=== PATIENT | male | born 1950 | race Caucasian/White ===

== ENCOUNTER 2017-05-31 18:47 | Inpatient (IN) | payer BC ==
[2017-05-31] MEDS ORDERED: ACETAMINOPHEN TAB 500 MG TAB PO STA (19:44)
[2017-05-31] MEDS ORDERED: SODIUM CHLORIDE 0.9% 1,000 ML IV STA ×2 (19:45)
[2017-05-31 19:49] LABS: Appearance,Urine Clear (Clear); Bilirubin,Urine Negative (Negative); Blood,Urine Negative (Negative); Color,Urine Yellow; Glucose,Urine (UA) Trace (Negative); Ketones,Urine Negative (Negative); Leukocyte Esterase,Urine Negative (Negative); Nitrite,Urine Negative (Negative); PH, Urine 5.5 (5.0-8.0); Protein,Urine Trace (Negative); Specific Gravity,Urine 1.017 (1.001-1.035); Urobilinogen,Urine <2.0 mg/dL (<2.0)
[2017-05-31] MEDS ORDERED: MORPHINE SULFATE 4MG/4ML SYRG IVP STA (20:20)
[2017-05-31] MEDS ORDERED: RX INFO: IV CONTRAST WAS GIVEN 1 EACH MISC MISCELLANE PRN (20:21)
[2017-05-31 20:43] LABS: Basophils % (A) 0 %; Eosinophils # (A) 0.1 k/uL (0-0.7); Eosinophils % (A) 1 %; HCT 36.5 % (39.0-53.0); HGB 12.7 gm/dL (13.0-17.5); Lymphocytes # (A) 1.6 k/uL (1.0-4.8); Lymphocytes % (A) 16 %; MCH 32.2 pg (25.0-35.0); MCHC 34.7 g/dL (31.0-37.0); MCV 92.7 fL (80.0-100.0); Mean Platelet Volume 7.6; Monocytes # (A) 0.9 k/uL (0-1.0); Monocytes % (A) 9 %; Neutrophils # (A) 7.3 k/uL (1.3-7.7); Neutrophils % (A) 73 %; Platelet Count 244 k/uL (150-450); RBC 3.94 m/uL (4.30-5.90); RDW 13.3 % (11.5-15.5)
[2017-05-31 20:48] LABS: ALT 25 U/L (21-72); AST 24 U/L (17-59); Albumin 3.9 g/dL (3.5-5.0); Alkaline Phosphatase 106 U/L (38-126); Amylase 77 U/L (30-110); Anion Gap 14 mmol/L; Blood Urea Nitrogen 15 mg/dL (9-20); Calcium 9.4 mg/dL (8.4-10.2); Carbon Dioxide 24 mmol/L (22-30); Chloride 103 mmol/L (98-107); Glucose 121 mg/dL (74-99); Lipase 149 U/L (23-300); Potassium 4.4 mmol/L (3.5-5.1); Sodium 141 mmol/L (137-145); Total Bilirubin 0.3 mg/dL (0.2-1.3); Total Protein 7.2 g/dL (6.3-8.2)
[2017-05-31 20:59] LABS: C Reactive Protein 176.7 mg/L (<10.0)
[2017-05-31 21:37] LABS: Erythrocyte Sedimentation Rate 67 mm/hr (0-15)
--- NOTE | 2017-05-31 21:48 | CT ---
EXAMINATION TYPE: CT abdomen pelvis w con DATE OF EXAM: 05/31/2017 COMPARISON: NONE HISTORY: left hip, groin pain CT DLP: 1546.50 mGycm, Automated Exposure Control for Dose Reduction was Utilized. CONTRAST: CT scan of the abdomen and pelvis is performed without oral but with with IV Contrast, patient inject ed with 100 mL of Isovue 300. FINDINGS: LUNG BASES: There is left basilar linear scarring and/or atelectasis. LIVER/GB: Cholecystectomy clips are present. PANCREAS: No significant abnormality is seen. SPLEEN: No significant abnormality is seen. ADRENALS: No significant abnormality is seen. KIDNEYS: There is simple appearing 2.5 cm cyst anteriorly upper pole of the right kidney. There is sy mmetric cortical medullary uptake and excretion from both kidneys without evidence of hydronephrosis bilaterally. Bladder is poorly distended and thus suboptimally evaluated. Some ill-defined fat strand ing along superior margin is present. Some eccentric wall thickening inferiorly is seen. Scattered pe lvic phleboliths are noted. In the bilateral adnexa there are low density oval-shaped well-circumscri bed lesions on axial image 78, right lesion measures 5.6 x 3.1 cm with Hounsfield units averaging 16 on axial image 78. Left lesion measures 4.6 x 3.9 cm with Hounsfield units averaging 19. Suspect bila teral lymphoceles. Other etiology is not excluded. Lesions are not thick walled. BOWEL: No significant abnormality is seen. PROSTATE/SEMINAL VESICLES: Prostate gland is not enlarged. 3 bullets are present. LYMPH NODES: No greater than 1cm abdominal or pelvic lymph nodes are appreciated. OSSEOUS STRUCTURES: Posterior interpedicular rods and screws transfix L2-S1 levels bilaterally. There is prominent spurring in the thoracic spine. OTHER: No significant additional abnormality is seen. IMPRESSION: 1. Possible cystitis, correlate clinically. 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 Infected lymphocele is not excluded as there is inflammatory change near this level and bladde r present.
[2017-05-31] MEDS ORDERED: LEVOFLOXACIN 750MG-D5W PMX 750 MG in DEXTROSE/WATER 1 150ML.BAG IVPB STA (22:05)
--- NOTE | 2017-05-31 22:48 | ED ---
Abdominal Pain HPI - General Source: patient, RN notes reviewed, old records reviewed Mode of arrival: ambulatory Limitations: physical limitation <Laurence Naidu - Last Filed: 06/01/17 03:56> <Amish Valero - Last Filed: 06/01/17 20:38> - General Chief Complaint: Abdominal Pain Stated Complaint: Groin/Leg Pain Time Seen by Provider: 05/31/17 19:39 - History of Present Illness Initial Comments: This patient is 58-year-old male presents emergency department today chief complaint of a few days of left groin pain. She was at a prostatectomy in February. He reports that occasionally radiate down to his hip. He reports pain with range of motion of his left hip. He states he also some pain in the left lower quadrant is abdomen. History of prostatectomy. Is ago. He states that he's had chills and fever. No difficulty with urination. No nausea or vomiting. (Laurence Naidu) - Related Data Home Medications Medication Instructions Recorded Confirmed Aspirin EC [Ecotrin Low Dose] 81 mg PO HS 05/31/17 05/31/17 Clopidogrel Bisulfate [Plavix] 75 mg PO HS 05/31/17 05/31/17 DULoxetine HCL [Cymbalta] 60 mg PO HS 05/31/17 05/31/17 Lisinopril [Zestril] 10 mg PO HS 05/31/17 05/31/17 Metoprolol Tartrate [Lopressor] 25 mg PO HS 05/31/17 05/31/17 Niacin [Slo-Niacin] 1,000 mg PO HS 05/31/17 05/31/17 Pregabalin [Lyrica] 150 mg PO HS 05/31/17 05/31/17 Pregabalin [Lyrica] 150 mg PO QAM PRN 05/31/17 05/31/17 Ranitidine HCl [Zantac] 150 mg PO HS 05/31/17 05/31/17 Ranolazine [Ranexa] 1,000 mg PO HS 05/31/17 05/31/17 Sildenafil Citrate [Sildenafil] 20 mg PO HS 05/31/17 05/31/17 Tamsulosin HCl [Flomax] 0.4 mg PO HS 05/31/17 05/31/17 Temazepam [Restoril] 15 mg PO HS 05/31/17 05/31/17 amLODIPine [Norvasc] 5 mg PO HS 05/31/17 05/31/17 lamoTRIgine [LaMICtal] 200 mg PO HS 05/31/17 05/31/17 sitaGLIPtin PHOS/metFORMIN HCL 2 tab PO HS 05/31/17 05/31/17 [Janumet Xr 50-1,000 mg Tablet] traZODone HCL [Desyrel] 200 mg PO HS 05/31/17 05/31/17 valACYclovir [Valtrex] 500 mg PO HS 05/31/17 05/31/17 Allergies Allergy/AdvReac Type Severity Reaction Status Date / Time No Known Allergies Allergy Verified 05/31/17 20:02 Review of Systems ROS Other: All systems not noted in ROS Statement are negative. <Laurence Naidu - Last Filed: 06/01/17 03:56> ROS Other: All systems not noted in ROS Statement are negative. <Amish Valero - Last Filed: 06/01/17 20:38> ROS Statement: Those systems with pertinent positive or pertinent negative responses have been documented in the HPI. Past Medical History Past Medical History: Myocardial Infarction ([place]) Additional Past Medical History / Comment(s): neuropathy, 5 stents in his heart, History of Any Multi-Drug Resistant Organisms: None Reported Past Surgical History: Prostate Surgery Additional Past Surgical History / Comment(s): stents placed, L1-s1 fused, Past Psychological History: No Psychological Hx Reported Smoking Status: Never smoker Past Alcohol Use History: None Reported Past Drug Use History: None Reported <Laurence Naidu - Last Filed: 06/01/17 03:56> General Exam Limitations: physical limitation General appearance: alert, in no apparent distress Head exam: Present: atraumatic, normocephalic, normal inspection Eye exam: Present: normal appearance, PERRL, EOMI. Absent: scleral icterus, conjunctival injection, periorbital swelling ENT exam: Present: normal exam, mucous membranes moist Neck exam: Present: normal inspection. Absent: tenderness, meningismus, lymphadenopathy Respiratory exam: Present: normal lung sounds bilaterally. Absent: respiratory distress, wheezes, rales, rhonchi, stridor Cardiovascular Exam: Present: regular rate, normal rhythm, normal heart sounds. Absent: systolic murmur, diastolic murmur, rubs, gallop, clicks GI/Abdominal exam: Present: soft, tenderness (Suprapubic tenderness.), normal bowel sounds, other (Left groin tenderness.). Absent: distended, guarding, rebound, rigid Extremities exam: Present: normal inspection, full ROM, normal capillary refill. Absent: tenderness, pedal edema, joint swelling, calf tenderness Left Hip exam: Present: normal inspection, full ROM, tenderness (Tenderness to palpation over the left inguinal region. No palpable lymph nodes No erythema.) Upper Leg exam: Present: normal inspection, full ROM Knee exam: Present: normal inspection, full ROM Back exam: Present: normal inspection Neurological exam: Present: alert, oriented X3, CN II-XII intact Psychiatric exam: Present: normal affect, normal mood Skin exam: Present: warm, dry, intact, normal color. Absent: rash <Laurence Naidu - Last Filed: 06/01/17 03:56> <Amish Valero - Last Filed: 06/01/17 20:38> - General Exam Comments Initial Comments: 66-year-old male. Alert and oriented. He is febrile 101.7. (Laurence Naidu) Vital Signs 05/31/17 05/31/17 05/31/17 19:25 22:13 23:10 Temperature 101.7 F H 99.1 F 98.2 F Pulse Rate 101 H 84 81 Respiratory 18 18 16 Rate Blood Pressure 139/79 145/75 147/9 O2 Sat by Pulse 97 96 96 Oximetry Medical Decision Making - Lab Data Result diagrams: 05/31/17 20:25 05/31/17 20:25 - Radiology Data Radiology results: report reviewed <Laurence Naidu - Last Filed: 06/01/17 03:56> - Lab Data Result diagrams: 05/31/17 20:25 05/31/17 20:25 <Amish Valero - Last Filed: 06/01/17 20:38> - Medical Decision Making 58-year-old male presents for his pharmacy chief complaint of left groin and abdominal pain. He arrives with a fever 101.7. Given Tylenol and started on IV fluids. Blood cultures and lactic acid obtained. He does have some pain with range of motion of the left hip. He CRP ordered to rule out initial possibility of septic arthritis. He reported that he was unable to bear weight and ambulate, but patient is able to do so. He was able to go through ROM of hip , without major pain. Patient has a normal white blood cell count. Lactic acid is negative. His CRP is elevated 176. His urinalysis shows no infection. A did do a CT abdomen and pelvis with contrast. The CT abdomen and pelvis shows possible cystitis to correlate clinically. There is bilateral cystic lesions which fever postsurgical lymphoceles. Infected lymphocele does not exclude it is her inflammatory changes near this level in the bladder present. With patient's fever, elevated CRP and ESR, concern for possibility of infection. Although his white blood cell count is normal and he does have a negative lactic acid. I will start the patient on Levaquin. Discussed with Dr. Harkins who discussed this with Dr. Del Angel. We will consult the on-call surgeon Dr. Akhtar. (Laurence Naidu) I saw this patient in conjunction with the physician hearing aid assistant. I performed independent history and physical exam. Agree with case management. (Amish Valero) - Lab Data Lab Results 05/31/17 05/31/17 05/31/17 Range/Units 19:40 20:25 20:25 WBC 10.0 (3.8-10.6) k/uL RBC 3.94 L (4.30-5.90) m/uL Hgb 12.7 L (13.0-17.5) gm/dL Hct 36.5 L (39.0-53.0) % MCV 92.7 (80.0-100.0) fL MCH 32.2 (25.0-35.0) pg MCHC 34.7 (31.0-37.0) g/dL RDW 13.3 (11.5-15.5) % Plt Count 244 (150-450) k/uL Neutrophils % 73 % Lymphocytes % 16 % Monocytes % 9 % Eosinophils % 1 % Basophils % 0 % Neutrophils # 7.3 (1.3-7.7) k/uL Lymphocytes # 1.6 (1.0-4.8) k/uL Monocytes # 0.9 (0-1.0) k/uL Eosinophils # 0.1 (0-0.7) k/uL Basophils # 0.0 (0-0.2) k/uL ESR 67 H (0-15) mm/hr Sodium 141 (137-145) mmol/L Potassium 4.4 (3.5-5.1) mmol/L Chloride 103 (98-107) mmol/L Carbon Dioxide 24 (22-30) mmol/L Anion Gap 14 mmol/L BUN 15 (9-20) mg/dL Creatinine 0.80 (0.66-1.25) mg/dL Est GFR (CKD-EPI)AfAm >90 (>60 ml/min/1.73 sqM) Est GFR (CKD-EPI)NonAf >90 (>60 ml/min/1.73 sqM) Glucose 121 H (74-99) mg/dL Plasma Lactic Acid Sheng (0.7-2.0) mmol/L Calcium 9.4 (8.4-10.2) mg/dL Total Bilirubin 0.3 (0.2-1.3) mg/dL AST 24 (17-59) U/L ALT 25 (21-72) U/L Alkaline Phosphatase 106 (38-126) U/L C-Reactive Protein 176.7 H (<10.0) mg/L Total Protein 7.2 (6.3-8.2) g/dL Albumin 3.9 (3.5-5.0) g/dL Amylase 77 (30-110) U/L Lipase 149 (23-300) U/L Urine Color Yellow Urine Appearance Clear (Clear) Urine pH 5.5 (5.0-8.0) Ur Specific Johnson 1.017 (1.001-1.035) Urine Protein Trace H (Negative) Urine Glucose (UA) Trace H (Negative) Urine Ketones Negative (Negative) Urine Blood Negative (Negative) Urine Nitrite Negative (Negative) Urine Bilirubin Negative (Negative) Urine Urobilinogen <2.0 (<2.0) mg/dL Ur Leukocyte Esterase Negative (Negative) Influenza Type A RNA (Not Detectd) Influenza Type B (PCR) (Not Detectd) 05/31/17 05/31/17 Range/Units 20:25 21:13 WBC (3.8-10.6) k/uL RBC (4.30-5.90) m/uL Hgb (13.0-17.5) gm/dL Hct (39.0-53.0) % MCV (80.0-100.0) fL MCH (25.0-35.0) pg MCHC (31.0-37.0) g/dL RDW (11.5-15.5) % Plt Count (150-450) k/uL Neutrophils % % Lymphocytes % % Monocytes % % Eosinophils % % Basophils % % Neutrophils # (1.3-7.7) k/uL Lymphocytes # (1.0-4.8) k/uL Monocytes # (0-1.0) k/uL Eosinophils # (0-0.7) k/uL Basophils # (0-0.2) k/uL ESR (0-15) mm/hr Sodium (137-145) mmol/L Potassium (3.5-5.1) mmol/L Chloride (98-107) mmol/L Carbon Dioxide (22-30) mmol/L Anion Gap mmol/L BUN (9-20) mg/dL Creatinine (0.66-1.25) mg/dL Est GFR (CKD-EPI)AfAm (>60 ml/min/1.73 sqM) Est GFR (CKD-EPI)NonAf (>60 ml/min/1.73 sqM) Glucose (74-99) mg/dL Plasma Lactic Acid Sheng 0.9 (0.7-2.0) mmol/L Calcium (8.4-10.2) mg/dL Total Bilirubin (0.2-1.3) mg/dL AST (17-59) U/L ALT (21-72) U/L Alkaline Phosphatase (38-126) U/L C-Reactive Protein (<10.0) mg/L Total Protein (6.3-8.2) g/dL Albumin (3.5-5.0) g/dL Amylase (30-110) U/L Lipase (23-300) U/L Urine Color Urine Appearance (Clear) Urine pH (5.0-8.0) Ur Specific Johnson (1.001-1.035) Urine Protein (Negative) Urine Glucose (UA) (Negative) Urine Ketones (Negative) Urine Blood (Negative) Urine Nitrite (Negative) Urine Bilirubin (Negative) Urine Urobilinogen (<2.0) mg/dL Ur Leukocyte Esterase (Negative) Influenza Type A RNA Not Detected (Not Detectd) Influenza Type B (PCR) Not Detected (Not Detectd) - Radiology Data The CT abdomen and pelvis shows possible cystitis to correlate clinically. There is bilateral cystic lesions which fever postsurgical lymphoceles. Infected lymphocele does not exclude it is her inflammatory changes near this level in the bladder present. (Laurence Naidu) Disposition Time of Disposition: 22:48 <Laurence Naidu - Last Filed: 06/01/17 03:56> <Amish Valero - Last Filed: 06/01/17 20:38> Clinical Impression: Lymphocele, Fever, Left groin pain Disposition: ADMITTED IP TO THIS HOSP Condition: Stable
[2017-05-31] MEDS ORDERED: ONDANSETRON 4 MG/2 ML VIAL IVP PRN (23:32)
[2017-05-31] MEDS ORDERED: IBUPROFEN 400 MG TAB PO PRN (23:32)
[2017-05-31] MEDS ORDERED: NALOXONE 0.4 MG/ML 1 ML VIAL IV PRN (23:32)
[2017-06-01] MEDS: SODIUM CHLORIDE 0.9% 1,000 ML IV SCH ×3 (01:19→19:01)
[2017-06-01 01:30] VITALS: BMI 29.2
[2017-06-01] MEDS: MORPHINE ORAL SOLN 10 MG/5 ML CUP PO PRN ×3 (08:39→20:41)
[2017-06-01] MEDS: PANTOPRAZOLE 40 MG/10 ML VIAL IV SCH (08:41)
[2017-06-01] MEDS ORDERED: PREGABALIN 75 MG CAP PO PRN (10:42)
--- NOTE | 2017-06-01 10:42 | P.HPIM ---
History of Present Illness H&P Date: 06/01/17 Chief Complaint: Left groin pain Braydon Bhatia is a 66-year-old male patient of Dr. Kelsey Valente who presented to [facility] emergency room chief complaint of left groin pain that started few days prior to presentation and has been worsening, patient reports radiation of his pain, with having difficulty lifting his left lower extremity up pain is also radiating to the left lower quadrant of the abdomen. Patient states that he was recently diagnosed with prostate cancer and underwent prostatectomy [facility] on 04/04/2017. Patient states that he had some fever and chills his temperature on presentation was 101.7 otherwise he denies any other symptoms, there was no headache no dizziness no chest pain or shortness of breath no cough no nausea or vomiting no diarrhea or constipation, he had some urinary frequency but no burning with urination, and no urgency, he denies any blood in the urine. Patient was evaluated in the emergency room, he underwent computed tomography scan of the abdomen and pelvis with contrast which revealed bilateral cystic lesions in the groin which are suspected to be lymphoceles and possibly infected lymphoceles, he was started on IV Levaquin in the emergency room and was admitted to medical floor. Past Medical History Past Medical History: Myocardial Infarction ([place]) Additional Past Medical History / Comment(s): neuropathy, 5 stents in his heart, Last Myocardial Infarction Date:: 2002 History of Any Multi-Drug Resistant Organisms: None Reported Past Surgical History: Prostate Surgery Additional Past Surgical History / Comment(s): stents placed, L1-s1 fused, Date of Last Stent Placement:: 2002 Past Psychological History: No Psychological Hx Reported Smoking Status: Never smoker Past Alcohol Use History: None Reported Past Drug Use History: None Reported Medications and Allergies Home Medications Medication Instructions Recorded Confirmed Type Aspirin EC [Ecotrin Low Dose] 81 mg PO HS 05/31/17 05/31/17 History Clopidogrel Bisulfate [Plavix] 75 mg PO HS 05/31/17 05/31/17 History DULoxetine HCL [Cymbalta] 60 mg PO HS 05/31/17 05/31/17 History Lisinopril [Zestril] 10 mg PO HS 05/31/17 05/31/17 History Metoprolol Tartrate [Lopressor] 25 mg PO HS 05/31/17 05/31/17 History Niacin [Slo-Niacin] 1,000 mg PO HS 05/31/17 05/31/17 History Pregabalin [Lyrica] 150 mg PO HS 05/31/17 05/31/17 History Pregabalin [Lyrica] 150 mg PO QAM PRN 05/31/17 05/31/17 History Ranitidine HCl [Zantac] 150 mg PO HS 05/31/17 05/31/17 History Ranolazine [Ranexa] 1,000 mg PO HS 05/31/17 05/31/17 History Sildenafil Citrate [Sildenafil] 20 mg PO HS 05/31/17 05/31/17 History Tamsulosin HCl [Flomax] 0.4 mg PO HS 05/31/17 05/31/17 History Temazepam [Restoril] 15 mg PO HS 05/31/17 05/31/17 History amLODIPine [Norvasc] 5 mg PO HS 05/31/17 05/31/17 History lamoTRIgine [LaMICtal] 200 mg PO HS 05/31/17 05/31/17 History sitaGLIPtin PHOS/metFORMIN HCL 2 tab PO HS 05/31/17 05/31/17 History [Janumet Xr 50-1,000 mg Tablet] traZODone HCL [Desyrel] 200 mg PO HS 05/31/17 05/31/17 History valACYclovir [Valtrex] 500 mg PO HS 05/31/17 05/31/17 History Allergies Allergy/AdvReac Type Severity Reaction Status Date / Time No Known Allergies Allergy Verified 05/31/17 20:02 Physical Exam Vitals: Vital Signs Temp Pulse Pulse Resp BP BP Pulse Ox 06/01/17 06:42 97.6 F 78 20 129/73 95 06/01/17 00:40 97.9 F 82 20 147/82 96 05/31/17 23:10 98.2 F 81 16 147/9 96 05/31/17 22:13 99.1 F 84 18 145/75 96 05/31/17 19:25 101.7 F H 101 H 18 139/79 97 Intake and Output 05/31/17 06/01/17 06/01/17 22:59 06:59 14:59 Intake Total 200 Balance 200 Intake: Oral 200 Other: Voiding Method Toilet Urinal # Voids 2 Weight 97.522 kg 97.522 kg In general patient is alert and oriented 3 in no apparent distress HEENT head normocephalic and atraumatic Neck is supple no JVD no goiter no lymphadenopathy Chest exam is clear to auscultation no crackles no wheezing Cardiac exam reveals regular heart sounds S1 and S2 no gallops no murmurs Abdomen is soft nontender no organomegaly with normal bowel sounds there is mild tenderness in the left groin area Extremity exam reveals no edema no cyanosis or clubbing Neurological examination reveals no gross focal deficit Results CBC & Chem 7: 05/31/17 20:25 05/31/17 20:25 Labs: Abnormal Lab Results - Last 24 Hours (Table) 05/31/17 05/31/17 05/31/17 Range/Units 19:40 20:25 20:25 RBC 3.94 L (4.30-5.90) m/uL Hgb 12.7 L (13.0-17.5) gm/dL Hct 36.5 L (39.0-53.0) % ESR 67 H (0-15) mm/hr Glucose 121 H (74-99) mg/dL C-Reactive Protein 176.7 H (<10.0) mg/L Urine Protein Trace H (Negative) Urine Glucose (UA) Trace H (Negative) Thrombosis Risk Factor Assmnt - Choose All That Apply Any of the Below Risk Factors Present?: No Other Risk Factors: Yes Each Risk Factor Represents 2 Points: Age 61-74 years Thrombosis Risk Factor Assessment Total Risk Factor Score: 2 Thrombosis Risk Factor Assessment Level: Low Risk Assessment and Plan Plan: #1 febrile illness with groin pain, and computed tomography scan of the pelvis revealing evidence of suspected bilateral infected lymphoceles, patient was started on IV Levaquin in the emergency room, will continue, will recheck repeat computed tomography scan in the next 1-2 days. Urology consultation discussed was patient however he prefers to see his own urologist at [facility]. This will be arranged as outpatient post discharge however if patient is not showing improvement we may have to transfer him to [facility] for urology evaluation. This was discussed in details with patient and his family. #2 underlying history of hypertension well-controlled on current medications continue #3 underlying history of [id number]-[id number] diabetes mellitus millimeters #4 underlying history of hyperlipidemia #5 previous history of coronary artery disease and myocardial infarction, stable at this time without any cardiac symptoms, home medications reviewed and reordered. Plan to continue with IV Levaquin at this time recheck computed tomography scan of the pelvis in the next 1-2 days, further treatment will depend on clinical course and computed tomography scan report
[2017-06-01] MEDS: ACETAMINOPHEN TAB 325 MG TAB PO PRN ×2 (13:04→20:45)
[2017-06-01] MEDS: PREGABALIN 75 MG CAP PO SCH (20:46)
[2017-06-01] MEDS: valACYclovir 500 MG TAB PO SCH (20:46)
[2017-06-01] MEDS: NIACIN TR 500 MG CAPSULE.ER PO SCH (20:46)
[2017-06-01] MEDS: lamoTRIgine 100 MG TAB PO SCH (20:46)
[2017-06-01] MEDS: RANOLAZINE 500 MG TAB.ER.12H PO SCH (20:47)
[2017-06-01] MEDS: METOPROLOL TARTRATE 25 MG TAB PO SCH (20:47)
[2017-06-01] MEDS: TAMSULOSIN 0.4 MG CAP.ER.24H PO SCH (20:47)
[2017-06-01] MEDS: CLOPIDOGREL 75 MG TAB PO SCH (20:47)
[2017-06-01] MEDS: FAMOTIDINE 20 MG TAB PO SCH (20:47)
[2017-06-01] MEDS: LISINOPRIL 10 MG TAB PO SCH (20:48)
[2017-06-01] MEDS: traZODone HCL 100 MG TAB PO SCH (20:48)
[2017-06-01] MEDS: DULoxetine HCL 60 MG CAPSULE.DR PO SCH (20:48)
[2017-06-01] MEDS: metFORMIN 500 MG TAB PO SCH (20:48)
[2017-06-01] MEDS: amLODIPine 5 MG TAB PO SCH (20:49)
[2017-06-01] MEDS: ASPIRIN 81 MG PO SCH (20:49)
[2017-06-01] MEDS: LINAGLIPTIN 5 MG TABLET PO SCH (20:49)
[2017-06-01] MEDS: LEVOFLOXACIN 500MG-D5W PMX 500 MG in DEXTROSE/WATER 1 100ML.BAG IVPB SCH (20:50)
[2017-06-01] MEDS: TEMAZEPAM 15 MG CAP PO SCH (20:54)
[2017-06-01] MEDS ORDERED: SITAGLIPTIN PHOS PO SCH (21:00)
[2017-06-01] MEDS ORDERED: [UNRECOGNIZED DRUG - OTHER] PO SCH (21:00)
[2017-06-01] MEDS ORDERED: METFORMIN HCL PO SCH (21:00)
[2017-06-02] MEDS: SODIUM CHLORIDE 0.9% 1,000 ML IV SCH ×3 (06:10→18:24)
[2017-06-02] MEDS: metFORMIN 500 MG TAB PO SCH ×2 (07:39→20:09)
[2017-06-02] MEDS: PANTOPRAZOLE 40 MG/10 ML VIAL IV SCH (07:39)
[2017-06-02] MEDS: ENOXAPARIN 40 MG/0.4 ML SYRINGE SQ SCH (07:39)
[2017-06-02 08:46] LABS: HCT 33.4 % (39.0-53.0); HGB 11.4 gm/dL (13.0-17.5); RBC 3.53 m/uL (4.30-5.90); WBC 8.5 k/uL (3.8-10.6)
[2017-06-02 08:47] LABS: Basophils % (A) 0 %; Eosinophils % (A) 1 %; Lymphocytes # (A) 1.6 k/uL (1.0-4.8); Lymphocytes % (A) 19 %; MCH 32.2 pg (25.0-35.0); MCV 94.7 fL (80.0-100.0); Mean Platelet Volume 6.8; Monocytes # (A) 0.7 k/uL (0-1.0); Monocytes % (A) 9 %; Neutrophils # (A) 5.9 k/uL (1.3-7.7); Neutrophils % (A) 69 %; Platelet Count 233 k/uL (150-450); RDW 13.1 % (11.5-15.5)
[2017-06-02 09:10] LABS: ALT 27 U/L (21-72); AST 15 U/L (17-59); Albumin 2.9 g/dL (3.5-5.0); Alkaline Phosphatase 87 U/L (38-126); Anion Gap 13 mmol/L; Blood Urea Nitrogen 16 mg/dL (9-20); Calcium 8.5 mg/dL (8.4-10.2); Carbon Dioxide 24 mmol/L (22-30); Chloride 102 mmol/L (98-107); Glucose 119 mg/dL (74-99); Potassium 4.5 mmol/L (3.5-5.1); Sodium 139 mmol/L (137-145); Total Bilirubin 0.5 mg/dL (0.2-1.3); Total Protein 5.6 g/dL (6.3-8.2)
[2017-06-02] MEDS ORDERED: RX INFO: IV CONTRAST WAS GIVEN 1 EACH MISC MISCELLANE PRN (13:38)
--- NOTE | 2017-06-02 13:43 | P.PN ---
Subjective Progress Note Date: 06/02/17 Braydon Bhatia is a 66-year-old male patient of Dr. Kelsey Valente who presented to [facility] emergency room chief complaint of left groin pain that started few days prior to presentation and has been worsening, patient reports radiation of his pain, with having difficulty lifting his left lower extremity up pain is also radiating to the left lower quadrant of the abdomen. Patient states that he was recently diagnosed with prostate cancer and underwent prostatectomy [facility] on 04/04/2017. Patient states that he had some fever and chills his temperature on presentation was 101.7 otherwise he denies any other symptoms, there was no headache no dizziness no chest pain or shortness of breath no cough no nausea or vomiting no diarrhea or constipation, he had some urinary frequency but no burning with urination, and no urgency, he denies any blood in the urine. Patient was evaluated in the emergency room, he underwent computed tomography scan of the abdomen and pelvis with contrast which revealed bilateral cystic lesions in the groin which are suspected to be lymphoceles and possibly infected lymphoceles, he was started on IV Levaquin in the emergency room and was admitted to medical floor. 06/02/2017 patient is still complaining of left groin pain. He had a temporal 101.3 last night. Blood culture negative so far. Denies any burning with urination. A repeat computed tomography scan the abdomen and pelvis with IV contrast has been ordered. He remains on Levaquin. Infectious disease has been consulted. Objective - Vital Signs Vital signs: Vital Signs Temp 98.8 F 06/02/17 05:52 Pulse 76 06/02/17 05:52 Resp 18 06/02/17 08:30 BP 109/60 06/02/17 05:52 Pulse Ox 95 06/02/17 05:52 Intake & Output 06/01/17 06/02/17 06/02/17 18:59 06:59 18:59 Intake Total 240 Output Total 250 Balance -250 240 Intake: Oral 240 Output: Urine 250 Other: Voiding Method Urinal Urinal Toilet Urinal # Voids 3 1 - Exam Head normocephalic Neck supple Lungs clear to auscultation bilaterally no wheezing or crackles Heart regular rate and rhythm S1-S2, no rub or gallop Abdomen is soft nontender nondistended positive bowel sounds no hepatosplenomegaly Extremities no edema Neuro alert and orientated to 3 : Left groin tender with palpation. No masses palpated. No discoloration - Labs CBC & Chem 7: 06/02/17 07:32 06/02/17 07:32 Labs: Abnormal Lab Results - Last 24 Hours (Table) 06/02/17 06/02/17 Range/Units 07:32 07:32 RBC 3.53 L (4.30-5.90) m/uL Hgb 11.4 L (13.0-17.5) gm/dL Hct 33.4 L (39.0-53.0) % Glucose 119 H (74-99) mg/dL AST 15 L (17-59) U/L Total Protein 5.6 L (6.3-8.2) g/dL Albumin 2.9 L (3.5-5.0) g/dL Microbiology - Last 24 Hours (Table) 05/31/17 20:25 Blood Culture - Preliminary Blood No Growth after 24 hours Assessment and Plan Assessment: #1 febrile illness with groin pain, and computed tomography scan of the pelvis revealing evidence of suspected bilateral infected lymphoceles, patient was started on IV Levaquin in the emergency room. Repeat computed tomography scan of the abdomen and pelvis has been ordered. Consult infectious disease Urology consultation discussed was patient however he prefers to see his own urologist at [facility]. This will be arranged as outpatient post discharge however if patient is not showing improvement we may have to transfer him to [facility] for urology evaluation. This was discussed in details with patient and his family. #2 underlying history of hypertension well-controlled on current medications continue #3 underlying history of rcg-wcmzueb-ismqtwoin diabetes mellitus #4 underlying history of hyperlipidemia #5 previous history of coronary artery disease and myocardial infarction, stable at this time without any cardiac symptoms, home medications reviewed and reordered. DVT prophylaxis Lovenox I performed an examination of the patient and discussed their management with the physician Husbandry Technician. I have reviewed the Physician Husbandry Technician's notes and agree with the documented findings and plan of care
--- NOTE | 2017-06-02 15:54 | CT ---
EXAMINATION TYPE: CT abdomen pelvis w con DATE OF EXAM: 06/02/2017 COMPARISON: Prior CT abdomen pelvis 05/31/2017 HISTORY: Patient complains of LLQ pain. Patient had prostatectomy in February. CT DLP: 1535 mGycm Automated exposure control for dose reduction was used. TECHNIQUE: Helical acquisition of images from the lung bases through the pelvis have been completed. CONTRAST: Performed without Oral Contrast and with IV Contrast, patient injected with 100 mL of Isovue 300. FINDINGS: LUNG BASES: Linear bandlike area of increased attenuation on the left compatible dependent atelectasi s, there may be a small amount of effusion, minimal dependent atelectasis and possible small effusion on the right as well. AORTA: No significant abnormality is appreciated. LIVER/GB: No significant abnormality interval change is appreciated, patient is post cholecystectomy. PANCREAS: No significant abnormality is seen. SPLEEN: No significant abnormality is seen. ADRENALS: No significant abnormality is seen. KIDNEYS: Cortical cyst again noted within the upper pole the right kidney. REPRODUCTIVE ORGANS: Again noted are fluid collections within the pelvis bilaterally. Somewhat thicke r wall is noted on the left, the collection on the left measures approximately 6 cm x 4.1 x 3.7 cm, c ollection on the right measures approximately 6 cm x 3.2 x 4.6 cm. Some local mass effect noted on th e bladder. There is some inflammatory change noted locally greater on the left than on the right, the pelvic sidewall collections are in close proximity to the vasculature, postop changes are noted to t he prostate. BOWEL: No significant abnormality is seen. FREE AIR: No Free Air visible. ASCITES: None visible. PELVIC ADENOPATHY: None visualized. RETROPERITONEAL ADENOPATHY: No Retroperitoneal Adenopathy visible. URINARY BLADDER: Some dependent hyperdensity within the bladder present on delayed imaging compatibl e with contrast material. OSSEOUS STRUCTURES: No postop changes noted to the spine as on prior exam. IMPRESSION: INDETERMINATE PELVIC FLUID COLLECTIONS PRESENT BILATERALLY COULD BE INDICATIVE OF LYMPHOCELES, ABSCES S, SEROMA OR HEMATOMA, CORRELATE. Basilar atelectasis, minimal effusions
[2017-06-02] MEDS: ACETAMINOPHEN TAB 325 MG TAB PO PRN (18:00)
[2017-06-02] MEDS: LEVOFLOXACIN 500MG-D5W PMX 500 MG in DEXTROSE/WATER 1 100ML.BAG IVPB SCH (20:01)
[2017-06-02] MEDS: PREGABALIN 75 MG CAP PO SCH (20:05)
[2017-06-02] MEDS: valACYclovir 500 MG TAB PO SCH (20:06)
[2017-06-02] MEDS: ASPIRIN 81 MG PO SCH (20:06)
[2017-06-02] MEDS: RANOLAZINE 500 MG TAB.ER.12H PO SCH (20:06)
[2017-06-02] MEDS: NIACIN TR 500 MG CAPSULE.ER PO SCH (20:07)
[2017-06-02] MEDS: CLOPIDOGREL 75 MG TAB PO SCH (20:07)
[2017-06-02] MEDS: FAMOTIDINE 20 MG TAB PO SCH (20:07)
[2017-06-02] MEDS: LISINOPRIL 10 MG TAB PO SCH (20:07)
[2017-06-02] MEDS: lamoTRIgine 100 MG TAB PO SCH (20:07)
[2017-06-02] MEDS: LINAGLIPTIN 5 MG TABLET PO SCH (20:08)
[2017-06-02] MEDS: DULoxetine HCL 60 MG CAPSULE.DR PO SCH (20:08)
[2017-06-02] MEDS: METOPROLOL TARTRATE 25 MG TAB PO SCH (20:08)
[2017-06-02] MEDS: TAMSULOSIN 0.4 MG CAP.ER.24H PO SCH (20:08)
[2017-06-02] MEDS: amLODIPine 5 MG TAB PO SCH (20:08)
[2017-06-02] MEDS: traZODone HCL 100 MG TAB PO SCH (20:08)
[2017-06-02] MEDS: TEMAZEPAM 15 MG CAP PO SCH (20:12)
--- NOTE | 2017-06-02 23:48 | P.CONS ---
History of Present Illness - Reason for Consult Consult date: 06/02/17 - Chief Complaint Lower abdominal pain - History of Present Illness 66-year-old male who has a history of prostate carcinoma who underwent a robotic prostatectomy at [facility] in March. The patient relates that he did well with the surgery and was discharged home. He said difficulties of low bladder volume and does have nocturia of 2-4 times per night. He relates to generally doing well after the surgery except recently has developed some new symptoms. Is feeling cool and chill. He has developed increasing amounts of discomfort into his lower pelvis. This was present after surgery but seems to have increased. He has a known history of significant disc disease and had back surgery nearly 3 years ago. He's had some residual discomfort to his left leg since but now has had some increasing amount of discomfort to that area. He's had this significant feeling of fullness discomfort and burning to the lower pelvis and with increasing leg pain sought intervention. The patient has had CAT scan done 2 for the last several days revealed evidence of the lymphocele type collection into the lower pelvis, because of his discomforts the infectious diseases consultation was requested. Of note the patient was initiated to Levaquin therapy but was not on other recent antibiotic therapy that he can recall. He did receive antibiotics after his prostatectomy. he is not having to straight cath at this time. Review of Systems Patient relates that he had a fever and some chills before he came to Hospital that are now improving. HEENT:Denies headache or acute visual change. Denies sinus or mouth discomforts. Denies neck stiffness or pain. Denies significant oral cavity pain. Denies difficulty on swallowing. Lungs: Denies significant shortness of breath, cough, sputum production, or hemoptysis. Cardiovascular: Denies significant shortness of breath, chest pain, chest wall pain, orthopnea, dyspnea on exertion, syncope Gastrointestinal:Denies nausea, vomiting, diarrhea, constipation, hematemesis, melena, hematochezia. No no significant change of bowel habit noticed. Urological patient does have the symptoms as per the HPI of significant low better volume but no hematuria Musculoskeletal: denies significant myalgias or arthralgias. No new joint swelling. Denies new back pain. Skin: Denies new rash or lesions. No new ulcers or wounds are related.. Neuro: Denies headache or visual change. Denies any new onset weakness or difficulty with ambulation. Denies falls or seizures. Psychiatric:Denies anxiety or depression. Endocrine: Denies significant fatigue, denies significant weight loss or weight gain. Past Medical History Past Medical History: Myocardial Infarction (ND) Additional Past Medical History / Comment(s): neuropathy, 5 stents in his heart, Last Myocardial Infarction Date:: 2002 History of Any Multi-Drug Resistant Organisms: None Reported Past Surgical History: Prostate Surgery Additional Past Surgical History / Comment(s): stents placed, L1-s1 fused, Date of Last Stent Placement:: 2002 Past Psychological History: No Psychological Hx Reported Additional Psychological History / Comment(s): . Retired. experience with the [employer]. Was in [place] and has some effects from agent orange that includes his diabetes and his prostate cancer. 3 Dogs and cat in the house. Denies travel history since his days Smoking Status: Never smoker Past Alcohol Use History: None Reported Past Drug Use History: None Reported Medications and Allergies Home Medications and Allergies Comment(s): Laboratory Results WBC 8.5 k/uL (3.8-10.6) 06/02/17 07:32 RBC 3.53 m/uL (4.30-5.90) L 06/02/17 07:32 Hgb 11.4 gm/dL (13.0-17.5) L 06/02/17 07:32 Hct 33.4 % (39.0-53.0) L 06/02/17 07:32 MCV 94.7 fL (80.0-100.0) 06/02/17 07:32 MCH 32.2 pg (25.0-35.0) 06/02/17 07:32 MCHC 34.0 g/dL (31.0-37.0) 06/02/17 07:32 RDW 13.1 % (11.5-15.5) 06/02/17 07:32 Plt Count 233 k/uL (150-450) 06/02/17 07:32 Neutrophils % 69 % 06/02/17 07:32 Lymphocytes % 19 % 06/02/17 07:32 Monocytes % 9 % 06/02/17 07:32 Eosinophils % 1 % 06/02/17 07:32 Basophils % 0 % 06/02/17 07:32 Neutrophils # 5.9 k/uL (1.3-7.7) 06/02/17 07:32 Lymphocytes # 1.6 k/uL (1.0-4.8) 06/02/17 07:32 Monocytes # 0.7 k/uL (0-1.0) 06/02/17 07:32 Eosinophils # 0.0 k/uL (0-0.7) 06/02/17 07:32 Basophils # 0.0 k/uL (0-0.2) 06/02/17 07:32 ESR 67 mm/hr (0-15) H 05/31/17 20:25 Sodium 139 mmol/L (137-145) 06/02/17 07:32 Potassium 4.5 mmol/L (3.5-5.1) 06/02/17 07:32 Chloride 102 mmol/L (98-107) 06/02/17 07:32 Carbon Dioxide 24 mmol/L (22-30) 06/02/17 07:32 Anion Gap 13 mmol/L 06/02/17 07:32 BUN 16 mg/dL (9-20) 06/02/17 07:32 Creatinine 0.89 mg/dL (0.66-1.25) 06/02/17 07:32 Est GFR (CKD-EPI)AfAm >90 (>60 ml/min/1.73 sqM) 06/02/17 07:32 Est GFR (CKD-EPI)NonAf 88 (>60 ml/min/1.73 sqM) 06/02/17 07:32 Glucose 119 mg/dL (74-99) H 06/02/17 07:32 Plasma Lactic Acid Sheng 0.9 mmol/L (0.7-2.0) 05/31/17 20:25 Calcium 8.5 mg/dL (8.4-10.2) 06/02/17 07:32 Total Bilirubin 0.5 mg/dL (0.2-1.3) 06/02/17 07:32 AST 15 U/L (17-59) L 06/02/17 07:32 ALT 27 U/L (21-72) 06/02/17 07:32 Alkaline Phosphatase 87 U/L (38-126) 06/02/17 07:32 C-Reactive Protein 176.7 mg/L (<10.0) H 05/31/17 20:25 Total Protein 5.6 g/dL (6.3-8.2) L 06/02/17 07:32 Albumin 2.9 g/dL (3.5-5.0) L 06/02/17 07:32 Amylase 77 U/L (30-110) 05/31/17 20:25 Lipase 149 U/L (23-300) 05/31/17 20:25 Urine Color Yellow 05/31/17 19:40 Urine Appearance Clear (Clear) 05/31/17 19:40 Urine pH 5.5 (5.0-8.0) 05/31/17 19:40 Ur Specific Thomas 1.017 (1.001-1.035) 05/31/17 19:40 Urine Protein Trace (Negative) H 05/31/17 19:40 Urine Glucose (UA) Trace (Negative) H 05/31/17 19:40 Urine Ketones Negative (Negative) 05/31/17 19:40 Urine Blood Negative (Negative) 05/31/17 19:40 Urine Nitrite Negative (Negative) 05/31/17 19:40 Urine Bilirubin Negative (Negative) 05/31/17 19:40 Urine Urobilinogen <2.0 mg/dL (<2.0) 05/31/17 19:40 Ur Leukocyte Esterase Negative (Negative) 05/31/17 19:40 Influenza Type A RNA Not Detected (Not Detectd) 05/31/17 21:13 Influenza Type B (PCR) Not Detected (Not Detectd) 05/31/17 21:13 Home Medications Medication Instructions Recorded Confirmed Type Aspirin EC [Ecotrin Low Dose] 81 mg PO HS 05/31/17 05/31/17 History Clopidogrel Bisulfate [Plavix] 75 mg PO HS 05/31/17 05/31/17 History DULoxetine HCL [Cymbalta] 60 mg PO HS 05/31/17 05/31/17 History Lisinopril [Zestril] 10 mg PO HS 05/31/17 05/31/17 History Metoprolol Tartrate [Lopressor] 25 mg PO HS 05/31/17 05/31/17 History Niacin [Slo-Niacin] 1,000 mg PO HS 05/31/17 05/31/17 History Pregabalin [Lyrica] 150 mg PO HS 05/31/17 05/31/17 History Pregabalin [Lyrica] 150 mg PO QAM PRN 05/31/17 05/31/17 History Ranitidine HCl [Zantac] 150 mg PO HS 05/31/17 05/31/17 History Ranolazine [Ranexa] 1,000 mg PO HS 05/31/17 05/31/17 History Sildenafil Citrate [Sildenafil] 20 mg PO HS 05/31/17 05/31/17 History Tamsulosin HCl [Flomax] 0.4 mg PO HS 05/31/17 05/31/17 History Temazepam [Restoril] 15 mg PO HS 05/31/17 05/31/17 History amLODIPine [Norvasc] 5 mg PO HS 05/31/17 05/31/17 History lamoTRIgine [LaMICtal] 200 mg PO HS 05/31/17 05/31/17 History sitaGLIPtin PHOS/metFORMIN HCL 2 tab PO HS 05/31/17 05/31/17 History [Janumet Xr 50-1,000 mg Tablet] traZODone HCL [Desyrel] 200 mg PO HS 05/31/17 05/31/17 History valACYclovir [Valtrex] 500 mg PO HS 05/31/17 05/31/17 History Allergies Allergy/AdvReac Type Severity Reaction Status Date / Time No Known Allergies Allergy Verified 05/31/17 20:02 Physical Exam Vitals: Vital Signs Temp Pulse Resp BP Pulse Ox 06/02/17 13:50 98.8 F 81 18 133/63 94 L 06/02/17 08:30 18 06/02/17 05:52 98.8 F 76 18 109/60 95 Intake and Output 06/02/17 06/02/17 06/03/17 14:59 22:59 06:59 Intake Total 240 Output Total 975 725 Balance -735 -725 Intake: Oral 240 Output: Urine 975 725 Other: Voiding Method Toilet Urinal Urinal # Voids 4 2 Pleasant 66-year-old male who is tall and his build but not obese HEENT: Anicteric conjunctiva are pink and moist nasal mucosa grossly intact without significant lesions, there is no thrush. Neck: The neck is supple without significant lymphadenopathy or thyromegaly. Lungs: Good bilateral air entry without significant crackles or wheezing. There is no significant bronchial sounds. There is no egophony or dullness. Heart: Regular rate and rhythm with an audible S1-S2, no S3 no S4. There is no significant murmur click or rub, PMI was nondisplaced. Abdomen: Positive bowel sounds soft and nontender without palpable masses or organomegaly. There was no guarding or rebound. Extremities: The upper extremities have excellent pulses they are symmetric, no significant petechiae or telangiectasia. No splinter hemorrhages were noted. The lower extremities have minimal edema. The left hip has difficulties with some tenderness to range of motion to both inversion and eversion, the limb also is weaker than the right in that went straight leg raise is done is able to maintain the right leg and air but the left false the bed immediately. He relates this is not very new since his back surgery but seems to be worse since he has become ill after his prostate surgery. Neuro: Awake alert oriented to person place and time. He has noted has the left leg weakness Genital exam reveals him to have no significant scrotal swelling, has evidence of testicular atrophy, there is no palpable mass into the groin area or suprapubic area. Results CBC & Chem 7: 06/02/17 07:32 06/02/17 07:32 Labs: Abnormal Lab Results - Last 24 Hours (Table) 06/02/17 06/02/17 Range/Units 07:32 07:32 RBC 3.53 L (4.30-5.90) m/uL Hgb 11.4 L (13.0-17.5) gm/dL Hct 33.4 L (39.0-53.0) % Glucose 119 H (74-99) mg/dL AST 15 L (17-59) U/L Total Protein 5.6 L (6.3-8.2) g/dL Albumin 2.9 L (3.5-5.0) g/dL Microbiology - Last 24 Hours (Table) 05/31/17 20:25 Blood Culture - Preliminary Blood No Growth after 48 hours Laboratory Results WBC 8.5 k/uL (3.8-10.6) 06/02/17 07:32 RBC 3.53 m/uL (4.30-5.90) L 06/02/17 07:32 Hgb 11.4 gm/dL (13.0-17.5) L 06/02/17 07:32 Hct 33.4 % (39.0-53.0) L 06/02/17 07:32 MCV 94.7 fL (80.0-100.0) 06/02/17 07:32 MCH 32.2 pg (25.0-35.0) 06/02/17 07:32 MCHC 34.0 g/dL (31.0-37.0) 06/02/17 07:32 RDW 13.1 % (11.5-15.5) 06/02/17 07:32 Plt Count 233 k/uL (150-450) 06/02/17 07:32 Neutrophils % 69 % 06/02/17 07:32 Lymphocytes % 19 % 06/02/17 07:32 Monocytes % 9 % 06/02/17 07:32 Eosinophils % 1 % 06/02/17 07:32 Basophils % 0 % 06/02/17 07:32 Neutrophils # 5.9 k/uL (1.3-7.7) 06/02/17 07:32 Lymphocytes # 1.6 k/uL (1.0-4.8) 06/02/17 07:32 Monocytes # 0.7 k/uL (0-1.0) 06/02/17 07:32 Eosinophils # 0.0 k/uL (0-0.7) 06/02/17 07:32 Basophils # 0.0 k/uL (0-0.2) 06/02/17 07:32 ESR 67 mm/hr (0-15) H 05/31/17 20:25 Sodium 139 mmol/L (137-145) 06/02/17 07:32 Potassium 4.5 mmol/L (3.5-5.1) 06/02/17 07:32 Chloride 102 mmol/L (98-107) 06/02/17 07:32 Carbon Dioxide 24 mmol/L (22-30) 06/02/17 07:32 Anion Gap 13 mmol/L 06/02/17 07:32 BUN 16 mg/dL (9-20) 06/02/17 07:32 Creatinine 0.89 mg/dL (0.66-1.25) 06/02/17 07:32 Est GFR (CKD-EPI)AfAm >90 (>60 ml/min/1.73 sqM) 06/02/17 07:32 Est GFR (CKD-EPI)NonAf 88 (>60 ml/min/1.73 sqM) 06/02/17 07:32 Glucose 119 mg/dL (74-99) H 06/02/17 07:32 Plasma Lactic Acid Sheng 0.9 mmol/L (0.7-2.0) 05/31/17 20:25 Calcium 8.5 mg/dL (8.4-10.2) 06/02/17 07:32 Total Bilirubin 0.5 mg/dL (0.2-1.3) 06/02/17 07:32 AST 15 U/L (17-59) L 06/02/17 07:32 ALT 27 U/L (21-72) 06/02/17 07:32 Alkaline Phosphatase 87 U/L (38-126) 06/02/17 07:32 C-Reactive Protein 176.7 mg/L (<10.0) H 05/31/17 20:25 Total Protein 5.6 g/dL (6.3-8.2) L 06/02/17 07:32 Albumin 2.9 g/dL (3.5-5.0) L 06/02/17 07:32 Amylase 77 U/L (30-110) 05/31/17 20:25 Lipase 149 U/L (23-300) 05/31/17 20:25 Urine Color Yellow 05/31/17 19:40 Urine Appearance Clear (Clear) 05/31/17 19:40 Urine pH 5.5 (5.0-8.0) 05/31/17 19:40 Ur Specific Thomas 1.017 (1.001-1.035) 05/31/17 19:40 Urine Protein Trace (Negative) H 05/31/17 19:40 Urine Glucose (UA) Trace (Negative) H 05/31/17 19:40 Urine Ketones Negative (Negative) 05/31/17 19:40 Urine Blood Negative (Negative) 05/31/17 19:40 Urine Nitrite Negative (Negative) 05/31/17 19:40 Urine Bilirubin Negative (Negative) 05/31/17 19:40 Urine Urobilinogen <2.0 mg/dL (<2.0) 05/31/17 19:40 Ur Leukocyte Esterase Negative (Negative) 04/07/18 19:40 Influenza Type A RNA Not Detected (Not Detectd) 05/31/17 21:13 Influenza Type B (PCR) Not Detected (Not Detectd) 05/31/17 21:13 Microbiology 05/31/17 20:25 Blood Blood Culture - Preliminary No Growth after 48 hours Assessment and Plan (1) Lymphocele Narrative/Plan: 66 year old male presents to Hospital with fever and chill and increasing discomfort to his lower pelvis. As noted the patient has a history of the prostatectomy that was robotic than [facility]. He is now feeling somewhat better. The fever has resolved and patient feels better, but is still having some lower pelvic pain any ongoing symptoms to the left hip and leg. The patient is able to ambulate with only some discomfort. He is having no difficulties with urinary obstruction or incontinence, is also having no difficulties with fecal incontinence or constipation. Evidence of a positive cultures at this point in time, but no urine cultures available. The patient has had 2 CT scans show evidence of fluid collection in the pelvis likely directly related to his prostatectomy with lymphocele. Infection cannot be completely ruled out. At this time without evidence of bacteremia in improvement of his fever with current antibiotic therapy of Levaquin, we plan to complete a course of Levaquin and then have him follow-up with his urologist at [facility] in the next short period of time. It is likely the fluid collections or a consequence of his surgery, however the pain to the left hip area is slightly worrisome. He does have a history of prior back surgery with chronic difficulties of the left hip area but seems to be having some worsening problems since the prostatectomy. The patient has no leukocytosis and his CRP is markedly elevated, but unknown what his baseline is recently given his surgical intervention. Current Visit: Yes Status: Acute Code(s): I89.8 - OTH NONINFECTIVE DISORDERS OF LYMPHATIC VESSELS AND NODES SNOMED Code(s): 253677904 (2) Left groin pain Current Visit: Yes Status: Acute Code(s): R10.32 - LEFT LOWER QUADRANT PAIN SNOMED Code(s): 084925458 (3) Prostate cancer Current Visit: Yes Status: Acute Code(s): C61 - MALIGNANT NEOPLASM OF PROSTATE SNOMED Code(s): 467932127
[2017-06-03] MEDS: ACETAMINOPHEN TAB 325 MG TAB PO PRN ×2 (00:09→09:32)
[2017-06-03] MEDS: SODIUM CHLORIDE 0.9% 1,000 ML IV SCH ×2 (06:11→10:41)
[2017-06-03 07:22] VITALS: BP 111/61; PULSE 82; RESP 16; TEMP 100.4
[2017-06-03] MEDS: PANTOPRAZOLE 40 MG/10 ML VIAL IV SCH (07:57)
[2017-06-03] MEDS: ENOXAPARIN 40 MG/0.4 ML SYRINGE SQ SCH (07:57)
[2017-06-03] MEDS: metFORMIN 500 MG TAB PO SCH (07:57)
[2017-06-03 09:47] LABS: Basophils % (A) 0 %; Eosinophils % (A) 0 %; HCT 31.6 % (39.0-53.0); HGB 10.8 gm/dL (13.0-17.5); Lymphocytes # (A) 1.2 k/uL (1.0-4.8); Lymphocytes % (A) 12 %; MCH 31.9 pg (25.0-35.0); MCHC 34.1 g/dL (31.0-37.0); MCV 93.4 fL (80.0-100.0); Mean Platelet Volume 6.9; Monocytes # (A) 0.6 k/uL (0-1.0); Monocytes % (A) 6 %; Neutrophils % (A) 80 %; Platelet Count 244 k/uL (150-450); RBC 3.38 m/uL (4.30-5.90); RDW 13.1 % (11.5-15.5)
[2017-06-03 10:03] LABS: ALT 16 U/L (21-72); AST 15 U/L (17-59); Albumin 2.8 g/dL (3.5-5.0); Alkaline Phosphatase 93 U/L (38-126); Anion Gap 15 mmol/L; Blood Urea Nitrogen 15 mg/dL (9-20); Calcium 8.6 mg/dL (8.4-10.2); Carbon Dioxide 19 mmol/L (22-30); Chloride 105 mmol/L (98-107); Glucose 131 mg/dL (74-99); Potassium 4.1 mmol/L (3.5-5.1); Sodium 139 mmol/L (137-145); Total Bilirubin 0.5 mg/dL (0.2-1.3); Total Protein 5.6 g/dL (6.3-8.2)
--- NOTE | 2017-06-03 13:24 | P.DS ---
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 Repeat computed tomography scan showing indeterminate pelvic fluid collections present bilaterally could be indicative of lymphoceles, abscess, seroma or hematoma. Patient seen by infectious disease. In which they felt that the fluid collection was likely related to patient's recent prostate surgery. Patient's white count has remained normal. Patient still having some low-grade fevers but improved since admission. Infectious disease is recommending to continue the Levaquin. Blood cultures remain negative. Patient is medically stable to follow-up with his urologist at [facility] as outpatient as soon as possible. Patient will be given CD of his abdominal CAT scan film. #2 underlying history of hypertension well-controlled on current medications continue #3 underlying history of [id number] diabetes mellitus, type 2 #4 underlying history of hyperlipidemia #5 previous history of coronary artery disease and myocardial infarction, stable at this time without any cardiac symptoms, home medications reviewed and reordered. Hospital course Braydon Bhatia is a 66-year-old male patient of Dr. Kelsey Valente who presented to [facility] emergency room chief complaint of left groin pain that started few days prior to presentation and has been worsening, patient reports radiation of his pain, with having difficulty lifting his left lower extremity up pain is also radiating to the left lower quadrant of the abdomen. Patient states that he was recently diagnosed with prostate cancer and underwent prostatectomy [facility] on 04/04/2017. Patient states that he had some fever and chills his temperature on presentation was 101.7 otherwise he denies any other symptoms, there was no headache no dizziness no chest pain or shortness of breath no cough no nausea or vomiting no diarrhea or constipation, he had some urinary frequency but no burning with urination, and no urgency, he denies any blood in the urine. Patient was evaluated in the emergency room, he underwent computed tomography scan of the abdomen and pelvis with contrast which revealed bilateral cystic lesions in the groin which are suspected to be lymphoceles and possibly infected lymphoceles, he was started on IV Levaquin in the emergency room and was admitted to medical floor. Patient has been on IV Levaquin. Seen by infectious disease. As stated above they felt the fluid collection was related to his recent prostate surgery. However patient has had some improvement in his fevers with the Levaquin. Blood cultures remain negative. The recommending continuing the Levaquin at time of discharge. We'll continue patient on Levaquin 500 milligrams daily for 7 more days. Patient reports that his pain in the left groin and hip are improving. He has been up and ambulating without difficulty. We'll have patient follow-up with his PCP and Khris Townsend urologist as soon as possible. Patient is agreeable to this plan. Patient is medically stable for discharge. Recommend checking CBC in 1 week Patient Condition at Discharge: Stable Plan - Discharge Summary Discharge Rx Participant: No New Discharge Prescriptions: New Levofloxacin [Levaquin] 500 mg PO DAILY #7 tab Continue Ranolazine [Ranexa] 1,000 mg PO HS traZODone HCL [Desyrel] 200 mg PO HS DULoxetine HCL [Cymbalta] 60 mg PO HS Aspirin EC [Ecotrin Low Dose] 81 mg PO HS Temazepam [Restoril] 15 mg PO HS Ranitidine HCl [Zantac] 150 mg PO HS Niacin [Slo-Niacin] 1,000 mg PO HS Metoprolol Tartrate [Lopressor] 25 mg PO HS Lisinopril [Zestril] 10 mg PO HS lamoTRIgine [LaMICtal] 200 mg PO HS amLODIPine [Norvasc] 5 mg PO HS valACYclovir [Valtrex] 500 mg PO HS Tamsulosin HCl [Flomax] 0.4 mg PO HS Sildenafil Citrate [Sildenafil] 20 mg PO HS sitaGLIPtin PHOS/metFORMIN HCL [Janumet Xr 50-1,000 mg Tablet] 2 tab PO HS Clopidogrel Bisulfate [Plavix] 75 mg PO HS Pregabalin [Lyrica] 150 mg PO QAM PRN PRN Reason: Pain Pregabalin [Lyrica] 150 mg PO HS Discharge Medication List Aspirin EC [Ecotrin Low Dose] 81 mg PO HS 05/31/17 [History] Clopidogrel Bisulfate [Plavix] 75 mg PO HS 05/31/17 [History] DULoxetine HCL [Cymbalta] 60 mg PO HS 05/31/17 [History] Lisinopril [Zestril] 10 mg PO HS 05/31/17 [History] Metoprolol Tartrate [Lopressor] 25 mg PO HS 05/31/17 [History] Niacin [Slo-Niacin] 1,000 mg PO HS 05/31/17 [History] Pregabalin [Lyrica] 150 mg PO HS 05/31/17 [History] Pregabalin [Lyrica] 150 mg PO QAM PRN 05/31/17 [History] Ranitidine HCl [Zantac] 150 mg PO HS 05/31/17 [History] Ranolazine [Ranexa] 1,000 mg PO HS 05/31/17 [History] Sildenafil Citrate [Sildenafil] 20 mg PO HS 05/31/17 [History] Tamsulosin HCl [Flomax] 0.4 mg PO HS 05/31/17 [History] Temazepam [Restoril] 15 mg PO HS 05/31/17 [History] amLODIPine [Norvasc] 5 mg PO HS 05/31/17 [History] lamoTRIgine [LaMICtal] 200 mg PO HS 05/31/17 [History] sitaGLIPtin PHOS/metFORMIN HCL [Janumet Xr 50-1,000 mg Tablet] 2 tab PO HS 05/31 [History] traZODone HCL [Desyrel] 200 mg PO HS 05/31/17 [History] valACYclovir [Valtrex] 500 mg PO HS 05/31/17 [History] Levofloxacin [Levaquin] 500 mg PO DAILY #7 tab 06/03/17 [Rx] Follow up Appointment(s)/Referral(s): Kelsey Valente DO [Primary Care Provider] - 3 Days Abiodun Alberto MD [STAFF PHYSICIAN] - 1 Week Ambulatory/Diagnostic Orders: Complete Blood Count w/diff [LAB.AMB] Time Frame: 1 Week, Location: Determined By Patient Activity/Diet/Wound Care/Special Instructions: Diet: diabetic, cardiac Activity: as tolerated Patient is to follow up with his urologist out of [facility] as soon as possible Discharge Disposition: HOME SELF-CARE
== END 2017-06-03 14:21 | disposition home or self-care (01) | DRG 863 ==
LOC: EC 18:47 → 4MS4W 23:19
PROVIDERS: ADMIT Internal Medicine; ATTEND Internal Medicine
DX: T81.4XXA Infection following a procedure, initial encounter (principal); E11.40 Type 2 diabetes mellitus with diabetic neuropathy, unspecified; I89.8 Other specified noninfective disorders of lymphatic vessels and lymph nodes; I10 Essential (primary) hypertension; E78.5 Hyperlipidemia, unspecified; I25.10 Atherosclerotic heart disease of native coronary artery without angina pectoris; R35.1 Nocturia; R35.0 Frequency of micturition; I25.2 Old myocardial infarction; Z79.84 Long term (current) use of oral hypoglycemic drugs; Z79.02 Long term (current) use of antithrombotics/antiplatelets; Z79.82 Long term (current) use of aspirin; Z79.899 Other long term (current) drug therapy; Z90.79 Acquired absence of other genital organ(s); Z85.46 Personal history of malignant neoplasm of prostate; Z98.1 Arthrodesis status; Z77.098 Contact with and (suspected) exposure to other hazardous, chiefly nonmedicinal, chemicals; Z95.5 Presence of coronary angioplasty implant and graft; Y83.6 Removal of other organ (partial) (total) as the cause of abnormal reaction of the patient, or of later complication, without mention of misadventure at the time of the procedure
CPT/HCPCS: 36415; 74177; 80053; 81003; 82150; 83605; 83690; 85025; 85652; 86140; 87040; 87502; 96361; 96365; 96375; 99285

== ENCOUNTER → 2017-07-10 | Outpatient (CLI) | payer BC ==
[2017-07-10 08:36] LABS: Blood Urea Nitrogen 19 mg/dL (9-20)
--- NOTE | 2017-07-10 09:14 | CT ---
EXAMINATION TYPE: CT angio chest DATE OF EXAM: 07/10/2017 COMPARISON: NONE HISTORY: Elevated d dimer, hemoptysis CT DLP: 376.8 mGycm. Automated Exposure Control for Dose Reduction was Utilized. CONTRAST: CTA scan of the thorax is performed with IV Contrast, patient injected with 100 mL of Isovue 300, pul monary embolism protocol. MIP Images are created on CT scanner and reviewed. FINDINGS: LUNGS: Is multifocal bilateral pleural-parenchymal scarring and subsegmental atelectasis. The lungs a re grossly clear, there is no concerning parenchymal mass identified. There is no pleural effusion or pneumothorax seen. The tracheobronchial tree is patent. MEDIASTINUM: There are small nonocclusive segmental and subsegmental filling defects isolated to the left lower lobe. Right ventricular to left ventricular ratio is less than 1 and within normal limits. Main pulmonary artery is nonenlarged measuring 2.6 cm. No evidence of right heart strain. Extensive three-vessel coronary calcifications are noted. No reflux of contrast into the inferior vena cava or hepatic veins. There is satisfactory enhancement of the pulmonary artery and its branches, there is n o CT evidence for pulmonary embolism. There are no greater than 1 cm hilar or mediastinal lymph node s. No cardiomegaly or pericardial effusion is seen. OTHER: Gallbladder is surgically absent. Partial visualization of a probable right renal cyst measuri ng at least 2.2 cm. Prior fracture deformity of the sternoclavicular joint on the left and moderate m ultilevel degenerative changes of the thoracic spine. Multilevel bridging of the anterior thoracic ve rtebral bodies suggests diffuse idiopathic skeletal hyperostosis. IMPRESSION: 1. Small nonocclusive acute appearing pulmonary emboli isolated to the segmental and subsegmental pul monary arteries of the left lower lobe. No evidence of right heart strain. Findings were discussed wi Dr. Cintron ordering physician by Dr. Avila at 0910 on 07/10/2018 with instructions for the patient to go to either her office or the ER for treatment. 2. Extensive coronary artery calcifications.
== END | disposition home or self-care (01) ==
LOC: RADCTMAIN 07:57
PROVIDERS: ATTEND Family Medicine
DX: I26.09 Other pulmonary embolism with acute cor pulmonale (principal); I25.10 Atherosclerotic heart disease of native coronary artery without angina pectoris
CPT/HCPCS: 82565; 84520; 71275; 36415; Q9967

== ENCOUNTER 2019-04-13 21:19 | Observation (INO) | payer BC ==
[2019-04-14] MEDS ORDERED: METOPROLOL TARTRATE 50 MG TAB PO STA (00:05)
[2019-04-14 00:48] LABS: Glucose,Whole Blood 210 mg/dL (75-99)
[2019-04-14 01:01] LABS: HCT 32.5 % (39.0-53.0); HGB 11.5 gm/dL (13.0-17.5); MCH 32.8 pg (25.0-35.0); MCHC 35.4 g/dL (31.0-37.0); MCV 92.7 fL (80.0-100.0); Mean Platelet Volume 7.4; Platelet Count 196 k/uL (150-450); RBC 3.51 m/uL (4.30-5.90); RDW 12.4 % (11.5-15.5); WBC 3.6 k/uL (3.8-10.6)
[2019-04-14] MEDS: SODIUM CHLORIDE 0.9% 1,000 ML IV SCH ×3 (01:10→17:41)
[2019-04-14] MEDS: RANOLAZINE 500 MG TAB.ER.12H PO SCH ×3 (01:10→21:05)
[2019-04-14 01:19] LABS: Albumin 3.4 g/dL (3.5-5.0); Potassium 3.6 mmol/L (3.5-5.1); Total Bilirubin 0.4 mg/dL (0.2-1.3); Total Protein 6.1 g/dL (6.3-8.2)
[2019-04-14 01:40] LABS: Eosinophils # (M) 0.04 k/uL (0-0.7); Lymphocytes # (M) 0.76 k/uL (1.0-4.8); Monocytes # (M) 0.36 k/uL (0-1.0); Neutrophils # (M) 2.45 k/uL (1.3-7.7); Neutrophils % (M) 68 %; Nucleated Red Blood Cells 0 /100 WBC (0-0); Poikilocytosis (M) Present; Total Cells Counted 100
[2019-04-14] MEDS ORDERED: RX INFO: IV CONTRAST WAS GIVEN 1 EACH MISC MISCELLANE PRN (01:46)
--- NOTE | 2019-04-14 02:58 | CT ---
EXAMINATION TYPE: CT chest angio for PE DATE OF EXAM: 04/14/2019 COMPARISON: None HISTORY: Patient presents with elevated d-dimer. Prior on pacs. CT DLP: 418.7 mGycm Automated exposure control for dose reduction was used. CONTRAST: Performed with IV Contrast, patient injected with 60mL mL of Isovue 370. Multiple axial sections were obtained from the thoracic inlet to the diaphragm with intravenous contr ast. There are 3-D post processed images. There is some mild linear reticular linear infiltrate posterior right upper lobe. There is similar ch britt at the left posterior lung base. There is no pleural effusion. There is no pericardial effusion. There is no mediastinal adenopathy. There are no hilar masses. Ascending aorta measures 3.8 cm. Ther e is no sign of dissection. There is normal contrast opacification of the pulmonary arteries. I see no filling defect. There is s ome spurring in the thoracic spine. There is no compression fracture. Bony thorax is intact. Upper ab dominal soft tissues are intact. IMPRESSION: No evidence of pulmonary embolism. Mild linear densities in both lungs consistent with scarring and s ubsegmental atelectasis..
[2019-04-14 07:02] LABS: Glucose,Whole Blood 234 mg/dL (75-99)
[2019-04-14] MEDS: INSULIN ASPART (NovoLOG) 100 UNIT/ML VIAL SQ SCH ×4 (07:36→21:03)
[2019-04-14] MEDS: MORPHINE SULFATE 4 MG/ML SYRINGE IVP PRN ×2 (07:37→19:16)
[2019-04-14] MEDS ORDERED: METOPROLOL TARTRATE 50 MG TAB PO SCH (09:00)
[2019-04-14] MEDS ORDERED: PREGABALIN 75 MG CAP PO SCH (09:00)
--- NOTE | 2019-04-14 09:09 | P.HPIM ---
History of Present Illness H&P Date: 04/14/19 Chief Complaint: chest pain, shortness of breath Braydon Bhatia is a 68-year-old male with past medical history of coronary artery disease follows with [facility] out of [place] and history of 8 stents previously, type 2 diabetes, prostate cancer status post prostatectomy, agent orange exposure. He initially presented to [facility] emergency department last night complaining of chest pain and shortness of breath over the past few weeks. He states this has been chronic for him but recently worsening. He saw his PCP for the same last week and noted that he had not been taking his metoprolol or Ranexa for at least 6 months. He had previously been on Imdur but has not been taking this over the same period of time as well. Patient states he does not manage his own medicines and had been filling this. He states he has still not had a chance to fill these medicines. 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 In [facility] emergency department his vitals were stable, troponin negative 1, D dimer elevated, creatinine at 1.6 from baseline 1.1. Chest x-ray was performed and negative. EKG showed first-degree AV block, no acute infarct. Patient was transferred to [facility] and underwent CTA chest which was negative. Currently he continues to complain of shortness of breath, weakness, and chest heaviness. Review of Systems All systems: negative Constitutional: Reports as per HPI, Reports weakness, Denies chills, Denies fever Eyes: denies blurred vision, denies pain Ears, nose, mouth and throat: Denies headache, Denies sore throat Cardiovascular: Reports chest pain, Reports dyspnea on exertion, Reports shortness of breath Respiratory: Denies cough Gastrointestinal: Denies abdominal pain, Denies diarrhea, Denies nausea, Denies vomiting Musculoskeletal: Denies myalgias Integumentary: Denies pruritus, Denies rash Neurological: Denies numbness, Denies weakness Psychiatric: Denies anxiety, Denies depression Endocrine: Denies fatigue, Denies weight change Past Medical History Past Medical History: Cancer, Diabetes Mellitus, Myocardial Infarction ([place]), Prostate Disorder Additional Past Medical History / Comment(s): neuropathy, 8 stents in his heart, prostate CA-last radiation in 2018. PTSD, DVT, PE Last Myocardial Infarction Date:: 2002 History of Any Multi-Drug Resistant Organisms: None Reported Past Surgical History: Prostate Surgery Additional Past Surgical History / Comment(s): stents placed, L1-s1 fused, right 3rd finger sugery. Past Anesthesia/Blood Transfusion Reactions: No Reported Reaction Date of Last Stent Placement:: 2002 Past Psychological History: No Psychological Hx Reported Additional Psychological History / Comment(s): . Retired. experience with the [employer]. Was in [place] and has some effects from agent orange that includes his diabetes and his prostate cancer. 3 Dogs and cat in the house. Denies travel history since his days Smoking Status: Former smoker Past Alcohol Use History: None Reported Past Drug Use History: None Reported - Past Family History Father Family Medical History: Myocardial Infarction ([place]) Medications and Allergies Home Medications Medication Instructions Recorded Confirmed Type Aspirin EC [Ecotrin Low Dose] 81 mg PO HS 05/31/17 04/14/19 History Clopidogrel Bisulfate [Plavix] 75 mg PO HS 05/31/17 04/14/19 History DULoxetine HCL [Cymbalta] 60 mg PO HS 05/31/17 04/14/19 History Lisinopril [Zestril] 10 mg PO HS 05/31/17 04/14/19 History Metoprolol Tartrate [Lopressor] 25 mg PO HS 05/31/17 04/14/19 History Niacin [Slo-Niacin] 1,000 mg PO HS 05/31/17 04/14/19 History Pregabalin [Lyrica] 150 mg PO HS 05/31/17 04/14/19 History Pregabalin [Lyrica] 150 mg PO QAM PRN 05/31/17 04/14/19 History Ranitidine HCl [Zantac] 150 mg PO HS 05/31/17 04/14/19 History Ranolazine [Ranexa] 1,000 mg PO HS 05/31/17 04/14/19 History Sildenafil Citrate 20 mg PO HS 05/31/17 04/14/19 History Tamsulosin HCl [Flomax] 0.4 mg PO HS 05/31/17 04/14/19 History Temazepam [Restoril] 15 mg PO HS 05/31/17 04/14/19 History amLODIPine [Norvasc] 5 mg PO HS 05/31/17 04/14/19 History lamoTRIgine [LaMICtal] 200 mg PO HS 05/31/17 04/14/19 History sitaGLIPtin PHOS/metFORMIN HCL 2 tab PO HS 05/31/17 04/14/19 History [Janumet Xr 50-1,000 mg Tablet] traZODone HCL [Desyrel] 200 mg PO HS 05/31/17 04/14/19 History valACYclovir [Valtrex] 500 mg PO HS 05/31/17 04/14/19 History Levofloxacin [Levaquin] 500 mg PO DAILY #7 tab 06/03/17 04/14/19 Rx Allergies Allergy/AdvReac Type Severity Reaction Status Date / Time No Known Allergies Allergy Verified 04/14/19 09:06 Physical Exam Vitals: Vital Signs Temp Pulse Pulse Resp BP Pulse Ox 04/14/19 05:27 97.5 F L 55 L 18 92/55 96 04/14/19 01:12 97.7 F 69 16 135/69 97 Intake and Output 04/13/19 04/14/19 04/14/19 22:59 06:59 14:59 Intake Total 750 Balance 750 Intake: Intake, IV Titration 750 Amount Sodium Chloride 0.9% 1, 750 000 ml @ 125 mls/hr IV . Q8H [facility] Rx#:[id number] Other: Voiding Method Toilet Urinal Weight 95.254 kg Gen.: Well-developed, well-nourished white male in no acute distress HEENT: Normocephalic, atraumatic, mucous membranes moist Neck: Supple, no JVD, no thyromegaly Lymph: No cervical or axillary lymphadenopathy CV: Heart sounds diminished, no murmur. Pulses 2+ Lungs: Normal effort, clear throughout Abdomen: Soft, nontender, no organomegaly Neuro: Alert and oriented 3, no focal deficits Skin: Warm and dry Results CBC & Chem 7: 04/14/19 00:41 04/14/19 00:41 Labs: Abnormal Lab Results - Last 24 Hours (Table) 04/14/19 04/14/19 04/14/19 Range/Units 00:41 00:41 00:41 WBC 3.6 L (3.8-10.6) k/uL RBC 3.51 L (4.30-5.90) m/uL Hgb 11.5 L (13.0-17.5) gm/dL Hct 32.5 L (39.0-53.0) % Lymphocytes # (Manual) 0.76 L (1.0-4.8) k/uL D-Dimer 3.77 H (<0.60) mg/L FEU Sodium 131 L (137-145) mmol/L BUN 30 H (9-20) mg/dL Glucose 187 H (74-99) mg/dL POC Glucose (mg/dL) (75-99) mg/dL Total Protein 6.1 L (6.3-8.2) g/dL Albumin 3.4 L (3.5-5.0) g/dL 04/14/19 04/14/19 Range/Units 00:48 07:01 WBC (3.8-10.6) k/uL RBC (4.30-5.90) m/uL Hgb (13.0-17.5) gm/dL Hct (39.0-53.0) % Lymphocytes # (Manual) (1.0-4.8) k/uL D-Dimer (<0.60) mg/L FEU Sodium (137-145) mmol/L BUN (9-20) mg/dL Glucose (74-99) mg/dL POC Glucose (mg/dL) 210 H 234 H (75-99) mg/dL Total Protein (6.3-8.2) g/dL Albumin (3.5-5.0) g/dL Thrombosis Risk Factor Assmnt - Choose All That Apply Each Factor Represents 1 point: Obesity (BMI >25) Other Risk Factors: Yes Each Risk Factor Represents 2 Points: Age 61-74 years, Malignancy Each Risk Factor Represents 3 Points: History of DVT/PE Other congenital or acquired thrombophilia - If yes, enter type in comment: No Thrombosis Risk Factor Assessment Total Risk Factor Score: 8 Thrombosis Risk Factor Assessment Level: High Risk Assessment and Plan (1) Chest pain Current Visit: Yes Status: Acute Code(s): R07.9 - CHEST PAIN, UNSPECIFIED SNOMED Code(s): 14296920 (2) Coronary artery disease involving [place] heart Current Visit: Yes Status: Acute Code(s): I25.10 - ATHSCL HEART DISEASE OF [place] CORONARY ARTERY W/O ANG PCTRS SNOMED Code(s): 00616553 (3) Unstable angina Current Visit: Yes Status: Acute Code(s): I20.0 - UNSTABLE ANGINA SNOMED Code(s): 4060588 (4) Type 2 diabetes, controlled, with neuropathy Current Visit: Yes Status: Acute Code(s): E11.40 - TYPE 2 DIABETES MELLITUS WITH DIABETIC NEUROPATHY, UNSP SNOMED Code(s): 31220034 (5) Acute kidney injury Current Visit: Yes Status: Acute Code(s): N17.9 - ACUTE KIDNEY FAILURE, UNSPECIFIED SNOMED Code(s): 01712732 (6) Prostate cancer Current Visit: No Status: Acute Code(s): C61 - MALIGNANT NEOPLASM OF PROSTATE SNOMED Code(s): 309643925 Plan: 1. Unstable angina. Coronary artery disease. We will check troponin again. Suspect some degree of his angina is due to being off of his medications. Restart metoprolol and Ranexa. Continue Plavix and aspirin. Cardiology consult for further evaluation 2. Acute kidney injury. Improved with IV fluids 3. Elevated d-dimer. CTA negative for PE. 4. Type 2 diabetes. Accu-Cheks, sliding scale. Lyrica 5. Insomnia. Continue trazodone and Restoril DVT prophylaxis Lovenox
[2019-04-14] MEDS ORDERED: RANOLAZINE 1000 MG PO SCH (11:00)
[2019-04-14 11:12] LABS: Glucose,Whole Blood 297 mg/dL (75-99)
[2019-04-14] MEDS: PANTOPRAZOLE 40 MG/10 ML VIAL IVP SCH ×2 (12:14→21:04)
--- NOTE | 2019-04-14 12:17 | P.CRDCN ---
History of Present Illness History of present illness: HISTORY OF PRESENTING ILLNESS This is a pleasant 68-year-old male past medical history significant for artery artery disease status post multiple stent placements, hypertension, dyslipidemia, diabetes mellitus and former nicotine dependence. He follows in the office with a corporate safety coordinator out of [place], Dr. Rodriguez. We have been asked to see in consultation for chest pain. He initially presented to [facility] with symptoms of chest pain intermittently for the last few weeks. No radiation to the arm, back, neck or jaw. No associated symptoms. No specific aggravating or alleviating factors. Apparently he had not been taking his ranexa and imdur. He is seen and examined sitting up in the bed in no acute distress. He is currently chest pain free. His work-up at [place] included an elevated D-dimer of 3.8, troponin negative x1, creatinine 1.5. He underwent a CTA upon arrival here that was negative for PE. EKG at [place] was sinus mechanism with first degree AVB and non-specific changes inferiorly. No acute ST or T-wave changes. No EKG obtained here. Chest xray negative for an acute cardiopulmonary process. Current cardiac medications include aspirin 81 mg daily, Plavix 75 mg daily, Toprol 25 mg daily, rosuvastatin 10 mg at bedtime, amlodipine/benazepril 2.5/10 mg daily and lisinopril 10 mg daily. He also was supposed to be on Imdur 60 mg daily and Ranexa 1000 mg twice a day. Repeat laboratory data obtained here reveals WBC 3.6, hemoglobin 11.5, platelets 196, d-dimer 3.77, sodium 131, potassium 3.6, creatinine 1.01 and cardiac enzymes negative 1. REVIEW OF SYSTEMS At the time of my exam: CONSTITUTIONAL: Denies fever or chills. CARDIOVASCULAR: Denies chest pain, shortness of breath, orthopnea, PND or palpitations. RESPIRATORY: Denies cough. GASTROINTESTINAL: Denies abdominal pain, diarrhea, constipation, nausea or vomiting. MUSCULOSKELETAL: Denies myalgias. NEUROLOGIC: Denies numbness, tingling or weakness. ENDOCRINE: Denies fatigue, weight change, polydipsia or polyurina. GENITOURINARY: Denies burning, hematuria or urgency with micturation. HEMATOLOGIC: Denies history of anemia or bleeding. PHYSICAL EXAMINATION Blood pressure 116/72 heart rate 55 afebrile and maintaining oxygen saturation on room air. CONSTITUTIONAL: No apparent distress. HEENT: Head is normocephalic. Pupils are equal, round. Sclerae anicteric. Mucous membranes of the mouth are moist. No JVD. No carotid bruit. CHEST EXAMINATION: Lungs are clear to auscultation. No chest wall tenderness is noted on palpation or with deep breathing. HEART EXAMINATION: Regular rate and rhythm. S1, S2 heard. No murmurs, gallops or rub. ABDOMEN: Soft, nontender. Positive bowel sounds. EXTREMITIES: 2+ peripheral pulses, no lower extremity edema and no calf tende rness. NEUROLOGIC EXAMINATION: Patient is awake, alert and oriented x3. ASSESSMENT Chest pain, an acute event has been ruled out. History of coronary artery disease status post multiple PCI's exact details unavailable. Hypertension Dyslipidemia Diabetes mellitus PLAN Repeat EKG. Obtain 2-D echocardiogram and Doppler study to assess cardiac structure and function. Obtain reports from his primary corporate safety coordinator for review. Resume aspirin, Plavix, Toprol and rosuvastatin as previously ordered. He should not be on benazapril and lisinorpil together. Hold both at this time and watch his blood pressure. If required resume only lisinopril. Increase activity and ambulation in the halls. Assess for ongoing exertional chest pain. Recommend maximizing his medical therapy with medications and follow up with his primary corporate safety coordinator upon discharge. Thank you kindly for this consultation. Nurse Practitioner note has been reviewed, I agree with a documented findings and plan of care. Patient was seen and examined. Past Medical History Past Medical History: Cancer, Diabetes Mellitus, Myocardial Infarction ([place]), Prostate Disorder Additional Past Medical History / Comment(s): neuropathy, 8 stents in his heart, prostate CA-last radiation in 2018. PTSD, DVT, PE Last Myocardial Infarction Date:: 2002 History of Any Multi-Drug Resistant Organisms: None Reported Past Surgical History: Prostate Surgery Additional Past Surgical History / Comment(s): stents placed, L1-s1 fused, right 3rd finger sugery. Past Anesthesia/Blood Transfusion Reactions: No Reported Reaction Date of Last Stent Placement:: 2002 Past Psychological History: No Psychological Hx Reported Additional Psychological History / Comment(s): . Retired. experience with the [employer]. Was in [place] and has some effects from agent ora nge that includes his diabetes and his prostate cancer. 3 Dogs and cat in the house. Denies travel history since his days Smoking Status: Former smoker Past Alcohol Use History: None Reported Past Drug Use History: None Reported - Past Family History Father Family Medical History: Myocardial Infarction ([place]) Medications and Allergies Home Medications Medication Instructions Recorded Confirmed Type Aspirin EC [Ecotrin Low Dose] 81 mg PO HS 05/31/17 04/14/19 History Clopidogrel Bisulfate [Plavix] 75 mg PO HS 05/31/17 04/14/19 History DULoxetine HCL [Cymbalta] 60 mg PO HS 05/31/17 04/14/19 History Lisinopril [Zestril] 10 mg PO DIRECTED 05/31/17 04/14/19 History Temazepam [Restoril] 15 mg PO HS 05/31/17 04/14/19 History lamoTRIgine [LaMICtal] 200 mg PO BID 05/31/17 04/14/19 History traZODone HCL [Desyrel] 200 mg PO HS 05/31/17 04/14/19 History valACYclovir [Valtrex] 500 mg PO HS 05/31/17 04/14/19 History Bisacodyl [Dulcolax] 5 mg PO DAILY 04/14/19 04/14/19 History Isosorbide Mononitrate ER [Imdur] 60 mg PO DAILY 04/14/19 04/14/19 History Metoprolol Succinate [Toprol XL] 25 mg PO HS 04/14/19 04/14/19 History Mirabegron [Myrbetriq] 25 mg PO HS 04/14/19 04/14/19 History Nitroglycerin Oint [Nitro-Bid Oint] 0.5 inch TRANSDERM DAILY PRN 04/14/19 04/14/19 History Pregabalin [Lyrica] 75 mg PO BID 04/14/19 04/14/19 History Ranolazine [Ranexa] 1,000 mg PO BID 04/14/19 04/14/19 History Rosuvastatin [Crestor] 10 mg PO HS 04/14/19 04/14/19 History Semaglutide [Ozempic] 0.25 mg SQ ORTIZ 04/14/19 04/14/19 History Sildenafil Citrate 50 mg PO DIRECTED PRN 04/14/19 04/14/19 History amLODIPine BESYLATE/BENAZEPRIL 1 cap PO DAILY 04/14/19 04/14/19 History [Lotrel 2.5-10 MG] Allergies Allergy/AdvReac Type Severity Reaction Status Date / Time No Known Allergies Allergy Verified 04/14/19 09:06 Physical Exam Vitals: Vital Signs Temp Pulse Pulse Resp BP Pulse Ox 04/14/19 11:35 97.4 F L 62 20 116/72 96 04/14/19 08:00 55 L 69 18 04/14/19 05:27 97.5 F L 55 L 18 92/55 96 04/14/19 01:12 97.7 F 69 16 135/69 97 Intake and Output 04/13/19 04/14/19 04/14/19 22:59 06:59 14:59 Intake Total 750 Balance 750 Intake: Intake, IV Titration 750 Amount Sodium Chloride 0.9% 1, 750 000 ml @ 125 mls/hr IV . Q8H [facility] Rx#:[id number] Other: Voiding Method Toilet Toilet Urinal Urinal Weight 95.254 kg Results 04/14/19 00:41 04/14/19 00:41 Cardiac Enzymes 04/14/19 04/14/19 Range/Units 00:41 09:14 AST 31 (17-59) U/L Troponin I <0.012 (0.000-0.034) ng/mL CBC 04/14/19 Range/Units 00:41 WBC 3.6 L (3.8-10.6) k/uL RBC 3.51 L (4.30-5.90) m/uL Hgb 11.5 L (13.0-17.5) gm/dL Hct 32.5 L (39.0-53.0) % Plt Count 196 (150-450) k/uL Comprehensive Metabolic Panel 04/14/19 Range/Units 00:41 Sodium 131 L (137-145) mmol/L Potassium 3.6 (3.5-5.1) mmol/L Chloride 99 (98-107) mmol/L Carbon Dioxide 25 (22-30) mmol/L BUN 30 H (9-20) mg/dL Creatinine 1.01 (0.66-1.25) mg/dL Glucose 187 H (74-99) mg/dL Calcium 9.0 (8.4-10.2) mg/dL AST 31 (17-59) U/L ALT 26 (4-49) U/L Alkaline Phosphatase 124 (38-126) U/L Total Protein 6.1 L (6.3-8.2) g/dL Albumin 3.4 L (3.5-5.0) g/dL Current Medications Generic Name Dose Route Start Last Admin Trade Name Freq PRN Reason Stop Dose Admin Aspirin 81 mg 04/14/19 21:00 Aspirin PO HS [facility] Atorvastatin Calcium 20 mg 04/14/19 21:00 Lipitor PO HS [facility] Bisacodyl 5 mg 04/15/19 09:00 Dulcolax PO DAILY [facility] Clopidogrel Bisulfate 75 mg 04/14/19 21:00 Plavix PO HS [facility] Duloxetine HCl 60 mg 04/14/19 21:00 Cymbalta PO HS [facility] Enoxaparin Sodium 40 mg 04/14/19 09:15 Lovenox SQ DAILY [facility] Sodium Chloride 1,000 mls @ 100 mls/hr 04/14/19 00:15 04/14/19 01:10 Saline 0.9% IV 125 mls/hr .Q10H [facility] Administration Insulin Aspart 0 unit 04/14/19 07:30 04/14/19 07:36 Novolog SQ 3 unit ACHS [facility] Administration Protocol Lamotrigine 200 mg 04/14/19 11:00 Lamictal PO BID [facility] Metoprolol Succinate 25 mg 04/14/19 21:00 Toprol Xl PO HS [facility] Miscellaneous Information 1 each 04/14/19 01:46 Rx Info: Iv Contrast Was Given MISCELLANE 04/16/19 01:48 DAILY PRN Per Protocol Morphine Sulfate 4 mg 04/14/19 00:07 04/14/19 07:37 Morphine Sulfate (Inj) IVP 4 mg Q6HR PRN Administration Pain Patient's Own Med ( 25 mg 04/14/19 21:00 Mirabegron [ PO Myrbetriq] 25 Mg) HS [facility] Pantoprazole Sodium 40 mg 04/14/19 09:00 Protonix IVP BID [facility] Pregabalin 75 mg 04/14/19 11:00 Lyrica PO BID [facility] Ranolazine 1,000 mg 04/14/19 00:15 04/14/19 07:45 Ranexa PO 1,000 mg Q12HR [facility] Administration Tamsulosin HCl 0.4 mg 04/14/19 21:00 Flomax PO HS [facility] Temazepam 15 mg 04/14/19 21:00 Restoril PO HS [facility] Trazodone HCl 200 mg 04/14/19 21:00 Desyrel PO HS [facility] Valacyclovir HCl 500 mg 04/14/19 21:00 Valtrex PO HS [facility] Intake and Output 04/13/19 04/14/19 04/14/19 22:59 06:59 14:59 Intake Total 750 Balance 750 Intake: Intake, IV Titration 750 Amount Sodium Chloride 0.9% 1, 750 000 ml @ 125 mls/hr IV . Q8H [facility] Rx#:[id number] Other: Voiding Method Toilet Toilet Urinal Urinal Weight 95.254 kg 04/14/19 00:41 04/14/19 00:41
[2019-04-14] MEDS: PREGABALIN 75 MG CAP PO SCH ×2 (12:21→21:04)
[2019-04-14] MEDS: lamoTRIgine 100 MG TAB PO SCH ×2 (12:22→21:04)
[2019-04-14] MEDS: ENOXAPARIN 40 MG/0.4 ML SYRINGE SQ SCH (12:22)
[2019-04-14 17:44] LABS: Glucose,Whole Blood 232 mg/dL (75-99)
[2019-04-14 20:07] LABS: Glucose,Whole Blood 232 mg/dL (75-99)
[2019-04-14] MEDS ORDERED: LISINOPRIL 5 MG TAB PO SCH (21:00)
[2019-04-14] MEDS ORDERED: ATORVASTATIN 20 MG TAB PO SCH (21:00)
[2019-04-14] MEDS ORDERED: LISINOPRIL 10 MG TAB PO SCH (21:00)
[2019-04-14] MEDS ORDERED: lamoTRIgine 100 MG TAB PO SCH (21:00)
[2019-04-14] MEDS: CLOPIDOGREL 75 MG TAB PO SCH (21:03)
[2019-04-14] MEDS: DULoxetine HCL 60 MG CAPSULE.DR PO SCH (21:03)
[2019-04-14] MEDS: ASPIRIN 81 MG PO SCH (21:03)
[2019-04-14] MEDS: METOPROLOL SUCCINATE (ER) 25 MG TAB.ER.24H PO SCH (21:04)
[2019-04-14] MEDS: TAMSULOSIN 0.4 MG CAP.ER.24H PO SCH (21:05)
[2019-04-14] MEDS: traZODone HCL 100 MG TAB PO SCH (21:05)
[2019-04-14] MEDS: TEMAZEPAM 15 MG CAP PO SCH (21:05)
[2019-04-14] MEDS: PATIENT'S OWN MED (Mirabegron [Myrbetriq] 25 MG) PO SCH (21:14)
[2019-04-14] MEDS: valACYclovir 500 MG TAB PO SCH (21:21)
[2019-04-15] MEDS: SODIUM CHLORIDE 0.9% 1,000 ML IV SCH ×2 (05:42→16:43)
[2019-04-15 07:08] LABS: Glucose,Whole Blood 354 mg/dL (75-99)
[2019-04-15] MEDS: ENOXAPARIN 40 MG/0.4 ML SYRINGE SQ SCH (08:11)
[2019-04-15] MEDS: lamoTRIgine 100 MG TAB PO SCH ×2 (08:12→20:12)
[2019-04-15] MEDS: ISOSORBIDE MONONITRATE ER 60 MG TAB.ER.24H PO SCH (08:12)
[2019-04-15] MEDS: BISACODYL 5 MG TABLET.DR PO SCH (08:12)
[2019-04-15] MEDS: RANOLAZINE 500 MG TAB.ER.12H PO SCH ×2 (08:12→20:11)
[2019-04-15] MEDS: PREGABALIN 75 MG CAP PO SCH ×2 (08:12→20:12)
[2019-04-15] MEDS: PANTOPRAZOLE 40 MG/10 ML VIAL IVP SCH (08:13)
[2019-04-15] MEDS: INSULIN ASPART (NovoLOG) 100 UNIT/ML VIAL SQ SCH ×4 (08:13→20:27)
[2019-04-15 09:48] LABS: Basophils % (A) 0 %; Eosinophils # (A) 0.1 k/uL (0-0.7); Eosinophils % (A) 1 %; HCT 33.7 % (39.0-53.0); HGB 11.7 gm/dL (13.0-17.5); Lymphocytes # (A) 0.6 k/uL (1.0-4.8); Lymphocytes % (A) 9 %; MCH 33.2 pg (25.0-35.0); MCHC 34.6 g/dL (31.0-37.0); MCV 95.8 fL (80.0-100.0); Mean Platelet Volume 7.4; Monocytes # (A) 0.3 k/uL (0-1.0); Monocytes % (A) 5 %; Neutrophils # (A) 5.2 k/uL (1.3-7.7); Neutrophils % (A) 83 %; Platelet Count 172 k/uL (150-450); RBC 3.51 m/uL (4.30-5.90); RDW 12.4 % (11.5-15.5); WBC 6.3 k/uL (3.8-10.6)
[2019-04-15 10:09] LABS: Potassium 4.6 mmol/L (3.5-5.1)
[2019-04-15] MEDS: MORPHINE SULFATE 4 MG/ML SYRINGE IVP PRN ×2 (10:26→16:41)
[2019-04-15] MEDS: LISINOPRIL 5 MG TAB PO SCH (10:26)
--- NOTE | 2019-04-15 10:45 | ECHOF ---
Referral Reason:cp MEASUREMENTS -------- HEIGHT: 182.9 cm WEIGHT: 95.3 kg BP: 136/73 IVSd: 1.1 cm (0.6 - 1.1) LVIDd: 4.6 cm (3.9 - 5.3) LVPWd: 1.3 cm (0.6 - 1.1) IVSs: 1.6 cm LVIDs: 2.8 cm LVPWs: 1.8 cm LA Diam: 3.7 cm (2.7 - 3.8) RVIDd: 3.4 cm (< 3.3) LAESV Index (A-L): 27.14 ml/m Ao Diam: 3.5 cm (2.0 - 3.7) AV Cusp: 2.2 cm (1.5 - 2.6) EPSS: 0.4 cm MV E Panchito: 1.14 m/s MV DecT: 341 ms MV A Panchito: 1.36 m/s MV E/A Ratio: 0.84 RAP: 5.00 mmHg RVSP: 37.34 mmHg MV EF SLOPE: 42.99 mm/s (70 - 150) MV EXCURSION: 18.74 mm (> 18.000) FINDINGS -------- Sinus rhythm. This was a technically adequate study. The left ventricular size is normal. There is mild concentric left ventricular hypertrophy. Overa ll left ventricular systolic function is normal with, an EF between 60 - 65 %. The right ventricle is mildly enlarged. Normal LA size by volume 22+/-6 ml/m2. The right atrium is normal in size. Interatrial and interventricular septum intact. The aortic valve is trileaflet and appears structurally normal. Mild mitral regurgitation is present. Mild tricuspid regurgitation present. There is mild pulmonary hypertension. The right ventricular systolic pressure, as measured by Doppler, is 37.34mmHg. Trace/mild (physiologic) pulmonic regurgitation. The aortic root size is normal. Normal inferior vena cava with normal inspiratory collapse consistent with estimated right atrial pre ssure of 5 mmHg. There is no pericardial effusion. CONCLUSIONS -------- 1. Sinus rhythm. 2. This was a technically adequate study. 3. The left ventricular size is normal. 4. There is mild concentric left ventricular hypertrophy. 5. Overall left ventricular systolic function is normal with, an EF between 60 - 65 %. 6. The right ventricle is mildly enlarged. 7. Normal LA size by volume 22+/-6 ml/m2. 8. The right atrium is normal in size. 9. Interatrial and interventricular septum intact. 10. The aortic valve is trileaflet and appears structurally normal. 11. Mild mitral regurgitation is present. 12. Mild tricuspid regurgitation present. 13. There is mild pulmonary hypertension. 14. The right ventricular systolic pressure, as measured by Doppler, is 37.34mmHg. 15. Trace/mild (physiologic) pulmonic regurgitation. 16. The aortic root size is normal. 17. Normal inferior vena cava with normal inspiratory collapse consistent with estimated right atrial pressure of 5 mmHg. 18. There is no pericardial effusion. PROFILING MACHINE SETUP OPERATOR: Jade Bearden RDCS
[2019-04-15 11:26] LABS: Glucose,Whole Blood 271 mg/dL (75-99)
[2019-04-15] MEDS ORDERED: HYDROmorphone 0.5 MG/0.5 ML SYRINGE IVP STA (11:40)
[2019-04-15] MEDS: ACETAMINOPHEN TAB 500 MG TAB PO SCH ×2 (12:06→20:12)
--- NOTE | 2019-04-15 14:23 | P.PN ---
Subjective HISTORY OF PRESENTING ILLNESS This is a pleasant 68-year-old male past medical history significant for artery artery disease status post multiple stent placements, hypertension, dyslipidemia, diabetes mellitus and former nicotine dependence. He follows in the office with a holiday detector operator out of [place], Dr. Rodriguez. He is seen and examined laying flat in bed in no acute distress. He states he is still having ongoing chest discomfort described as an ache. He denies shortness of breath, dizziness or palpitations. Blood pressure 110/62 heart rate 62 afebrile and maintaining oxygen saturation on room air. Laboratory data reviewed, WBC 6.3, hgb 11.7, plt 172, sodium 134, potassium 4.6, creatinine 1.13. Currently maintained on aspirin 81 mg daily, atorvastatin 20 mg daily, plavix 75 mg daily, imdur 60 mg daily, lisinopril 5 mg daily, toprol 25 mg daily and ranexa 1,000 mg BID. Echocardiogram obtained reveals preserved LV systolic function with ejection fraction 60-65%, mild MR, mild TR and mild pulmonary hypertension with RVSP of 37 mmHg. PHYSICAL EXAMINATION CONSTITUTIONAL: No apparent distress. HEENT: Head is normocephalic. Pupils are equal, round. Sclerae anicteric. Mucous membranes of the mouth are moist. No JVD. No carotid bruit. CHEST EXAMINATION: Lungs are clear to auscultation. No chest wall tenderness is noted on palpation or with deep breathing. HEART EXAMINATION: Regular rate and rhythm. S1, S2 heard. No murmurs, gallops or rub. EXTREMITIES: 2+ peripheral pulses, no lower extremity edema and no calf te nderness. ASSESSMENT Chest pain, an acute event has been ruled out. History of coronary artery disease status post multiple PCI's exact details unavailable. Hypertension Dyslipidemia Diabetes mellitus PLAN Increase atorvastatin to 40 mg daily. Discussed in detail with Dr. Varma who knows the patient well and we are in agreement to pursue maximum medical therapy. If he continues to have chest pain we will increase the imdur to BID. Pain is atypical for unstable angina. Nurse Practitioner note has been reviewed, I agree with a documented findings and plan of care. Patient was seen and examined. Objective - Vital Signs Vital signs: Vital Signs Temp 97.9 F 04/15/19 12:08 Pulse 74 04/15/19 12:08 Resp 20 04/15/19 12:08 BP 110/62 04/15/19 12:08 Pulse Ox 93 L 04/15/19 12:08 Intake & Output 04/14/19 04/15/19 04/15/19 18:59 06:59 18:59 Intake Total 600 1790 Output Total 1550 Balance 600 240 Intake: Intake, IV Titration 600 1200 Amount Sodium Chloride 0.9% 1, 600 1200 000 ml @ 100 mls/hr IV . Q10H [facility] Rx#:[id number] Oral 590 Output: Urine 1550 Other: Voiding Method Toilet Toilet Toilet Urinal Urinal Urinal - Labs CBC & Chem 7: 04/15/19 08:39 04/15/19 08:39 Labs: Abnormal Lab Results - Last 24 Hours (Table) 04/14/19 04/14/19 04/15/19 Range/Units 17:32 19:58 07:06 RBC (4.30-5.90) m/uL Hgb (13.0-17.5) gm/dL Hct (39.0-53.0) % Lymphocytes # (1.0-4.8) k/uL Sodium (137-145) mmol/L BUN (9-20) mg/dL Glucose (74-99) mg/dL POC Glucose (mg/dL) 232 H 232 H 354 H (75-99) mg/dL 04/15/19 04/15/19 04/15/19 Range/Units 08:39 08:39 11:25 RBC 3.51 L (4.30-5.90) m/uL Hgb 11.7 L (13.0-17.5) gm/dL Hct 33.7 L (39.0-53.0) % Lymphocytes # 0.6 L (1.0-4.8) k/uL Sodium 134 L (137-145) mmol/L BUN 22 H (9-20) mg/dL Glucose 332 H (74-99) mg/dL POC Glucose (mg/dL) 271 H (75-99) mg/dL
--- NOTE | 2019-04-15 16:18 | P.PN ---
Subjective Progress Note Date: 04/15/19 Braydon Bhatia is a 68-year-old male with past medical history of coronary artery disease follows with [facility] out of [place] and history of 8 stents previously, type 2 diabetes, prostate cancer status post prostatectomy, agent orange exposure. He initially presented to [place] emergency dep artment last night complaining of chest pain and shortness of breath over the past few weeks. He states this has been chronic for him but recently worsening. He saw his PCP for the same last week and noted that he had not been taking his metoprolol or Ranexa for at least 6 months. He had previously been on Imdur but has not been taking this over the same period of time as well. Patient states he does not manage his own medicines and had been filling this. He states he has still not had a chance to fill these medicines. He last saw his collection technician about a year ago. In [place] emergency department his vitals were stable, troponin negative 1, D dimer elevated, creatinine at 1.6 from baseline 1.1. Chest x-ray was performed and negative. EKG showed first-degree AV block, no acute infarct. Patient was transferred to [facility] and underwent CTA chest which was negative. Currently he continues to complain of shortness of breath, weakness, and chest heaviness. 04/15/2019 Slept well. Ambulating in hallway, reports exertion led to chest pain .Complains of midsternal chest pain radiating to left chest, currently reproducible, unrelieved by morphine. Evaluated by cardiology, recommending maximizing medical therapy, increasing statin. Echo reported preserved function, EF 60-65%, mild pulmonary hypertension. Renal function mildly worsened, creatinine 1.13. Blood sugars uncontrolled, ranging in the 230s to 350s. Objective - Vital Signs Vital signs: Vital Signs Temp 97.9 F 04/15/19 12:08 Pulse 74 04/15/19 12:08 Resp 20 04/15/19 12:08 BP 110/62 04/15/19 12:08 Pulse Ox 93 L 04/15/19 12:08 Intake & Output 04/14/19 04/15/19 04/15/19 18:59 06:59 18:59 Intake Total 600 1790 Output Total 1550 Balance 600 240 Intake: Intake, IV Titration 600 1200 Amount Sodium Chloride 0.9% 1, 600 1200 000 ml @ 100 mls/hr IV . Q10H [facility] Rx#:[id number] Oral 590 Output: Urine 1550 Other: Voiding Method Toilet Toilet Toilet Urinal Urinal Urinal - Exam Gen.: Pleasant white male in no acute distress HEENT: Normocephalic, atraumatic, mucous membranes moist Neck: Supple, no JVD, no thyromegaly Lymph: No cervical or axillary lymphadenopathy CV: Heart sounds diminished, no murmur. Pulses 2+ Lungs: Normal effort, clear throughout Abdomen: Soft, nontender, no organomegaly,+BS Neuro: Alert and oriented 3, no focal deficits Skin: Warm and dry - Labs CBC & Chem 7: 04/15/19 08:39 04/15/19 08:39 Labs: Abnormal Lab Results - Last 24 Hours (Table) 04/14/19 04/14/19 04/15/19 Range/Units 17:32 19:58 07:06 RBC (4.30-5.90) m/uL Hgb (13.0-17.5) gm/dL Hct (39.0-53.0) % Lymphocytes # (1.0-4.8) k/uL Sodium (137-145) mmol/L BUN (9-20) mg/dL Glucose (74-99) mg/dL POC Glucose (mg/dL) 232 H 232 H 354 H (75-99) mg/dL 04/15/19 04/15/19 04/15/19 Range/Units 08:39 08:39 11:25 RBC 3.51 L (4.30-5.90) m/uL Hgb 11.7 L (13.0-17.5) gm/dL Hct 33.7 L (39.0-53.0) % Lymphocytes # 0.6 L (1.0-4.8) k/uL Sodium 134 L (137-145) mmol/L BUN 22 H (9-20) mg/dL Glucose 332 H (74-99) mg/dL POC Glucose (mg/dL) 271 H (75-99) mg/dL Assessment and Plan Assessment: (1) Chest pain, acute coronary syndrome ruled out Current Visit: Yes Status: Acute Code(s): R07.9 - CHEST PAIN, UNSPECIFIED SNOMED Code(s): 08520262 (2) Coronary artery disease involving [place] heart Current Visit: Yes Status: Acute Code(s): I25.10 - ATHSCL HEART DISEASE OF [place] CORONARY ARTERY W/O ANG PCTRS SNOMED Code(s): 11469987 (3) Unstable angina Current Visit: Yes Status: Acute Code(s): I20.0 - UNSTABLE ANGINA SNOMED Code(s): 0305826 (4) Type 2 diabetes, controlled, with neuropathy Current Visit: Yes Status: Acute Code(s): E11.40 - TYPE 2 DIABETES MELLITUS WITH DIABETIC NEUROPATHY, UNSP SNOMED Code(s): 62256453 (5) Acute kidney injury Current Visit: Yes Status: Acute Code(s): N17.9 - ACUTE KIDNEY FAILURE, UNSPECIFIED SNOMED Code(s): 76218118 (6) Prostate cancer Current Visit: No Status: Acute Code(s): C61 - MALIGNANT NEOPLASM OF PROSTATE SNOMED Code(s): 202995326 (7) hypertension Plan: Continue current medication regime ,monitoring and symptomatic treatment. Evaluated by cardiology with recommendations noted and appreciated. Potential Stress test being discussed. Scheduled Tylenol added to med regimen. Lantus added to med regime, close monitoring of Accu-Cheks. Hemoglobin A1c ordered. Close monitoring of renal function, electrolyte with repeat labs ordered for a.m. The impression and plan of care has been dictated as directed. : I performed a history and examination of this patient, discussed the same with the dictator. I agree with the dictator's note ,documented as a scribe. Any additional findings or plans will be noted.
[2019-04-15] MEDS: PANTOPRAZOLE 40 MG TABLET PO SCH (16:39)
[2019-04-15 16:50] LABS: Glucose,Whole Blood 270 mg/dL (75-99)
[2019-04-15] MEDS: HYDROmorphone 0.5 MG/0.5 ML SYRINGE IVP PRN (20:11)
[2019-04-15] MEDS: ATORVASTATIN 40 MG TAB PO SCH (20:12)
[2019-04-15] MEDS: traZODone HCL 100 MG TAB PO SCH (20:12)
[2019-04-15] MEDS: DULoxetine HCL 60 MG CAPSULE.DR PO SCH (20:12)
[2019-04-15] MEDS: ASPIRIN 81 MG PO SCH (20:12)
[2019-04-15] MEDS: METOPROLOL SUCCINATE (ER) 25 MG TAB.ER.24H PO SCH (20:12)
[2019-04-15] MEDS: TAMSULOSIN 0.4 MG CAP.ER.24H PO SCH (20:12)
[2019-04-15] MEDS: valACYclovir 500 MG TAB PO SCH (20:12)
[2019-04-15 20:13] LABS: Glucose,Whole Blood 229 mg/dL (75-99)
[2019-04-15] MEDS: CLOPIDOGREL 75 MG TAB PO SCH (20:13)
[2019-04-15] MEDS: TEMAZEPAM 15 MG CAP PO SCH (20:13)
[2019-04-15] MEDS: PATIENT'S OWN MED (Mirabegron [Myrbetriq] 25 MG) PO SCH (20:26)
[2019-04-15] MEDS: INSULIN DETEMIR (LEVEMIR) 100 UNIT/ML SYR SQ SCH (20:27)
[2019-04-16 01:08] LABS: Hemoglobin A1C 12.4 % (4.0-6.0)
[2019-04-16] MEDS: SODIUM CHLORIDE 0.9% 1,000 ML IV SCH ×3 (02:13→12:14)
[2019-04-16] MEDS: ACETAMINOPHEN TAB 500 MG TAB PO SCH ×3 (04:30→22:03)
[2019-04-16 07:11] LABS: Glucose,Whole Blood 304 mg/dL (75-99)
[2019-04-16] MEDS: PANTOPRAZOLE 40 MG TABLET PO SCH ×2 (07:18→17:01)
[2019-04-16] MEDS: INSULIN ASPART (NovoLOG) 100 UNIT/ML VIAL SQ SCH ×4 (07:18→22:06)
[2019-04-16 08:55] LABS: Calcium 8.3 mg/dL (8.4-10.2); Potassium 3.7 mmol/L (3.5-5.1)
[2019-04-16 09:01] LABS: Basophils % (A) 1 %; Eosinophils % (A) 1 %; Lymphocytes # (A) 0.5 k/uL (1.0-4.8); Lymphocytes % (A) 23 %; MCH 33.4 pg (25.0-35.0); MCV 95.2 fL (80.0-100.0); Mean Platelet Volume 7.5; Monocytes # (A) 0.2 k/uL (0-1.0); Monocytes % (A) 9 %; Neutrophils # (A) 1.5 k/uL (1.3-7.7); Neutrophils % (A) 64 %; Platelet Count 154 k/uL (150-450); RBC 2.94 m/uL (4.30-5.90); RDW 12.5 % (11.5-15.5); WBC 2.3 k/uL (3.8-10.6)
[2019-04-16 09:02] LABS: HGB 9.8 gm/dL (13.0-17.5)
[2019-04-16] MEDS: HYDROmorphone 0.5 MG/0.5 ML SYRINGE IVP PRN ×2 (09:47→20:49)
[2019-04-16] MEDS: ENOXAPARIN 40 MG/0.4 ML SYRINGE SQ SCH (09:48)
[2019-04-16] MEDS: LISINOPRIL 5 MG TAB PO SCH (09:48)
[2019-04-16] MEDS: ISOSORBIDE MONONITRATE ER 60 MG TAB.ER.24H PO SCH (09:48)
[2019-04-16] MEDS: lamoTRIgine 100 MG TAB PO SCH ×2 (09:48→22:10)
[2019-04-16] MEDS: BISACODYL 5 MG TABLET.DR PO SCH (09:48)
[2019-04-16] MEDS: PREGABALIN 75 MG CAP PO SCH ×2 (09:48→22:11)
[2019-04-16] MEDS: RANOLAZINE 500 MG TAB.ER.12H PO SCH ×2 (09:50→22:11)
--- NOTE | 2019-04-16 09:53 | P.DS ---
Providers Date of admission: 04/13/19 23:45 Expected date of discharge: 04/16/19 Attending physician: José Luis Valente MD Consults: 04/14/19 00:03 Consult Physician Routine Consulting Provider: Kenrick Sanabria Consult Reason/Comments: chest pain Do you want consulting provider notified?: Yes, Notify in am Placement Type Exists?: Yes Primary care physician: Cheikh Enriquez DO Hospital Course: FInal Diagnoses: (1) Chest pain Current Visit: Yes Status: Acute Code(s): R07.9 - CHEST PAIN, UNSPECIFIED SNOMED Code(s): 16800420 (2) Coronary artery disease involving [place] heart Current Visit: Yes Status: Acute Code(s): I25.10 - ATHSCL HEART DISEASE OF [place] CORONARY ARTERY W/O ANG PCTRS SNOMED Code(s): 21233308 (3) Unstable angina Current Visit: Yes Status: Acute Code(s): I20.0 - UNSTABLE ANGINA SNOMED Code(s): 3800658 (4) Type 2 diabetes, uncontrolled, with neuropathy Current Visit: Yes Status: Acute Code(s): E11.40 - TYPE 2 DIABETES MELLITUS WITH DIABETIC NEUROPATHY, UNSP SNOMED Code(s): 11112462 (5) Acute kidney injury Current Visit: Yes Status: Acute Code(s): N17.9 - ACUTE KIDNEY FAILURE, UNSPECIFIED SNOMED Code(s): 19391651 (6) Prostate cancer Current Visit: No Status: Acute Code(s): C61 - MALIGNANT NEOPLASM OF PROSTATE SNOMED Code(s): 266154798 Hospital course:Braydon Bhatia is a 68-year-old male with past medical history of coronary artery disease follows with [facility] [place] and history of 8 stents previously, type 2 diabetes, prostate cancer status post prostatectomy, agent orange exposure. He initially presented to [place] emergency department last night complaining of chest pain and shortness of breath over the past few weeks. He states this has been chronic for him but recently worsening. He saw his PCP for the same last week and noted that he had not been taking his metoprolol or Ranexa for at least 6 months. He had previously been on Imdur but has not been taking this over the same period of time as well. Patient states he does not manage his own medicines and had been filling this. He states he has still not had a chance to fill these medicines. He last saw his lumber piler operator about a year ago. In [place] emergency department his vitals were stable, troponin negative 1, D dimer elevated, creatinine at 1.6 from baseline 1.1. Chest x-ray was performed and negative. EKG showed first-degree AV block, no acute infarct. Patient was transferred to [facility] and underwent CTA chest which was negative. Currently he continues to complain of shortness of breath, weakness, and chest heaviness. Echo reported preserved function, EF 60-65%, mild pulmonary hypertension. Renal function mildly worsened, creatinine 1.13. Blood sugars uncontrolled, Lantus insulin added to med regime. Renal function worsening, creatinine currently 1.25. Hyponatremic, sodium slowly improving.Evaluated by cardiology, maximizing medical therapy recommended. Despite Imdur, patient continues to have left-sided chest pressure. Patient is a very complex, high risk case, with history of prostatectomy, recent chemo and radiation, history of DVT, PE, multiple stents. Patient requires transfer to [facility] to be further evaluated by his primary lumber piler operator Dr. Abreu, [facility]. Plan of care discussed with patient who has consented with transfer. Patient will be transferred in a stable condition with guarded prognosis pending accepting physician. - Exam Gen.: Alert and oriented 3, no acute distress HEENT: Normocephalic, atraumatic, mucous membranes moist Neck: Supple, no JVD, no thyromegaly Lymph: No cervical or axillary lymphadenopathy CV: Heart sounds diminished, no murmur. Pulses 2+ Lungs: Normal effort, clear throughout Abdomen: Soft, nontender, no organomegaly,+BS Neuro: Alert and oriented 3, no focal deficits Skin: Warm and dry The impression and plan of care has been dictated as directed. DrSurinder: I performed a history and examination of this patient, discussed the same with the dictator. I agree with the dictator's note ,documented as a scribe. Any additional findings or plans will be noted. Patient Condition at Discharge: Stable Plan - Discharge Summary Discharge Rx Participant: No New Discharge Prescriptions: No Action traZODone HCL [Desyrel] 200 mg PO HS DULoxetine HCL [Cymbalta] 60 mg PO HS Aspirin EC [Ecotrin Low Dose] 81 mg PO HS Temazepam [Restoril] 15 mg PO HS Lisinopril [Zestril] 10 mg PO DIRECTED lamoTRIgine [LaMICtal] 200 mg PO BID valACYclovir [Valtrex] 500 mg PO HS Clopidogrel Bisulfate [Plavix] 75 mg PO HS amLODIPine BESYLATE/BENAZEPRIL [Lotrel 2.5-10 MG] 1 cap PO DAILY Metoprolol Succinate [Toprol XL] 25 mg PO HS Mirabegron [Myrbetriq] 25 mg PO HS Pregabalin [Lyrica] 75 mg PO BID Semaglutide [Ozempic] 0.25 mg SQ ORTIZ Sildenafil Citrate 50 mg PO DIRECTED PRN PRN Reason: ED Bisacodyl [Dulcolax] 5 mg PO DAILY Rosuvastatin [Crestor] 10 mg PO HS Nitroglycerin Oint [Nitro-Bid Oint] 0.5 inch TRANSDERM DAILY PRN PRN Reason: Chest Pain Ranolazine [Ranexa] 1,000 mg PO BID Isosorbide Mononitrate ER [Imdur] 60 mg PO DAILY Discharge Medication List Aspirin EC [Ecotrin Low Dose] 81 mg PO HS 05/31/17 [History] Clopidogrel Bisulfate [Plavix] 75 mg PO HS 05/31/17 [History] DULoxetine HCL [Cymbalta] 60 mg PO HS 05/31/17 [History] Lisinopril [Zestril] 10 mg PO DIRECTED 05/31/17 [History] Temazepam [Restoril] 15 mg PO HS 05/31/17 [History] lamoTRIgine [LaMICtal] 200 mg PO BID 05/31/17 [History] traZODone HCL [Desyrel] 200 mg PO HS 05/31/17 [History] valACYclovir [Valtrex] 500 mg PO HS 05/31/17 [History] Bisacodyl [Dulcolax] 5 mg PO DAILY 04/14/19 [History] Isosorbide Mononitrate ER [Imdur] 60 mg PO DAILY 04/14/19 [History] Metoprolol Succinate [Toprol XL] 25 mg PO HS 04/14/19 [History] Mirabegron [Myrbetriq] 25 mg PO HS 04/14/19 [History] Nitroglycerin Oint [Nitro-Bid Oint] 0.5 inch TRANSDERM DAILY PRN 04/14/19 [History] Pregabalin [Lyrica] 75 mg PO BID 04/14/19 [History] Ranolazine [Ranexa] 1,000 mg PO BID 04/14/19 [History] Rosuvastatin [Crestor] 10 mg PO HS 04/14/19 [History] Semaglutide [Ozempic] 0.25 mg SQ ORTIZ 04/14/19 [History] Sildenafil Citrate 50 mg PO DIRECTED PRN 04/14/19 [History] amLODIPine BESYLATE/BENAZEPRIL [Lotrel 2.5-10 MG] 1 cap PO DAILY 04/14/19 [History]
[2019-04-16 10:27] VITALS: BMI 28.5
[2019-04-16 11:12] LABS: Glucose,Whole Blood 199 mg/dL (75-99)
[2019-04-16 17:15] LABS: Glucose,Whole Blood 128 mg/dL (75-99)
[2019-04-16 20:20] LABS: Glucose,Whole Blood 142 mg/dL (75-99)
[2019-04-16] MEDS: ASPIRIN 81 MG PO SCH (22:04)
[2019-04-16] MEDS: ATORVASTATIN 40 MG TAB PO SCH (22:04)
[2019-04-16] MEDS: CLOPIDOGREL 75 MG TAB PO SCH (22:05)
[2019-04-16] MEDS: DULoxetine HCL 60 MG CAPSULE.DR PO SCH (22:06)
[2019-04-16] MEDS: METOPROLOL SUCCINATE (ER) 25 MG TAB.ER.24H PO SCH (22:10)
[2019-04-16] MEDS: INSULIN DETEMIR (LEVEMIR) 100 UNIT/ML SYR SQ SCH (22:10)
[2019-04-16] MEDS: TEMAZEPAM 15 MG CAP PO SCH (22:11)
[2019-04-16] MEDS: traZODone HCL 100 MG TAB PO SCH (22:11)
[2019-04-16] MEDS: TAMSULOSIN 0.4 MG CAP.ER.24H PO SCH (22:11)
[2019-04-16] MEDS: valACYclovir 500 MG TAB PO SCH (22:11)
[2019-04-16] MEDS: PATIENT'S OWN MED (Mirabegron [Myrbetriq] 25 MG) PO SCH (22:56)
[2019-04-17] MEDS: ACETAMINOPHEN TAB 500 MG TAB PO SCH ×2 (03:45→12:45)
[2019-04-17] MEDS: HYDROmorphone 0.5 MG/0.5 ML SYRINGE IVP PRN ×2 (05:26→08:51)
[2019-04-17 07:11] LABS: Glucose,Whole Blood 148 mg/dL (75-99)
[2019-04-17 07:46] LABS: Basophils % (A) 0 %; Eosinophils # (A) 0.1 k/uL (0-0.7); Eosinophils % (A) 3 %; HCT 30.6 % (39.0-53.0); HGB 10.4 gm/dL (13.0-17.5); Lymphocytes # (A) 0.6 k/uL (1.0-4.8); Lymphocytes % (A) 25 %; MCH 32.4 pg (25.0-35.0); MCV 95.4 fL (80.0-100.0); Mean Platelet Volume 7.3; Monocytes # (A) 0.2 k/uL (0-1.0); Monocytes % (A) 8 %; Neutrophils # (A) 1.4 k/uL (1.3-7.7); Neutrophils % (A) 59 %; Platelet Count 164 k/uL (150-450); RBC 3.21 m/uL (4.30-5.90); RDW 12.5 % (11.5-15.5); WBC 2.4 k/uL (3.8-10.6)
[2019-04-17 07:56] LABS: Calcium 8.7 mg/dL (8.4-10.2); Potassium 4.1 mmol/L (3.5-5.1)
[2019-04-17] MEDS: ISOSORBIDE MONONITRATE ER 60 MG TAB.ER.24H PO SCH (08:48)
[2019-04-17] MEDS: PANTOPRAZOLE 40 MG TABLET PO SCH (08:49)
[2019-04-17] MEDS: lamoTRIgine 100 MG TAB PO SCH (08:50)
[2019-04-17] MEDS: BISACODYL 5 MG TABLET.DR PO SCH (08:51)
[2019-04-17] MEDS: ENOXAPARIN 40 MG/0.4 ML SYRINGE SQ SCH (08:51)
[2019-04-17] MEDS: PREGABALIN 75 MG CAP PO SCH (08:51)
[2019-04-17] MEDS: RANOLAZINE 500 MG TAB.ER.12H PO SCH (08:53)
[2019-04-17] MEDS: INSULIN ASPART (NovoLOG) 100 UNIT/ML VIAL SQ SCH ×2 (08:53→12:46)
[2019-04-17 11:19] LABS: Glucose,Whole Blood 164 mg/dL (75-99)
[2019-04-17 12:45] VITALS: BP 138/72; PULSE 78; RESP 18; TEMP 97.8
[2019-04-17] MEDS: SODIUM CHLORIDE 0.9% 1,000 ML IV SCH (12:48)
== END 2019-04-17 16:00 | disposition short-term general hospital (02) ==
LOC: INTOOBSV 23:45 → 5NMEDONC 23:45 → UNDODISIN 04-17 16:00
PROVIDERS: ADMIT Family Medicine; ATTEND Family Medicine
DX: I25.110 Atherosclerotic heart disease of native coronary artery with unstable angina pectoris (principal); I10 Essential (primary) hypertension; E78.5 Hyperlipidemia, unspecified; E11.40 Type 2 diabetes mellitus with diabetic neuropathy, unspecified; N17.9 Acute kidney failure, unspecified; C61 Malignant neoplasm of prostate; G47.00 Insomnia, unspecified; E11.65 Type 2 diabetes mellitus with hyperglycemia; I08.1 Rheumatic disorders of both mitral and tricuspid valves; I25.2 Old myocardial infarction; I44.0 Atrioventricular block, first degree; Z79.891 Long term (current) use of opiate analgesic; R78.9 Finding of unspecified substance, not normally found in blood; F43.10 Post-traumatic stress disorder, unspecified; Z86.711 Personal history of pulmonary embolism; Z98.1 Arthrodesis status; Z87.891 Personal history of nicotine dependence; I27.20 Pulmonary hypertension, unspecified; Z95.5 Presence of coronary angioplasty implant and graft; Z82.49 Family history of ischemic heart disease and other diseases of the circulatory system; Z79.82 Long term (current) use of aspirin; Z79.899 Other long term (current) drug therapy; Z79.02 Long term (current) use of antithrombotics/antiplatelets; Z79.4 Long term (current) use of insulin
CPT/HCPCS: 96376 ×4; 96361 ×3; 96372 ×4; 96374; 96375 ×2; 93306; 93005; 97161; 85379; 80053; 80048 ×3; 83735; 84484; 85025 ×4; 83036; 71275; G0378 ×4; G0379; J2270 ×2; J1650 ×4; C9113 ×2; J1170 ×3; Q9967

== ENCOUNTER 2020-05-09 19:30 | Inpatient (IN) | payer BC ==
[2020-05-09] MEDS ORDERED: ACETAMINOPHEN TAB 500 MG TAB PO STA (19:38)
[2020-05-09] MEDS ORDERED: IBUPROFEN 600 MG TAB PO STA ×2 (19:38→19:39)
--- NOTE | 2020-05-09 19:41 | ED ---
General Adult HPI - General Chief complaint: Shortness of Breath Stated complaint: SOB, fever Time Seen by Provider: 05/09/20 19:30 Source: patient, EMS, RN notes reviewed, old records reviewed Mode of arrival: EMS Limitations: no limitations - History of Present Illness Initial comments: This is a 69-year-old male who presents emergency Department complaining of 4 day history of not feeling well short of breath and febrile. Patient states she's got a lot of coughing but no sputum production. Patient states he's had both of his vaccination shots for COVID he states the last one was 3 weeks ago. Patient denies any diarrhea nausea vomiting. Patient denies any abdominal pain. Patient states that he has lost his taste and smell. Patient denies any lightheadedness or dizziness. Patient denies any near syncopal episode. Patient denies headache patient denies numbness weakness. Patient states he also has the chills. - Related Data Home Medications Medication Instructions Recorded Confirmed Aspirin EC [Ecotrin Low Dose] 81 mg PO HS 05/31/17 04/14/19 Clopidogrel Bisulfate [Plavix] 75 mg PO HS 05/31/17 04/14/19 DULoxetine HCL [Cymbalta] 60 mg PO HS 05/31/17 04/14/19 Temazepam [Restoril] 15 mg PO HS 05/31/17 04/14/19 lamoTRIgine [LaMICtal] 200 mg PO BID 05/31/17 04/14/19 traZODone HCL [Desyrel] 200 mg PO HS 05/31/17 04/14/19 valACYclovir [Valtrex] 500 mg PO HS 05/31/17 04/14/19 Isosorbide Mononitrate ER [Imdur] 60 mg PO DAILY 04/14/19 04/14/19 Metoprolol Succinate [Toprol XL] 25 mg PO HS 04/14/19 04/14/19 Mirabegron [Myrbetriq] 25 mg PO HS 04/14/19 04/14/19 Pregabalin [Lyrica] 75 mg PO BID 04/14/19 04/14/19 Ranolazine [Ranexa] 1,000 mg PO BID 04/14/19 04/14/19 bisacodyL [Dulcolax] 5 mg PO DAILY 04/14/19 04/14/19 Previous Rx's Medication Instructions Recorded Acetaminophen Tab [Tylenol] 500 mg PO Q8H tab 04/16/19 Atorvastatin [Lipitor] 40 mg PO HS tab 04/16/19 Insulin Detemir (Levemir) [Levemir] 25 unit SQ HS syr 04/16/19 Pantoprazole [Protonix] 40 mg PO AC-BID tablet. 04/16/19 Tamsulosin [Flomax] 0.4 mg PO HS cap.er.24h 04/16/19 lisinopriL [Zestril] 5 mg PO DAILY tab 04/16/19 Allergies Allergy/AdvReac Type Severity Reaction Status Date / Time No Known Allergies Allergy Verified 05/09/20 20:59 Review of Systems ROS Statement: Those systems with pertinent positive or pertinent negative responses have been documented in the HPI. ROS Other: All systems not noted in ROS Statement are negative. Past Medical History Past Medical History: Cancer, Diabetes Mellitus, Myocardial Infarction ([place]), Prostate Disorder Additional Past Medical History / Comment(s): neuropathy, 8 stents in his heart, prostate CA-last radiation in 2018. PTSD, DVT, PE Last Myocardial Infarction Date:: 2002 History of Any Multi-Drug Resistant Organisms: None Reported Past Surgical History: Prostate Surgery Additional Past Surgical History / Comment(s): stents placed, L1-s1 fused, right 3rd finger sugery. Past Anesthesia/Blood Transfusion Reactions: No Reported Reaction Date of Last Stent Placement:: 2002 Past Psychological History: No Psychological Hx Reported Smoking Status: Unknown if ever smoked Past Alcohol Use History: None Reported Past Drug Use History: None Reported - Past Family History Father Family Medical History: Myocardial Infarction ([place]) General Exam - General Exam Comments Initial Comments: GENERAL: Patient is well-developed and well-nourished. Patient is nontoxic and well- hydrated and is in mild distress. ENT: Neck is soft and supple. No significant lymphadenopathy is noted. Oropharynx is clear. Moist mucous membranes. Neck has full range of motion without eliciting any pain. EYES: The sclera were anicteric and conjunctiva were pink and moist. Extraocular movements were intact and pupils were equal round and reactive to light. E yelids were unremarkable. PULMONARY: Unlabored respirations. Good breath sounds bilaterally. Patient has some crackles in the bases CARDIOVASCULAR: There is a regular rate and rhythm without any murmurs gallops or rubs. ABDOMEN: Soft and nontender with normal bowel sounds. SKIN: Skin is clear with no lesions or rashes and otherwise unremarkable. NEUROLOGIC: Patient is alert and oriented x3. Cranial nerves II through XII are grossly intact. Motor and sensory are also intact. Normal speech, volume and content. Symmetrical smile. MUSCULOSKELETAL: Normal extremities with adequate strength and full range of motion. No lower extremity swelling or edema. No calf tenderness. LYMPHATICS: No significant lymphadenopathy is noted PSYCHIATRIC: Normal psychiatric evaluation. Limitations: no limitations Course Vital Signs 05/09/20 05/09/20 05/09/20 19:32 20:37 20:49 Temperature 103.1 F H Pulse Rate 91 91 Respiratory 18 18 18 Rate Blood Pressure 171/86 152/75 O2 Sat by Pulse 94 L 95 Oximetry 05/09/20 21:00 Temperature 99.5 F Pulse Rate 73 Respiratory 18 Rate Blood Pressure O2 Sat by Pulse 95 Oximetry Medical Decision Making - Medical Decision Making EKG shows sinus rhythm at 85 bpm HI interval is 212 QRS is 84 QT interval 354 QTC is 421. Patient's EKG shows no ST segment elevation or depression. Chest x-ray shows early interstitial infiltrates. I spoke with the patient and he did not feel comfortable going home even though he was 95% on room air. I spoke with Dr. Mccoy he agreed to admit the patient admitted the patient wrote admitting orders I consult the real estate investment analyst. I did give him 1 dose of Decadron by I held other doses awaiting pulmonary input - Lab Data Result diagrams: 05/09/20 19:55 05/09/20 19:55 Lab Results 05/09/20 05/09/20 05/09/20 Range/Units 19:55 19:55 19:55 WBC 5.9 (3.8-10.6) k/uL RBC 3.66 L (4.30-5.90) m/uL Hgb 12.1 L (13.0-17.5) gm/dL Hct 34.7 L (39.0-53.0) % MCV 94.7 (80.0-100.0) fL MCH 33.2 (25.0-35.0) pg MCHC 35.0 (31.0-37.0) g/dL RDW 13.5 (11.5-15.5) % Plt Count 254 (150-450) k/uL MPV 7.0 Neutrophils % 81 % Lymphocytes % 12 % Monocytes % 5 % Eosinophils % 1 % Basophils % 0 % Neutrophils # 4.8 (1.3-7.7) k/uL Lymphocytes # 0.7 L (1.0-4.8) k/uL Monocytes # 0.3 (0-1.0) k/uL Eosinophils # 0.0 (0-0.7) k/uL Basophils # 0.0 (0-0.2) k/uL PT 9.9 (9.0-12.0) sec INR 0.9 (<1.2) APTT 25.5 (22.0-30.0) sec Sodium (137-145) mmol/L Potassium (3.5-5.1) mmol/L Chloride (98-107) mmol/L Carbon Dioxide (22-30) mmol/L Anion Gap mmol/L BUN (9-20) mg/dL Creatinine (0.66-1.25) mg/dL Est GFR (CKD-EPI)AfAm (>60 ml/min/1.73 sqM) Est GFR (CKD-EPI)NonAf (>60 ml/min/1.73 sqM) Glucose (74-99) mg/dL Plasma Lactic Acid Sheng (0.7-2.0) mmol/L Calcium (8.4-10.2) mg/dL Total Bilirubin (0.2-1.3) mg/dL AST (17-59) U/L ALT (4-49) U/L Alkaline Phosphatase (38-126) U/L Troponin I (0.000-0.034) ng/mL Total Protein (6.3-8.2) g/dL Albumin (3.5-5.0) g/dL Urine Color Yellow Urine Appearance Clear (Clear) Urine pH 7.0 (5.0-8.0) Ur Specific [place] 1.017 (1.001-1.035) Urine Protein 1+ H (Negative) Urine Glucose (UA) 3+ H (Negative) Urine Ketones Negative (Negative) Urine Blood Negative (Negative) Urine Nitrite Negative (Negative) Urine Bilirubin Negative (Negative) Urine Urobilinogen 3.0 (<2.0) mg/dL Ur Leukocyte Esterase Negative (Negative) Urine RBC <1 (0-5) /hpf Urine WBC <1 (0-5) /hpf Urine Mucus Rare H (None) /hpf Coronavirus (PCR) (Not Detectd) 05/09/20 05/09/20 05/09/20 Range/Units 19:55 19:55 19:55 WBC (3.8-10.6) k/uL RBC (4.30-5.90) m/uL Hgb (13.0-17.5) gm/dL Hct (39.0-53.0) % MCV (80.0-100.0) fL MCH (25.0-35.0) pg MCHC (31.0-37.0) g/dL RDW (11.5-15.5) % Plt Count (150-450) k/uL MPV Neutrophils % % Lymphocytes % % Monocytes % % Eosinophils % % Basophils % % Neutrophils # (1.3-7.7) k/uL Lymphocytes # (1.0-4.8) k/uL Monocytes # (0-1.0) k/uL Eosinophils # (0-0.7) k/uL Basophils # (0-0.2) k/uL PT (9.0-12.0) sec INR (<1.2) APTT (22.0-30.0) sec Sodium 133 L (137-145) mmol/L Potassium 4.3 (3.5-5.1) mmol/L Chloride 100 (98-107) mmol/L Carbon Dioxide 26 (22-30) mmol/L Anion Gap 7 mmol/L BUN 25 H (9-20) mg/dL Creatinine 1.13 (0.66-1.25) mg/dL Est GFR (CKD-EPI)AfAm 76 (>60 ml/min/1.73 sqM) Est GFR (CKD-EPI)NonAf 65 (>60 ml/min/1.73 sqM) Glucose 158 H (74-99) mg/dL Plasma Lactic Acid Sheng 1.2 (0.7-2.0) mmol/L Calcium 8.4 (8.4-10.2) mg/dL Total Bilirubin 0.3 (0.2-1.3) mg/dL AST 31 (17-59) U/L ALT 18 (4-49) U/L Alkaline Phosphatase 89 (38-126) U/L Troponin I <0.012 (0.000-0.034) ng/mL Total Protein 6.3 (6.3-8.2) g/dL Albumin 3.5 (3.5-5.0) g/dL Urine Color Urine Appearance (Clear) Urine pH (5.0-8.0) Ur Specific [place] (1.001-1.035) Urine Protein (Negative) Urine Glucose (UA) (Negative) Urine Ketones (Negative) Urine Blood (Negative) Urine Nitrite (Negative) Urine Bilirubin (Negative) Urine Urobilinogen (<2.0) mg/dL Ur Leukocyte Esterase (Negative) Urine RBC (0-5) /hpf Urine WBC (0-5) /hpf Urine Mucus (None) /hpf Coronavirus (PCR) (Not Detectd) 05/09/20 Range/Units 19:55 WBC (3.8-10.6) k/uL RBC (4.30-5.90) m/uL Hgb (13.0-17.5) gm/dL Hct (39.0-53.0) % MCV (80.0-100.0) fL MCH (25.0-35.0) pg MCHC (31.0-37.0) g/dL RDW (11.5-15.5) % Plt Count (150-450) k/uL MPV Neutrophils % % Lymphocytes % % Monocytes % % Eosinophils % % Basophils % % Neutrophils # (1.3-7.7) k/uL Lymphocytes # (1.0-4.8) k/uL Monocytes # (0-1.0) k/uL Eosinophils # (0-0.7) k/uL Basophils # (0-0.2) k/uL PT (9.0-12.0) sec INR (<1.2) APTT (22.0-30.0) sec Sodium (137-145) mmol/L Potassium (3.5-5.1) mmol/L Chloride (98-107) mmol/L Carbon Dioxide (22-30) mmol/L Anion Gap mmol/L BUN (9-20) mg/dL Creatinine (0.66-1.25) mg/dL Est GFR (CKD-EPI)AfAm (>60 ml/min/1.73 sqM) Est GFR (CKD-EPI)NonAf (>60 ml/min/1.73 sqM) Glucose (74-99) mg/dL Plasma Lactic Acid Sheng (0.7-2.0) mmol/L Calcium (8.4-10.2) mg/dL Total Bilirubin (0.2-1.3) mg/dL AST (17-59) U/L ALT (4-49) U/L Alkaline Phosphatase (38-126) U/L Troponin I (0.000-0.034) ng/mL Total Protein (6.3-8.2) g/dL Albumin (3.5-5.0) g/dL Urine Color Urine Appearance (Clear) Urine pH (5.0-8.0) Ur Specific [place] (1.001-1.035) Urine Protein (Negative) Urine Glucose (UA) (Negative) Urine Ketones (Negative) Urine Blood (Negative) Urine Nitrite (Negative) Urine Bilirubin (Negative) Urine Urobilinogen (<2.0) mg/dL Ur Leukocyte Esterase (Negative) Urine RBC (0-5) /hpf Urine WBC (0-5) /hpf Urine Mucus (None) /hpf Coronavirus (PCR) Detected A (Not Detectd) Disposition Clinical Impression: Pneumonia due to COVID-19 virus Disposition: ADMITTED IP TO THIS HOSP Referrals: José Luis Valente MD [Primary Care Provider] - 1-2 days Time of Disposition: 21:32
[2020-05-09] MEDS: SODIUM CHLORIDE 0.9% 500 ML 500 ML IV SCH ×3 (20:08→20:55)
[2020-05-09 20:18] LABS: Basophils % (A) 0 %; Eosinophils % (A) 1 %; HCT 34.7 % (39.0-53.0); HGB 12.1 gm/dL (13.0-17.5); Lymphocytes # (A) 0.7 k/uL (1.0-4.8); Lymphocytes % (A) 12 %; MCH 33.2 pg (25.0-35.0); MCV 94.7 fL (80.0-100.0); Monocytes # (A) 0.3 k/uL (0-1.0); Monocytes % (A) 5 %; Neutrophils # (A) 4.8 k/uL (1.3-7.7); Neutrophils % (A) 81 %; Platelet Count 254 k/uL (150-450); RBC 3.66 m/uL (4.30-5.90); RDW 13.5 % (11.5-15.5); WBC 5.9 k/uL (3.8-10.6)
[2020-05-09 20:19] LABS: Appearance,Urine Clear (Clear); Bilirubin,Urine Negative (Negative); Blood,Urine Negative (Negative); Color,Urine Yellow; Glucose,Urine (UA) 3+ (Negative); Ketones,Urine Negative (Negative); Leukocyte Esterase,Urine Negative (Negative); Mucus,Urine Rare /hpf; Nitrite,Urine Negative (Negative); Protein,Urine 1+ (Negative); Specific Gravity,Urine 1.017 (1.001-1.035)
[2020-05-09 20:25] LABS: Albumin 3.5 g/dL (3.5-5.0); Calcium 8.4 mg/dL (8.4-10.2); Potassium 4.3 mmol/L (3.5-5.1); Total Bilirubin 0.3 mg/dL (0.2-1.3); Total Protein 6.3 g/dL (6.3-8.2)
[2020-05-09 20:27] LABS: INR 0.9 (<1.2); Partial Thromboplastin Time 25.5 sec (22.0-30.0); Prothrombin Time 9.9 sec (9.0-12.0)
[2020-05-09 20:39] LABS: RBC,Urine <1 /hpf (0-5); WBC,Urine <1 /hpf (0-5)
[2020-05-09] MEDS ORDERED: dexAMETHasone 2 MG TAB PO STA (21:23)
[2020-05-09] MEDS ORDERED: SODIUM CHLORIDE 0.9% 1,000 ML IV ONE (21:32)
--- NOTE | 2020-05-09 21:46 | XR ---
EXAMINATION TYPE: XR chest 1V portable DATE OF EXAM: 05/09/2020 COMPARISON: NONE HISTORY: Short of breath. Fever. TECHNIQUE: Single view FINDINGS: There is no heart failure. There is slight coarsening of interstitial markings. Heart size is fairly normal. There is no pleural effusion. There are no hilar masses. There are chest leads. Bon y thorax appears intact. IMPRESSION: Interstitial infiltrates at the lung bases. No pulmonary consolidation or heart failure.
[2020-05-09] MEDS ORDERED: bisacodyL 5 MG TABLET.DR PO PRN (22:33)
[2020-05-09] MEDS: ACETAMINOPHEN TAB 500 MG TAB PO SCH (23:03)
[2020-05-09] MEDS: ZINC SULFATE 220 MG CAP PO SCH (23:09)
[2020-05-09] MEDS: ASCORBIC ACID 500 MG TAB PO SCH (23:10)
[2020-05-09] MEDS: traZODone HCL 50 MG TAB PO SCH (23:10)
[2020-05-09] MEDS: ENOXAPARIN 40 MG/0.4 ML SYRINGE SQ SCH (23:11)
[2020-05-10] MEDS: ACETAMINOPHEN TAB 500 MG TAB PO SCH ×2 (06:45→17:56)
[2020-05-10] MEDS ORDERED: DOCUSATE 100 MG CAP PO PRN (09:00)
[2020-05-10] MEDS ORDERED: REMDESIVIR 200 MG in SODIUM CHLORIDE 0.9% 250 ML IVPB ONE (09:00)
[2020-05-10] MEDS: RANOLAZINE 500 MG TAB.ER.12H PO SCH ×2 (09:32→20:17)
[2020-05-10] MEDS: DEXAMETHASONE SOD PHOSPHATE 10 MG/ML 1 ML VIAL IV SCH (09:32)
[2020-05-10] MEDS: PREGABALIN 50 MG CAP PO SCH ×2 (09:33→20:17)
[2020-05-10] MEDS: ASPIRIN 81 MG PO SCH (09:33)
[2020-05-10] MEDS: CLOPIDOGREL 75 MG TAB PO SCH (09:33)
[2020-05-10] MEDS: ISOSORBIDE MONONITRATE ER 60 MG TAB.ER.24H PO SCH (09:33)
[2020-05-10] MEDS: ASCORBIC ACID 500 MG TAB PO SCH ×2 (09:33→20:18)
[2020-05-10] MEDS: FAMOTIDINE 20 MG TAB PO SCH (09:33)
[2020-05-10] MEDS: CHOLECALCIFEROL 25 MCG (1000 IU) TABLET PO SCH (09:33)
[2020-05-10] MEDS: ZINC SULFATE 220 MG CAP PO SCH (09:33)
[2020-05-10] MEDS: ENOXAPARIN 40 MG/0.4 ML SYRINGE SQ SCH (09:47)
--- NOTE | 2020-05-10 10:14 | P.CNPUL ---
History of Present Illness Consult date: 05/10/20 Requesting physician: José Luis Valente Reason for consult: dyspnea Chief complaint: Generalized weakness, fatigue, shortness of breath History of present illness: This is a pleasant 69-year-old gentleman with a significant medical history of coronary artery disease with previous multiple stent placements recent transfer from here to [facility] in [place] where his primary elastic attacher overlock is due to o ngoing chest discomfort, prostate cancer with chemoradiation, hyperlipidemia, PE/DVT, ABGs mellitus with neuropathy, kidney disease. He presented to the emergency room yesterday with a 4 day history of generalized weakness, fatigue, shortness of breath, dry nonproductive cough. He had received both of his CoVID 19 vaccinations, second one being approximately 3 weeks ago. He does test positive for CoVID 19 by PCR. White count 5.9. Hemoglobin 12.1. Lymphocytes 0.7. D-dimer 0.53. Sodium 133. Potassium 4.3. Creatinine 1.13. LDH 5:15. C-reactive protein 171. Chest x-ray reveals interstitial infiltrates of the lung bases. T-max of 103.1. Currently afebrile. He is maintaining O2 sat urations in the mid 90s on room air. He is seen today in consultation in the emergency room. He is currently resting on the stretcher. Awake and alert. Still quite fatigued, weak, dyspneic on exertion. Review of Systems REVIEW OF SYSTEMS: CONSTITUTIONAL: Positive for generalized weakness, fatigue. Denies any recent significant weight loss or weight gain. EYES: Denies change in vision. EARS, NOSE, MOUTH, THROAT: Denies headaches, denies sore throat. CARDIOVASCULAR: Denies chest pain, palpitations or syncopal episodes. RESPIRATORY: As a 4 shortness of breath, cough, congestion no hemoptysis. GASTROINTESTINAL: Denies change in appetite, denies abdominal pain GENITOURINARY: Denies hematuria, denies infections. MUSKULOSKELETAL: Positive for muscle aches, weakness. INTEGUMENTARY: Denies rash, denies eczema. NEUROLOGICAL: Denies recent memory loss, no recent seizure activity. PSYCHIATRIC: Denies anxiety, denies depression. HEMATOLOGIC/LYMPHATIC: Denies anemia, denies enlarged lymph nodes. Past Medical History Past Medical History: Cancer, Diabetes Mellitus, Myocardial Infarction ([place]), Prostate Disorder Additional Past Medical History / Comment(s): neuropathy, 8 stents in his heart, prostate CA-last radiation in deceber 2018. PTSD, DVT, PE Last Myocardial Infarction Date:: 2002 History of Any Multi-Drug Resistant Organisms: None Reported Past Surgical History: Prostate Surgery Additional Past Surgical History / Comment(s): stents placed, L1-s1 fused, right 3rd finger sugery. Past Anesthesia/Blood Transfusion Reactions: No Reported Reaction Date of Last Stent Placement:: 2002 Past Psychological History: No Psychological Hx Reported Smoking Status: Unknown if ever smoked Past Alcohol Use History: None Reported Past Drug Use History: None Reported - Past Family History Father Family Medical History: Myocardial Infarction ([place]) Medications and Allergies Home Medications Medication Instructions Recorded Confirmed Type Aspirin EC [Ecotrin Low Dose] 81 mg PO DAILY 05/31/17 05/09/20 History Clopidogrel Bisulfate [Plavix] 75 mg PO DAILY 05/31/17 05/09/20 History DULoxetine HCL [Cymbalta] 60 mg PO HS 05/31/17 05/09/20 History valACYclovir [Valtrex] 500 mg PO HS 05/31/17 05/09/20 History Isosorbide Mononitrate ER [Imdur] 60 mg PO DAILY 04/14/19 05/09/20 History Ranolazine [Ranexa] 1,000 mg PO BID 04/14/19 05/09/20 History bisacodyL [Dulcolax] 5 mg PO DAILY PRN 04/14/19 05/09/20 History Acetaminophen Tab [Tylenol] 500 mg PO Q8H tab 04/16/19 05/09/20 Rx Calcium Polycarbophil [Fiber-Lax] 625 mg PO DAILY 05/09/20 05/09/20 History Docusate [Colace] 100 mg PO BID PRN 05/09/20 05/09/20 History Famotidine 40 mg PO DAILY 05/09/20 05/09/20 History Glimepiride [Amaryl] 2 mg PO DAILY 05/09/20 05/09/20 History Insulin Glargine,Hum.rec.anlog 50 units SQ DAILY 05/09/20 05/10/20 History [Lantus Solostar] Pregabalin [Lyrica] 150 mg PO BID 05/09/20 05/09/20 History Rosuvastatin Calcium 10 mg PO DAILY 05/09/20 05/09/20 History Sennosides/Docusate Sodium [Senna 1 tab PO BID PRN 05/09/20 05/09/20 History Plus 8.6-50 mg Softgel] metFORMIN HCL 1,000 mg PO BID 05/09/20 05/09/20 History lamoTRIgine [LaMICtal] 200 mg PO BID 05/10/20 05/10/20 History traZODone HCL [Desyrel] 200 mg PO HS PRN 05/10/20 05/10/20 History Allergies Allergy/AdvReac Type Severity Reaction Status Date / Time No Known Allergies Allergy Verified 05/09/20 20:59 Physical Exam Vitals: Vital Signs Temp Pulse Resp BP Pulse Ox 05/10/20 06:38 97.5 F L 71 18 165/91 96 05/10/20 06:00 56 L 18 05/10/20 05:00 54 L 18 05/10/20 01:44 97.5 F L 64 18 166/91 95 05/09/20 22:00 66 18 95 05/09/20 21:00 99.5 F 73 18 95 05/09/20 20:49 18 05/09/20 20:37 91 18 152/75 95 05/09/20 19:32 103.1 F H 91 18 171/86 94 L Intake and Output 05/09/20 05/10/20 05/10/20 22:59 06:59 14:59 Other: Weight 90.718 kg GENERAL EXAM: Alert, pleasant 69-year-old gentleman, on room air, fairly comfortable in no apparent distress. HEAD: Normocephalic. EYES: Normal reaction of pupils, equal size. NOSE: Clear with pink turbinates. THROAT: No erythema or exudates. NECK: No masses, no JVD. CHEST: No chest wall deformity. LUNGS: Equal air entry with bilateral scattered rhonchi. CVS: S1 and S2 normal with no audible murmur, regular rhythm. ABDOMEN: No hepatosplenomegaly, normal bowel sounds, no guarding or rigidity. SPINE: No scoliosis or deformity SKIN: No rashes CENTRAL NERVOUS SYSTEM: No focal deficits, tone is normal in all 4 extremities. EXTREMITIES: There is no peripheral edema. No clubbing, no cyanosis. Peripheral pulses are intact. Results - Laboratory Findings CBC and BMP: 05/09/20 19:55 05/09/20 19:55 PT/INR, D-dimer PT 9.9 sec (9.0-12.0) 05/09/20 19:55 INR 0.9 (<1.2) 05/09/20 19:55 D-Dimer 0.53 mg/L FEU (<0.60) 05/10/20 08:15 Abnormal lab findings: Abnormal Labs 05/09/20 05/09/20 05/09/20 19:55 19:55 19:55 RBC 3.66 L Hgb 12.1 L Hct 34.7 L Lymphocytes # 0.7 L Sodium 133 L BUN 25 H Glucose 158 H C-Reactive Protein Urine Protein 1+ H Urine Glucose (UA) 3+ H Urine Mucus Rare H Coronavirus (PCR) 05/09/20 05/10/20 19:55 08:15 RBC Hgb Hct Lymphocytes # Sodium BUN Glucose C-Reactive Protein 171.0 H Urine Protein Urine Glucose (UA) Urine Mucus Coronavirus (PCR) Detected A - Diagnostic Findings Chest x-ray: image reviewed Assessment and Plan Assessment: 1 Acute CoVID 19 infection 2 Dyspnea secondary to above, currently on room air 3 Febrile illness secondary to above, currently afebrile 4 Elevated inflammatory markers secondary to above 5 History of significant coronary artery disease with previous multiple stent placements 6 Prostate cancer, status post prostatectomy 7 Diabetes mellitus 8 History of DVT/PE 9 History of PTSD 10 History of Agent Bledsoe exposure Plan: The patient was seen and evaluated by Dr. Lemus Chest x-ray and labs reviewed Initiate Remdesivir, Decadron, Lovenox, vitamin supplements Check a pro-calcitonin Monitor oxygen requirements closely Repeat labs in a.m. We will continue to follow and make further recommendations based on his clinical status I, the cosigning physician, performed a history & physical examination of the patient. Lungs sounds with bilateral scattered rhonchi. Maintaining good O2 saturations in the 90s on room air. I discussed the assessment and plan of care with my nurse practitioner, Bernadine Ley. I attest to the above consultation as dictated by her. Time with Patient: Greater than 30
[2020-05-10] MEDS: guaiFENesin-Coden 100-10MG/5ML 10 ML CUP PO SCH ×2 (17:56→20:17)
--- NOTE | 2020-05-10 20:16 | P.HPIM ---
History of Present Illness H&P Date: 05/10/20 Chief Complaint: shortness of breath Braydon Bhatia is a 69 yo M with PMH of metastatic prostate cancer, CAD, T2DM who presented to the ED via EMS with fever and shortness of breath. He states that over the past few days he has become increasingly malaised and is now experiencing fever, chills, cough and chest tightness. He notes a fever to 103 at home. Denies chest pain, palpitations, vertigo. He did receive both doses of COVID19 vaccine with the second being approx 3 weeks ago. On presentation he was hypertensive, febrile and tachypneic, SpO2 945 on RA. WBC 5.9, lymphopenia, trop negative. COVID PCR positive. CXR with interstitial infiltrate. Review of Systems All systems: negative Constitutional: Reports malaise, Reports sweats, Reports weakness, Denies chills, Denies fever Eyes: denies blurred vision, denies pain Ears, nose, mouth and throat: Denies headache, Denies sore throat Cardiovascular: Reports dyspnea on exertion, Reports shortness of breath, Denies chest pain Respiratory: Reports cough, Reports cough with sputum, Reports dyspnea Gastrointestinal: Denies abdominal pain, Denies diarrhea, Denies nausea, Denies vomiting Musculoskeletal: Denies myalgias Integumentary: Denies pruritus, Denies rash Neurological: Denies numbness, Denies weakness Psychiatric: Denies anxiety, Denies depression Endocrine: Denies fatigue, Denies weight change Past Medical History Past Medical History: Coronary Artery Disease (CAD), Cancer, Diabetes Mellitus, Deep Vein Thrombosis (DVT), Fibromyalgia, Myocardial Infarction (PR), Prostate Disorder, Pulmonary Embolus (PE) Additional Past Medical History / Comment(s): Pt tested + covid on 05/09/20 [facility]. Other hx: IDDM type II, neuropathy bilateral hands/legs and feet, prostate cancer with metastasis x3-lymph nodes then sternum and bones-pt states he is currently on radiation tx and hormone therapy and in the past tx with radi ation as well, R leg DVT post surgery and R lung PE, agent orange exsposure, chronic pain, vertigo if stands too quickly Last Myocardial Infarction Date:: 2002 History of Any Multi-Drug Resistant Organisms: None Reported Past Surgical History: Heart Catheterization With Stent, Orthopedic Surgery, Prostate Surgery Additional Past Surgical History / Comment(s): PCI/stents, L1-s1 fused, right ring finger sugery, colonoscopy. Past Anesthesia/Blood Transfusion Reactions: No Reported Reaction Date of Last Stent Placement:: 2002 Smoking Status: Former smoker - Past Family History Father Family Medical History: Myocardial Infarction (PR) Additional Family Medical History / Comment(s): Father of a PR at the age of 43 yrs. Mother Additional Family Medical History / Comment(s): Mother in a MVA at the age of 50 yrs Medications and Allergies Home Medications Medication Instructions Recorded Confirmed Type Aspirin EC [Ecotrin Low Dose] 81 mg PO DAILY 05/31/17 05/09/20 History Clopidogrel Bisulfate [Plavix] 75 mg PO DAILY 05/31/17 05/09/20 History DULoxetine HCL [Cymbalta] 60 mg PO HS 05/31/17 05/09/20 History valACYclovir [Valtrex] 500 mg PO HS 05/31/17 05/09/20 History Isosorbide Mononitrate ER [Imdur] 60 mg PO DAILY 04/14/19 05/09/20 History Ranolazine [Ranexa] 1,000 mg PO BID 04/14/19 05/09/20 History bisacodyL [Dulcolax] 5 mg PO DAILY PRN 04/14/19 05/09/20 History Acetaminophen Tab [Tylenol] 500 mg PO Q8H tab 04/16/19 05/09/20 Rx Calcium Polycarbophil [Fiber-Lax] 625 mg PO DAILY 05/09/20 05/09/20 History Docusate [Colace] 100 mg PO BID PRN 05/09/20 05/09/20 History Famotidine 40 mg PO DAILY 05/09/20 05/09/20 History Glimepiride [Amaryl] 2 mg PO DAILY 05/09/20 05/09/20 History Insulin Glargine,Hum.rec.anlog 50 units SQ DAILY 05/09/20 05/10/20 History [Lantus Solostar] Pregabalin [Lyrica] 150 mg PO BID 05/09/20 05/09/20 History Rosuvastatin Calcium 10 mg PO DAILY 05/09/20 05/09/20 History Sennosides/Docusate Sodium [Senna 1 tab PO BID PRN 05/09/20 05/09/20 History Plus 8.6-50 mg Softgel] metFORMIN HCL 1,000 mg PO BID 05/09/20 05/09/20 History lamoTRIgine [LaMICtal] 200 mg PO BID 05/10/20 05/10/20 History traZODone HCL [Desyrel] 200 mg PO HS PRN 05/10/20 05/10/20 History Allergies Allergy/AdvReac Type Severity Reaction Status Date / Time No Known Allergies Allergy Verified 05/09/20 20:59 Physical Exam Vitals: Vital Signs Temp Pulse Pulse Resp BP BP Pulse Ox 05/10/20 18:25 97.6 F 83 18 174/88 96 05/10/20 17:00 97.6 F 83 16 174/88 96 05/10/20 16:30 97.6 F 77 20 155/92 95 05/10/20 16:20 97.7 F 77 16 169/87 96 05/10/20 14:29 80 18 150/78 98 05/10/20 14:00 97.9 F 85 16 160/93 94 L 05/10/20 06:38 97.5 F L 71 18 165/91 96 05/10/20 06:00 56 L 18 05/10/20 05:00 54 L 18 05/10/20 01:44 97.5 F L 64 18 166/91 95 05/09/20 22:00 66 18 95 05/09/20 21:00 99.5 F 73 18 95 05/09/20 20:49 18 05/09/20 20:37 91 18 152/75 95 Intake and Output 05/10/20 05/10/20 05/10/20 06:59 14:59 22:59 Intake Total 177 Balance 177 Intake: Blood Product 177 Ffp Pher Conval Covid19 177 Acda 3 Unit [id number] Other: Weight 90.718 kg General: well nourished, diaphoretic, in mild distress. Vitals reviewed Eyes: PERRL, EOMI, conjunctiva normal HENT: normocephalic, mucus membranes moist Neck: supple, no JVD Lungs: increased respiratory effort, no rales or wheezes CV: Regular rate and rhythm, no murmur. Peripheral pulses 2+ Abdomen: soft, nondistended, no organomegaly Lymph: no cervical or axillary LAD Skin: warm and dry. Neuro: A&Ox3, normal mood and affect Results CBC & Chem 7: 05/09/20 19:55 05/09/20 19:55 Labs: Abnormal Lab Results - Last 24 Hours (Table) 05/09/20 05/09/20 05/09/20 Range/Units 19:55 19:55 19:55 RBC 3.66 L (4.30-5.90) m/uL Hgb 12.1 L (13.0-17.5) gm/dL Hct 34.7 L (39.0-53.0) % Lymphocytes # 0.7 L (1.0-4.8) k/uL Sodium 133 L (137-145) mmol/L BUN 25 H (9-20) mg/dL Glucose 158 H (74-99) mg/dL C-Reactive Protein (<10.0) mg/L Urine Protein 1+ H (Negative) Urine Glucose (UA) 3+ H (Negative) Urine Mucus Rare H (None) /hpf Coronavirus (PCR) (Not Detectd) 05/09/20 05/10/20 Range/Units 19:55 08:15 RBC (4.30-5.90) m/uL Hgb (13.0-17.5) gm/dL Hct (39.0-53.0) % Lymphocytes # (1.0-4.8) k/uL Sodium (137-145) mmol/L BUN (9-20) mg/dL Glucose (74-99) mg/dL C-Reactive Protein 171.0 H (<10.0) mg/L Urine Protein (Negative) Urine Glucose (UA) (Negative) Urine Mucus (None) /hpf Coronavirus (PCR) Detected A (Not Detectd) Thrombosis Risk Factor Assmnt - Choose All That Apply Any of the Below Risk Factors Present?: Yes Each Factor Represents 1 point: Serious lung disease incl. pneumonia (< 1month) Other Risk Factors: Yes Each Risk Factor Represents 2 Points: Age 61-74 years, Malignancy Other congenital or acquired thrombophilia - If yes, enter type in comment: No Thrombosis Risk Factor Assessment Total Risk Factor Score: 5 Thrombosis Risk Factor Assessment Level: High Risk Assessment and Plan (1) Sepsis due to COVID-19 Current Visit: Yes Status: Acute Code(s): U07.1 - COVID-19; A41.89 - OTHER SPECIFIED SEPSIS SNOMED Code(s): 826800709 (2) Prostate cancer Current Visit: Yes Status: Acute Code(s): C61 - MALIGNANT NEOPLASM OF PROSTATE SNOMED Code(s): 315258425 (3) Type 2 diabetes, uncontrolled, with neuropathy Current Visit: Yes Status: Acute Code(s): E11.40 - TYPE 2 DIABETES MELLITUS WITH DIABETIC NEUROPATHY, UNSP; E11.65 - TYPE 2 DIABETES MELLITUS WITH HYPERGLYCEMIA SNOMED Code(s): 96980793 (4) Pneumonia due to COVID-19 virus Current Visit: Yes Status: Acute Code(s): U07.1 - COVID-19; J12.82 - Pneumo [place] due to coronavirus disease 2018 SNOMED Code(s): 194507944906608569 (5) Coronary artery disease involving [place] heart Current Visit: No Status: Acute Code(s): I25.10 - ATHSCL HEART DISEASE OF [place] CORONARY ARTERY W/O ANG PCTRS SNOMED Code(s): 48764181 Plan: 1. Sepsis due to COVID 19. In a patient who did receive both COVID vaccinations. Admit and start decadron, vit C, vit D, zinc. Pulmonary consult and remdesivir per pulmonary. Closely follow inflammatory markers and blood cultures 2. T2DM with diabetic neuropathy. Hold metformin. Accucheck and sliding scale insulin. Lyrica 3. Insomina. continue trazodone DVT prophylaxis lovenox
[2020-05-10] MEDS: valACYclovir 500 MG TAB PO SCH (20:17)
[2020-05-10] MEDS: traZODone HCL 50 MG TAB PO SCH (20:17)
[2020-05-10] MEDS: DULoxetine HCL 60 MG CAPSULE.DR PO SCH (20:17)
[2020-05-10 20:29] LABS: Glucose,Whole Blood 241 mg/dL (75-99)
[2020-05-10] MEDS: INSULIN ASPART (NovoLOG) 100 UNIT/ML VIAL SQ SCH (20:39)
[2020-05-11] MEDS: ACETAMINOPHEN TAB 500 MG TAB PO SCH ×4 (02:49→22:45)
[2020-05-11] MEDS: guaiFENesin-Coden 100-10MG/5ML 10 ML CUP PO SCH ×4 (05:35→22:45)
[2020-05-11 07:47] LABS: Glucose,Whole Blood 248 mg/dL (75-99)
[2020-05-11] MEDS: DEXAMETHASONE SOD PHOSPHATE 10 MG/ML 1 ML VIAL IV SCH (07:56)
[2020-05-11] MEDS: ENOXAPARIN 40 MG/0.4 ML SYRINGE SQ SCH (07:56)
[2020-05-11] MEDS: REMDESIVIR 100 MG in SODIUM CHLORIDE 0.9% 250 ML IVPB SCH (07:56)
[2020-05-11] MEDS: CHOLECALCIFEROL 25 MCG (1000 IU) TABLET PO SCH (07:57)
[2020-05-11] MEDS: INSULIN ASPART (NovoLOG) 100 UNIT/ML VIAL SQ SCH ×3 (07:57→17:42)
[2020-05-11] MEDS: ASPIRIN 81 MG PO SCH (07:58)
[2020-05-11] MEDS: ASCORBIC ACID 500 MG TAB PO SCH ×2 (07:58→22:45)
[2020-05-11] MEDS: FAMOTIDINE 20 MG TAB PO SCH (07:58)
[2020-05-11] MEDS: PREGABALIN 50 MG CAP PO SCH ×2 (07:58→22:45)
[2020-05-11] MEDS: CLOPIDOGREL 75 MG TAB PO SCH (07:58)
[2020-05-11] MEDS: ISOSORBIDE MONONITRATE ER 60 MG TAB.ER.24H PO SCH (07:58)
[2020-05-11] MEDS: RANOLAZINE 500 MG TAB.ER.12H PO SCH ×2 (07:58→22:50)
[2020-05-11] MEDS: ZINC SULFATE 220 MG CAP PO SCH (07:58)
[2020-05-11 11:42] VITALS: BMI 27.1
[2020-05-11 12:11] LABS: Glucose,Whole Blood 211 mg/dL (75-99)
[2020-05-11 12:31] LABS: C Reactive Protein 8.3 mg/dL (0.0-0.8)
--- NOTE | 2020-05-11 15:05 | P.PN ---
Subjective Progress Note Date: 05/11/20 Braydon Bhatia is a 69 yo M with PMH of metastatic prostate cancer, CAD, T2DM who presented to the ED via EMS with fever and shortness of breath. He states that over the past few days he has become increasingly malaised and is now experiencing fever, chills, cough and chest tightness. He notes a fever to 103 at home. Denies chest pain, palpitations, vertigo. He did receive both doses of COVID19 vaccine with the second being approx 3 weeks ago. On presentation he was hypertensive, febrile and tachypneic, SpO2 945 on RA. WBC 5.9, lymphopenia, trop negative. COVID PCR positive. CXR with interstitial infiltrate. 05/11/2020 maintained on Covid cocktail including Remdesevir., Maintaining O2 sats in the 90s on room air. Reports no cough. He complains of insomnia. Afebrile, CRP down to 8.3. Pro-calcitonin 0.14. Denies chest pain, palpitations. Objective - Vital Signs Vital signs: Vital Signs Temp 97.8 F 05/11/20 06:05 Pulse 65 05/11/20 06:05 Resp 16 05/11/20 06:05 BP 142/71 05/11/20 06:05 Pulse Ox 95 05/11/20 06:05 Intake & Output 05/10/20 05/11/20 05/11/20 18:59 06:59 18:59 Intake Total 177 Output Total 750 Balance 177 -750 Weight 90.718 kg Intake: Blood Product 177 Ffp Pher Conval Covid19 177 Acda 3 Unit [id number] Output: Urine 750 Other: # Voids 1 - Exam General: Sitting up in bed,NAD Eyes: PERRL, EOMI, conjunctiva normal HENT: normocephalic, mucus membranes moist Neck: supple, no JVD Lungs: increased respiratory effort, essentially clear to auscultation. CV: Regular rate and rhythm, no murmur. Peripheral pulses 2+ Abdomen: soft, nondistended, no organomegaly, positive bowel sounds Skin: warm and dry. Neuro: A&Ox3, normal mood and affect. No focal deficits. - Labs CBC & Chem 7: 05/09/20 19:55 05/09/20 19:55 Labs: Abnormal Lab Results - Last 24 Hours (Table) 05/10/20 05/10/20 05/10/20 Range/Units 08:15 08:15 20:28 POC Glucose (mg/dL) 241 H (75-99) mg/dL C-Reactive Protein 171.0 H (<10.0) mg/L Procalcitonin 0.14 H (0.02-0.09) ng/mL 05/11/20 Range/Units 07:45 POC Glucose (mg/dL) 248 H (75-99) mg/dL C-Reactive Protein (<10.0) mg/L Procalcitonin (0.02-0.09) ng/mL Microbiology - Last 24 Hours (Table) 05/09/20 19:55 Blood Culture - Preliminary Blood No Growth after 24 hours 05/09/20 19:55 Blood Culture - Preliminary Blood No Growth after 24 hours Assessment and Plan Assessment: (1) Sepsis due to COVID-19, in a patient who did receive both Covid vaccinations. Current Visit: Yes Status: Acute Code(s): U07.1 - COVID-19; A41.89 - OTHER SPECIFIED SEPSIS SNOMED Code(s): 609093814 (2)Pneumonia due to COVID-19 virus Current Visit: Yes Status: Acute Code(s): U07.1 - COVID-19; J12.82 - Pneumonia due to coronavirus disease 2019 SNOMED Code(s): 886077025428029356 (3) Type 2 diabetes, uncontrolled, with neuropathy Current Visit: Yes Status: Acute Code(s): E11.40 - TYPE 2 DIABETES MELLITUS WITH DIABETIC NEUROPATHY, UNSP; E11.65 - TYPE 2 DIABETES MELLITUS WITH HYPERGLYCEMIA SNOMED Code(s): 41987356 (4) Prostate cancer Current Visit: Yes Status: Acute Code(s): C61 - MALIGNANT NEOPLASM OF PROSTATE SNOMED Code(s): 603118038 (5) Coronary artery disease involving [place] heart Current Visit: No Status: Acute Code(s): I25.10 - ATHSCL HEART DISEASE OF [place] CORONARY ARTERY W/O ANG PCTRS SNOMED Code(s): 22204676 (6) insomnia Plan: Continue on current medication regime ,monitoring and symptomatic treatment. Maintain on Covid cocktail including Remdesevir. Trazodone 100 mg daily in addition to prn Restoril ordered. Low-dose Levemir added to med regimen, hyperglycemia suspect steroid-induced. Close monitoring of Accu-Cheks. Follow closely with pulmonary. The impression and plan of care has been dictated as directed. : I performed a history and examination of this patient, discussed the same with the dictator. I agree with the dictator's note ,documented as a scribe. Any additional findings or plans will be noted.
[2020-05-11] MEDS: INSULIN DETEMIR (LEVEMIR) 100 UNIT/ML SYR SQ SCH (15:21)
--- NOTE | 2020-05-11 15:56 | P.PN ---
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 He presented to the emergency room yesterday with a 4 day history of generalized weakness, fatigue, shortness of breath, dry nonproductive cough. He had received both of his CoVID 19 vaccinations, second one being approximately 3 weeks ago. He does test positive for CoVID 19 by PCR. White count 5.9. Hemoglobin 12.1. Lymphocytes 0.7. D-dimer 0.53. Sodium 133. Potassium 4.3. Creatinine 1.13. LDH 5:15. C-reactive protein 171. Chest x-ray reveals interstitial infiltrates of the lung bases. T-max of 103.1. Currently afebrile. He is maintaining O2 saturations in the mid 90s on room air. He is seen today in consultation in the emergency room. He is currently resting on the stretcher. Awake and alert. Still quite fatigued, weak, dyspneic on exertion. On 05/11/2020 patient seen in follow-up on medical floor today, patient is doing good, he remains on room air, his been afebrile, looks very comfortable, she is breathing comfortably, is progesterone level was negative, d-dimer was low, she remains on prophylactic doses of Lovenox, he is on Remdesivir day 2 of treatment, he is on vitamins, daily dose of Decadron 6 mg IV. This has no acute events overnight, no worsening dyspnea or hypoxia Objective - Vital Signs Vital signs: Vital Signs Temp 97.7 F 05/11/20 14:00 Pulse 78 05/11/20 14:00 Resp 16 05/11/20 14:00 BP 167/84 05/11/20 14:00 Pulse Ox 94 L 05/11/20 14:00 Intake & Output 05/10/20 05/11/20 05/11/20 18:59 06:59 18:59 Intake Total 177 Output Total 750 Balance 177 -750 Weight 90.718 kg 90.718 kg Intake: Blood Product 177 Ffp Pher Conval Covid19 177 Acda 3 Unit [id number] Output: Urine 750 Other: # Voids 1 - Exam GENERAL EXAM: Alert, very pleasant, 69-year-old white male, with a pulse ox of 94% comfortable in no apparent distress. HEAD: Normocephalic/atraumatic. EYES: Normal reaction of pupils, equal size. Conjunctiva pink, sclera white. NOSE: Clear with pink turbinates. THROAT: No erythema or exudates. NECK: No masses, no JVD, no thyroid enlargement, no adenopathy. CHEST: No chest wall deformity. Symmetrical expansion. LUNGS: Equal air entry with no crackles, wheeze, rhonchi or dullness. CVS: Regular rate and rhythm, normal S1 and S2, no gallops, no murmurs, no rubs ABDOMEN: Soft, nontender. No hepatosplenomegaly, normal bowel sounds, no guarding or rigidity. EXTREMITIES: No clubbing, no edema, no cyanosis, 2+ pulses and upper and lower extremities. MUSCULOSKELETAL: Muscle strength and tone normal. SPINE: No scoliosis or deformity SKIN: No rashes CENTRAL NERVOUS SYSTEM: Alert and oriented -3. No focal deficits, tone is normal in all 4 extremities. PSYCHIATRIC: Alert and oriented -3. Appropriate affect. Intact judgment and insight. - Labs CBC & Chem 7: 05/09/20 19:55 05/09/20 19:55 Labs: Abnormal Lab Results - Last 24 Hours (Table) 05/10/20 05/10/20 05/11/20 Range/Units 08:15 20:28 06:48 POC Glucose (mg/dL) 241 H (75-99) mg/dL C-Reactive Protein 8.3 H (0.0-0.8) mg/dL Procalcitonin 0.14 H (0.02-0.09) ng/mL 05/11/20 05/11/20 Range/Units 07:45 12:09 POC Glucose (mg/dL) 248 H 211 H (75-99) mg/dL C-Reactive Protein (0.0-0.8) mg/dL Procalcitonin (0.02-0.09) ng/mL Microbiology - Last 24 Hours (Table) 05/09/20 19:55 Blood Culture - Preliminary Blood No Growth after 24 hours 05/09/20 19:55 Blood Culture - Preliminary Blood No Growth after 24 hours Assessment and Plan Plan: Assessment: #1. Acute bilateral pneumonia related to COVID 19, patient has been started on Remdesivir on 05/10/2020 #2. Febrile illness, dyspnea, and elevated inflammatory markers related to the above #3. 3 of significant coronary artery disease with history of multiple stenting #4. History of prostate cancer, status post prostatectomy #5. Diabetes type 2 #6. History of DVT/PE #7. History of PTSD #8. History of agent orange exposure Plan: Continue Remdesivir, today is day 2 of treatment, continue with IV Decadron, prophylactic Lovenox, progesterone level is negative, no need for antibiotics, if he remains stable, and demonstrates no worsening dyspnea or hypoxemia in the next 24 hours, we'll cut his treatment of Remdesivir short and consider discharge home tomorrow I performed a history & physical examination of the patient and discussed their management with my nurse practitioner, Fanny Sommers. I reviewed the nurse practitioner's note and agree with the documented findings and plan of care. Lung sounds are positive for diminished breath sounds. The findings and the impression was discussed with the patient. I attest to the documentation by the nurse practitioner. Time with Patient: Less than 30
[2020-05-11 17:21] LABS: Glucose,Whole Blood 286 mg/dL (75-99)
[2020-05-11 21:09] LABS: Glucose,Whole Blood 233 mg/dL (75-99)
[2020-05-11] MEDS: TEMAZEPAM 7.5 MG CAP PO PRN (22:45)
[2020-05-11] MEDS: DULoxetine HCL 60 MG CAPSULE.DR PO SCH (22:45)
[2020-05-11] MEDS: traZODone HCL 100 MG TAB PO SCH (22:45)
[2020-05-11] MEDS: valACYclovir 500 MG TAB PO SCH (22:50)
[2020-05-12] MEDS: INSULIN ASPART (NovoLOG) 100 UNIT/ML VIAL SQ SCH ×5 (00:07→23:40)
[2020-05-12] MEDS: guaiFENesin-Coden 100-10MG/5ML 10 ML CUP PO SCH ×4 (03:12→23:40)
[2020-05-12] MEDS: ACETAMINOPHEN TAB 500 MG TAB PO SCH ×3 (05:24→23:40)
[2020-05-12 06:54] LABS: Basophils % (A) 0 %; Eosinophils % (A) 0 %; HCT 34.2 % (39.0-53.0); HGB 11.5 gm/dL (13.0-17.5); Lymphocytes # (A) 0.7 k/uL (1.0-4.8); Lymphocytes % (A) 18 %; MCH 31.8 pg (25.0-35.0); MCHC 33.5 g/dL (31.0-37.0); MCV 94.9 fL (80.0-100.0); Mean Platelet Volume 7.1; Monocytes # (A) 0.3 k/uL (0-1.0); Monocytes % (A) 8 %; Neutrophils # (A) 2.7 k/uL (1.3-7.7); Neutrophils % (A) 70 %; Platelet Count 292 k/uL (150-450); RDW 14.2 % (11.5-15.5); WBC 3.9 k/uL (3.8-10.6)
[2020-05-12 06:57] LABS: Glucose,Whole Blood 236 mg/dL (75-99)
[2020-05-12 06:58] LABS: African American GFR (CKD) 84 (>60 ml/min/1.73 sqM); Anion Gap 5 mmol/L; Blood Urea Nitrogen 28 mg/dL (9-20); Calcium 8.7 mg/dL (8.4-10.2); Carbon Dioxide 28 mmol/L (22-30); Chloride 102 mmol/L (98-107); Glucose 242 mg/dL (74-99); LDH 418 U/L (313-618); Non-African American GFR(CKD) 72 (>60 ml/min/1.73 sqM); Potassium 4.1 mmol/L (3.5-5.1); Sodium 135 mmol/L (137-145)
[2020-05-12 07:42] LABS: C Reactive Protein 53.5 mg/L (<10.0)
[2020-05-12] MEDS: REMDESIVIR 100 MG in SODIUM CHLORIDE 0.9% 250 ML IVPB SCH (08:10)
[2020-05-12] MEDS: DEXAMETHASONE SOD PHOSPHATE 10 MG/ML 1 ML VIAL IV SCH (08:10)
[2020-05-12] MEDS: ZINC SULFATE 220 MG CAP PO SCH (08:11)
[2020-05-12] MEDS: ISOSORBIDE MONONITRATE ER 60 MG TAB.ER.24H PO SCH (08:11)
[2020-05-12] MEDS: PREGABALIN 50 MG CAP PO SCH ×2 (08:11→23:40)
[2020-05-12] MEDS: ASPIRIN 81 MG PO SCH (08:11)
[2020-05-12] MEDS: CLOPIDOGREL 75 MG TAB PO SCH (08:11)
[2020-05-12] MEDS: ASCORBIC ACID 500 MG TAB PO SCH ×2 (08:11→23:40)
[2020-05-12] MEDS: ENOXAPARIN 40 MG/0.4 ML SYRINGE SQ SCH (08:11)
[2020-05-12] MEDS: CHOLECALCIFEROL 25 MCG (1000 IU) TABLET PO SCH (08:11)
[2020-05-12] MEDS: FAMOTIDINE 20 MG TAB PO SCH (08:12)
[2020-05-12] MEDS: INSULIN DETEMIR (LEVEMIR) 100 UNIT/ML SYR SQ SCH (08:15)
[2020-05-12] MEDS: RANOLAZINE 500 MG TAB.ER.12H PO SCH ×2 (08:16→23:41)
[2020-05-12 11:51] LABS: Glucose,Whole Blood 243 mg/dL (75-99)
--- NOTE | 2020-05-12 13:23 | XR ---
EXAMINATION TYPE: XR chest 1V portable DATE OF EXAM: 05/12/2020 CLINICAL HISTORY: Difficulty breathing progress study. TECHNIQUE: Single AP portable upright view of the chest is obtained. COMPARISON: Chest x-ray from 3 days earlier. CTA chest April 14 2019 FINDINGS: Chronic parenchymal change with tiny left pleural effusion. Patchy left basilar opacity. R ight lung remains clear. Cardiac size stable and within normal limits. Osseous structures intact. IMPRESSION: New tiny left pleural effusion and left basilar acute atelectasis and/or infiltrate.
[2020-05-12] MEDS ORDERED: INSULIN DETEMIR (LEVEMIR) 100 UNIT/ML SYR SQ ONE (16:21)
--- NOTE | 2020-05-12 16:22 | P.PN ---
Subjective Progress Note Date: 05/12/20 Braydon Bhatia is a 69 yo M with PMH of metastatic prostate cancer, CAD, T2DM who presented to the ED via EMS with fever and shortness of breath. He states that over the past few days he has become increasingly malaised and is now experiencing fever, chills, cough and chest tightness. He notes a fever to 103 at home. Denies chest pain, palpitations, vertigo. He did receive both doses of COVID19 vaccine with the second being approx 3 weeks ago. On presentation he was hypertensive, febrile and tachypneic, SpO2 945 on RA. WBC 5.9, lymphopenia, trop negative. COVID PCR positive. CXR with interstitial infiltrate. 05/11/2020 maintained on Covid cocktail including Remdesevir., Maintaining O2 sats in the 90s on room air. Reports no cough. He complains of insomnia. Afebrile, CRP down to 8.3. Pro-calcitonin 0.14. Denies chest pain, palpitations. 05/12/2020 complaints of chest tightness from coughing,weakness. Exertional shortness of breath with sponge bath. Continues on Remdesevir/Covid cocktail. Hyperglycemic on Decadron. Afebrile, normal WBC. Maintaining O2 sats in the 90s on room air. Repeat chest x-ray reporting new tiny left pleural effusion and left basilar acute atelectasis and/or infiltrate. Objective - Vital Signs Vital signs: Vital Signs Temp 98.3 F 05/12/20 05:46 Pulse 71 05/11/20 22:00 Resp 17 05/12/20 05:46 BP 137/72 05/12/20 05:46 Pulse Ox 96 05/12/20 05:46 Intake & Output 05/11/20 05/12/20 05/12/20 18:59 06:59 18:59 Intake Total 250 Output Total 425 350 Balance 250 -425 -350 Weight 90.718 kg Intake: Intake, IV Titration 250 Amount Remdesivir 100 mg In 250 Sodium Chloride 0.9% 250 ml @ 250 mls/hr IVPB DAILY [facility] Rx#:[id number] Output: Urine 425 350 Other: Voiding Method Toilet Urinal - Labs CBC & Chem 7: 05/12/20 05:54 05/12/20 05:54 Labs: Abnormal Lab Results - Last 24 Hours (Table) 05/11/20 05/11/20 05/11/20 Range/Units 06:48 06:48 12:09 RBC (4.30-5.90) m/uL Hgb (13.0-17.5) gm/dL Hct (39.0-53.0) % Lymphocytes # (1.0-4.8) k/uL D-Dimer (<0.60) mg/L FEU Sodium (137-145) mmol/L BUN (9-20) mg/dL Glucose (74-99) mg/dL POC Glucose (mg/dL) 211 H (75-99) mg/dL Hemoglobin A1c 9.0 H (4.0-6.0) % C-Reactive Protein 8.3 H (0.0-0.8) mg/dL 05/11/20 05/11/20 05/12/20 Range/Units 17:20 20:58 05:54 RBC (4.30-5.90) m/uL Hgb (13.0-17.5) gm/dL Hct (39.0-53.0) % Lymphocytes # (1.0-4.8) k/uL D-Dimer 0.63 H (<0.60) mg/L FEU Sodium (137-145) mmol/L BUN (9-20) mg/dL Glucose (74-99) mg/dL POC Glucose (mg/dL) 286 H 233 H (75-99) mg/dL Hemoglobin A1c (4.0-6.0) % C-Reactive Protein (0.0-0.8) mg/dL 05/12/20 05/12/20 05/12/20 Range/Units 05:54 05:54 06:55 RBC 3.60 L (4.30-5.90) m/uL Hgb 11.5 L (13.0-17.5) gm/dL Hct 34.2 L (39.0-53.0) % Lymphocytes # 0.7 L (1.0-4.8) k/uL D-Dimer (<0.60) mg/L FEU Sodium 135 L (137-145) mmol/L BUN 28 H (9-20) mg/dL Glucose 242 H (74-99) mg/dL POC Glucose (mg/dL) 236 H (75-99) mg/dL Hemoglobin A1c (4.0-6.0) % C-Reactive Protein 53.5 H (0.0-0.8) mg/dL Microbiology - Last 24 Hours (Table) 05/09/20 19:55 Blood Culture - Preliminary Blood No Growth after 48 hours 05/09/20 19:55 Blood Culture - Preliminary Blood No Growth after 48 hours Assessment and Plan Assessment: (1) Sepsis due to COVID-19, in a patient who did receive both Covid vaccinations. Current Visit: Yes Status: Acute Code(s): U07.1 - COVID-19; A41.89 - OTHER SPECIFIED SEPSIS SNOMED Code(s): 337456718 (2)Pneumonia due to COVID-19 virus Current Visit: Yes Status: Acute Code(s): U07.1 - COVID-19; J12.82 - Pneumonia due to coronavirus disease 2018 SNOMED Code(s): 505149579073630768 (3) Type 2 diabetes, uncontrolled, with neuropathy, A1c 9 Current Visit: Yes Status: Acute Code(s): E11.40 - TYPE 2 DIABETES MELLITUS WITH DIABETIC NEUROPATHY, UNSP; E11.65 - TYPE 2 DIABETES MELLITUS WITH HYPERGLYCEMIA SNOMED Code(s): 25025910 (4) Prostate cancer Current Visit: Yes Status: Acute Code(s): C61 - MALIGNANT NEOPLASM OF PROSTATE SNOMED Code(s): 847854439 (5) Coronary artery disease involving [place] heart Current Visit: No Status: Acute Code(s): I25.10 - ATHSCL HEART DISEASE OF [place] CORONARY ARTERY W/O ANG PCTRS SNOMED Code(s): 88803429 (6) insomnia Plan: Continue on current medication regime ,monitoring and symptomatic treatment. Lantus dose increased, close monitoring of Accu-Cheks. Maintain Covid cocktail including Remdesevir. At discharge recommending Decadron taper,Lovenox 40 mg subcu daily 14 days, secondary to vascular disease, cardiovascular disease, diabetes mellitus. The impression and plan of care has been dictated as directed. : I performed a history and examination of this patient, discussed the same with the dictator. I agree with the dictator's note ,documented as a scribe. Any additional findings or plans will be noted.
[2020-05-12 16:48] LABS: Glucose,Whole Blood 271 mg/dL (75-99)
--- NOTE | 2020-05-12 17:29 | P.PN ---
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 He presented to the emergency room yesterday with a 4 day history of generalized weakness, fatigue, shortness of breath, dry nonproductive cough. He had received both of his CoVID 19 vaccinations, second one being approximately 3 weeks ago. He does test positive for CoVID 19 by PCR. White count 5.9. Hemoglobin 12.1. Lymphocytes 0.7. D-dimer 0.53. Sodium 133. Potassium 4.3. Creatinine 1.13. LDH 5:15. C-reactive protein 171. Chest x-ray reveals interstitial infiltrates of the lung bases. T-max of 103.1. Currently afebrile. He is maintaining O2 saturations in the mid 90s on room air. He is seen today in consultation in the emergency room. He is currently resting on the stretcher. Awake and alert. Still quite fatigued, weak, dyspneic on exertion. On 05/11/2020 patient seen in follow-up on medical floor today, patient is doing good, he remains on room air, his been afebrile, looks very comfortable, she is breathing comfortably, is progesterone level was negative, d-dimer was low, she remains on prophylactic doses of Lovenox, he is on Remdesivir day 2 of treatment, he is on vitamins, daily dose of Decadron 6 mg IV. This has no acute events overnight, no worsening dyspnea or hypoxia On 05/13/2019 patient seen in follow-up on a general medical floor, today is day 3 of Remdesivir treatment, he remains on room air, however he is complaining of some chest discomfort, and he is coughing, and does look short of breath despite having O2 saturation above 94%. He's been afebrile, vitals have been stable, to day's chest x-ray shows a new tiny left pleural effusion and left basilar atelectasis. In addition to multivitamins patient remains on IV Decadron 6 mg daily, prophylactic Lovenox, he is on cough syrup as well. Objective - Vital Signs Vital signs: Vital Signs Temp 97.8 F 05/12/20 14:00 Pulse 73 05/12/20 14:00 Resp 18 05/12/20 14:00 BP 149/80 05/12/20 14:00 Pulse Ox 97 05/12/20 14:00 Intake & Output 05/11/20 05/12/20 05/12/20 18:59 06:59 18:59 Intake Total 250 Output Total 425 350 Balance 250 -425 -350 Weight 90.718 kg Intake: Intake, IV Titration 250 Amount Remdesivir 100 mg In 250 Sodium Chloride 0.9% 250 ml @ 250 mls/hr IVPB DAILY [facility] Rx#:[id number] Output: Urine 425 350 Other: Voiding Method Toilet Toilet Urinal Urinal - Exam GENERAL EXAM: Alert, very pleasant, 69-year-old white male, on 2 L of oxygen with a pulse ox of 97% comfortable in no apparent distress. HEAD: Normocephalic/atraumatic. EYES: Normal reaction of pupils, equal size. Conjunctiva pink, sclera white. NOSE: Clear with pink turbinates. THROAT: No erythema or exudates. NECK: No masses, no JVD, no thyroid enlargement, no adenopathy. CHEST: No chest wall deformity. Symmetrical expansion. LUNGS: Equal air entry with no crackles, wheeze, rhonchi or dullness. CVS: Regular rate and rhythm, normal S1 and S2, no gallops, no murmurs, no rubs ABDOMEN: Soft, nontender. No hepatosplenomegaly, normal bowel sounds, no guarding or rigidity. EXTREMITIES: No clubbing, no edema, no cyanosis, 2+ pulses and upper and lower extremities. MUSCULOSKELETAL: Muscle strength and tone normal. SPINE: No scoliosis or deformity SKIN: No rashes CENTRAL NERVOUS SYSTEM: Alert and oriented -3. No focal deficits, tone is normal in all 4 extremities. PSYCHIATRIC: Alert and oriented -3. Appropriate affect. Intact judgment and insight. - Labs CBC & Chem 7: 05/12/20 05:54 05/12/20 05:54 Labs: Abnormal Lab Results - Last 24 Hours (Table) 05/11/20 05/11/20 05/12/20 Range/Units 06:48 20:58 05:54 RBC (4.30-5.90) m/uL Hgb (13.0-17.5) gm/dL Hct (39.0-53.0) % Lymphocytes # (1.0-4.8) k/uL D-Dimer 0.63 H (<0.60) mg/L FEU Sodium (137-145) mmol/L BUN (9-20) mg/dL Glucose (74-99) mg/dL POC Glucose (mg/dL) 233 H (75-99) mg/dL Hemoglobin A1c 9.0 H (4.0-6.0) % C-Reactive Protein (<10.0) mg/L 05/12/20 05/12/20 05/12/20 Range/Units 05:54 05:54 06:55 RBC 3.60 L (4.30-5.90) m/uL Hgb 11.5 L (13.0-17.5) gm/dL Hct 34.2 L (39.0-53.0) % Lymphocytes # 0.7 L (1.0-4.8) k/uL D-Dimer (<0.60) mg/L FEU Sodium 135 L (137-145) mmol/L BUN 28 H (9-20) mg/dL Glucose 242 H (74-99) mg/dL POC Glucose (mg/dL) 236 H (75-99) mg/dL Hemoglobin A1c (4.0-6.0) % C-Reactive Protein 53.5 H (<10.0) mg/L 05/12/20 05/12/20 Range/Units 11:45 16:46 RBC (4.30-5.90) m/uL Hgb (13.0-17.5) gm/dL Hct (39.0-53.0) % Lymphocytes # (1.0-4.8) k/uL D-Dimer (<0.60) mg/L FEU Sodium (137-145) mmol/L BUN (9-20) mg/dL Glucose (74-99) mg/dL POC Glucose (mg/dL) 243 H 271 H (75-99) mg/dL Hemoglobin A1c (4.0-6.0) % C-Reactive Protein (<10.0) mg/L Microbiology - Last 24 Hours (Table) 05/09/20 19:55 Blood Culture - Preliminary Blood No Growth after 48 hours 05/09/20 19:55 Blood Culture - Preliminary Blood No Growth after 48 hours Assessment and Plan Plan: Assessment: #1. Acute bilateral pneumonia related to COVID 19, patient has been started on Remdesivir on 05/10/2020 #2. Febrile illness, dyspnea, and elevated inflammatory markers related to the above #3. 3 of significant coronary artery disease with history of multiple stenting #4. History of prostate cancer, status post prostatectomy #5. Diabetes type 2 #6. History of DVT/PE #7. History of PTSD #8. History of agent [place] exposure Plan: Today's chest x-ray has been reviewed, we will continue with the current treatment, overall his inflammatory markers are improving, he sounds slightly more short of breath today, we'll place the patient on a couple liters of supplemental oxygen, will continue Remdesivir, prophylactic Lovenox, multivitamins, continue to monitor the patient for worsening dyspnea or hypoxia, we'll follow I performed a history & physical examination of the patient and discussed their management with my nurse practitioner, Fanny Sommers. I reviewed the nurse practitioner's note and agree with the documented findings and plan of care. Lung sounds are positive for diminished breath sounds. The findings and the impression was discussed with the patient. I attest to the documentation by the nurse practitioner. Time with Patient: Less than 30
[2020-05-12 20:05] LABS: Glucose,Whole Blood 286 mg/dL (75-99)
[2020-05-12] MEDS: TEMAZEPAM 7.5 MG CAP PO PRN (23:40)
[2020-05-12] MEDS: DULoxetine HCL 60 MG CAPSULE.DR PO SCH (23:40)
[2020-05-12] MEDS: traZODone HCL 100 MG TAB PO SCH (23:40)
[2020-05-12] MEDS: valACYclovir 500 MG TAB PO SCH (23:41)
[2020-05-13] MEDS: guaiFENesin-Coden 100-10MG/5ML 10 ML CUP PO SCH ×5 (03:31→23:30)
[2020-05-13] MEDS: ACETAMINOPHEN TAB 500 MG TAB PO SCH ×3 (05:39→23:17)
[2020-05-13 06:58] LABS: Glucose,Whole Blood 242 mg/dL (75-99)
[2020-05-13] MEDS ORDERED: INSULIN DETEMIR (LEVEMIR) 100 UNIT/ML SYR SQ SCH (07:00)
[2020-05-13] MEDS: INSULIN ASPART (NovoLOG) 100 UNIT/ML VIAL SQ SCH ×4 (08:34→21:10)
[2020-05-13] MEDS: ENOXAPARIN 40 MG/0.4 ML SYRINGE SQ SCH (08:35)
[2020-05-13] MEDS: DEXAMETHASONE SOD PHOSPHATE 10 MG/ML 1 ML VIAL IV SCH (08:35)
[2020-05-13] MEDS: FAMOTIDINE 20 MG TAB PO SCH (08:39)
[2020-05-13] MEDS: PREGABALIN 50 MG CAP PO SCH ×2 (08:39→23:18)
[2020-05-13] MEDS: ASPIRIN 81 MG PO SCH (08:39)
[2020-05-13] MEDS: CLOPIDOGREL 75 MG TAB PO SCH (08:40)
[2020-05-13] MEDS: ISOSORBIDE MONONITRATE ER 60 MG TAB.ER.24H PO SCH (08:40)
[2020-05-13] MEDS: ASCORBIC ACID 500 MG TAB PO SCH ×2 (08:40→23:17)
[2020-05-13] MEDS: ZINC SULFATE 220 MG CAP PO SCH (08:40)
[2020-05-13] MEDS: CHOLECALCIFEROL 25 MCG (1000 IU) TABLET PO SCH (08:40)
[2020-05-13] MEDS: RANOLAZINE 500 MG TAB.ER.12H PO SCH ×2 (08:40→23:17)
[2020-05-13] MEDS: REMDESIVIR 100 MG in SODIUM CHLORIDE 0.9% 250 ML IVPB SCH (09:29)
[2020-05-13 11:36] LABS: Glucose,Whole Blood 249 mg/dL (75-99)
[2020-05-13 11:43] LABS: C Reactive Protein 3.1 mg/dL (0.0-0.8)
--- NOTE | 2020-05-13 15:48 | P.PN ---
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 He presented to the emergency room yesterday with a 4 day history of generalized weakness, fatigue, shortness of breath, dry nonproductive cough. He had received both of his CoVID 19 vaccinations, second one being approximately 3 weeks ago. He does test positive for CoVID 19 by PCR. White count 5.9. Hemoglobin 12.1. Lymphocytes 0.7. D-dimer 0.53. Sodium 133. Potassium 4.3. Creatinine 1.13. LDH 5:15. C-reactive protein 171. Chest x-ray reveals interstitial infiltrates of the lung bases. T-max of 103.1. Currently afebrile. He is maintaining O2 saturat ions in the mid 90s on room air. He is seen today in consultation in the emergency room. He is currently resting on the stretcher. Awake and alert. Still quite fatigued, weak, dyspneic on exertion. On 05/11/2020 patient seen in follow-up on medical floor today, patient is doing good, he remains on room air, his been afebrile, looks very comfortable, she is breathing comfortably, is progesterone level was negative, d-dimer was low, she remains on prophylactic doses of Lovenox, he is on Remdesivir day 2 of treatment, he is on vitamins, daily dose of Decadron 6 mg IV. This has no acute events overnight, no worsening dyspnea or hypoxia On 05/13/2019 patient seen in follow-up on a general medical floor, today is day 3 of Remdesivir treatment, he remains on room air, however he is complaining of some chest discomfort, and he is coughing, and does look short of breath despite having O2 saturation above 94%. He's been afebrile, vitals have been stable, today's chest x-ray shows a new tiny left pleural effusion and left basilar atelectasis. In addition to multivitamins patient remains on IV Decadron 6 mg daily, prophylactic Lovenox, he is on cough syrup as well. The patient is seen today 05/13/2020 in follow-up on the regular medical floor. This is day #4 of Remdesivir. He is currently resting comfortably in bed. Awake and alert in no acute distress. Maintaining O2 saturations in the 90s on 2 L/m per nasal cannula. D-dimer 0.76. LDH 198. C-reactive protein 3.1. He remains on vitamin supplements, Decadron, Lovenox. Objective - Vital Signs Vital signs: Vital Signs Temp 97.7 F 05/13/20 10:04 Pulse 64 05/13/20 10:04 Resp 17 05/13/20 10:04 BP 163/83 05/13/20 10:04 Pulse Ox 95 05/13/20 11:42 Intake & Output 05/12/20 05/13/20 05/13/20 18:59 06:59 18:59 Intake Total 300 Output Total 350 900 Balance -50 -900 Intake: Intake, IV Titration 300 Amount Remdesivir 100 mg In 250 Sodium Chloride 0.9% 250 ml @ 250 mls/hr IVPB DAILY [facility] Rx#:[id number] cefTRIAXone 1 gm In 50 Sodium Chloride 0.9% 50 ml @ 100 mls/hr IVPB Q24HR [facility] Rx#:[id number] Output: Urine 350 900 Other: Voiding Method Toilet Toilet Toilet Urinal Urinal Urinal - Exam GENERAL EXAM: Alert, very pleasant, 69-year-old male patient, on 2 L of oxygen with a pulse ox of 98% comfortable in no apparent distress. HEAD: Normocephalic/atraumatic. EYES: Normal reaction of pupils, equal size. Conjunctiva pink, sclera white. NOSE: Clear with pink turbinates. THROAT: No erythema or exudates. NECK: No masses, no JVD, no thyroid enlargement, no adenopathy. CHEST: No chest wall deformity. Symmetrical expansion. LUNGS: Equal air entry with crackles in the posterior bases. CVS: Regular rate and rhythm, normal S1 and S2, no gallops, no murmurs, no rubs ABDOMEN: Soft, nontender. No hepatosplenomegaly, normal bowel sounds, no guarding or rigidity. EXTREMITIES: No clubbing, no edema, no cyanosis, 2+ pulses and upper and lower extremities. MUSCULOSKELETAL: Muscle strength and tone normal. SPINE: No scoliosis or deformity SKIN: No rashes CENTRAL NERVOUS SYSTEM: Alert and oriented -3. No focal deficits, tone is normal in all 4 extremities. PSYCHIATRIC: Alert and oriented -3. Appropriate affect. Intact judgment and insight. - Labs CBC & Chem 7: 05/12/20 05:54 05/12/20 05:54 Labs: Abnormal Lab Results - Last 24 Hours (Table) 05/12/20 05/12/20 05/13/20 Range/Units 16:46 20:03 06:56 D-Dimer (<0.60) mg/L FEU POC Glucose (mg/dL) 271 H 286 H 242 H (75-99) mg/dL C-Reactive Protein (0.0-0.8) mg/dL 05/13/20 05/13/20 05/13/20 Range/Units 07:28 07:28 11:33 D-Dimer 0.76 H (<0.60) mg/L FEU POC Glucose (mg/dL) 249 H (75-99) mg/dL C-Reactive Protein 3.1 H (0.0-0.8) mg/dL Microbiology - Last 24 Hours (Table) 05/09/20 19:55 Blood Culture - Preliminary Blood No Growth after 72 hours 05/09/20 19:55 Blood Culture - Preliminary Blood No Growth after 72 hours Assessment and Plan Assessment: 1 Acute CoVID 19 infection. Receiving Remdesivir. 2 Dyspnea secondary to above, currently on room air 3 Febrile illness secondary to above, currently afebrile 4 Elevated inflammatory markers secondary to above 5 History of significant coronary artery disease with previous multiple stent placements 6 Prostate cancer, status post prostatectomy 7 Diabetes mellitus 8 History of DVT/PE 9 History of PTSD 10 History of Agent [place] exposure Plan: The patient was seen and evaluated by Dr. Lemus Currently stable from the pulmonary standpoint Continue with the current treatment plan Day #4 of Remdesivir Probable discharge in a.m. We will continue to follow I, the cosigning physician, performed a history & physical examination of the patient. Lungs sounds with bilateral is alert crackles. Maintaining good O2 saturations in the 90s on 2 L/m per nasal cannula. I discussed the assessment and plan of care with my nurse practitioner, Bernadine Ley. I attest to the above note as dictated by her.
--- NOTE | 2020-05-13 16:49 | P.PN ---
Subjective 69-year-old female was admitted for covid pneumonia. Patient is presently on 2 L of oxygen. Chest x-ray showing some atelectasis no sick no other significant infiltrate. is on day #4 of Remdesivir. He is currently resting comfortably in bed. Awake and alert in no acute distress. Maintaining O2 saturations in the 90s on 2 L/m per nasal cannula. D-dimer 0.76. LDH 198. C- reactive protein 3.1. He remains on vitamin supplements, Decadron, Lovenox. Constitutional: Denied any fatigue denied any fever. Cardio vascular: denied any chest pain, palpitations Gastrointestinal denied any nausea vomiting Pulmonary: Denied any shortness of breath cough Neurologic denied any new focal deficits All inpatient medications were reviewed and appropriate changes in these medications as dictated in the interval history and assessment and plan. Objective - Vital Signs Vital signs: Vital Signs Temp 97.7 F 05/13/20 10:04 Pulse 64 05/13/20 10:04 Resp 17 05/13/20 10:04 BP 163/83 05/13/20 10:04 Pulse Ox 95 05/13/20 11:42 Intake & Output 05/12/20 05/13/20 05/13/20 18:59 06:59 18:59 Intake Total 300 Output Total 350 900 Balance -50 -900 Intake: Intake, IV Titration 300 Amount Remdesivir 100 mg In 250 Sodium Chloride 0.9% 250 ml @ 250 mls/hr IVPB DAILY [facility] Rx#:[id number] cefTRIAXone 1 gm In 50 Sodium Chloride 0.9% 50 ml @ 100 mls/hr IVPB Q24HR [facility] Rx#:[id number] Output: Urine 350 900 Other: Voiding Method Toilet Toilet Toilet Urinal Urinal Urinal - Exam PHYSICAL EXAMINATION: GENERAL: The patient is alert and oriented x3, not in any acute distress. Well developed, well nourished. HEENT: Pupils are round and equally reacting to light. EOMI. No scleral icterus. No conjunctival pallor. Normocephalic, atraumatic. No pharyngeal erythema. No thyromegaly. CARDIOVASCULAR: S1 and S2 present. No murmurs, rubs, or gallops. PULMONARY: Chest is clear to auscultation, no wheezing or crackles. ABDOMEN: Soft, nontender, nondistended, normoactive bowel sounds. No palpable organomegaly. MUSCULOSKELETAL: No joint swelling or deformity. EXTREMITIES: No cyanosis, clubbing, or pedal edema. NEUROLOGICAL: Gross neurological examination did not reveal any focal deficits. SKIN: No rashes. - Labs CBC & Chem 7: 05/12/20 05:54 05/12/20 05:54 Labs: Abnormal Lab Results - Last 24 Hours (Table) 05/12/20 05/12/20 05/13/20 Range/Units 16:46 20:03 06:56 D-Dimer (<0.60) mg/L FEU POC Glucose (mg/dL) 271 H 286 H 242 H (75-99) mg/dL C-Reactive Protein (0.0-0.8) mg/dL 05/13/20 05/13/20 05/13/20 Range/Units 07:28 07:28 11:33 D-Dimer 0.76 H (<0.60) mg/L FEU POC Glucose (mg/dL) 249 H (75-99) mg/dL C-Reactive Protein 3.1 H (0.0-0.8) mg/dL Microbiology - Last 24 Hours (Table) 05/09/20 19:55 Blood Culture - Preliminary Blood No Growth after 72 hours 05/09/20 19:55 Blood Culture - Preliminary Blood No Growth after 72 hours Assessment and Plan Plan: -Covid anti-pneumonia: Patient is on Remdesivir, Decadron multivitamins. Underinflated markers -Type 2 diabetes mellitus: Uncontrolled elevated blood sugars secondary to systemic steroids will increase rest long-acting insulin to 24 units -Coronary artery disease -History of prostate cancer status post prostatectomy -History of DVT and PE patient is on DVT prophylaxis at this time. -
[2020-05-13 16:53] LABS: Glucose,Whole Blood 371 mg/dL (75-99)
[2020-05-13 21:06] LABS: Glucose,Whole Blood 251 mg/dL (75-99)
[2020-05-13] MEDS: valACYclovir 500 MG TAB PO SCH (23:17)
[2020-05-13] MEDS: DULoxetine HCL 60 MG CAPSULE.DR PO SCH (23:17)
[2020-05-13] MEDS: TEMAZEPAM 7.5 MG CAP PO PRN (23:17)
[2020-05-13] MEDS: traZODone HCL 100 MG TAB PO SCH (23:17)
[2020-05-14] MEDS: ACETAMINOPHEN TAB 500 MG TAB PO SCH ×3 (05:27→22:26)
[2020-05-14] MEDS ORDERED: INSULIN DETEMIR (LEVEMIR) 100 UNIT/ML SYR SQ SCH (07:00)
[2020-05-14 07:06] LABS: Glucose,Whole Blood 222 mg/dL (75-99)
[2020-05-14] MEDS: ENOXAPARIN 40 MG/0.4 ML SYRINGE SQ SCH (07:56)
[2020-05-14] MEDS: INSULIN ASPART (NovoLOG) 100 UNIT/ML VIAL SQ SCH ×4 (07:56→21:05)
[2020-05-14] MEDS: ISOSORBIDE MONONITRATE ER 60 MG TAB.ER.24H PO SCH (07:57)
[2020-05-14] MEDS: ZINC SULFATE 220 MG CAP PO SCH (07:57)
[2020-05-14] MEDS: guaiFENesin-Coden 100-10MG/5ML 10 ML CUP PO SCH ×4 (07:57→23:03)
[2020-05-14] MEDS: FAMOTIDINE 20 MG TAB PO SCH (07:57)
[2020-05-14] MEDS: RANOLAZINE 500 MG TAB.ER.12H PO SCH ×2 (07:57→22:25)
[2020-05-14] MEDS: PREGABALIN 50 MG CAP PO SCH ×2 (07:58→22:25)
[2020-05-14] MEDS: DEXAMETHASONE SOD PHOSPHATE 10 MG/ML 1 ML VIAL IV SCH (07:58)
[2020-05-14] MEDS: ASCORBIC ACID 500 MG TAB PO SCH ×2 (07:58→22:25)
[2020-05-14] MEDS: CLOPIDOGREL 75 MG TAB PO SCH (07:58)
[2020-05-14] MEDS: CHOLECALCIFEROL 25 MCG (1000 IU) TABLET PO SCH (07:58)
[2020-05-14] MEDS: ASPIRIN 81 MG PO SCH (07:58)
[2020-05-14] MEDS: REMDESIVIR 100 MG in SODIUM CHLORIDE 0.9% 250 ML IVPB SCH (08:58)
--- NOTE | 2020-05-14 11:08 | P.PN ---
Subjective 69-year-old female was admitted for covid pneumonia. Patient is presently on 2 L of oxygen. Chest x-ray showing some atelectasis no sick no other significant infiltrate. is on day #4 of Remdesivir. He is currently resting comfortably in bed. Awake and alert in no acute distress. Maintaining O2 saturations in the 90s on 2 L/m per nasal cannula. D-dimer 0.76. LDH 198. C- reactive protein 3.1. He remains on vitamin supplements, Decadron, Lovenox. 05/14/2020 Patient completed Remdesivir, patient is clinically doing well if we can wean him off oxygen patient will be discharged prescription for taper for Decadron was provided to the patient. Patient blood sugars are very high patient usually uses 50 units of long-acting insulin at home which was cut down to 30 units here patient will be switched to 40 units upon discharge he may need to cut it back to 30 units once he completes Decadron. Patient is being reinitiated back on oral hypoglycemic agents Constitutional: Denied any fatigue denied any fever. Cardio vascular: denied any chest pain, palpitations Gastrointestinal denied any nausea vomiting Pulmonary: Denied any shortness of breath cough Neurologic denied any new focal deficits All inpatient medications were reviewed and appropriate changes in these medications as dictated in the interval history and assessment and plan. Objective - Vital Signs Vital signs: Vital Signs Temp 97.5 F L 05/14/20 09:08 Pulse 71 05/14/20 09:08 Resp 18 05/14/20 09:08 BP 149/87 05/14/20 09:08 Pulse Ox 93 L 05/14/20 09:08 Intake & Output 05/13/20 05/14/20 05/14/20 18:59 06:59 18:59 Intake Total 1920 Output Total 1625 600 Balance 295 -600 Intake: Intake, IV Titration 300 Amount Remdesivir 100 mg In 250 Sodium Chloride 0.9% 250 ml @ 250 mls/hr IVPB DAILY [facility] Rx#:[id number] cefTRIAXone 1 gm In 50 Sodium Chloride 0.9% 50 ml @ 100 mls/hr IVPB Q24HR [facility] Rx#:[id number] Oral 1620 Output: Urine 1625 600 Other: Voiding Method Toilet Toilet Toilet Urinal Urinal Urinal # Bowel Movements 0 - Exam PHYSICAL EXAMINATION: GENERAL: The patient is alert and oriented x3, not in any acute distress. Well developed, well nourished. HEENT: Pupils are round and equally reacting to light. EOMI. No scleral icterus. No conjunctival pallor. Normocephalic, atraumatic. No pharyngeal erythema. No thyromegaly. CARDIOVASCULAR: S1 and S2 present. No murmurs, rubs, or gallops. PULMONARY: Chest is clear to auscultation, no wheezing or crackles. ABDOMEN: Soft, nontender, nondistended, normoactive bowel sounds. No palpable organomegaly. MUSCULOSKELETAL: No joint swelling or deformity. EXTREMITIES: No cyanosis, clubbing, or pedal edema. NEUROLOGICAL: Gross neurological examination did not reveal any focal deficits. SKIN: No rashes. - Labs CBC & Chem 7: 05/12/20 05:54 05/12/20 05:54 Labs: Abnormal Lab Results - Last 24 Hours (Table) 05/13/20 05/13/20 05/13/20 Range/Units 07:28 11:33 16:49 POC Glucose (mg/dL) 249 H 371 H (75-99) mg/dL C-Reactive Protein 3.1 H (0.0-0.8) mg/dL 05/13/20 05/14/20 Range/Units 21:05 07:04 POC Glucose (mg/dL) 251 H 222 H (75-99) mg/dL C-Reactive Protein (0.0-0.8) mg/dL Microbiology - Last 24 Hours (Table) 05/09/20 19:55 Blood Culture - Preliminary Blood No Growth after 96 hours 05/09/20 19:55 Blood Culture - Preliminary Blood No Growth after 96 hours Assessment and Plan Plan: -Covid anti-pneumonia: Completed Remdesivir, Decadron multivitamins. Elevated inflammatory markers -Type 2 diabetes mellitus: Uncontrolled elevated blood sugars secondary to systemic steroids will increase rest long-acting insulin to 40 units -Coronary artery disease -History of prostate cancer status post prostatectomy -History of DVT and PE patient is on DVT prophylaxis at this time. -
--- NOTE | 2020-05-14 11:10 | P.DS ---
Providers Date of admission: 05/09/20 21:32 Attending physician: José Luis Valente MD Consults: 05/09/20 21:32 Consult Physician Urgent Consulting Provider: Braydon Lemus Consult Reason/Comments: COVID pneumonia Do you want consulting provider notified?: Yes Primary care physician: José Luis Valente MD Hospital Course: 69-year-old female was admitted for covid pneumonia. Patient is presently on 2 L of oxygen. Chest x-ray showing some atelectasis no sick no other significant infiltrate. is on day #4 of Remdesivir. He is currently resting comfortably in bed. Awake and alert in no acute distress. Maintaining O2 saturations in the 90s on 2 L/m per nasal cannula. D-dimer 0.76. LDH 198. C- reactive protein 3.1. He remains on vitamin supplements, Decadron, Lovenox. 05/14/2020 Patient completed Remdesivir, patient is clinically doing well if we can wean him off oxygen patient will be discharged prescription for taper for Decadron was provided to the patient. Patient blood sugars are very high patient usually uses 50 units of long-acting insulin at home which was cut down to 30 units here patient will be switched to 35 units upon discharge he may need to cut it back to 25 units once he completes Decadron. Patient is being reinitiated back on oral hypoglycemic agents. PHYSICAL EXAMINATION: GENERAL: The patient is alert and oriented x3, not in any acute distress. Well developed, well nourished. HEENT: Pupils are round and equally reacting to light. EOMI. No scleral icterus. No conjunctival pallor. Normocephalic, atraumatic. No pharyngeal erythema. No thyromegaly. CARDIOVASCULAR: S1 and S2 present. No murmurs, rubs, or gallops. PULMONARY: Chest is clear to auscultation, no wheezing or crackles. ABDOMEN: Soft, nontender, nondistended, normoactive bowel sounds. No palpable organomegaly. MUSCULOSKELETAL: No joint swelling or deformity. EXTREMITIES: No cyanosis, clubbing, or pedal edema. NEUROLOGICAL: Gross neurological examination did not reveal any focal deficits. SKIN: No rashes. Assessment and Plan Plan: -Covid 19pneumonia: Completed Remdesivir, Decadron multivitamins. Elevated inflammatory markers -Type 2 diabetes mellitus: Uncontrolled elevated blood sugars secondary to systemic steroids will increase rest long-acting insulin to 35 units -Coronary artery disease -History of prostate cancer status post prostatectomy -History of DVT and PE patient is on DVT prophylaxis at this time. - Plan - Discharge Summary Discharge Rx Participant: No New Discharge Prescriptions: New dexAMETHasone [Hexadrol] See Taper PO DAILY #18 tablet Zinc Sulfate [Orazinc] 220 mg PO DAILY #20 cap guaiFENesin-Coden 100-10MG/5ML [Robitussin AC] 10 ml PO Q6H #250 ml Ascorbic Acid [Vitamin C] 500 mg PO BID #30 tab Cholecalciferol [Vitamin D3 (25 Mcg = 1000 Iu)] 50 mcg PO DAILY #20 tablet Continue DULoxetine HCL [Cymbalta] 60 mg PO HS Aspirin EC [Ecotrin Low Dose] 81 mg PO DAILY valACYclovir [Valtrex] 500 mg PO HS Clopidogrel Bisulfate [Plavix] 75 mg PO DAILY bisacodyL [Dulcolax] 5 mg PO DAILY PRN PRN Reason: Constipation Ranolazine [Ranexa] 1,000 mg PO BID Isosorbide Mononitrate ER [Imdur] 60 mg PO DAILY Acetaminophen Tab [Tylenol] 500 mg PO Q8H tab Famotidine 40 mg PO DAILY Glimepiride [Amaryl] 2 mg PO DAILY metFORMIN HCL 1,000 mg PO BID Pregabalin [Lyrica] 150 mg PO BID Sennosides/Docusate Sodium [Senna Plus 8.6-50 mg Softgel] 1 tab PO BID PRN PRN Reason: Constipation Docusate [Colace] 100 mg PO BID PRN PRN Reason: Constipation Rosuvastatin Calcium 10 mg PO DAILY Calcium Polycarbophil [Fiber-Lax] 625 mg PO DAILY lamoTRIgine [LaMICtal] 200 mg PO BID traZODone HCL [Desyrel] 200 mg PO HS PRN PRN Reason: Insomnia Changed Insulin Glargine,Hum.rec.anlog [Lantus Solostar] 35 units SQ DAILY #0 Discharge Medication List Aspirin EC [Ecotrin Low Dose] 81 mg PO DAILY 05/31/17 [History] Clopidogrel Bisulfate [Plavix] 75 mg PO DAILY 05/31/17 [History] DULoxetine HCL [Cymbalta] 60 mg PO HS 04/07/18 [History] valACYclovir [Valtrex] 500 mg PO HS 05/31/17 [History] Isosorbide Mononitrate ER [Imdur] 60 mg PO DAILY 04/14/19 [History] Ranolazine [Ranexa] 1,000 mg PO BID 04/14/19 [History] bisacodyL [Dulcolax] 5 mg PO DAILY PRN 04/14/19 [History] Acetaminophen Tab [Tylenol] 500 mg PO Q8H tab 04/16/19 [Rx] Calcium Polycarbophil [Fiber-Lax] 625 mg PO DAILY 05/09/20 [History] Docusate [Colace] 100 mg PO BID PRN 05/09/20 [History] Famotidine 40 mg PO DAILY 05/09/20 [History] Glimepiride [Amaryl] 2 mg PO DAILY 05/09/20 [History] Pregabalin [Lyrica] 150 mg PO BID 05/09/20 [History] Rosuvastatin Calcium 10 mg PO DAILY 05/09/20 [History] Sennosides/Docusate Sodium [Senna Plus 8.6-50 mg Softgel] 1 tab PO BID PRN 05/09/20 [History] metFORMIN HCL 1,000 mg PO BID 05/09/20 [History] lamoTRIgine [LaMICtal] 200 mg PO BID 05/10/20 [History] traZODone HCL [Desyrel] 200 mg PO HS PRN 05/10/20 [History] dexAMETHasone [Hexadrol] See Taper PO DAILY #18 tablet 05/12/20 [Rx] Ascorbic Acid [Vitamin C] 500 mg PO BID #30 tab 05/14/20 [Rx] Cholecalciferol [Vitamin D3 (25 Mcg = 1000 Iu)] 50 mcg PO DAILY #20 tablet 05/14/20 [Rx] Insulin Glargine,Hum.rec.anlog [Lantus Solostar] 35 units SQ DAILY #0 05/14/20 [Rx] Zinc Sulfate [Orazinc] 220 mg PO DAILY #20 cap 05/14/20 [Rx] guaiFENesin-Coden 100-10MG/5ML [Robitussin AC] 10 ml PO Q6H #250 ml 05/14/20 [Rx] Follow up Appointment(s)/Referral(s): José Luis Valente MD [Primary Care Provider] - 3 Days Discharge Disposition: HOME SELF-CARE
[2020-05-14 12:01] LABS: Glucose,Whole Blood 339 mg/dL (75-99)
--- NOTE | 2020-05-14 15:54 | P.PN ---
Subjective Progress Note Date: 05/14/20 Principal diagnosis: Shortness of breath, cough. On 05/11/2020 patient seen in follow-up on medical floor today, patient is doing good, he remains on room air, his been afebrile, looks very comfortable, she is breathing comfortably, is progesterone level was negative, d-dimer was low, she remains on prophylactic doses of Lovenox, he is on Remdesivir day 2 of treatment, he is on vitamins, daily dose of Decadron 6 mg IV. This has no acute events overnight, no worsening dyspnea or hypoxia On 05/13/2019 patient seen in follow-up on a general medical floor, today is day 3 of Remdesivir treatment, he remains on room air, however he is complaining of some chest discomfort, and he is coughing, and does look short of breath despite having O2 saturation above 94%. He's been afebrile, vitals have been stable, today's chest x-ray shows a new tiny left pleural effusion and left basilar atelectasis. In addition to multivitamins patient remains on IV Decadron 6 mg daily, prophylactic Lovenox, he is on cough syrup as well. The patient is seen today 05/13/2020 in follow-up on the regular medical floor. This is day #4 of Remdesivir. He is currently resting comfortably in bed. Awake and alert in no acute distress. Maintaining O2 saturations in the 90s on 2 L/m per nasal cannula. D-dimer 0.76. LDH 198. C-reactive protein 3.1. He remains on vitamin supplements, Decadron, Lovenox. Progress note dated 05/14/2020. 69-year-old male, who is completing his last dose of REM today. The patient may need to be discharged home when discharged, on oxygen therapy. He states he is feeling better. The patient denies any chest pain, chest discomfort, or shortness of breath when he is sitting still. He appears to have some shortness of breath when he is up exerting himself. The patient did not have any additional or new labs today. His last chest x-ray was on May 12, and was reviewed. The patient remains on vitamin supplements including vitamin C, vitamin D3, and zinc, as well as Decadron and Lovenox. Objective - Vital Signs Vital signs: Vital Signs Temp 97.6 F 05/14/20 13:48 Pulse 78 05/14/20 13:48 Resp 18 05/14/20 13:48 BP 131/79 05/14/20 13:48 Pulse Ox 96 05/14/20 13:48 Intake & Output 05/13/20 05/14/20 05/14/20 18:59 06:59 18:59 Intake Total 1920 Output Total 1625 600 Balance 295 -600 Intake: Intake, IV Titration 300 Amount Remdesivir 100 mg In 250 Sodium Chloride 0.9% 250 ml @ 250 mls/hr IVPB DAILY DANIEL Rx#:[id number] cefTRIAXone 1 gm In 50 Sodium Chloride 0.9% 50 ml @ 100 mls/hr IVPB Q24HR DANIEL Rx#:[id number] Oral 1620 Output: Urine 1625 600 Other: Voiding Method Toilet Toilet Toilet Urinal Urinal Urinal # Bowel Movements 0 - Exam No acute distress, oriented 3. Currently, on 2 L nasal cannula with a saturation of 93%. HEENT examination is grossly unremarkable. Mucous membranes are moist. No oral lesions. Neck supple. Full range of motion. No adenopathy thyromegaly or neck vein distention. Cardiovascular examination reveals regular rhythm rate. S1-S2 normal. No S3 or S4. No discernible murmur noted. Heart rate of 78 bpm. Lungs reveal mostly clear breath sounds. A few scattered rhonchi are noted. No wheezes or crackles. Her sounds are equal bilaterally. Abdomen soft bowel sounds are heard. No masses or tenderness. Extremities are intact. No cyanosis clubbing or edema. Skin is without rash or lesion. Neurologic examination is brief but nonfocal. - Labs CBC & Chem 7: 05/12/20 05:54 05/12/20 05:54 Labs: Abnormal Lab Results - Last 24 Hours (Table) 05/13/20 05/13/20 05/14/20 Range/Units 16:49 21:05 07:04 POC Glucose (mg/dL) 371 H 251 H 222 H (75-99) mg/dL 05/14/20 Range/Units 11:51 POC Glucose (mg/dL) 339 H (75-99) mg/dL Microbiology - Last 24 Hours (Table) 05/09/20 19:55 Blood Culture - Preliminary Blood No Growth after 96 hours 05/09/20 19:55 Blood Culture - Preliminary Blood No Growth after 96 hours Assessment and Plan Assessment: Acute COVID 19 pneumonia, status post 5 days of REM. Shortness of breath, and fever, secondary to COVID 19. History of significant coronary artery disease with previous multiple stent placements. Status post prostatectomy for prostate cancer. History of diabetes mellitus. History of DVT/PE. History of PTSD. History of agent orange exposure. Plan: Plan dated 05/17/2020. The patient did complete his 5 days of REM. The patient is doing much better. The patient will be evaluated for home O2, with exertion. The patient will follow up in the office, and a couple weeks. No additional recommendations are made. The patient is being considered for discharge by the primary hospitalist service. We will continue to follow patient, should the patient not be discharged. Prognosis is thought to be generally good. Time with Patient: Less than 30
[2020-05-14 16:55] LABS: Glucose,Whole Blood 338 mg/dL (75-99)
[2020-05-14 21:03] LABS: Glucose,Whole Blood 381 mg/dL (75-99)
[2020-05-14] MEDS: DULoxetine HCL 60 MG CAPSULE.DR PO SCH (22:25)
[2020-05-14] MEDS: traZODone HCL 100 MG TAB PO SCH (22:25)
[2020-05-14] MEDS: valACYclovir 500 MG TAB PO SCH (22:25)
[2020-05-14] MEDS: TEMAZEPAM 7.5 MG CAP PO PRN (22:26)
[2020-05-15] MEDS: ACETAMINOPHEN TAB 500 MG TAB PO SCH ×3 (05:16→22:37)
[2020-05-15] MEDS ORDERED: INSULIN DETEMIR (LEVEMIR) 100 UNIT/ML SYR SQ SCH (07:00)
[2020-05-15 07:09] LABS: Glucose,Whole Blood 256 mg/dL (75-99)
[2020-05-15] MEDS: guaiFENesin-Coden 100-10MG/5ML 10 ML CUP PO SCH ×3 (07:51→22:41)
[2020-05-15] MEDS: ENOXAPARIN 40 MG/0.4 ML SYRINGE SQ SCH (07:51)
[2020-05-15] MEDS: DEXAMETHASONE SOD PHOSPHATE 10 MG/ML 1 ML VIAL IV SCH (07:51)
[2020-05-15] MEDS: INSULIN ASPART (NovoLOG) 100 UNIT/ML VIAL SQ SCH ×4 (07:52→20:25)
[2020-05-15] MEDS: FAMOTIDINE 20 MG TAB PO SCH (07:53)
[2020-05-15] MEDS: CHOLECALCIFEROL 25 MCG (1000 IU) TABLET PO SCH (07:53)
[2020-05-15] MEDS: ASCORBIC ACID 500 MG TAB PO SCH ×2 (07:53→22:37)
[2020-05-15] MEDS: ASPIRIN 81 MG PO SCH (07:53)
[2020-05-15] MEDS: CLOPIDOGREL 75 MG TAB PO SCH (07:54)
[2020-05-15] MEDS: ISOSORBIDE MONONITRATE ER 60 MG TAB.ER.24H PO SCH (07:54)
[2020-05-15] MEDS: PREGABALIN 50 MG CAP PO SCH ×2 (07:54→22:37)
[2020-05-15] MEDS: ZINC SULFATE 220 MG CAP PO SCH (07:54)
[2020-05-15] MEDS: RANOLAZINE 500 MG TAB.ER.12H PO SCH ×2 (07:54→22:36)
[2020-05-15 09:26] LABS: Basophils # (A) 0.03 X 10*3/uL (0.00-0.10); Basophils % (A) 0.6 %; Eosinophils # (A) 0.05 X 10*3/uL (0.04-0.35); HCT 35.6 % (39.6-50.0); HGB 12.7 g/dL (13.0-17.0); Lymphocytes # (A) 0.98 X 10*3/uL (0.90-5.00); Lymphocytes % (A) 19.8 %; MCH 32.2 pg (27.0-32.0); MCHC 35.7 g/dL (32.0-37.0); MCV 90.4 fL (80.0-97.0); Mean Platelet Volume 9.9 fL (9.5-12.2); Monocytes # (A) 0.61 X 10*3/uL (0.20-1.00); Monocytes % (A) 12.3 %; Neutrophils # (A) 3.06 X 10*3/uL (1.80-7.70); Platelet Count 350 X 10*3/uL (140-440); RBC 3.94 X 10*6/uL (4.40-5.60); RDW 13.2 % (11.5-14.5); WBC 4.94 X 10*3/uL (4.50-10.00)
[2020-05-15] MEDS ORDERED: LEUPROLIDE ACETATE 30 MG IM ONE ×2 (09:55→17:48)
[2020-05-15 11:56] LABS: Glucose,Whole Blood 317 mg/dL (75-99)
--- NOTE | 2020-05-15 13:13 | P.PN ---
Subjective Progress Note Date: 05/15/20 On 05/11/2020 patient seen in follow-up on medical floor today, patient is doing good, he remains on room air, his been afebrile, looks very comfortable, she is breathing comfortably, is progesterone level was negative, d-dimer was low, she remains on prophylactic doses of Lovenox, he is on Remdesivir day 2 of treatment, he is on vitamins, daily dose of Decadron 6 mg IV. This has no acute events overnight, no worsening dyspnea or hypoxia On 05/13/2019 patient seen in follow-up on a general medical floor, today is day 3 of Remdesivir treatment, he remains on room air, however he is complaining of some chest discomfort, and he is coughing, and does look short of breath despite having O2 saturation above 94%. He's been afebrile, vitals have been stable, today's chest x-ray shows a new tiny left pleural effusion and left basilar atelectasis. In addition to multivitamins patient remains on IV Decadron 6 mg daily, prophylactic Lovenox, he is on cough syrup as well. The patient is seen today 05/13/2020 in follow-up on the regular medical floor. This is day #4 of Remdesivir. He is currently resting comfortably in bed. Awake and alert in no acute distress. Maintaining O2 saturations in the 90s on 2 L/m per nasal cannula. D-dimer 0.76. LDH 198. C-reactive protein 3.1. He remains on vitamin supplements, Decadron, Lovenox. Progress note dated 05/14/2020. 69-year-old male, who is completing his last dose of REM today. The patient may need to be discharged home when discharged, on oxygen therapy. He states he is feeling better. The patient denies any chest pain, chest discomfort, or shortness of breath when he is sitting still. He appears to have some shortness of breath when he is up exerting himself. The patient did not have any additional or new labs today. His last chest x-ray was on May 12, and was reviewed. The patient remains on vitamin supplements including vitamin C, vitamin D3, and zinc, as well as Decadron and Lovenox. 05/15/2020 on seeing the patient for a follow-up. The patient is a case of an acute hypoxic respiratory failure secondary to colon cancer related pneumonia and the patient is currently on 2 L of oxygen by nasal cannula. The patient remains on Decadron 6 mg by mouth daily and the patient completed Remdesivir and the patient remains on Lovenox 40 mg subcu for DVT prophylaxis. The patient has no complaints. Blood sugars are elevated and the patient is currently on Levemir insulin 30 units daily at bedtime in addition to NovoLog sliding scale coverage. The inflammatory markers showed an LDH level dropped down to 198 with a CRP level down to 3.1 from yesterday. Objective - Vital Signs Vital signs: Vital Signs Temp 97.7 F 05/15/20 10:09 Pulse 75 05/15/20 10:09 Resp 18 05/15/20 10:09 BP 122/72 05/15/20 10:09 Pulse Ox 95 05/15/20 10:09 Intake & Output 05/14/20 05/15/20 05/15/20 18:59 06:59 18:59 Other: Voiding Method Toilet Toilet Toilet Urinal Urinal Urinal # Voids 4 1 - Exam No acute distress, oriented 3. Currently, on 2 L nasal cannula with a saturation of 93%. HEENT examination is grossly unremarkable. Mucous membranes are moist. No oral lesions. Neck supple. Full range of motion. No adenopathy thyromegaly or neck vein distention. Cardiovascular examination reveals regular rhythm rate. S1-S2 normal. No S3 or S4. No discernible murmur noted. Lungs reveal mostly clear breath sounds. A few scattered rhonchi are noted. No wheezes or crackles. Her sounds are equal bilaterally. Abdomen soft bowel sounds are heard. No masses or tenderness. Extremities are intact. No cyanosis clubbing or edema. Skin is without rash or lesion. Neurologic examination is brief but nonfocal. - Labs CBC & Chem 7: 05/15/20 05:40 05/12/20 05:54 Labs: Abnormal Lab Results - Last 24 Hours (Table) 05/14/20 05/14/20 05/15/20 Range/Units 16:49 21:01 05:40 RBC 3.94 L (4.40-5.60) X 10*6/uL Hgb 12.7 L (13.0-17.0) g/dL Hct 35.6 L (39.6-50.0) % MCH 32.2 H (27.0-32.0) pg Immature Gran # 0.21 H (0.00-0.04) X 10*3/uL POC Glucose (mg/dL) 338 H 381 H (75-99) mg/dL 05/15/20 05/15/20 Range/Units 07:06 11:52 RBC (4.40-5.60) X 10*6/uL Hgb (13.0-17.0) g/dL Hct (39.6-50.0) % MCH (27.0-32.0) pg Immature Gran # (0.00-0.04) X 10*3/uL POC Glucose (mg/dL) 256 H 317 H (75-99) mg/dL Microbiology - Last 24 Hours (Table) 05/09/20 19:55 Blood Culture - Preliminary Blood No Growth after 120 hours 05/09/20 19:55 Blood Culture - Preliminary Blood No Growth after 120 hours Assessment and Plan Plan: 1 Acute COVID 19 pneumonia, status post 5 days of Remdesivir and the patient currently on Decadron. Currently on 2 L of oxygen by nasal cannula 2 Shortness of breath, and fever, secondary to COVID 19. 3 History of significant coronary artery disease with previous multiple stent placements. 4 Status post prostatectomy for prostate cancer. 5 History of diabetes mellitus. 6 History of DVT/PE. 7 History of PTSD. 8 History of agent orange exposure. Plan Continue Decadron a total of 10 day course, no active pulmonary issues, the patient is weak and the patient would benefit from rehabilitation. Pulmonary can critical services we'll sign off. Is very much likely the patient can be also weaned off the oxygen. Monitor oxygenation Maintain saturation above 90% Discharge planning is in progress
[2020-05-15 13:16] LABS: African American GFR (CKD) 70.1 (60.0-200.0); Albumin 3.8 g/dL (3.80-4.90); Albumin/Globulin Ratio 1.73 (1.60-3.17); Anion Gap 8.9 mmol/L (4.00-12.00); BUN/Creat Ratio 33.33 Ratio (12.00-20.00); C Reactive Protein 1.2 mg/dL (0.0-0.8); Calcium 9.6 mg/dL (8.7-10.3); Carbon Dioxide 25.1 mmol/L (21.6-31.8); Globulin 2.2 g/dL (1.6-3.3); Non-African American GFR(CKD) 60.5 (60.0-200.0); Potassium 4.2 mmol/L (3.5-5.5); Total Bilirubin 0.3 mg/dL (0.2-1.2)
--- NOTE | 2020-05-15 14:27 | P.PN ---
Subjective Progress Note Date: 05/15/20 Braydon Bhatia is a 69 yo M with PMH of metastatic prostate cancer, CAD, T2DM who presented to the ED via EMS with fever and shortness of breath. He states that over the past few days he has become increasingly malaised and is now experiencing fever, chills, cough and chest tightness. He notes a fever to 103 at home. Denies chest pain, palpitations, vertigo. He did receive both doses of COVID19 vaccine with the second being approx 3 weeks ago. On presentation he was hypertensive, febrile and tachypneic, SpO2 945 on RA. WBC 5.9, lymphopenia, trop negative. COVID PCR positive. CXR with interstitial infiltrate. 05/11/2020 maintained on Covid cocktail including Remdesevir., Maintaining O2 sats in the 90s on room air. Reports no cough. He complains of insomnia. Afebrile, CRP down to 8.3. Pro-calcitonin 0.14. Denies chest pain, palpitations. 05/12/2020 complaints of chest tightness from coughing,weakness. Exertional shortness of breath with sponge bath. Continues on Remdesevir/Covid cocktail. Hyperglycemic on Decadron. Afebrile, normal WBC. Maintaining O2 sats in the 90s on room air. Repeat chest x-ray reporting new tiny left pleural effusion and left basilar acute atelectasis and/or infiltrate. 05/15/2020 Completed Remdesevir treatment, and was ready for discharge yesterday, but displayed significant weakness with ambulation and PT OT placed. Discharge planning in progress, pending PT evaluation. Social work consult in place. Hyperglycemic, on Decadron. Objective - Vital Signs Vital signs: Vital Signs Temp 97.7 F 05/15/20 10:09 Pulse 75 05/15/20 10:09 Resp 18 05/15/20 10:09 BP 122/72 05/15/20 10:09 Pulse Ox 95 05/15/20 10:09 Intake & Output 05/14/20 05/15/20 05/15/20 18:59 06:59 18:59 Other: Voiding Method Toilet Toilet Toilet Urinal Urinal Urinal # Voids 4 1 - Exam General: Sitting up in bed,NAD Eyes: PERRL, EOMI, conjunctiva normal HENT: normocephalic, mucus membranes moist Neck: supple, no JVD Lungs: Essentially clear with occasional scattered rhonchi CV: Regular rate and rhythm, no murmur. Peripheral pulses 2+ Abdomen: soft, nondistended, no organomegaly, positive bowel sounds Skin: warm and dry. Neuro: A&Ox3, normal mood and affect. No focal deficits. - Labs CBC & Chem 7: 05/15/20 05:40 05/15/20 05:40 Labs: Abnormal Lab Results - Last 24 Hours (Table) 05/14/20 05/14/20 05/15/20 Range/Units 16:49 21:01 05:40 RBC 3.94 L (4.40-5.60) X 10*6/uL Hgb 12.7 L (13.0-17.0) g/dL Hct 35.6 L (39.6-50.0) % MCH 32.2 H (27.0-32.0) pg Immature Gran # 0.21 H (0.00-0.04) X 10*3/uL BUN (9.0-27.0) mg/dL BUN/Creatinine Ratio (12.00-20.00) Ratio Glucose (70-110) mg/dL POC Glucose (mg/dL) 338 H 381 H (75-99) mg/dL C-Reactive Protein (0.0-0.8) mg/dL Total Protein (6.2-8.2) g/dL 05/15/20 05/15/20 05/15/20 Range/Units 05:40 07:06 11:52 RBC (4.40-5.60) X 10*6/uL Hgb (13.0-17.0) g/dL Hct (39.6-50.0) % MCH (27.0-32.0) pg Immature Gran # (0.00-0.04) X 10*3/uL BUN 40.0 H (9.0-27.0) mg/dL BUN/Creatinine Ratio 33.33 H (12.00-20.00) Ratio Glucose 274 H (70-110) mg/dL POC Glucose (mg/dL) 256 H 317 H (75-99) mg/dL C-Reactive Protein 1.2 H (0.0-0.8) mg/dL Total Protein 6.0 L (6.2-8.2) g/dL Microbiology - Last 24 Hours (Table) 05/09/20 19:55 Blood Culture - Preliminary Blood No Growth after 120 hours 05/09/20 19:55 Blood Culture - Preliminary Blood No Growth after 120 hours Assessment and Plan Assessment: (1) Sepsis due to COVID-19, in a patient who did receive both Covid vaccinations. 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 Current Visit: Yes Status: Acute Code(s): E11.40 - TYPE 2 DIABETES MELLITUS WITH DIABETIC NEUROPATHY, UNSP; E11.65 - TYPE 2 DIABETES MELLITUS WITH HYPERGLYCEMIA SNOMED Code(s): 41257010 (4) Prostate cancer Current Visit: Yes Status: Acute Code(s): C61 - MALIGNANT NEOPLASM OF PROSTATE SNOMED Code(s): 037251540 (5) Coronary artery disease involving [place] heart Current Visit: No Status: Acute Code(s): I25.10 - ATHSCL HEART DISEASE OF [place] CORONARY ARTERY W/O ANG PCTRS SNOMED Code(s): 41135547 (6) insomnia Plan: Continue on current medication regime ,monitoring and symptomatic treatment. Lantus dose increased, close monitoring of Accu-Cheks. At discharge recommending Decadron taper,Lovenox 40 mg subcu daily 14 days, secondary to vascular disease, cardiovascular disease, diabetes mellitus. Discharge planning in progress potentially to subacute rehab pending PT/OT's recommendations. The impression and plan of care has been dictated as directed. : I performed a history and examination of this patient, discussed the same with the dictator. I agree with the dictator's note ,documented as a scribe. Any additional findings or plans will be noted.
[2020-05-15] MEDS ORDERED: INSULIN DETEMIR (LEVEMIR) 100 UNIT/ML SYR SQ ONE (15:00)
[2020-05-15 16:59] LABS: Glucose,Whole Blood 321 mg/dL (75-99)
[2020-05-15 20:07] LABS: Glucose,Whole Blood 369 mg/dL (75-99)
[2020-05-15] MEDS: valACYclovir 500 MG TAB PO SCH (22:37)
[2020-05-15] MEDS: traZODone HCL 100 MG TAB PO SCH (22:37)
[2020-05-15] MEDS: DULoxetine HCL 60 MG CAPSULE.DR PO SCH (22:37)
[2020-05-16] MEDS: guaiFENesin-Coden 100-10MG/5ML 10 ML CUP PO SCH ×4 (02:38→22:46)
[2020-05-16] MEDS: ACETAMINOPHEN TAB 500 MG TAB PO SCH ×3 (05:34→22:45)
[2020-05-16 06:58] LABS: Glucose,Whole Blood 226 mg/dL (75-99)
[2020-05-16] MEDS: INSULIN ASPART (NovoLOG) 100 UNIT/ML VIAL SQ SCH ×4 (08:11→20:16)
[2020-05-16] MEDS: INSULIN DETEMIR (LEVEMIR) 100 UNIT/ML SYR SQ SCH (08:11)
[2020-05-16] MEDS: DEXAMETHASONE SOD PHOSPHATE 10 MG/ML 1 ML VIAL IV SCH (08:11)
[2020-05-16] MEDS: ASCORBIC ACID 500 MG TAB PO SCH ×2 (08:12→22:45)
[2020-05-16] MEDS: RANOLAZINE 500 MG TAB.ER.12H PO SCH ×2 (08:12→22:45)
[2020-05-16] MEDS: ZINC SULFATE 220 MG CAP PO SCH (08:12)
[2020-05-16] MEDS: PREGABALIN 50 MG CAP PO SCH ×2 (08:12→22:46)
[2020-05-16] MEDS: CHOLECALCIFEROL 25 MCG (1000 IU) TABLET PO SCH (08:12)
[2020-05-16] MEDS: CLOPIDOGREL 75 MG TAB PO SCH (08:12)
[2020-05-16] MEDS: ISOSORBIDE MONONITRATE ER 60 MG TAB.ER.24H PO SCH (08:12)
[2020-05-16] MEDS: FAMOTIDINE 20 MG TAB PO SCH (08:12)
[2020-05-16] MEDS: valACYclovir 500 MG TAB PO SCH (08:12)
[2020-05-16] MEDS: ASPIRIN 81 MG PO SCH (08:13)
[2020-05-16] MEDS: ENOXAPARIN 40 MG/0.4 ML SYRINGE SQ SCH (08:13)
[2020-05-16 11:13] LABS: Glucose,Whole Blood 283 mg/dL (75-99)
--- NOTE | 2020-05-16 14:55 | P.PN ---
Subjective Progress Note Date: 05/16/20 Braydon Bhatia is a 69 yo M with PMH of metastatic prostate cancer, CAD, T2DM who presented to the ED via EMS with fever and shortness of breath. He states that over the past few days he has become increasingly malaised and is now experiencing fever, chills, cough and chest tightness. He notes a fever to 103 at home. Denies chest pain, palpitations, vertigo. He did receive both doses of COVID19 vaccine with the second being approx 3 weeks ago. On presentation he was hypertensive, febrile and tachypneic, SpO2 945 on RA. WBC 5.9, lymphopenia, trop negative. COVID PCR positive. CXR with interstitial infiltrate. 05/11/2020 maintained on Covid cocktail including Remdesevir., Maintaining O2 sats in the 90s on room air. Reports no cough. He complains of insomnia. Afebrile, CRP down to 8.3. Pro-calcitonin 0.14. Denies chest pain, palpitations. 05/12/2020 complaints of chest tightness from coughing,weakness. Exertional shortness of breath with sponge bath. Continues on Remdesevir/Covid cocktail. Hyperglycemic on Decadron. Afebrile, normal WBC. Maintaining O2 sats in the 90s on room air. Repeat chest x-ray reporting new tiny left pleural effusion and left basilar acute atelectasis and/or infiltrate. 05/15/2020 Completed Remdesevir treatment, and was ready for discharge yesterday, but displayed significant weakness with ambulation and PT OT placed. Discharge planning in progress, pending PT evaluation. Social work consult in place. Hyperglycemic, on Decadron. 05/16/2020 evaluated by PT/OT with recommendations for subacute rehab. Patient declining subacute rehab. Afebrile, normal WBCs. Hyperglycemic. Denies chest pain, palpitations or increased shortness of breath, maintaining O2 sats in the mid to low 90s on room air. Objective - Vital Signs Vital signs: Vital Signs Temp 98.2 F 05/16/20 14:17 Pulse 80 05/16/20 14:17 Resp 18 05/16/20 14:17 BP 126/73 05/16/20 14:17 Pulse Ox 93 L 05/16/20 14:17 Intake & Output 05/15/20 05/16/20 05/16/20 18:59 06:59 18:59 Intake Total 50 540 Output Total 200 Balance 50 340 Intake: Intake, IV Titration 50 Amount cefTRIAXone 1 gm In 50 Sodium Chloride 0.9% 50 ml @ 100 mls/hr IVPB Q24HR [facility] Rx#:[id number] Oral 540 Output: Urine 200 Other: Voiding Method Toilet Urinal Urinal # Voids 3 - Exam General: Sitting up in bed,NAD HENT: PEARRL,normocephalic, mucus membranes moist Lungs: Essentially clear with occasional scattered rhonchi CV: Regular rate and rhythm, no murmur. Peripheral pulses 2+ Abdomen: soft, nondistended, no organomegaly, positive bowel sounds Skin: warm and dry. Neuro: A&Ox3, normal mood and affect. No focal deficits. Generalized weakness. - Labs CBC & Chem 7: 05/15/20 05:40 05/15/20 05:40 Labs: Abnormal Lab Results - Last 24 Hours (Table) 05/15/20 05/15/20 05/16/20 Range/Units 16:56 20:04 06:58 POC Glucose (mg/dL) 321 H 369 H 226 H (75-99) mg/dL 05/16/20 Range/Units 11:11 POC Glucose (mg/dL) 283 H (75-99) mg/dL Microbiology - Last 24 Hours (Table) 05/09/20 19:55 Blood Culture - Final Blood No Growth after 144 hours 05/09/20 19:55 Blood Culture - Final Blood No Growth after 144 hours Assessment and Plan Assessment: (1) Sepsis due to COVID-19, in a patient who did receive both Covid vaccinations. Current Visit: Yes Status: Acute Code(s): U07.1 - COVID-19; A41.89 - OTHER SPECIFIED SEPSIS SNOMED Code(s): 135151250 (2)Pneumonia due to COVID-19 virus Current Visit: Yes Status: Acute Code(s): U07.1 - COVID-19; J12.82 - Pneumonia due to coronavirus disease 2019 SNOMED Code(s): 776615698165371184 (3) Type 2 diabetes, uncontrolled, with neuropathy, A1c 9 Current Visit: Yes Status: Acute Code(s): E11.40 - TYPE 2 DIABETES MELLITUS WITH DIABETIC NEUROPATHY, UNSP; E11.65 - TYPE 2 DIABETES MELLITUS WITH HYPERGLYCEMIA SNOMED Code(s): 71169511 (4) Prostate cancer Current Visit: Yes Status: Acute Code(s): C61 - MALIGNANT NEOPLASM OF [place] SNOMED Code(s): 390768792 (5) Coronary artery disease involving [place] heart Current Visit: No Status: Acute Code(s): I25.10 - ATHSCL HEART DISEASE OF [place] CORONARY ARTERY W/O ANG PCTRS SNOMED Code(s): 34060146 (6) insomnia Plan: Continue on current medication regime ,monitoring and symptomatic treatment. Maintain Close monitoring of Accu-Cheks. At discharge recommending Decadron taper,Lovenox 40 mg subcu daily 14 days, secondary to vascular disease, cardiovascular disease, diabetes mellitus. Discharge planning in progress for tomorrow. Patient currently declining subacute rehab, home care, assisted devices such as bedside commode or shower chair at this time. Maintain supportive care. The impression and plan of care has been dictated as directed. : I performed a history and examination of this patient, discussed the same with the dictator. I agree with the dictator's note ,documented as a scribe. Any additional findings or plans will be noted.
[2020-05-16 16:25] LABS: Glucose,Whole Blood 489 mg/dL (75-99)
[2020-05-16 16:25] LABS: Glucose,Whole Blood 530 mg/dL (75-99)
[2020-05-16] MEDS ORDERED: INSULIN DETEMIR (LEVEMIR) 100 UNIT/ML SYR SQ STA (16:39)
[2020-05-16] MEDS ORDERED: INSULIN ASPART (NovoLOG) 100 UNIT/ML VIAL SQ STA (16:41)
[2020-05-16 20:14] LABS: Glucose,Whole Blood 401 mg/dL (75-99)
[2020-05-16] MEDS: DULoxetine HCL 60 MG CAPSULE.DR PO SCH (22:45)
[2020-05-16] MEDS: traZODone HCL 100 MG TAB PO SCH (22:46)
[2020-05-17] MEDS: guaiFENesin-Coden 100-10MG/5ML 10 ML CUP PO SCH ×3 (00:53→08:24)
[2020-05-17] MEDS: ACETAMINOPHEN TAB 500 MG TAB PO SCH (05:23)
[2020-05-17 07:17] LABS: Glucose,Whole Blood 259 mg/dL (75-99)
[2020-05-17] MEDS: ISOSORBIDE MONONITRATE ER 60 MG TAB.ER.24H PO SCH (08:18)
[2020-05-17] MEDS: ZINC SULFATE 220 MG CAP PO SCH (08:18)
[2020-05-17] MEDS: ASPIRIN 81 MG PO SCH (08:18)
[2020-05-17] MEDS: ASCORBIC ACID 500 MG TAB PO SCH (08:19)
[2020-05-17] MEDS: PREGABALIN 50 MG CAP PO SCH (08:19)
[2020-05-17] MEDS: CLOPIDOGREL 75 MG TAB PO SCH (08:19)
[2020-05-17] MEDS: ENOXAPARIN 40 MG/0.4 ML SYRINGE SQ SCH (08:19)
[2020-05-17] MEDS: FAMOTIDINE 20 MG TAB PO SCH (08:19)
[2020-05-17] MEDS: RANOLAZINE 500 MG TAB.ER.12H PO SCH (08:20)
[2020-05-17] MEDS: INSULIN DETEMIR (LEVEMIR) 100 UNIT/ML SYR SQ SCH (08:21)
[2020-05-17] MEDS: INSULIN ASPART (NovoLOG) 100 UNIT/ML VIAL SQ SCH (08:21)
[2020-05-17] MEDS: CHOLECALCIFEROL 25 MCG (1000 IU) TABLET PO SCH (08:22)
[2020-05-17] MEDS: DEXAMETHASONE SOD PHOSPHATE 10 MG/ML 1 ML VIAL IV SCH (08:22)
[2020-05-17 10:29] VITALS: BP 123/70; PULSE 90; RESP 20; TEMP 98.3
--- NOTE | 2020-05-17 14:09 | P.DS ---
Providers Date of admission: 05/09/20 21:32 Expected date of discharge: 05/17/20 Attending physician: José Luis Valente MD Consults: 05/09/20 21:32 Consult Physician Urgent Consulting Provider: Braydon Lemus Consult Reason/Comments: COVID pneumonia Do you want consulting provider notified?: Yes Primary care physician: José Luis Valente MD Hospital Course: Final Diagnoses: (1) Sepsis due to COVID-19, in a patient who did receive both Covid vaccinations. Current Visit: Yes Status: Acute Code(s): U07.1 - COVID-19; A41.89 - OTHER SPECIFIED SEPSIS SNOMED Code(s): 366467174 (2)Pneumonia due to COVID-19 virus Current Visit: Yes Status: Acute Code(s): U07.1 - COVID-19; J12.82 - Pneumonia due to coronavirus disease 2019 SNOMED Code(s): 965497445614361201 (3) Type 2 diabetes, uncontrolled, with neuropathy, A1c 9 Current Visit: Yes Status: Acute Code(s): E11.40 - TYPE 2 DIABETES MELLITUS WITH DIABETIC NEUROPATHY, UNSP; E11.65 - TYPE 2 DIABETES MELLITUS WITH HYPERGLYCEMIA SNOMED Code(s): 77895031 (4) Prostate cancer, status post prostatectomy Current Visit: Yes Status: Acute Code(s): C61 - MALIGNANT NEOPLASM OF [place] SNOMED Code(s): 645220618 (5) Coronary artery disease involving [place] heart Current Visit: No Status: Acute Code(s): I25.10 - ATHSCL HEART DISEASE OF [place] CORONARY ARTERY W/O ANG PCTRS SNOMED Code(s): 11417583 (6) insomnia (7) history of DVT and PE Hospital course:Braydon Bhatia is a 69 yo M with PMH of metastatic prostate cancer, CAD, T2DM who presented to the ED via EMS with fever and shortness of breath. He states that over the past few days he has become increasingly malaised and is now experiencing fever, chills, cough and chest tightness. He notes a fever to 103 at home. Denies chest pain, palpitations, vertigo. He did receive both doses of COVID19 vaccine with the second being approx 3 weeks ago. On presentation he was hypertensive, febrile and tachypneic, SpO2 945 on RA. WBC 5.9, lymphopenia, trop negative. COVID PCR positive. CXR with interstitial infiltrate. 05/11/2020 maintained on Covid cocktail including Remdesevir., Maintaining O2 sats in the 90s on room air. Reports no cough. He complains of insomnia. Afebrile, CRP down to 8.3. Pro-calcitonin 0.14. Denies chest pain, palpitations. 05/12/2020 complaints of chest tightness from coughing,weakness. Exertional shortness of breath with sponge bath. Continues on Remdesevir/Covid cocktail. Hyperglycemic on Decadron. Afebrile, normal WBC. Maintaining O2 sats in the 90s on room air. Repeat chest x-ray reporting new tiny left pleural effusion and left basilar acute atelectasis and/or infiltrate. 05/15/2020 Completed Remdesevir treatment, and was ready for discharge yesterday, but displayed significant weakness with ambulation and PT OT placed. Discharge planning in progress, pending PT evaluation. Social work consult in place. Hyperglycemic, on Decadron. 05/16/2020 evaluated by PT/OT with recommendations for subacute rehab. Patient declining subacute rehab. Afebrile, normal WBCs. Hyperglycemic. Denies chest pain, palpitations or increased shortness of breath, maintaining O2 sats in the mid to low 90s on room air. Declining subacute rehab, home care ,all DME at this time. Patient's daughter, Sadie will picker and sorter load and unload and transport patient at discharge today. Significant clinical improvement. Cleared by pulmonary for discharge. Patient will be discharged home today in a stable condition with guarded prognosis. The impression and plan of care has been dictated as directed. : I performed a history and examination of this patient, discussed the same with the dictator. I agree with the dictator's note ,documented as a scribe. Any additional findings or plans will be noted. Patient Condition at Discharge: Stable Plan - Discharge Summary Discharge Rx Participant: No New Discharge Prescriptions: New dexAMETHasone [Hexadrol] See Taper PO DAILY #18 tablet Zinc Sulfate [Orazinc] 220 mg PO DAILY #20 cap guaiFENesin-Coden 100-10MG/5ML [Robitussin AC] 10 ml PO Q6H #250 ml Ascorbic Acid [Vitamin C] 500 mg PO BID #30 tab Cholecalciferol [Vitamin D3 (25 Mcg = 1000 Iu)] 50 mcg PO DAILY #20 tablet Enoxaparin [Lovenox] 40 mg SQ DAILY #14 syringe Continue DULoxetine HCL [Cymbalta] 60 mg PO HS Aspirin EC [Ecotrin Low Dose] 81 mg PO DAILY valACYclovir [Valtrex] 500 mg PO HS Clopidogrel Bisulfate [Plavix] 75 mg PO DAILY bisacodyL [Dulcolax] 5 mg PO DAILY PRN PRN Reason: Constipation Ranolazine [Ranexa] 1,000 mg PO BID Isosorbide Mononitrate ER [Imdur] 60 mg PO DAILY Acetaminophen Tab [Tylenol] 500 mg PO Q8H tab Famotidine 40 mg PO DAILY Glimepiride [Amaryl] 2 mg PO DAILY metFORMIN HCL 1,000 mg PO BID Pregabalin [Lyrica] 150 mg PO BID Sennosides/Docusate Sodium [Senna Plus 8.6-50 mg Softgel] 1 tab PO BID PRN PRN Reason: Constipation Docusate [Colace] 100 mg PO BID PRN PRN Reason: Constipation Rosuvastatin Calcium 10 mg PO DAILY Calcium Polycarbophil [Fiber-Lax] 625 mg PO DAILY lamoTRIgine [LaMICtal] 200 mg PO BID traZODone HCL [Desyrel] 200 mg PO HS PRN PRN Reason: Insomnia Changed Insulin Glargine,Hum.rec.anlog [Lantus Solostar] 35 units SQ DAILY #0 Discharge Medication List Aspirin EC [Ecotrin Low Dose] 81 mg PO DAILY 05/31/17 [History] Clopidogrel Bisulfate [Plavix] 75 mg PO DAILY 05/31/17 [History] DULoxetine HCL [Cymbalta] 60 mg PO HS 05/31/17 [History] valACYclovir [Valtrex] 500 mg PO HS 05/31/17 [History] Isosorbide Mononitrate ER [Imdur] 60 mg PO DAILY 04/14/19 [History] Ranolazine [Ranexa] 1,000 mg PO BID 04/14/19 [History] bisacodyL [Dulcolax] 5 mg PO DAILY PRN 04/14/19 [History] Acetaminophen Tab [Tylenol] 500 mg PO Q8H tab 04/16/19 [Rx] Calcium Polycarbophil [Fiber-Lax] 625 mg PO DAILY 05/09/20 [History] Docusate [Colace] 100 mg PO BID PRN 05/09/20 [History] Famotidine 40 mg PO DAILY 05/09/20 [History] Glimepiride [Amaryl] 2 mg PO DAILY 05/09/20 [History] Pregabalin [Lyrica] 150 mg PO BID 05/09/20 [History] Rosuvastatin Calcium 10 mg PO DAILY 05/09/20 [History] Sennosides/Docusate Sodium [Senna Plus 8.6-50 mg Softgel] 1 tab PO BID PRN 05/09/20 [History] metFORMIN HCL 1,000 mg PO BID 05/09/20 [History] lamoTRIgine [LaMICtal] 200 mg PO BID 05/10/20 [History] traZODone HCL [Desyrel] 200 mg PO HS PRN 05/10/20 [History] dexAMETHasone [Hexadrol] See Taper PO DAILY #18 tablet 05/12/20 [Rx] Ascorbic Acid [Vitamin C] 500 mg PO BID #30 tab 05/14/20 [Rx] Cholecalciferol [Vitamin D3 (25 Mcg = 1000 Iu)] 50 mcg PO DAILY #20 tablet 05/14/20 [Rx] Insulin Glargine,Hum.rec.anlog [Lantus Solostar] 35 units SQ DAILY #0 05/14/20 [Rx] Zinc Sulfate [Orazinc] 220 mg PO DAILY #20 cap 05/14/20 [Rx] guaiFENesin-Coden 100-10MG/5ML [Robitussin AC] 10 ml PO Q6H #250 ml 05/14/20 [Rx] Enoxaparin [Lovenox] 40 mg SQ DAILY #14 syringe 05/17/20 [Rx] Follow up Appointment(s)/Referral(s): Jos éLuis Valente MD [Primary Care Provider] - 3 Days Ainbal Momin MD [STAFF PHYSICIAN] - 2 Weeks Patient Instructions/Handouts: Coronavirus Disease 2019 (COVID-19) Activity/Diet/Wound Care/Special Instructions: Patient will require transportation assistance home. Rolling walker. Discharge Disposition: HOME SELF-CARE
== END 2020-05-17 12:08 | disposition home or self-care (01) | DRG 871 ==
LOC: EC 19:30 → 4SSUR 21:32
PROVIDERS: ADMIT Family Medicine; ATTEND Family Medicine
PROC: XW13325 Transfusion of Convalescent Plasma (Nonautologous) into Peripheral Vein, Percutaneous Approach, New Technology Group 5 (ICD-10-PCS; principal; 2020-05-10)
PROC: XW033E5 Introduction of Remdesivir Anti-infective into Peripheral Vein, Percutaneous Approach, New Technology Group 5 (ICD-10-PCS; 2020-05-10)
DX: A41.89 Other specified sepsis (principal); U07.1 COVID-19; J12.82 Pneumonia due to coronavirus disease 2019; J96.01 Acute respiratory failure with hypoxia; C77.1 Secondary and unspecified malignant neoplasm of intrathoracic lymph nodes; C79.51 Secondary malignant neoplasm of bone; J98.11 Atelectasis; E11.42 Type 2 diabetes mellitus with diabetic polyneuropathy; C61 Malignant neoplasm of prostate; E11.65 Type 2 diabetes mellitus with hyperglycemia; Z77.29 Contact with and (suspected) exposure to other hazardous substances; Z79.4 Long term (current) use of insulin; F43.10 Post-traumatic stress disorder, unspecified; E78.5 Hyperlipidemia, unspecified; I25.10 Atherosclerotic heart disease of native coronary artery without angina pectoris; M79.7 Fibromyalgia; G89.29 Other chronic pain; G47.00 Insomnia, unspecified; T38.0X5A Adverse effect of glucocorticoids and synthetic analogues, initial encounter; I25.2 Old myocardial infarction; Z79.02 Long term (current) use of antithrombotics/antiplatelets; Z79.82 Long term (current) use of aspirin; Z79.899 Other long term (current) drug therapy; Z95.5 Presence of coronary angioplasty implant and graft; Z85.46 Personal history of malignant neoplasm of prostate; Z86.718 Personal history of other venous thrombosis and embolism; Z87.891 Personal history of nicotine dependence; Z90.79 Acquired absence of other genital organ(s); Z86.711 Personal history of pulmonary embolism; Z82.49 Family history of ischemic heart disease and other diseases of the circulatory system
CPT/HCPCS: 36415; 71045; 80048; 80053; 81001; 83036; 83605; 83615; 84145; 84484; 85025; 85379; 85610; 85730; 86140; 86850; 86900; 86901; 87040; 87635; 93005; 94760; 96361; 96365; 96366; 96368; 96372; 99285

== ENCOUNTER → 2020-06-08 | Outpatient (CLI) | payer BC ==
[~2020-06-08] MED LIST: LEUPROLIDE ACETATE 22.5 MG SYRG KIT IM NR
[2020-06-08 14:04] VITALS: BP 170/88; PULSE 95; RESP 16; TEMP 98
== END ==
LOC: PROCWHC3 13:37
PROVIDERS: ATTEND Family Medicine
DX: C61 Malignant neoplasm of prostate (principal); C79.51 Secondary malignant neoplasm of bone; E11.40 Type 2 diabetes mellitus with diabetic neuropathy, unspecified; I25.10 Atherosclerotic heart disease of native coronary artery without angina pectoris; Z79.82 Long term (current) use of aspirin; Z79.4 Long term (current) use of insulin; Z87.891 Personal history of nicotine dependence
CPT/HCPCS: 96402; J9217

== ENCOUNTER → 2020-07-13 | Outpatient (CLI) | payer BC ==
[2020-07-13 18:59] LABS: Prostate Specific Antigen 2.3 ng/mL (0.0-6.5)
== END | disposition home or self-care (01) ==
LOC: LABWHC1 13:26
PROVIDERS: ATTEND Family Medicine
DX: C61 Malignant neoplasm of prostate (principal)
CPT/HCPCS: 36415; 84153; 84403

== ENCOUNTER → 2021-02-07 | Outpatient (CLI) | payer BC ==
[~2021-02-07] MED LIST changes: -LEUPROLIDE ACETATE 22.5 MG SYRG KIT IM NR; +REGADENOSON 0.4 MG/5 ML SYRINGE IV PRN
--- NOTE | 2021-02-07 11:39 | NM ---
EXAMINATION TYPE: NM stress lexiscan cardiolite DATE OF EXAM: 02/07/2021 COMPARISON: NONE HISTORY: TECHNIQUE: After the intravenous administration of 10 mCi Tc 99m Sestamibi - Cardiolite resting SPEC T images acquired 50 minutes post injection. The patient received 0.4mg Lexiscan, 25.3 mCi Tc 99m Sestamibi - Stress images obtained [address] injection FINDINGS: Review of stress and rest SPECT images demonstrates fixed defect involving the apex of the myocardium which could be artifactual.. Gated analysis shows normal wall motion with an estimated left ventric ular ejection fraction of 56 %. IMPRESSION: 1. Fixed defect involving the apex of the myocardium likely artifactual. Correlate clinically. 2. Normal ejection fraction of 56%.
--- NOTE | 2021-02-07 13:50 | EST ---
EXERCISE STRESS AGE: 70 SEX: M HT: 6' WT: 192 lbs. PROTOCOL: Lexiscan STAGE: NA DURATION OF EXERCISE: 5 minutes HEART RATE REST: 71 BLOOD PRESSURE REST: 138/98 MAXIMUM HEART RATE ACHIEVED: 78 MAXIMUM BLOOD PRESSURE: 138/98 85% MPHR: 126 100% MPHR: 148 METS: NA INDICATIONS: Chest pain. CLINICAL INFORMATION: Baseline EKG shows sinus rhythm, normal axis, normal intervals. Patient was given intravenous Lexiscan as per protocol, did not have chest pain or diagnostic ST-segment depression. CONCLUSIONS: 1. Negative stress test by EKG criteria. 2. Cardiolite portion of the stress test will be reported separately. MMODL / IJN: [id number] /
== END | disposition home or self-care (01) ==
LOC: RADNMMAIN 08:33
PROVIDERS: ATTEND Family Medicine
DX: I51.0 Cardiac septal defect, acquired (principal)
CPT/HCPCS: 93017; 78452; A9500; J2785

== ENCOUNTER 2021-08-09 22:08 | Emergency (ER) | payer BC ==
[2021-08-09 22:22] VITALS: BP 155/83; PULSE 66; RESP 22; TEMP 98.6
[2021-08-10] MEDS ORDERED: SODIUM CHLORIDE 0.9% 1,000 ML IV ONE (00:48)
[2021-08-10] MEDS ORDERED: DEXAMETHASONE SOD PHOSPHATE 10 MG/ML 1 ML VIAL IVP STA (00:49)
[2021-08-10] MEDS ORDERED: BEBTELOVIMAB (EUA) 175 MG/2 ML VIAL IV ONE (01:15)
--- NOTE | 2021-08-10 01:17 | ED ---
General Adult HPI - General Chief complaint: Shortness of Breath Stated complaint: ADELA,Body Aches,PCP sent pt in Time Seen by Provider: 08/10/21 00:39 Source: patient, family, RN notes reviewed Mode of arrival: wheelchair Limitations: no limitations - History of Present Illness Initial comments: This is a pleasant 71-year-old male with a history of multiple medical issues as listed in the history as well as epistatic prostate cancer. Patient started having fever, body aches, generalized fatigue, loss of appetite, general weakness with a cough and some shortness of breath 2 or 3 days ago. Patient tested positive for COVID-19 here in triage. Patient was sent from his primary care physician after having some heaviness on his chest. Patient's main complaint is actually fatigue, lack of appetite, and some abdominal cramping. Patient also has a dry cough. Patient has nausea but denies any vomiting. He states he did vomit once 2 weeks ago but this may be unrelated to current illness. Patient is on a chemotherapeutic agent for metastatic prostate cancer. - Related Data Home Medications Medication Instructions Recorded Confirmed Aspirin EC [Ecotrin Low Dose] 81 mg PO DAILY 05/31/17 06/08/20 Clopidogrel Bisulfate [Plavix] 75 mg PO DAILY 05/31/17 06/08/20 DULoxetine HCL [Cymbalta] 60 mg PO HS 05/31/17 06/08/20 valACYclovir HCL [Valtrex] 500 mg PO HS 05/31/17 06/08/20 Isosorbide Mononitrate ER [Imdur] 60 mg PO DAILY 04/14/19 06/08/20 Ranolazine [Ranexa] 1,000 mg PO BID 04/14/19 06/08/20 bisacodyL [Dulcolax] 5 mg PO DAILY PRN 04/14/19 06/08/20 Docusate [Colace] 100 mg PO BID PRN 05/09/20 06/08/20 Famotidine 40 mg PO DAILY 05/09/20 06/08/20 Glimepiride [Amaryl] 2 mg PO DAILY 05/09/20 06/08/20 Pregabalin [Lyrica] 150 mg PO BID 05/09/20 06/08/20 Rosuvastatin Calcium 10 mg PO DAILY 05/09/20 06/08/20 Sennosides/Docusate Sodium [Senna 1 tab PO BID PRN 05/09/20 06/08/20 Plus 8.6-50 mg Softgel] calcium polycarbophiL [Fiber-Lax] 625 mg PO DAILY 05/09/20 06/08/20 metFORMIN HCL [Glucophage] 1,000 mg PO BID 05/09/20 06/08/20 lamoTRIgine [LaMICtal] 200 mg PO BID 05/10/20 06/08/20 traZODone HCL [Desyrel] 200 mg PO HS PRN 05/10/20 06/08/20 Previous Rx's Medication Instructions Recorded Acetaminophen Tab [Tylenol] 500 mg PO Q8H tab 04/16/19 dexAMETHasone ORAL [Hexadrol] See Taper PO DAILY #18 tablet 05/12/20 Ascorbic Acid [Vitamin C] 500 mg PO BID #30 tab 05/14/20 Cholecalciferol [Vitamin D3 (25 50 mcg PO DAILY #20 tablet 05/14/20 Mcg = 1000 Iu)] Insulin Glargine,Hum.rec.anlog 35 units SQ DAILY #0 05/14/20 [Lantus Solostar Pen] Zinc Sulfate [Orazinc] 220 mg PO DAILY #20 cap 05/14/20 guaiFENesin-Coden 100-10MG/5ML 10 ml PO Q6H #250 ml 05/14/20 [Robitussin AC] Enoxaparin [Lovenox] 40 mg SQ DAILY #14 syringe 05/17/20 Allergies Allergy/AdvReac Type Severity Reaction Status Date / Time No Known Allergies Allergy Verified 08/09/21 22:22 Review of Systems ROS Statement: Those systems with pertinent positive or pertinent negative responses have been documented in the HPI. ROS Other: All systems not noted in ROS Statement are negative. Past Medical History Past Medical History: Coronary Artery Disease (CAD), Cancer, Diabetes Mellitus, Deep Vein Thrombosis (DVT), Fibromyalgia, Myocardial Infarction ([place]), Prostate Disorder, Pulmonary Embolus (PE) Additional Past Medical History / Comment(s): Pt tested + covid on 05/09/20 [facility] ER. Other hx: IDDM type II, neuropathy bilateral hands/legs and feet, prostate cancer with metastasis x3-lymph nodes then sternum and bones-pt states he is currently on radiation tx and hormone therapy and in the past tx with radiation as well, R leg DVT post surgery and R lung PE, agent orange exsposure, chronic pain, vertigo if stands too quickly Last Myocardial Infarction Date:: 2002 History of Any Multi-Drug Resistant Organisms: None Reported Past Surgical History: Heart Catheterization With Stent, Orthopedic Surgery, Prostate Surgery Additional Past Surgical History / Comment(s): PCI/stents, L1-s1 fused, right ring finger sugery, colonoscopy. Past Anesthesia/Blood Transfusion Reactions: No Reported Reaction Date of Last Stent Placement:: 2002 Past Psychological History: No Psychological Hx Reported Smoking Status: Former smoker - Past Family History Father Family Medical History: Myocardial Infarction ([place]) Additional Family Medical History / Comment(s): Father of a [place] at the age of 43 yrs. Mother Additional Family Medical History / Comment(s): Mother in a MVA at the age of 50 yrs General Exam Limitations: no limitations General appearance: alert, in no apparent distress Head exam: Present: atraumatic, normocephalic, normal inspection Eye exam: Present: normal appearance, PERRL, EOMI. Absent: scleral icterus, conjunctival injection, periorbital swelling ENT exam: Present: normal exam, mucous membranes moist Neck exam: Present: normal inspection. Absent: tenderness, meningismus, lymphadenopathy Respiratory exam: Present: normal lung sounds bilaterally. Absent: respiratory distress, wheezes, rales, rhonchi, stridor Cardiovascular Exam: Present: regular rate, normal rhythm, normal heart sounds. Absent: systolic murmur, diastolic murmur, rubs, gallop, clicks GI/Abdominal exam: Present: soft, normal bowel sounds. Absent: distended, tenderness, guarding, rebound, rigid Extremities exam: Present: normal inspection, full ROM, normal capillary refill. Absent: tenderness, pedal edema, joint swelling, calf tenderness Back exam: Present: normal inspection Neurological exam: Present: alert, oriented X3, CN II-XII intact Psychiatric exam: Present: normal affect, normal mood Skin exam: Present: warm, dry, intact, normal color. Absent: rash Course Vital Signs 08/09/21 22:18 Temperature 98.6 F Pulse Rate 66 Respiratory 22 Rate Blood Pressure 155/83 O2 Sat by Pulse 98 Oximetry - Reevaluation(s) Reevaluation #1: 08/10/21 03:15 Medical record is reviewed Symptoms are improved here in the emergency department Patient is informed of results and questions answered Patient in no distress EKG Findings - EKG Comments: EKG Findings:: EKG done at 2254 shows sinus rhythm with a first-degree AV block. OR interval is 240 ms. Other intervals are normal. Normal axis. No acute ST or T-wave changes. Low voltage in precordial leads. Medical Decision Making - Medical Decision Making Discussed treatment plan. Discussed quarantine measures. Discussed follow-up. Patient was told to call his regular physician in the morning without fail. All questions answered. Patient and spouse concur with the treatment plan. Asa arnold received a monoclonal antibody here. Patient in no respiratory distress with an SpO2 of 98% on room air. Patient already on Paxlovid by his regular physician. Patient was told to return to the ER for any signs or symptoms worsen. Told to return immediately if any other problems arise. All questions answered. Treatment plan discussed. Patient in agreement Every effort has been made to ensure accuracy of this dictation. However, due to the limitations of electronic medical records and dictation devices, errors in charting still occur. The case was discussed in detail with ED attending physician. Presentation, findings, treatment plan discussed in detail. Lamination Operator Dr. Valero - Lab Data Result diagrams: 08/10/21 01:10 08/10/21 01:10 Lab Results 08/09/21 08/10/21 08/10/21 Range/Units 22:23 01:10 01:10 WBC 5.8 (3.8-10.6) k/uL RBC 3.60 L (4.30-5.90) m/uL Hgb 12.0 L (13.0-17.5) gm/dL Hct 37.1 L (39.0-53.0) % MCV 103.3 H (80.0-100.0) fL MCH 33.4 (25.0-35.0) pg MCHC 32.3 (31.0-37.0) g/dL RDW 13.7 (11.5-15.5) % Plt Count 259 (150-450) k/uL MPV 7.6 Neutrophils % 66 % Lymphocytes % 18 % Monocytes % 9 % Eosinophils % 1 % Basophils % 1 % Neutrophils # 3.9 (1.3-7.7) k/uL Lymphocytes # 1.1 (1.0-4.8) k/uL Monocytes # 0.5 (0-1.0) k/uL Eosinophils # 0.1 (0-0.7) k/uL Basophils # 0.1 (0-0.2) k/uL Macrocytosis Slight PT 9.6 (9.0-12.0) sec INR 0.9 (<1.2) APTT 23.6 (22.0-30.0) sec D-Dimer 0.33 (<0.60) mg/L FEU Sodium (137-145) mmol/L Potassium (3.5-5.1) mmol/L Chloride (98-107) mmol/L Carbon Dioxide (22-30) mmol/L Anion Gap mmol/L BUN (9-20) mg/dL Creatinine (0.66-1.25) mg/dL Est GFR (CKD-EPI)AfAm (>60 ml/min/1.73 sqM) Est GFR (CKD-EPI)NonAf (>60 ml/min/1.73 sqM) Glucose (74-99) mg/dL Plasma Lactic Acid Sheng (0.7-2.0) mmol/L Calcium (8.4-10.2) mg/dL Magnesium (1.6-2.3) mg/dL Total Bilirubin (0.2-1.3) mg/dL AST (17-59) U/L ALT (4-49) U/L Alkaline Phosphatase (38-126) U/L Troponin I (0.000-0.034) ng/mL NT-Pro-B Natriuret Pep pg/mL Total Protein (6.3-8.2) g/dL Albumin (3.5-5.0) g/dL Coronavirus (PCR) Detected A (Not Detectd) Influenza Type A RNA (Not Detectd) Influenza Type B (PCR) (Not Detectd) 08/10/21 08/10/21 08/10/21 Range/Units 01:10 01:10 01:10 WBC (3.8-10.6) k/uL RBC (4.30-5.90) m/uL Hgb (13.0-17.5) gm/dL Hct (39.0-53.0) % MCV (80.0-100.0) fL MCH (25.0-35.0) pg MCHC (31.0-37.0) g/dL RDW (11.5-15.5) % Plt Count (150-450) k/uL MPV Neutrophils % % Lymphocytes % % Monocytes % % Eosinophils % % Basophils % % Neutrophils # (1.3-7.7) k/uL Lymphocytes # (1.0-4.8) k/uL Monocytes # (0-1.0) k/uL Eosinophils # (0-0.7) k/uL Basophils # (0-0.2) k/uL Macrocytosis PT (9.0-12.0) sec INR (<1.2) APTT (22.0-30.0) sec D-Dimer (<0.60) mg/L FEU Sodium 135 L (137-145) mmol/L Potassium 4.0 (3.5-5.1) mmol/L Chloride 104 (98-107) mmol/L Carbon Dioxide 24 (22-30) mmol/L Anion Gap 7 mmol/L BUN 26 H (9-20) mg/dL Creatinine 1.26 H (0.66-1.25) mg/dL Est GFR (CKD-EPI)AfAm 65 (>60 ml/min/1.73 sqM) Est GFR (CKD-EPI)NonAf 56 (>60 ml/min/1.73 sqM) Glucose 138 H (74-99) mg/dL Plasma Lactic Acid Sheng 1.2 (0.7-2.0) mmol/L Calcium 8.6 (8.4-10.2) mg/dL Magnesium 2.1 (1.6-2.3) mg/dL Total Bilirubin 0.3 (0.2-1.3) mg/dL AST 25 (17-59) U/L ALT 11 (4-49) U/L Alkaline Phosphatase 77 (38-126) U/L Troponin I <0.012 (0.000-0.034) ng/mL NT-Pro-B Natriuret Pep pg/mL Total Protein 6.5 (6.3-8.2) g/dL Albumin 3.8 (3.5-5.0) g/dL Coronavirus (PCR) (Not Detectd) Influenza Type A RNA (Not Detectd) Influenza Type B (PCR) (Not Detectd) 08/10/21 08/10/21 Range/Units 01:10 01:10 WBC (3.8-10.6) k/uL RBC (4.30-5.90) m/uL Hgb (13.0-17.5) gm/dL Hct (39.0-53.0) % MCV (80.0-100.0) fL MCH (25.0-35.0) pg MCHC (31.0-37.0) g/dL RDW (11.5-15.5) % Plt Count (150-450) k/uL MPV Neutrophils % % Lymphocytes % % Monocytes % % Eosinophils % % Basophils % % Neutrophils # (1.3-7.7) k/uL Lymphocytes # (1.0-4.8) k/uL Monocytes # (0-1.0) k/uL Eosinophils # (0-0.7) k/uL Basophils # (0-0.2) k/uL Macrocytosis PT (9.0-12.0) sec INR (<1.2) APTT (22.0-30.0) sec D-Dimer (<0.60) mg/L FEU Sodium (137-145) mmol/L Potassium (3.5-5.1) mmol/L Chloride (98-107) mmol/L Carbon Dioxide (22-30) mmol/L Anion Gap mmol/L BUN (9-20) mg/dL Creatinine (0.66-1.25) mg/dL Est GFR (CKD-EPI)AfAm (>60 ml/min/1.73 sqM) Est GFR (CKD-EPI)NonAf (>60 ml/min/1.73 sqM) Glucose (74-99) mg/dL Plasma Lactic Acid Sheng (0.7-2.0) mmol/L Calcium (8.4-10.2) mg/dL Magnesium (1.6-2.3) mg/dL Total Bilirubin (0.2-1.3) mg/dL AST (17-59) U/L ALT (4-49) U/L Alkaline Phosphatase (38-126) U/L Troponin I (0.000-0.034) ng/mL NT-Pro-B Natriuret Pep 81 pg/mL Total Protein (6.3-8.2) g/dL Albumin (3.5-5.0) g/dL Coronavirus (PCR) (Not Detectd) Influenza Type A RNA Not Detected (Not Detectd) Influenza Type B (PCR) Not Detected (Not Detectd) - Radiology Data Radiology results: image reviewed (No evidence of lobar consolidation. Awaiting radiology interpretation.) Disposition Clinical Impression: COVID-19, Acute viral syndrome Disposition: HOME SELF-CARE Condition: Good Instructions (If sedation given, give patient instructions): Viral Syndrome (ED), COVID-19 (Coronavirus Disease 2019) (ED) Additional Instructions: SELF QUARANTINE DISCHARGE: As you are at risk for symptoms due to coronavirus, please stay home and stay away from others as much as possible. Please maintain social distance of 6 feet if possible. You should not return to work until at least 3 days (72 hours) have passed since recovery of symptoms. This defined as resolution of fever without the use of fever reducing medicines and improvement in respiratory symptoms (e.g,, cough, shortness of breath) Isolation can end at least 5 days after symptom onset and after fever ends for 24 hours (without the use of fever-reducing medication) and symptoms are improving, if these people can continue to properly wear a well-fitted mask around others for 5 more days after the 5-day isolation period. If you're still having symptoms at the end of 5 day period, isolate for an additional 5 days. More information about what to do if you are sick can be found on the CDC website at https://www.cdc.gov/coronavirus/2019-ncov/vd-toj-uif-sick/seeao-zckx-xxyp.html Expect the symptoms to last for 7-14 days from onset. Use acetaminophen (Tylenol) as needed for discomfort. You can take a maximum of 1 gram every 6 hours for discomfort, with your total dose in 24 hours not exceeding 4 grams. Be sure to maintain hydration. Drink continuous water and/or items high in vitamin C, such as orange juice and/or lemonade. For a cough you may take Mucinex or Robitussin. Also consider the use of Vicks Vapor Rub or your chest when you sleep. Use a humidifier that is cleaned frequently, in the bedroom at night. For Nausea /Vomiting/Diarrhea associated with your Illness: o Small frequent sips of room temperature liquids. o Diet: [place] [employer] - If you are still experiencing discomfort and/or nausea please slowly advancing your diet using the BRAT Diet = bananas, rice, apples/apple sauce, toast. o With diarrhea avoid any dairy for 48 hours after symptoms resolved. o Continue with activity as tolerated. If your symptoms do get worse and you believe that the upper respiratory infection has developed into something else, such as pneumonia or severe dehydration, please return to the emergency department or follow-up with your [facility] care. But expect to be symptomatic for the days as indicated above Call your regular physician in the morning to touch base by phone. Is patient prescribed a controlled substance at d/c from ED?: No Referrals: José Luis Valente MD [Primary Care Provider] - 1-2 days Time of Disposition: 03:11
[2021-08-10] MEDS ORDERED: ACETAMINOPHEN TAB 500 MG TAB PO STA (01:28)
[2021-08-10 01:54] LABS: INR 0.9 (<1.2); Partial Thromboplastin Time 23.6 sec (22.0-30.0); Prothrombin Time 9.6 sec (9.0-12.0)
[2021-08-10 01:55] LABS: Basophils # (A) 0.1 k/uL (0-0.2); Basophils % (A) 1 %; Eosinophils # (A) 0.1 k/uL (0-0.7); Eosinophils % (A) 1 %; HCT 37.1 % (39.0-53.0); Lymphocytes # (A) 1.1 k/uL (1.0-4.8); Lymphocytes % (A) 18 %; MCH 33.4 pg (25.0-35.0); MCHC 32.3 g/dL (31.0-37.0); MCV 103.3 fL (80.0-100.0); Macrocytosis Slight; Mean Platelet Volume 7.6; Monocytes # (A) 0.5 k/uL (0-1.0); Monocytes % (A) 9 %; Neutrophils # (A) 3.9 k/uL (1.3-7.7); Neutrophils % (A) 66 %; Platelet Count 259 k/uL (150-450); RDW 13.7 % (11.5-15.5); WBC 5.8 k/uL (3.8-10.6)
[2021-08-10 02:03] LABS: Albumin 3.8 g/dL (3.5-5.0); Calcium 8.6 mg/dL (8.4-10.2); Magnesium 2.1 mg/dL (1.6-2.3); Total Bilirubin 0.3 mg/dL (0.2-1.3); Total Protein 6.5 g/dL (6.3-8.2)
--- NOTE | 2021-08-10 03:57 | XR ---
EXAM: XR Chest, 2 Views CLINICAL HISTORY: ITS.REASON XR Reason: difficulty breathing TECHNIQUE: Frontal and lateral views of the chest. COMPARISON: May 12, 2020. FINDINGS: Lungs: Unremarkable. No consolidation. Pleural space: Unremarkable. No pneumothorax. Heart: The heart is large in size. Mediastinum: Unremarkable. Bones/joints: Unremarkable. IMPRESSION: No acute findings in the chest.
== END 2021-08-10 03:35 | disposition home or self-care (01) ==
LOC: EC 22:08
DX: U07.1 COVID-19 (principal); E11.9 Type 2 diabetes mellitus without complications; I25.10 Atherosclerotic heart disease of native coronary artery without angina pectoris; I25.2 Old myocardial infarction; M79.7 Fibromyalgia; Z87.891 Personal history of nicotine dependence; Z79.84 Long term (current) use of oral hypoglycemic drugs; Z79.899 Other long term (current) drug therapy; Z79.82 Long term (current) use of aspirin
CPT/HCPCS: 36415; 93005; 85379; 83880; 80053; 83605; 83735; 84484; 85025; 85610; 85730; 87502; 87635; 71046; 99285; 96374; 96361; J1100; Q0222

== ENCOUNTER 2021-08-14 13:38 | Inpatient (IN) | payer BC ==
[2021-08-14] MEDS ORDERED: SODIUM CHLORIDE 0.9% 1,000 ML IV STA (13:50)
--- NOTE | 2021-08-14 14:50 | ED ---
General Adult HPI - General Source: patient, family, EMS, RN notes reviewed Mode of arrival: EMS Limitations: no limitations <Jamarcus Carbone - Last Filed: 08/14/21 14:36> <Braydon Vivas - Last Filed: 08/14/21 16:18> - General Chief complaint: Fall Stated complaint: Fall Time Seen by Provider: 08/14/21 13:43 - History of Present Illness Initial comments: This a 71-year-old male presents emergency from via EMS chief complaint of dizziness, multiple falls, weakness. Patient seen here a few days ago was diagnosed with COVID-19. Patient states that he's been having receiving dizzy spells which she fell did strike his head complains of headache, increased dizziness since the fall. Patient asked went of right hip pain. Patient states he has not been eating and drinking well he states she's been too weak. Patient does take Plavix at home. Patient denies any chest pain, shortness breath, abdominal pain. (Jamarcus Carbone) this 71-year-old male presents with weakness. He states that he has fallen 6 times in the last 24 hours. He was recently diagnosed with cold lid. He is not having any difficulty in breathing or coughing. He has had decreased intake. He states that he fell yesterday and lost consciousness for almost 7 hours. He did hit his head onto of his falls. He is complaining of left hip pain as well. He is on Plavix but no other blood thinners. No other complaints or modifying factors. 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 He has some pain in his right ribs as well. (Braydon Vivas) - Related Data Home Medications Medication Instructions Recorded Confirmed Aspirin EC [Ecotrin Low Dose] 81 mg PO DAILY 05/31/17 06/08/20 Clopidogrel Bisulfate [Plavix] 75 mg PO DAILY 05/31/17 06/08/20 DULoxetine HCL [Cymbalta] 60 mg PO HS 05/31/17 06/08/20 valACYclovir HCL [Valtrex] 500 mg PO HS 05/31/17 06/08/20 Isosorbide Mononitrate ER [Imdur] 60 mg PO DAILY 04/14/19 06/08/20 Ranolazine [Ranexa] 1,000 mg PO BID 04/14/19 06/08/20 bisacodyL [Dulcolax] 5 mg PO DAILY PRN 04/14/19 06/08/20 Docusate [Colace] 100 mg PO BID PRN 05/09/20 06/08/20 Famotidine 40 mg PO DAILY 05/09/20 06/08/20 Glimepiride [Amaryl] 2 mg PO DAILY 05/09/20 06/08/20 Pregabalin [Lyrica] 150 mg PO BID 05/09/20 06/08/20 Rosuvastatin Calcium 10 mg PO DAILY 05/09/20 06/08/20 Sennosides/Docusate Sodium [Senna 1 tab PO BID PRN 05/09/20 06/08/20 Plus 8.6-50 mg Softgel] calcium polycarbophiL [Fiber-Lax] 625 mg PO DAILY 05/09/20 06/08/20 metFORMIN HCL [Glucophage] 1,000 mg PO BID 05/09/20 06/08/20 lamoTRIgine [LaMICtal] 200 mg PO BID 05/10/20 06/08/20 traZODone HCL [Desyrel] 200 mg PO HS PRN 05/10/20 06/08/20 Previous Rx's Medication Instructions Recorded Acetaminophen Tab [Tylenol] 500 mg PO Q8H tab 04/16/19 dexAMETHasone ORAL [Hexadrol] See Taper PO DAILY #18 tablet 05/12/20 Ascorbic Acid [Vitamin C] 500 mg PO BID #30 tab 05/14/20 Cholecalciferol [Vitamin D3 (25 50 mcg PO DAILY #20 tablet 05/14/20 Mcg = 1000 Iu)] Insulin Glargine,Hum.rec.anlog 35 units SQ DAILY #0 05/14/20 [Lantus Solostar Pen] Zinc Sulfate [Orazinc] 220 mg PO DAILY #20 cap 05/14/20 guaiFENesin-Coden 100-10MG/5ML 10 ml PO Q6H #250 ml 05/14/20 [Robitussin AC] Enoxaparin [Lovenox] 40 mg SQ DAILY #14 syringe 05/17/20 Allergies Allergy/AdvReac Type Severity Reaction Status Date / Time No Known Allergies Allergy Verified 08/14/21 14:08 Review of Systems ROS Other: All systems not noted in ROS Statement are negative. <Jamarcus Carbone - Last Filed: 08/14/21 14:36> ROS Other: All systems not noted in ROS Statement are negative. <Braydon Vivas - Last Filed: 08/14/21 16:18> ROS Statement: Those systems with pertinent positive or pertinent negative responses have been documented in the HPI. Past Medical History Past Medical History: Coronary Artery Disease (CAD), Cancer, Diabetes Mellitus, Deep Vein Thrombosis (DVT), Fibromyalgia, Myocardial Infarction (ME), Prostate Disorder, Pulmonary Embolus (PE) Additional Past Medical History / Comment(s): Pt tested + covid on 05/09/20 [facility] ER. Other hx: IDDM type II, neuropathy bilateral hands/legs and feet, prostate cancer with metastasis x3-lymph nodes then sternum and bones-pt states he is currently on radiation tx and hormone therapy and in the past tx with radiation as well, R leg DVT post surgery and R lung PE, agent orange exsposure, chronic pain, vertigo if stands too quickly Last Myocardial Infarction Date:: 2002 History of Any Multi-Drug Resistant Organisms: None Reported Past Surgical History: Heart Catheterization With Stent, Orthopedic Surgery, Prostate Surgery Additional Past Surgical History / Comment(s): PCI/stents, L1-s1 fused, right ring finger sugery, colonoscopy. Past Anesthesia/Blood Transfusion Reactions: No Reported Reaction Date of Last Stent Placement:: 2002 Past Psychological History: No Psychological Hx Reported Smoking Status: Former smoker Past Alcohol Use History: None Reported Past Drug Use History: None Reported - Past Family History Father Family Medical History: Myocardial Infarction (ME) Additional Family Medical History / Comment(s): Father of a ME at the age of 43 yrs. Mother Additional Family Medical History / Comment(s): Mother in a MVA at the age of 50 yrs <Jamarcus Carbone - Last Filed: 08/14/21 14:36> General Exam Limitations: no limitations General appearance: alert, in no apparent distress Head exam: Present: atraumatic, normocephalic, normal inspection Eye exam: Present: normal appearance, PERRL, EOMI. Absent: scleral icterus, conjunctival injection, periorbital swelling ENT exam: Present: normal exam, normal oropharynx, mucous membranes moist Neck exam: Present: normal inspection, full ROM. Absent: tenderness, meningismus, lymphadenopathy Respiratory exam: Present: normal lung sounds bilaterally. Absent: respiratory distress, wheezes, rales, rhonchi, stridor Cardiovascular Exam: Present: regular rate, normal rhythm, normal heart sounds. Absent: systolic murmur, diastolic murmur, rubs, gallop, clicks GI/Abdominal exam: Present: soft, normal bowel sounds. Absent: distended, ten derness, guarding, rebound, rigid Extremities exam: Present: other (There is no shortening or rotation of the lower extremities, neurovascular intact there is tenderness the right hip/pelvis, posterior aspect) Neurological exam: Present: alert, oriented X3, CN II-XII intact, reflexes normal. Absent: motor sensory deficit Skin exam: Present: warm, dry, intact, normal color. Absent: rash <Jamarcus Carbone - Last Filed: 08/14/21 14:36> Course Vital Signs 08/14/21 13:43 Temperature 98 F Pulse Rate 73 Respiratory 18 Rate Blood Pressure 137/88 O2 Sat by Pulse 97 Oximetry Medical Decision Making - Lab Data Result diagrams: 08/14/21 14:12 08/14/21 14:12 <Braydon Vivas - Last Filed: 08/14/21 16:18> - Medical Decision Making The patient was seen and examined. All diagnostics were reviewed. Old records are reviewed this patient was just in the ER 4 days ago. Covid test was positive at that time. EKG is done and shows a normal sinus rhythm with first- degree AV block. There is nonspecific ST-T wave changes noted. The HI interval as 244, QRS duration is 91, and the QTc interval is 333. Laboratory does show a slight elevation of the lactic acid. Remainder labs are all essentially within normal limits. The patient also had an x-ray of his pelvis and left hip. No fracture is identified. There may be some impingement of the joint. Please see report for details. Computed tomography scan of the brain and cervical spine does not show any acute process. Patient is hydrated. He received 10 mg of morphine by EMS prior to arrival and his pain is significantly improved. Chest x-ray is also done and this does not show any acute process. He states that he lives at home by himself and does not have any help. It is felt as though he is at extreme risk of additional falls and that he would benefit from admission to the hospital. His weakness is likely sequelae of Covid as well as a degree of dehydration and deconditioning. He does have a history of prostate cancer with metastases as well. He is agreeable to admission. Case will be discussed with medicine in the near future. (Braydon Vivas) - Lab Data Lab Results 08/14/21 08/14/21 08/14/21 Range/Units 14:12 14:12 14:12 WBC 4.8 (3.8-10.6) k/uL RBC 3.58 L (4.30-5.90) m/uL Hgb 12.4 L (13.0-17.5) gm/dL Hct 37.1 L (39.0-53.0) % MCV 103.7 H (80.0-100.0) fL MCH 34.6 (25.0-35.0) pg MCHC 33.4 (31.0-37.0) g/dL RDW 14.0 (11.5-15.5) % Plt Count 286 (150-450) k/uL MPV 7.2 Neutrophils % 62 % Lymphocytes % 27 % Monocytes % 6 % Eosinophils % 2 % Basophils % 1 % Neutrophils # 3.0 (1.3-7.7) k/uL Lymphocytes # 1.3 (1.0-4.8) k/uL Monocytes # 0.3 (0-1.0) k/uL Eosinophils # 0.1 (0-0.7) k/uL Basophils # 0.1 (0-0.2) k/uL Macrocytosis Slight PT 9.4 (9.0-12.0) sec INR 0.8 (<1.2) APTT 21.3 L (22.0-30.0) sec Sodium 135 L (137-145) mmol/L Potassium 4.2 (3.5-5.1) mmol/L Chloride 101 (98-107) mmol/L Carbon Dioxide 25 (22-30) mmol/L Anion Gap 9 mmol/L BUN 25 H (9-20) mg/dL Creatinine 1.33 H (0.66-1.25) mg/dL Est GFR (CKD-EPI)AfAm 61 (>60 ml/min/1.73 sqM) Est GFR (CKD-EPI)NonAf 53 (>60 ml/min/1.73 sqM) Glucose 126 H (74-99) mg/dL Plasma Lactic Acid Sheng (0.7-2.0) mmol/L Calcium 9.2 (8.4-10.2) mg/dL Magnesium 2.1 (1.6-2.3) mg/dL Total Bilirubin 0.4 (0.2-1.3) mg/dL AST 35 (17-59) U/L ALT 18 (4-49) U/L Alkaline Phosphatase 67 (38-126) U/L Creatine Kinase 136 (55-170) U/L Troponin I (0.000-0.034) ng/mL Total Protein 6.8 (6.3-8.2) g/dL Albumin 4.0 (3.5-5.0) g/dL Urine Color Urine Appearance (Clear) Urine pH (5.0-8.0) Ur Specific [place] (1.001-1.035) Urine Protein (Negative) Urine Glucose (UA) (Negative) Urine Ketones (Negative) Urine Blood (Negative) Urine Nitrite (Negative) Urine Bilirubin (Negative) Urine Urobilinogen (<2.0) mg/dL Ur Leukocyte Esterase (Negative) Urine RBC (0-5) /hpf Urine WBC (0-5) /hpf Urine Bacteria (None) /hpf Urine Mucus (None) /hpf 08/14/21 08/14/21 08/14/21 Range/Units 14:12 14:12 15:30 WBC (3.8-10.6) k/uL RBC (4.30-5.90) m/uL Hgb (13.0-17.5) gm/dL Hct (39.0-53.0) % MCV (80.0-100.0) fL MCH (25.0-35.0) pg MCHC (31.0-37.0) g/dL RDW (11.5-15.5) % Plt Count (150-450) k/uL MPV Neutrophils % % Lymphocytes % % Monocytes % % Eosinophils % % Basophils % % Neutrophils # (1.3-7.7) k/uL Lymphocytes # (1.0-4.8) k/uL Monocytes # (0-1.0) k/uL Eosinophils # (0-0.7) k/uL Basophils # (0-0.2) k/uL Macrocytosis PT (9.0-12.0) sec INR (<1.2) APTT (22.0-30.0) sec Sodium (137-145) mmol/L Potassium (3.5-5.1) mmol/L Chloride (98-107) mmol/L Carbon Dioxide (22-30) mmol/L Anion Gap mmol/L BUN (9-20) mg/dL Creatinine (0.66-1.25) mg/dL Est GFR (CKD-EPI)AfAm (>60 ml/min/1.73 sqM) Est GFR (CKD-EPI)NonAf (>60 ml/min/1.73 sqM) Glucose (74-99) mg/dL Plasma Lactic Acid Sheng 2.2 H* (0.7-2.0) mmol/L Calcium (8.4-10.2) mg/dL Magnesium (1.6-2.3) mg/dL Total Bilirubin (0.2-1.3) mg/dL AST (17-59) U/L ALT (4-49) U/L Alkaline Phosphatase (38-126) U/L Creatine Kinase (55-170) U/L Troponin I <0.012 (0.000-0.034) ng/mL Total Protein (6.3-8.2) g/dL Albumin (3.5-5.0) g/dL Urine Color Yellow Urine Appearance Clear (Clear) Urine pH 5.5 (5.0-8.0) Ur Specific [place] 1.015 (1.001-1.035) Urine Protein 1+ H (Negative) Urine Glucose (UA) Trace H (Negative) Urine Ketones Negative (Negative) Urine Blood Negative (Negative) Urine Nitrite Negative (Negative) Urine Bilirubin Negative (Negative) Urine Urobilinogen <2.0 (<2.0) mg/dL Ur Leukocyte Esterase Negative (Negative) Urine RBC <1 (0-5) /hpf Urine WBC 2 (0-5) /hpf Urine Bacteria Rare H (None) /hpf Urine Mucus Rare H (None) /hpf Disposition <Jamarcus Carbone - Last Filed: 08/14/21 14:36> Is patient prescribed a controlled substance at d/c from ED?: No Time of Disposition: 16:15 Decision Date: 08/14/21 Decision Time: 16:15 <Braydon Vivas - Last Filed: 08/14/21 16:18> Clinical Impression: Syncope, Fall, Weakness, COVID-19, Head injury, Contusion, hip, Prostate cancer metastatic to bone Disposition: ADMITTED IP TO THIS [facility] Condition: Fair Referrals: José Luis Valente MD [Primary Care Provider] - 1-2 days
[2021-08-14 14:55] LABS: Calcium 9.2 mg/dL (8.4-10.2); Magnesium 2.1 mg/dL (1.6-2.3); Potassium 4.2 mmol/L (3.5-5.1); Total Bilirubin 0.4 mg/dL (0.2-1.3); Total Protein 6.8 g/dL (6.3-8.2)
[2021-08-14 14:57] LABS: Basophils # (A) 0.1 k/uL (0-0.2); Basophils % (A) 1 %; Eosinophils # (A) 0.1 k/uL (0-0.7); Eosinophils % (A) 2 %; HCT 37.1 % (39.0-53.0); HGB 12.4 gm/dL (13.0-17.5); Lymphocytes # (A) 1.3 k/uL (1.0-4.8); Lymphocytes % (A) 27 %; MCH 34.6 pg (25.0-35.0); MCHC 33.4 g/dL (31.0-37.0); MCV 103.7 fL (80.0-100.0); Macrocytosis Slight; Mean Platelet Volume 7.2; Monocytes # (A) 0.3 k/uL (0-1.0); Monocytes % (A) 6 %; Neutrophils % (A) 62 %; Platelet Count 286 k/uL (150-450); RBC 3.58 m/uL (4.30-5.90); WBC 4.8 k/uL (3.8-10.6)
[2021-08-14 15:10] LABS: INR 0.8 (<1.2); Prothrombin Time 9.4 sec (9.0-12.0)
[2021-08-14 15:13] LABS: Partial Thromboplastin Time 21.3 sec (22.0-30.0)
--- NOTE | 2021-08-14 15:24 | XR ---
EXAMINATION TYPE: XR chest 2V DATE OF EXAM: 08/14/2021 COMPARISON: 08/10/2021 TECHNIQUE: PA and lateral views submitted. HISTORY: Difficulty breathing FINDINGS: The lungs are clear and there is no pneumothorax, pleural effusion, or focal pneumonia. Hyperinflat ion suggests COPD. Hypertrophic and degenerative changes of the spine. No overt failure. IMPRESSION: 1. No acute process.
--- NOTE | 2021-08-14 15:28 | XR ---
EXAMINATION TYPE: XR Hip RT and AP Pelvis DATE OF EXAM: 08/14/2021 COMPARISON: NONE HISTORY: Pain TECHNIQUE: A single AP view of the pelvis is obtained. Two views of the right hip are obtained. FINDINGS: There is no acute fracture/dislocation evident in the pelvis. The hip and sacroiliac join ts appear symmetric and unremarkable. The overlying soft tissue appears unremarkable. Concentric narrowing of the hip joints bilaterally. Hypertrophic changes of the acetabulum to be asso ciated with femoral acetabular impingement. There are calcifications in pelvis likely vascular. Posts urgical change involving the lower lumbar spine.. IMPRESSION: 1. Moderate arthropathy bilateral hips correlate for femoral acetabular impingement. No acute fractur e.
--- NOTE | 2021-08-14 15:39 | CT ---
EXAMINATION TYPE: CT brain nicole herrmann con DATE OF EXAM: 08/14/2021 COMPARISON: Available HISTORY: Fall, pain CT DLP: 1580.7 mGycm Automated exposure control for dose reduction was used. TECHNIQUE: CT scan of the head and cervical spine are performed without contrast. FINDINGS: There is no acute intracranial hemorrhage, mass effect, or midline shift identified. The ventricles and sulci are within normal limits in size. The globes are intact. Mucosal thickening of the maxillary sinuses and ethmoid air cells. Cervical spine is visualized in its entirety from C1 through upper thoracic levels and demonstrates s atisfactory alignment without evidence of acute fracture or dislocation. Prevertebral soft tissue ap pears within normal limits. The C1-C2 articulation is unremarkable. Multilevel facet joints arthropathy is noted. Left C3-4 and right C4-5 neural foraminal stenosis. No significant bony central spinal canal stenosis. Scattered arterial atherosclerotic calcifications. Ri ght apical pulmonary fibrotic changes. IMPRESSION: 1. There is no acute fracture or dislocation evident in the cervical spine. 2. No acute intracranial hemorrhage, mass effect, or midline shift is seen. 3. Incidental findings as described above.
[2021-08-14 16:10] LABS: Appearance,Urine Clear (Clear); Bacteria,Urine Rare /hpf; Bilirubin,Urine Negative (Negative); Blood,Urine Negative (Negative); Color,Urine Yellow; Glucose,Urine (UA) Trace (Negative); Ketones,Urine Negative (Negative); Leukocyte Esterase,Urine Negative (Negative); Mucus,Urine Rare /hpf; Nitrite,Urine Negative (Negative); PH, Urine 5.5 (5.0-8.0); Protein,Urine 1+ (Negative); RBC,Urine <1 /hpf (0-5); Specific Gravity,Urine 1.015 (1.001-1.035); Urobilinogen,Urine <2.0 mg/dL (<2.0); WBC,Urine 2 /hpf (0-5)
[2021-08-14] MEDS ORDERED: ONDANSETRON 4 MG/2 ML VIAL IVP PRN (16:23)
[2021-08-14] MEDS ORDERED: NALOXONE 0.4 MG/ML 1 ML VIAL IV PRN (16:23)
[2021-08-14] MEDS ORDERED: MORPHINE SULFATE 4 MG/ML SYRINGE IV PRN (16:23)
[2021-08-14] MEDS: SODIUM CHLORIDE 0.9% 1,000 ML IV SCH (17:07)
[2021-08-14 17:30] LABS: Glucose,Whole Blood 86 mg/dL (70-110)
[2021-08-14] MEDS ORDERED: ONDANSETRON 4 MG TAB PO PRN (17:42)
[2021-08-14] MEDS ORDERED: METOCLOPRAMIDE 5 MG TAB PO PRN (17:42)
[2021-08-14] MEDS ORDERED: oxyCODONE-APAP 10-325MG 1 EACH TAB PO PRN (17:42)
[2021-08-14] MEDS ORDERED: RITONAVIR PO PRN (17:42)
[2021-08-14] MEDS ORDERED: NIRMATRELVIR PO PRN (17:42)
[2021-08-14] MEDS ORDERED: traZODone HCL 100 MG TAB PO PRN (17:42)
[2021-08-14] MEDS ORDERED: MORPHINE SULFATE ER 15 MG TABLET PO PRN (17:42)
[2021-08-14] MEDS ORDERED: valACYclovir HCL 500 MG TAB PO PRN (17:42)
[2021-08-14] MEDS ORDERED: TEMAZEPAM 15 MG CAP PO PRN (17:42)
[2021-08-14] MEDS ORDERED: [UNRECOGNIZED DRUG - OTHER] PO PRN (17:42)
[2021-08-14] MEDS ORDERED: ATORVASTATIN 20 MG TAB PO SCH (21:00)
[2021-08-14] MEDS ORDERED: PREGABALIN 50 MG CAP PO SCH (21:00)
[2021-08-14] MEDS: metFORMIN 500 MG TAB PO SCH (22:52)
[2021-08-14] MEDS: RANOLAZINE 500 MG TAB.ER.12H PO SCH ×2 (22:54→22:55)
[2021-08-14] MEDS: DULoxetine HCL 60 MG CAPSULE.DR PO SCH ×2 (22:54→22:55)
[2021-08-15] MEDS: SODIUM CHLORIDE 0.9% 1,000 ML IV SCH ×4 (05:27→17:19)
[2021-08-15 07:15] LABS: Glucose,Whole Blood 173 mg/dL (70-110)
[2021-08-15] MEDS ORDERED: METOCLOPRAMIDE 5 MG/ML 2 ML VIAL IVP STA (08:46)
[2021-08-15] MEDS ORDERED: FAMOTIDINE 20 MG TAB PO SCH (09:00)
[2021-08-15] MEDS ORDERED: CLOPIDOGREL 75 MG TAB PO SCH (09:00)
[2021-08-15] MEDS ORDERED: INSULIN DETEMIR (LEVEMIR) 100 UNIT/ML SYR SQ SCH (09:00)
[2021-08-15] MEDS ORDERED: GLIMEPIRIDE 2 MG TAB PO SCH (09:00)
[2021-08-15] MEDS ORDERED: ESCITALOPRAM 10 MG TAB PO SCH (09:00)
[2021-08-15] MEDS ORDERED: MAGNESIUM OXIDE 400 MG TAB PO SCH (09:00)
[2021-08-15] MEDS ORDERED: ISOSORBIDE MONONITRATE ER 60 MG TAB.ER.24H PO SCH (09:00)
[2021-08-15] MEDS ORDERED: METOPROLOL SUCCINATE (ER) 25 MG TAB.ER.24H PO SCH (09:00)
[2021-08-15] MEDS ORDERED: METOCLOPRAMIDE 5 MG/ML 2 ML VIAL IVP PRN (09:12)
[2021-08-15] MEDS ORDERED: ONDANSETRON 4 MG/2 ML VIAL IVP PRN (09:12)
[2021-08-15] MEDS: ENOXAPARIN 40 MG/0.4 ML SYRINGE SQ SCH (09:24)
[2021-08-15] MEDS: metFORMIN 500 MG TAB PO SCH (09:28)
--- NOTE | 2021-08-15 11:03 | CT ---
EXAMINATION TYPE: CT abdomen pelvis wo con DATE OF EXAM: 08/15/2021 COMPARISON: CT dated 06/02/2017 HISTORY: epigastric pain, vomiting CT DLP: 887.6 mGycm Automated exposure control for dose reduction was used. TECHNIQUE: Helical acquisition of images was performed from the lung bases through the pelvis. FINDINGS: LUNG BASES: Thick posterior basal pulmonary atelectasis. Associated infection or aspiration is less l ikely yet cannot be totally excluded. Coronary arterial calcification. Dilated right pulmonary artery measuring 3.5 cm suggestive of pulmonary hypertension. LIVER/GB: Extensive left hepatic portal venous gas, concerning for acute GI ischemia. No definite foc al lesion seen in the liver by this nonenhanced CT scan. Previous cholecystectomy. PANCREAS: Atrophic. SPLEEN: No significant abnormality is seen. ADRENALS: No significant abnormality is seen. KIDNEYS: No significant abnormality is seen. FREE AIR: No free air is visualized RETROPERITONEAL ADENOPATHY: None visualized REPRODUCTIVE ORGANS: Nonvisualized prostate. URINARY BLADDER: No significant abnormality is seen. PELVIC ADENOPATHY: No pathologically enlarged pelvic lymph nodes. OSSEOUS STRUCTURES: Previous lumbosacral fixation. No gross aggressive bone lesion. BOWEL: Markedly distended fluid-filled stomach with suspected pneumatosis mainly of the gastric fund us, with suspected subtle gas seen in the perigastric vessels (images #47 and 48, series 201). Gastri c ischemia cannot be excluded. Grossly unremarkable duodenum and small bowel with no evidence of rodger l obstruction. Severe fecal loading of the rectum and colon suggestive of severe constipation. Nonspe cific mild wall thickening of the colon. No evidence of chronic pneumatosis. Normal appendix. OTHER: Arterial atherosclerotic calcifications. No sizable ascites. IMPRESSION: Markedly distended fluid-filled stomach with suspected pneumatosis, perigastric vascular gas and sign ificant intrahepatic portal venous gas, concerning for acute gastric ischemia/necrosis. Recommend cli nical correlation, urgent surgical consultation and further workup. Other findings as detailed above.
[2021-08-15 11:31] LABS: Glucose,Whole Blood 252 mg/dL (70-110)
[2021-08-15] MEDS: INSULIN ASPART (NovoLOG) 100 UNIT/ML VIAL SQ SCH ×3 (11:50→22:18)
--- NOTE | 2021-08-15 11:53 | XR ---
EXAMINATION TYPE: XR chest 1V confirm line [facility] DATE OF EXAM: 08/15/2021 COMPARISON: 08/15/1999 HISTORY: NG tube placement TECHNIQUE: Single frontal view of the chest is obtained. FINDINGS: NG tube is seen extending to the level of the region of the gastric fundus. Recommended to be advanced 2 to 3 cm. Limited inspiration with elevated hemidiaphragms and bibasilar subsegmental c onsolidation. Heart size normal for failure or surgical clips in the right upper quadrant. Hypertroph ic degenerative changes. IMPRESSION: Bibasilar atelectasis favored over infiltrate. NG tube is seen overlying the region of t he gastric fundus recommend advancement 2 to 3 cm.
--- NOTE | 2021-08-15 13:18 | P.GSCN ---
History of Present Illness Consult date: 08/15/21 History of present illness: CHIEF COMPLAINT: Fall Reason for consult: gastric necrosis HISTORY OF PRESENT ILLNESS: This is a 71-year-old male who presented to the hospital with dizziness, multiple falls and weakness. He was diagnosed with Covid a few days ago. Patient is currently on a regular medical floor. He is obtunded. He opens his eyes to sternal rub. No improvement in mentation with Narcan. Most of history was obtained from nurse and ER record. Apparently patient had fallen and hit his head and had been complaining mostly of right hip pain. He did receive morphine and Percocet for his hip pain. He started having vomiting and therefore a computed tomography scan of the abdomen and pelvis was ordered which demonstrated markedly distended fluid-filled stomach with suspected pneumatosis, perigastric vascular gas and significant intrahepatic portal venous gas concerning for acute gastric ischemia/necrosis. No fevers noted. Blood pressure is on the lower side. He had NG tube placed with brownish output noted. No abdominal pain reported. Surgical consult placed for gastric necrosis. Patient is on Plavix. PAST MEDICAL HISTORY: Coronary Artery Disease (CAD), Cancer, Diabetes Mellitus, Deep Vein Thrombosis (DVT), Fibromyalgia, Myocardial Infarction ([place]), Prostate Disorder, Pulmonary Embolus (PE), history of prostate cancer with metastasis x3-lymph nodes then sternum and bones-pt states he is currently on radiation tx and hormone therapy and in the past tx with radiation as well, R leg DVT post surgery and R lung PE, agent orange exsposure, chronic pain, vertigo PAST SURGICAL HISTORY: Heart catheterization with stent last stent placed in 2002 MEDICATIONS: See list. ALLERGIES: See list. SOCIAL HISTORY: No illicit drug use. REVIEW OF SYSTEMS: CONSTITUTIONAL: Denies fever or chills. HEENT: Denies blurred vision, vision changes, or eye pain. Denies hemoptysis CARDIOVASCULAR: Denies chest pain or pressure. RESPIRATORY: No shortness of breath. GASTROINTESTINAL: See HPI for pertinent findings HEMATOLOGIC: Denies bleeding disorders. GENITOURINARY: Denies any blood in urine or increased urinary frequency. SKIN: Denies pruitis. Denies rash. PHYSICAL EXAM: VITAL SIGNS: Reviewed GENERAL: Obtunded HEENT: No sclera icterus. Extraocular movements grossly intact. Moist buccal mucosa. Head is atraumatic, normocephalic. No nasal drainage. ABDOMEN: Soft. Mildly distended. Nontender. NG tube in place with brownish output in the NG tube line NEUROLOGIC: Obtunded. Opens eyes to sternal rub LABORATORY DATA: WBC is 4.8 Hgb 12.4 platelets 286 Sodium 135 potassium 4.2 creatinine 1.33 Glucose 252 Lactic acid 2.2 down to 1.3 IMAGING: Computed tomography scan as stated above Chest x-ray bibasilar atelectasis. NG tube overlying the region of the gastric fundus recommend advancement of 2-3 cm. Nursing staff did advance NGT 3 cm. Hip x-ray moderate arthropathic bilateral hips correlate for femoral acetabular impingement. No acute fracture Computed tomography scan of brain and cervical spine no acute fracture dislocation of the cervical spine. No acute intracranial hemorrhage mass effect or midline shift. ASSESSMENT: 1. Markedly distended fluid-filled stomach with suspected pneumatosis, pe rigasrtic vascular gas and significant intrahepatic portal venous gas. Concerns for acute gastric ischemia/necrosis. 2. Vomiting 3. Altered mental status 4. Multiple falls PLAN: -Further recommendations forthcoming per surgeon -Continue NG tube for decompression -Keep patient nothing by mouth -Consult infectious disease for antibiotic recommendations -Place Plavix on hold in case surgical intervention required -Recommend transfer to the ICU -Continue supportive care -Continue IV fluids Thank you for this consultation Physician Mailing Machine Operator note has been reviewed by physician. Signing provider agrees with the documented findings, assessment, and plan of care. I have personally seen and examined the patient, reviewed the ALINING INSPECTOR /PAs history, exam and MDM and agree with the assessment and plan as written. Based on total visit time, I have performed more than 50% of the visit. As above: Patient with admission for dehydration, mental status changes, and weakness. Apparently had some hip pain. Started having nausea and vomiting today which led to CAT scan abdomen and pelvis. CAT scan shows a large volume of portal venous gas and evidence of air in the perigastric vasculature. Patient has been somnolent today. Nasogastric tube was placed with a few 100 mL of output. It was sense repositioned. On examination patient does have mild left upper quadrant and left lower quadrant tenderness. Discussed complexity of the case with the patient's son-in-law and also his daughter who is a store keeper. At this time recommend upper endoscopy to evaluate the degree of suspected gastric ischemia. This is typically a clinical scenario that is treated nonoperatively with resuscitation, broad-spectrum antibiotic coverage, and gastric decompression. Based on the endoscopic findings further recommendations may be considered. The patient's daughter is agreeable to EGD at this time. We'll schedule for this evening. Past Medical History Past Medical History: Coronary Artery Disease (CAD), Cancer, Diabetes Mellitus, Deep Vein Thrombosis (DVT), Fibromyalgia, Myocardial Infarction ([place]), Prostate Disorder, Pulmonary Embolus (PE) Additional Past Medical History / Comment(s): Pt tested + covid on 05/09/20 [facility] ER. Other hx: IDDM type II, neuropathy bilateral hands/legs and feet, prostate cancer with metastasis x3-lymph nodes then sternum and bones-pt states he is currently on radiation tx and hormone therapy and in the past tx with radiation as well, R leg DVT post surgery and R lung PE, agent orange exsposure, chronic pain, vertigo if stands too quickly Last Myocardial Infarction Date:: 2002 History of Any Multi-Drug Resistant Organisms: None Reported Past Surgical History: Heart Catheterization With Stent, Orthopedic Surgery, Prostate Surgery Additional Past Surgical History / Comment(s): PCI/stents, L1-s1 fused, right ring finger sugery, colonoscopy. Past Anesthesia/Blood Transfusion Reactions: No Reported Reaction Date of Last Stent Placement:: 2002 Past Psychological History: No Psychological Hx Reported Additional Psychological History / Comment(s): Pt resides alone. 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 He is independent. Smoking Status: Former smoker Past Alcohol Use History: None Reported Additional Past Alcohol Use History / Comment(s): Pt started smoking in 1959 and quit in 1969 Past Drug Use History: None Reported - Past Family History Father Family Medical History: Myocardial Infarction ([place]) Additional Family Medical History / Comment(s): Father of a [place] at the age of 43 yrs. Mother Additional Family Medical History / Comment(s): Mother in a MVA at the age of 50 yrs Medications and Allergies Home Medications Medication Instructions Recorded Confirmed Type Clopidogrel Bisulfate [Plavix] 75 mg PO DAILY 05/31/17 08/14/21 History DULoxetine HCL [Cymbalta] 60 mg PO HS 05/31/17 08/14/21 History valACYclovir HCL [Valtrex] 500 mg PO DAILY PRN 05/31/17 08/14/21 History Isosorbide Mononitrate ER [Imdur] 60 mg PO DAILY 04/14/19 08/14/21 History Ranolazine [Ranexa] 1,000 mg PO BID 04/14/19 08/14/21 History Famotidine 40 mg PO DAILY 05/09/20 08/14/21 History Glimepiride [Amaryl] 2 mg PO DAILY 05/09/20 08/14/21 History Pregabalin [Lyrica] 150 mg PO HS 05/09/20 08/14/21 History Rosuvastatin Calcium 10 mg PO HS 05/09/20 08/14/21 History metFORMIN HCL [Glucophage] 1,000 mg PO BID 05/09/20 08/14/21 History traZODone HCL [Desyrel] 200 mg PO HS PRN 05/10/20 08/14/21 History Enzalutamide [Xtandi] 160 mg PO HS 08/14/21 08/14/21 History Escitalopram [Lexapro] 10 mg PO DAILY 08/14/21 08/14/21 History Insulin Glargine,Hum.rec.anlog 30 units SQ DAILY 08/14/21 08/14/21 History [Lantus Solostar Pen] Magnesium Oxide [Magox 400] 400 mg PO DAILY 08/14/21 08/14/21 History Metoclopramide [Reglan] 5 mg PO TID PRN 08/14/21 08/14/21 History Metoprolol Succinate (ER) [Toprol 25 mg PO DAILY 08/14/21 08/15/21 History Xl] Morphine Sulfate ER [Ms Contin] 15 mg PO TID PRN 08/14/21 08/14/21 History Nirmatrelvir/Ritonavir [Paxlovid 3 cap PO DAILY PRN 08/14/21 08/14/21 History 2X150 mg-100 mg (Eua)] Ondansetron [Zofran] 4 mg PO BID PRN 08/14/21 08/14/21 History Semaglutide [Ozempic] 0.5 mg SQ ORTIZ 08/14/21 08/14/21 History Temazepam [Restoril] 15 mg PO HS PRN 08/14/21 08/15/21 History Vitamin D3 94755 Unit Caps 50,000 unit PO Q7D 08/14/21 08/14/21 History oxyCODONE-APAP 10-325MG [Percocet 1 tab PO TID PRN 08/14/21 08/14/21 History 10-325 mg] Allergies Allergy/AdvReac Type Severity Reaction Status Date / Time No Known Allergies Allergy Verified 08/14/21 16:57 Surgical - Exam Vital Signs Temp Pulse Resp BP Pulse Ox 98 F 73 18 137/88 97 08/14/21 13:43 08/14/21 13:43 08/14/21 13:43 08/14/21 13:43 08/14/21 13:43 Results - Labs 08/14/21 14:12 08/14/21 14:12 Abnormal Lab Results - Last 24 Hours (Table) 08/14/21 08/14/21 08/14/21 Range/Units 14:12 14:12 14:12 RBC 3.58 L (4.30-5.90) m/uL Hgb 12.4 L (13.0-17.5) gm/dL Hct 37.1 L (39.0-53.0) % MCV 103.7 H (80.0-100.0) fL APTT 21.3 L (22.0-30.0) sec Sodium 135 L (137-145) mmol/L BUN 25 H (9-20) mg/dL Creatinine 1.33 H (0.66-1.25) mg/dL Glucose 126 H (74-99) mg/dL POC Glucose (mg/dL) (70-110) mg/dL Plasma Lactic Acid Sheng (0.7-2.0) mmol/L Urine Protein (Negative) Urine Glucose (UA) (Negative) Urine Bacteria (None) /hpf Urine Mucus (None) /hpf 08/14/21 08/14/21 08/15/21 Range/Units 14:12 15:30 07:13 RBC (4.30-5.90) m/uL Hgb (13.0-17.5) gm/dL Hct (39.0-53.0) % MCV (80.0-100.0) fL APTT (22.0-30.0) sec Sodium (137-145) mmol/L BUN (9-20) mg/dL Creatinine (0.66-1.25) mg/dL Glucose (74-99) mg/dL POC Glucose (mg/dL) 173 H (70-110) mg/dL Plasma Lactic Acid Sheng 2.2 H* (0.7-2.0) mmol/L Urine Protein 1+ H (Negative) Urine Glucose (UA) Trace H (Negative) Urine Bacteria Rare H (None) /hpf Urine Mucus Rare H (None) /hpf 08/15/21 Range/Units 11:30 RBC (4.30-5.90) m/uL Hgb (13.0-17.5) gm/dL Hct (39.0-53.0) % MCV (80.0-100.0) fL APTT (22.0-30.0) sec Sodium (137-145) mmol/L BUN (9-20) mg/dL Creatinine (0.66-1.25) mg/dL Glucose (74-99) mg/dL POC Glucose (mg/dL) 252 H (70-110) mg/dL Plasma Lactic Acid Sheng (0.7-2.0) mmol/L Urine Protein (Negative) Urine Glucose (UA) (Negative) Urine Bacteria (None) /hpf Urine Mucus (None) /hpf Diabetes panel 08/14/21 Range/Units 14:12 Sodium 135 L (137-145) mmol/L Potassium 4.2 (3.5-5.1) mmol/L Chloride 101 (98-107) mmol/L Carbon Dioxide 25 (22-30) mmol/L BUN 25 H (9-20) mg/dL Creatinine 1.33 H (0.66-1.25) mg/dL Glucose 126 H (74-99) mg/dL Calcium 9.2 (8.4-10.2) mg/dL AST 35 (17-59) U/L ALT 18 (4-49) U/L Alkaline Phosphatase 67 (38-126) U/L Total Protein 6.8 (6.3-8.2) g/dL Albumin 4.0 (3.5-5.0) g/dL Calcium panel 08/14/21 Range/Units 14:12 Calcium 9.2 (8.4-10.2) mg/dL Albumin 4.0 (3.5-5.0) g/dL Pituitary panel 08/14/21 Range/Units 14:12 Sodium 135 L (137-145) mmol/L Potassium 4.2 (3.5-5.1) mmol/L Chloride 101 (98-107) mmol/L Carbon Dioxide 25 (22-30) mmol/L BUN 25 H (9-20) mg/dL Creatinine 1.33 H (0.66-1.25) mg/dL Glucose 126 H (74-99) mg/dL Calcium 9.2 (8.4-10.2) mg/dL Adrenal panel 08/14/21 Range/Units 14:12 Sodium 135 L (137-145) mmol/L Potassium 4.2 (3.5-5.1) mmol/L Chloride 101 (98-107) mmol/L Carbon Dioxide 25 (22-30) mmol/L BUN 25 H (9-20) mg/dL Creatinine 1.33 H (0.66-1.25) mg/dL Glucose 126 H (74-99) mg/dL Calcium 9.2 (8.4-10.2) mg/dL Total Bilirubin 0.4 (0.2-1.3) mg/dL AST 35 (17-59) U/L ALT 18 (4-49) U/L Alkaline Phosphatase 67 (38-126) U/L Total Protein 6.8 (6.3-8.2) g/dL Albumin 4.0 (3.5-5.0) g/dL
--- NOTE | 2021-08-15 15:30 | P.CNPUL ---
History of Present Illness Consult date: 08/15/21 Requesting physician: José Luis Valente Reason for consult: other Chief complaint: Weakness, syncope History of present illness: This is a 71-year-old male patient with a known history of metastatic prostate cancer with bone metastasis including in the right scapula and right rib, coronary artery disease with previous stent placement, type 2 diabetes, fibromyalgia, PE/DVT, Agent [place] exposure, chronic pain, vertigo, former smoker, COVID-19 with sepsis in April 2020 with sepsis. He is vaccinated. He presented to the emergency room yesterday with several days of dizziness lightheadedness and multiple falls. He was also diagnosed with COVID-19 and was initiated on Paxlovid. He had not been eating and drinking well. He's been quite weak. Computed tomography scan of the brain and C-spine revealed no acute fracture or dislocation of cervical spine, no acute intracranial hemorrhage, ma ss effect or midline shift. CAT scan of the abdomen and pelvis reveals a markedly distended fluid-filled stomach with suspected pneumatosis,. Gastric vascular gas and significant intra-hepatic portal venous gas, concerning for acute gastric ischemia/necrosis. Chest x-ray revealed bibasilar atelectasis favored over infiltrate. He did have episodes of nausea and vomiting. Nasogastric tube in place to right nare. Surgery has been consulted. The patient will be moved to the ICU. We're consulted for critical care management. He is seen and evaluated. He is difficult to arouse. He did have morphine and Percocet through the night. He did respond to Narcan. He has normal saline running 150 ML's per hour. Maintaining O2 saturations in the 90s on room air. Review of Systems ROS unobtainable: due to mental status Past Medical History Past Medical History: Coronary Artery Disease (CAD), Cancer, Diabetes Mellitus, Deep Vein Thrombosis (DVT), Fibromyalgia, Myocardial Infarction ([place]), Prostate Disorder, Pulmonary Embolus (PE) Additional Past Medical History / Comment(s): Pt tested + covid on 05/09/20 [facility] ER. Other hx: IDDM type II, neuropathy bilateral hands/legs and feet, prostate cancer with metastasis x3-lymph nodes then sternum and bones-pt states he is currently on radiation tx and hormone therapy and in the past tx with radiation as well, R leg DVT post surgery and R lung PE, agent orange exsposure, chronic pain, vertigo if stands too quickly Last Myocardial Infarction Date:: 2002 History of Any Multi-Drug Resistant Organisms: None Reported Past Surgical History: Heart Catheterization With Stent, Orthopedic Surgery, Prostate Surgery Additional Past Surgical History / Comment(s): PCI/stents, L1-s1 fused, right ring finger sugery, colonoscopy. Past Anesthesia/Blood Transfusion Reactions: No Reported Reaction Date of Last Stent Placement:: 2002 Past Psychological History: No Psychological Hx Reported Additional Psychological History / Comment(s): Pt resides alone. 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 Smoking Status: Former smoker Past Alcohol Use History: None Reported Additional Past Alcohol Use History / Comment(s): Pt started smoking in 1959 and quit in 1969 Past Drug Use History: None Reported - Past Family History Father Family Medical History: Myocardial Infarction ([place]) Additional Family Medical History / Comment(s): Father of a [place] at the age of 43 yrs. Mother Additional Family Medical History / Comment(s): Mother in a MVA at the age of 50 yrs Medications and Allergies Home Medications Medication Instructions Recorded Confirmed Type Clopidogrel Bisulfate [Plavix] 75 mg PO DAILY 05/31/17 08/14/21 History DULoxetine HCL [Cymbalta] 60 mg PO HS 05/31/17 08/14/21 History valACYclovir HCL [Valtrex] 500 mg PO DAILY PRN 05/31/17 08/14/21 History Isosorbide Mononitrate ER [Imdur] 60 mg PO DAILY 04/14/19 08/14/21 History Ranolazine [Ranexa] 1,000 mg PO BID 04/14/19 08/14/21 History Famotidine 40 mg PO DAILY 05/09/20 08/14/21 History Glimepiride [Amaryl] 2 mg PO DAILY 05/09/20 08/14/21 History Pregabalin [Lyrica] 150 mg PO HS 05/09/20 08/14/21 History Rosuvastatin Calcium 10 mg PO HS 05/09/20 08/14/21 History metFORMIN HCL [Glucophage] 1,000 mg PO BID 05/09/20 08/14/21 History traZODone HCL [Desyrel] 200 mg PO HS PRN 05/10/20 08/14/21 History Enzalutamide [Xtandi] 160 mg PO HS 08/14/21 08/14/21 History Escitalopram [Lexapro] 10 mg PO DAILY 08/14/21 08/14/21 History Insulin Glargine,Hum.rec.anlog 30 units SQ DAILY 08/14/21 08/14/21 History [Lantus Solostar Pen] Magnesium Oxide [Magox 400] 400 mg PO DAILY 08/14/21 08/14/21 History Metoclopramide [Reglan] 5 mg PO TID PRN 08/14/21 08/14/21 History Metoprolol Succinate (ER) [Toprol 25 mg PO DAILY 08/14/21 08/15/21 History Xl] Morphine Sulfate ER [Ms Contin] 15 mg PO TID PRN 08/14/21 08/14/21 History Nirmatrelvir/Ritonavir [Paxlovid 3 cap PO DAILY PRN 08/14/21 08/14/21 History 2X150 mg-100 mg (Eua)] Ondansetron [Zofran] 4 mg PO BID PRN 08/14/21 08/14/21 History Semaglutide [Ozempic] 0.5 mg SQ ORTIZ 08/14/21 08/14/21 History Temazepam [Restoril] 15 mg PO HS PRN 08/14/21 08/15/21 History Vitamin D3 29709 Unit Caps 50,000 unit PO Q7D 08/14/21 08/14/21 History oxyCODONE-APAP 10-325MG [Percocet 1 tab PO TID PRN 08/14/21 08/14/21 History 10-325 mg] Allergies Allergy/AdvReac Type Severity Reaction Status Date / Time No Known Allergies Allergy Verified 08/14/21 16:57 Physical Exam Vitals: Vital Signs Temp Pulse Pulse Resp BP BP Pulse Ox 08/15/21 14:00 99.0 F 67 17 95/56 92 L 08/15/21 12:26 64 16 105/60 08/15/21 12:19 16 08/15/21 08:00 98.3 F 63 17 103/54 93 L 08/15/21 00:28 97.7 F 71 17 123/66 94 L 08/14/21 22:07 74 112/69 08/14/21 19:28 75 18 113/70 98 08/14/21 19:25 70 16 113/60 08/14/21 17:00 66 18 145/85 99 08/14/21 16:00 68 18 124/73 99 Intake and Output 08/15/21 08/15/21 08/15/21 06:59 14:59 22:59 Intake Total 1000 Output Total 150 Balance 850 Intake: Intake, IV Titration 600 Amount Sodium Chloride 0.9% 1, 600 000 ml @ 100 mls/hr IV . Q10H [facility] Rx#:[id number] Oral 400 Output: Urine 150 Other: # Voids 1 Weight 83.915 kg 83.915 kg GENERAL EXAM: Drowsy, 71-year-old male patient, on room air. HEAD: Normocephalic. EYES: Normal reaction of pupils, equal size. NOSE: Clear with pink turbinates. Nasogastric tube in place. THROAT: No erythema or exudates. NECK: No masses, no JVD. CHEST: No chest wall deformity. LUNGS: Equal air entry with no crackles, wheeze, rhonchi or dullness. CVS: S1 and S2 normal with no audible murmur, regular rhythm. ABDOMEN: Abdominal distention, normal bowel sounds, no guarding or rigidity. SPINE: No scoliosis or deformity SKIN: No rashes CENTRAL NERVOUS SYSTEM: No focal deficits, tone is normal in all 4 extremities. EXTREMITIES: There is no peripheral edema. No clubbing, no cyanosis. Peripheral pulses are intact. Results - Laboratory Findings CBC and BMP: 08/14/21 14:12 08/14/21 14:12 PT/INR, D-dimer PT 9.4 sec (9.0-12.0) 08/14/21 14:12 INR 0.8 (<1.2) 08/14/21 14:12 Abnormal lab findings: Abnormal Labs 08/14/21 08/14/21 08/14/21 14:12 14:12 14:12 RBC 3.58 L Hgb 12.4 L Hct 37.1 L MCV 103.7 H APTT 21.3 L Sodium 135 L BUN 25 H Creatinine 1.33 H Glucose 126 H POC Glucose (mg/dL) Hemoglobin A1c Plasma Lactic Acid Sheng Urine Protein Urine Glucose (UA) Urine Bacteria Urine Mucus 08/14/21 08/14/21 08/15/21 14:12 15:30 07:13 RBC Hgb Hct MCV APTT Sodium BUN Creatinine Glucose POC Glucose (mg/dL) 173 H Hemoglobin A1c Plasma Lactic Acid Sheng 2.2 H* Urine Protein 1+ H Urine Glucose (UA) Trace H Urine Bacteria Rare H Urine Mucus Rare H 08/15/21 08/15/21 08/15/21 10:36 11:30 12:42 RBC Hgb Hct MCV APTT Sodium BUN Creatinine Glucose POC Glucose (mg/dL) 252 H Hemoglobin A1c 6.6 H Plasma Lactic Acid Sheng 2.3 H* Urine Protein Urine Glucose (UA) Urine Bacteria Urine Mucus Assessment and Plan Assessment: 1 Generalized weakness with syncope and falls secondary to dehydration and COVID-19 infection diagnosed in the outpatient setting and was initiated on Paxlovid 2 Nausea and vomiting with abdominal discomfort secondary to markedly distended fluid-filled stomach with suspected pneumatosis, pancho gastric vascular gas and significant intrahepatic portal venous gas. Suspect acute gastric ischemia/ne crosis 3 Previous admission for COVID-19 sepsis in April 2020 4 Coronary artery disease with previous stent placement 5 Metastatic prostate cancer to the bone 6 Diabetes mellitus 7 History of PE/DVT 8 Fibromyalgia 9 Former smoker Plan: The patient was seen and evaluated CAT scans, chest x-ray and labs reviewed He will be transferred to the ICU for closer monitoring Surgical consult pending Continue with fluid resuscitation Hold all narcotics and sedatives Keep nothing by mouth We will continue to follow make further recommendations based on his clinical status I have personally seen and examined the patient, performed the documentation and the assessment and plan as written. Number of minutes spent on the visit: and 20.
[2021-08-15 16:10] LABS: Glucose,Whole Blood 100 mg/dL (70-110)
[2021-08-15 16:34] LABS: Glucose,Whole Blood 106 mg/dL (70-110)
[2021-08-15] MEDS: AMPICILLIN-SULBACTAM 3 GM in SODIUM CHLORIDE 0.9% 100 ML IVPB SCH (17:19)
[2021-08-15] MEDS: FLUCONAZOLE IN NACL,ISO-OSM 200 MG in SALINE 1 100ML.BAG IVPB SCH (18:05)
[2021-08-15] MEDS ORDERED: PROPOFOL 10 MG/ML 20 ML VIAL IV ONE (18:30)
[2021-08-15] MEDS ORDERED: LIDOCAINE 2% INJ 20 MG/ML (2 ML VIAL) ONE (18:30)
[2021-08-15 18:43] LABS: Basophils % (A) 0 %; Eosinophils # (A) 0.1 k/uL (0-0.7); Eosinophils % (A) 1 %; HCT 31.9 % (39.0-53.0); HGB 10.5 gm/dL (13.0-17.5); Lymphocytes % (A) 15 %; MCV 106.1 fL (80.0-100.0); Macrocytosis Moderate; Mean Platelet Volume 7.8; Monocytes # (A) 0.3 k/uL (0-1.0); Monocytes % (A) 5 %; Neutrophils # (A) 5.3 k/uL (1.3-7.7); Neutrophils % (A) 77 %; Platelet Count 287 k/uL (150-450); RBC 3.01 m/uL (4.30-5.90); RDW 14.4 % (11.5-15.5)
--- NOTE | 2021-08-15 19:00 | P.PCN ---
Date of Procedure: 08/15/21 Procedure(s) Performed: Preoperative Dx: Gastric ischemia Postoperative Dx: Ischemic gastritis Procedure: EGD with Bx Anesthesia: Sedation Endoscopist: Dr. Caceres Specimens: Ischemic gastritis Endoscopic Procedure: The patient was on the endoscopy table in the left decubitus position. The Olympus gastroscope was inserted into the oropharynx and passed under direct visualization to the region of the third portion of the duodenum. From that point the scope was slowly withdrawn inspecting all surfaces carefully. There were no neoplastic inflammatory or polypoid lesions throughout the duodenum. The pylorus was widely patent. The stomach was carefully inspected. The prepyloric region antrum and distal body of the stomach revealed only mild inflammatory changes consistent with mild gastritis. In the proximal body and fundus involving the greater curvature and the posterior aspect of the stomach there was a section of gastritis with significantly thickened folds, somewhat ischemic appearing gastric folds, and some retained food as well. We irrigated that area. No large ulceration was evident but it was a limited evaluation given the retained contents. I did a single biopsy of one of these thickened folds in the proximal body of the stomach. There was no visible hiatal hernia. The patient had mild distal esophagitis which was not biopsied. The nasogastric tube had been removed at the onset of the procedure room and was replaced at the completion of the procedure. The gastroscope was advanced to the posterior oropharynx to confirm that the nasogastric tube was entering the proximal esophagus. Recommendations: Continue supportive measures and gastric decompression. Continue broad-spectrum antibiotics per infectious disease. Await biopsy results. Will follow closely. Chest x-ray has been ordered postoperatively to evaluate positioning of nasogastric tube.
--- NOTE | 2021-08-15 19:34 | XR ---
EXAMINATION TYPE: XR chest 1V portable DATE OF EXAM: 08/15/2021 COMPARISON: Today HISTORY: Check tube placement TECHNIQUE: Single view FINDINGS: There is an NG tube over the gastric fundus. There is some mild atelectasis left lung base. No heart failure. Heart size is normal. IMPRESSION: There are some linear infiltrate atelectasis left lung base without change. NG tube is in the stomach.
[2021-08-15 21:45] LABS: Glucose,Whole Blood 64 mg/dL (70-110)
[2021-08-15] MEDS ORDERED: DEXTROSE 50% SYRINGE 50 ML IVP STA (22:12)
[2021-08-15] MEDS ORDERED: DEXTROSE 50% SYRINGE 50 ML IVP ONE (22:14)
[2021-08-15] MEDS: PANTOPRAZOLE 40 MG/10 ML VIAL IVP SCH (22:16)
[2021-08-15 22:33] LABS: Glucose,Whole Blood 61 mg/dL (70-110)
--- NOTE | 2021-08-15 22:54 | P.CONS ---
History of Present Illness - Reason for Consult Consult date: 08/15/21 - History of Present Illness History of Present Illness : Patient is a 71-year-old male presenting to the ER yesterday afternoon for evaluation of dizziness multiple falls and weakness in this patient apparently was diagnosed with a covid19 last week patient complaining of weakness fall but no loss of consciousness and was also complaining of pain in the epigastric area describing more of a sharp nature and no significant radiation some nausea but no vomiting no diarrhea or constipation with the symptom the patient has been evaluated by ER physician on arrival to the ER the patient was afebrile and no fever have been recorded subsequently mild hypoxemia with a O2 sats about 94% on room air patient did have a normal white count with no left shift lactic acid was elevated BUN/creatinine was mildly elevated liver enzymes are normal patient did have a abdominal pelvis CT which shows markedly dilated fluid-filled stomach with suspected pneumatosis and significant intrahepatic portal venous gas concerning for acute ischemic necrosis patient has been transferred to the ICU infectious disease was consulte d for further management of antibiotic therapy Review of system: CONSTITUTIONAL: Positive for weakness denies high-grade fever. EYES: No complaint. ENT: No complaint. RESPIRATORY: As per history of present illness. CARDIOVASCULAR: No complaint. GENITOURINARY: No complaint. GASTROINTESTINAL: As per history of present illness. MUSCULOSKELETAL: No complaint. INTEGUMENTARY : No complaint. PSYCHOLOGIC: No complaint. ENDOCRINE: No complaint. NEUROLOGIC: No complaint. Past medical history : Reviewed, documented below Past surgical history : Reviewed, documented below Social history: Reviewed, documented below Medications: Reviewed, as documented below EXAMINATION: Vital sigans= Reviewed and documented below GENERAL DESCRIPTION: Elderly male lying in bed, no distress. No tachypnea or accessory muscle of respiration use. HEENT: Shows Pallor , no scleral icterus. Oral mucous membrane is dry. NECK: Trachea central, no thyromegaly. LUNGS: Unlabored breathing. Decreased breath sound in the base. No wheeze or crackle. HEART: S1, S2, regular rate and rhythm. ABDOMEN: Soft, mild epigastric tenderness , guarding or rigidity EXTREMITIES: No edema feet SKIN: No rash, no masses palpable. NEUROLOGICAL: The patient is awake, alert, oriented x3, mood and affect normal. LABS AND RADIOLOGY: Reviewed results see below Assessment : 1patient presented to hospital with weakness multiple falls in this patient with recent diagnosis of covid19 did have decreased oral intake some epigastric discomfort now with a CT suspicious for ischemic gastritis, will need to call for the enteric gram-negative and Dawn empirically to prevent that related sepsis. 2patient with the recent diagnosis of COVID-19 more than a week ago and not requiring supplemental oxygen, chest x-ray negative for acute infiltrate would not qualify for remdesivir Plan: 1-we will start the patient on Unasyn 3 g every 6 hours 2-Diflucan 200 mg daily 3-IV fluid We will follow on clinical condition and cultures to further adjust medication if needed Thank you for this consultation we will follow the patient along with you Past Medical History Past Medical History: Coronary Artery Disease (CAD), Cancer, Diabetes Mellitus, Deep Vein Thrombosis (DVT), Fibromyalgia, Myocardial Infarction ([place]), Prostate Disorder, Pulmonary Embolus (PE) Additional Past Medical History / Comment(s): Pt tested + covid on 05/09/20 [facility] ER. Other hx: IDDM type II, neuropathy bilateral hands/legs and feet, prostate cancer with metastasis x3-lymph nodes then sternum and bones-pt states he is currently on radiation tx and hormone therapy and in the past tx with radiation as well, R leg DVT post surgery and R lung PE, agent orange exsposure, chronic pain, vertigo if stands too quickly Last Myocardial Infarction Date:: 2002 History of Any Multi-Drug Resistant Organisms: None Reported Past Surgical History: Heart Catheterization With Stent, Orthopedic Surgery, Prostate Surgery Additional Past Surgical History / Comment(s): PCI/stents, L1-s1 fused, right ring finger sugery, colonoscopy. Past Anesthesia/Blood Transfusion Reactions: No Reported Reaction Date of Last Stent Placement:: 2002 Past Psychological History: No Psychological Hx Reported Additional Psychological History / Comment(s): Pt resides alone. 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 He is independent. Smoking Status: Former smoker Past Alcohol Use History: None Reported Additional Past Alcohol Use History / Comment(s): Pt started smoking in 1959 and quit in 1969 Past Drug Use History: None Reported - Past Family History Father Family Medical History: Myocardial Infarction ([place]) Additional Family Medical History / Comment(s): Father of a [place] at the age of 43 yrs. Mother Additional Family Medical History / Comment(s): Mother in a MVA at the age of 50 yrs Medications and Allergies Home Medications Medication Instructions Recorded Confirmed Type Clopidogrel Bisulfate [Plavix] 75 mg PO DAILY 05/31/17 08/14/21 History DULoxetine HCL [Cymbalta] 60 mg PO HS 05/31/17 08/14/21 History valACYclovir HCL [Valtrex] 500 mg PO DAILY PRN 05/31/17 08/14/21 History Isosorbide Mononitrate ER [Imdur] 60 mg PO DAILY 04/14/19 08/14/21 History Ranolazine [Ranexa] 1,000 mg PO BID 04/14/19 08/14/21 History Famotidine 40 mg PO DAILY 05/09/20 08/14/21 History Glimepiride [Amaryl] 2 mg PO DAILY 05/09/20 08/14/21 History Pregabalin [Lyrica] 150 mg PO HS 05/09/20 08/14/21 History Rosuvastatin Calcium 10 mg PO HS 05/09/20 08/14/21 History metFORMIN HCL [Glucophage] 1,000 mg PO BID 05/09/20 08/14/21 History traZODone HCL [Desyrel] 200 mg PO HS PRN 05/10/20 08/14/21 History Enzalutamide [Xtandi] 160 mg PO HS 08/14/21 08/14/21 History Escitalopram [Lexapro] 10 mg PO DAILY 08/14/21 08/14/21 History Insulin Glargine,Hum.rec.anlog 30 units SQ DAILY 08/14/21 08/14/21 History [Lantus Solostar Pen] Magnesium Oxide [Magox 400] 400 mg PO DAILY 08/14/21 08/14/21 History Metoclopramide [Reglan] 5 mg PO TID PRN 08/14/21 08/14/21 History Metoprolol Succinate (ER) [Toprol 25 mg PO DAILY 08/14/21 08/15/21 History Xl] Morphine Sulfate ER [Ms Contin] 15 mg PO TID PRN 08/14/21 08/14/21 History Nirmatrelvir/Ritonavir [Paxlovid 3 cap PO DAILY PRN 08/14/21 08/14/21 History 2X150 mg-100 mg (Eua)] Ondansetron [Zofran] 4 mg PO BID PRN 08/14/21 08/14/21 History Semaglutide [Ozempic] 0.5 mg SQ ORTIZ 08/14/21 08/14/21 History Temazepam [Restoril] 15 mg PO HS PRN 08/14/21 08/15/21 History Vitamin D3 11429 Unit Caps 50,000 unit PO Q7D 08/14/21 08/14/21 History oxyCODONE-APAP 10-325MG [Percocet 1 tab PO TID PRN 08/14/21 08/14/21 History 10-325 mg] Allergies Allergy/AdvReac Type Severity Reaction Status Date / Time No Known Allergies Allergy Verified 08/14/21 16:57 Physical Exam Vitals: Vital Signs Temp Pulse Pulse Resp BP BP Pulse Ox 08/15/21 22:00 60 11 L 113/60 94 L 08/15/21 21:00 63 12 104/51 93 L 08/15/21 20:00 98 F 68 10 L 106/53 93 L 08/15/21 19:00 64 16 118/65 92 L 08/15/21 18:00 62 15 101/57 94 L 08/15/21 17:00 64 14 101/57 94 L 08/15/21 16:27 97.9 F 66 16 116/64 94 L 08/15/21 14:00 99.0 F 67 17 95/56 92 L 08/15/21 12:26 64 16 105/60 08/15/21 12:19 16 08/15/21 08:00 98.3 F 63 17 103/54 93 L 08/15/21 00:28 97.7 F 71 17 123/66 94 L Intake and Output 08/15/21 08/15/21 08/15/21 06:59 14:59 22:59 Intake Total 1000 950 Output Total 150 685 Balance 850 265 Intake: Intake, IV Titration 600 950 Amount Ampicillin-Sulbactam 3 gm 100 In Sodium Chloride 0.9% 100 ml @ 200 mls/hr IVPB Q6HR [facility] Rx#:[id number] Fluconazole in NaCl,Iso- 100 Osm 200 mg In Saline 1 100ml.bag @ 100 mls/hr IVPB DAILY@1700 [facility] Rx#: [id number] Sodium Chloride 0.9% 1, 600 000 ml @ 100 mls/hr IV . Q10H [facility] Rx#:[id number] Sodium Chloride 0.9% 1, 750 000 ml @ 150 mls/hr IV . Q6H40M [facility] Rx#:[id number] Oral 400 Output: Urine 150 685 Other: Voiding Method Indwelling Catheter # Voids 1 Weight 83.915 kg 83.915 kg Results CBC & Chem 7: 08/15/21 18:30 08/14/21 14:12 Labs: Abnormal Lab Results - Last 24 Hours (Table) 08/15/21 08/15/21 08/15/21 Range/Units 07:13 10:36 11:30 RBC (4.30-5.90) m/uL Hgb (13.0-17.5) gm/dL Hct (39.0-53.0) % MCV (80.0-100.0) fL POC Glucose (mg/dL) 173 H 252 H (70-110) mg/dL Hemoglobin A1c 6.6 H (0.0-6.0) % Plasma Lactic Acid Sheng (0.7-2.0) mmol/L C-Reactive Protein (<1.0) mg/dL Prolactin (2.100-17.700) ng/mL 08/15/21 08/15/21 08/15/21 Range/Units 12:42 12:42 18:30 RBC (4.30-5.90) m/uL Hgb (13.0-17.5) gm/dL Hct (39.0-53.0) % MCV (80.0-100.0) fL POC Glucose (mg/dL) (70-110) mg/dL Hemoglobin A1c (0.0-6.0) % Plasma Lactic Acid Sheng 2.3 H* (0.7-2.0) mmol/L C-Reactive Protein 3.0 H (<1.0) mg/dL Prolactin 30.900 H (2.100-17.700) ng/mL 08/15/21 08/15/21 08/15/21 Range/Units 18:30 21:43 22:31 RBC 3.01 L (4.30-5.90) m/uL Hgb 10.5 L (13.0-17.5) gm/dL Hct 31.9 L (39.0-53.0) % MCV 106.1 H (80.0-100.0) fL POC Glucose (mg/dL) 64 L 61 L (70-110) mg/dL Hemoglobin A1c (0.0-6.0) % Plasma Lactic Acid Sheng (0.7-2.0) mmol/L C-Reactive Protein (<1.0) mg/dL Prolactin (2.100-17.700) ng/mL
[2021-08-15 23:09] LABS: Glucose,Whole Blood 109 mg/dL (70-110)
--- NOTE | 2021-08-15 23:40 | P.HPIM ---
History of Present Illness H&P Date: 08/15/21 Chief Complaint: weakness Braydon Bhatia is a 71 yo M with PMH metastatic prostate cancer, CAD, T2DM who presented to the ED with increasing weakness after multiple falls at home. He developed congestion and malaise last week and was subsequently diagnosed with Covid, pt was treated with paxlovid at that time. He initially improved but in the past few days became again weak and fell multiple times at home. He was unable to get up and called EMS. On initial presentation vitals stable, WBC 4.8, Hgb 12.4, Cr 1.3, trop negative. CT head and CXR negative. Pt developed vomiting in the ED and complained of abdominal pain and CT was ordered which showed markedly distended stomach with perigastric and portal venous gas concerning for ischemia/necrosis. Review of Systems ROS unobtainable: due to mental status All systems: negative Constitutional: Reports fatigue, Reports malaise, Reports weakness Eyes: denies blurred vision, denies pain Ears, nose, mouth and throat: Denies headache, Denies sore throat Cardiovascular: Denies chest pain, Denies shortness of breath Respiratory: Denies cough Gastrointestinal: Reports abdominal pain, Denies diarrhea, Denies nausea, Denies vomiting Musculoskeletal: Reports gait dysfunction, Reports low back pain, Denies myalgias Integumentary: Denies pruritus, Denies rash Neurological: Denies numbness, Denies weakness Psychiatric: Denies anxiety, Denies depression Endocrine: Denies fatigue, Denies weight change Past Medical History Past Medical History: Coronary Artery Disease (CAD), Cancer, Diabetes Mellitus, Deep Vein Thrombosis (DVT), Fibromyalgia, Myocardial Infarction ([place]), Prostate Disorder, Pulmonary Embolus ([place]) Additional Past Medical History / Comment(s): Pt tested + covid on 05/09/20 [facility] ER. Other hx: IDDM type II, neuropathy bilateral hands/legs and feet, prostate cancer with metastasis x3-lymph nodes then sternum and bones-pt states he is currently on radiation tx and hormone therapy and in the past tx with radiation as well, R leg DVT post surgery and R lung PE, agent orange exsposure, chronic pain, vertigo if stands too quickly Last Myocardial Infarction Date:: 2002 History of Any Multi-Drug Resistant Organisms: None Reported Past Surgical History: Heart Catheterization With Stent, Orthopedic Surgery, Prostate Surgery Additional Past Surgical History / Comment(s): PCI/stents, L1-s1 fused, right ring finger sugery, colonoscopy. Past Anesthesia/Blood Transfusion Reactions: No Reported Reaction Date of Last Stent Placement:: 2002 Past Psychological History: No Psychological Hx Reported Additional Psychological History / Comment(s): Pt resides alone. 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 He is independent. Smoking Status: Former smoker Past Alcohol Use History: None Reported Additional Past Alcohol Use History / Comment(s): Pt started smoking in 1959 and quit in 1969 Past Drug Use History: None Reported - Past Family History Father Family Medical History: Myocardial Infarction ([place]) Additional Family Medical History / Comment(s): Father of a [place] at the age of 43 yrs. Mother Additional Family Medical History / Comment(s): Mother in a MVA at the age of 50 yrs Medications and Allergies Home Medications Medication Instructions Recorded Confirmed Type Clopidogrel Bisulfate [Plavix] 75 mg PO DAILY 05/31/17 08/14/21 History DULoxetine HCL [Cymbalta] 60 mg PO HS 05/31/17 08/14/21 History valACYclovir HCL [Valtrex] 500 mg PO DAILY PRN 05/31/17 08/14/21 History Isosorbide Mononitrate ER [Imdur] 60 mg PO DAILY 04/14/19 08/14/21 History Ranolazine [Ranexa] 1,000 mg PO BID 04/14/19 08/14/21 History Famotidine 40 mg PO DAILY 05/09/20 08/14/21 History Glimepiride [Amaryl] 2 mg PO DAILY 05/09/20 08/14/21 History Pregabalin [Lyrica] 150 mg PO HS 05/09/20 08/14/21 History Rosuvastatin Calcium 10 mg PO HS 05/09/20 08/14/21 History metFORMIN HCL [Glucophage] 1,000 mg PO BID 05/09/20 08/14/21 History traZODone HCL [Desyrel] 200 mg PO HS PRN 05/10/20 08/14/21 History Enzalutamide [Xtandi] 160 mg PO HS 08/14/21 08/14/21 History Escitalopram [Lexapro] 10 mg PO DAILY 08/14/21 08/14/21 History Insulin Glargine,Hum.rec.anlog 30 units SQ DAILY 08/14/21 08/14/21 History [Lantus Solostar Pen] Magnesium Oxide [Magox 400] 400 mg PO DAILY 08/14/21 08/14/21 History Metoclopramide [Reglan] 5 mg PO TID PRN 08/14/21 08/14/21 History Metoprolol Succinate (ER) [Toprol 25 mg PO DAILY 08/14/21 08/15/21 History Xl] Morphine Sulfate ER [Ms Contin] 15 mg PO TID PRN 08/14/21 08/14/21 History Nirmatrelvir/Ritonavir [Paxlovid 3 cap PO DAILY PRN 08/14/21 08/14/21 History 2X150 mg-100 mg (Eua)] Ondansetron [Zofran] 4 mg PO BID PRN 08/14/21 08/14/21 History Semaglutide [Ozempic] 0.5 mg SQ ORTIZ 08/14/21 08/14/21 History Temazepam [Restoril] 15 mg PO HS PRN 08/14/21 08/15/21 History Vitamin D3 38709 Unit Caps 50,000 unit PO Q7D 08/14/21 08/14/21 History oxyCODONE-APAP 10-325MG [Percocet 1 tab PO TID PRN 08/14/21 08/14/21 History 10-325 mg] Allergies Allergy/AdvReac Type Severity Reaction Status Date / Time No Known Allergies Allergy Verified 08/14/21 16:57 Physical Exam Vitals: Vital Signs Temp Pulse Pulse Resp BP BP Pulse Ox 08/15/21 22:00 60 11 L 113/60 94 L 08/15/21 21:00 63 12 104/51 93 L 08/15/21 20:00 98 F 68 10 L 106/53 93 L 08/15/21 19:00 64 16 118/65 92 L 08/15/21 18:00 62 15 101/57 94 L 08/15/21 17:00 64 14 101/57 94 L 08/15/21 16:27 97.9 F 66 16 116/64 94 L 08/15/21 14:00 99.0 F 67 17 95/56 92 L 08/15/21 12:26 64 16 105/60 08/15/21 12:19 16 08/15/21 08:00 98.3 F 63 17 103/54 93 L 08/15/21 00:28 97.7 F 71 17 123/66 94 L Intake and Output 08/15/21 08/15/21 08/16/21 14:59 22:59 06:59 Intake Total 950 Output Total 685 Balance 265 Intake: Intake, IV Titration 950 Amount Ampicillin-Sulbactam 3 gm 100 In Sodium Chloride 0.9% 100 ml @ 200 mls/hr IVPB Q6HR [facility] Rx#:[id number] Fluconazole in NaCl,Iso- 100 Osm 200 mg In Saline 1 100ml.bag @ 100 mls/hr IVPB DAILY@1700 [facility] Rx#: [id number] Sodium Chloride 0.9% 1, 750 000 ml @ 150 mls/hr IV . Q6H40M [facility] Rx#:[id number] Output: Urine 685 Other: Voiding Method Indwelling Catheter Weight 83.915 kg General: Elderly male resting in NAD. Vitals reviewed Eyes: PERRL, EOMI, conjunctiva normal HENT: normocephalic, mucus membranes moist Neck: supple, no JVD Lungs: normal respiratory effort, no wheezes or rales CV: Regular rate and rhythm, no murmur. Peripheral pulses 2+ Abdomen: soft, tenderness throughout, no organomegaly. BS+ Lymph: no cervical or axillary LAD Skin: warm and dry. Neuro: Oriented to self and place, lethargic. CN intact Results CBC & Chem 7: 08/15/21 18:30 08/14/21 14:12 Labs: Abnormal Lab Results - Last 24 Hours (Table) 08/15/21 08/15/21 08/15/21 Range/Units 07:13 10:36 11:30 RBC (4.30-5.90) m/uL Hgb (13.0-17.5) gm/dL Hct (39.0-53.0) % MCV (80.0-100.0) fL POC Glucose (mg/dL) 173 H 252 H (70-110) mg/dL Hemoglobin A1c 6.6 H (0.0-6.0) % Plasma Lactic Acid Sheng (0.7-2.0) mmol/L C-Reactive Protein (<1.0) mg/dL Prolactin (2.100-17.700) ng/mL 08/15/21 08/15/21 08/15/21 Range/Units 12:42 12:42 18:30 RBC (4.30-5.90) m/uL Hgb (13.0-17.5) gm/dL Hct (39.0-53.0) % MCV (80.0-100.0) fL POC Glucose (mg/dL) (70-110) mg/dL Hemoglobin A1c (0.0-6.0) % Plasma Lactic Acid Sheng 2.3 H* (0.7-2.0) mmol/L C-Reactive Protein 3.0 H (<1.0) mg/dL Prolactin 30.900 H (2.100-17.700) ng/mL 08/15/21 08/15/21 08/15/21 Range/Units 18:30 21:43 22:31 RBC 3.01 L (4.30-5.90) m/uL Hgb 10.5 L (13.0-17.5) gm/dL Hct 31.9 L (39.0-53.0) % MCV 106.1 H (80.0-100.0) fL POC Glucose (mg/dL) 64 L 61 L (70-110) mg/dL Hemoglobin A1c (0.0-6.0) % Plasma Lactic Acid Sheng (0.7-2.0) mmol/L C-Reactive Protein (<1.0) mg/dL Prolactin (2.100-17.700) ng/mL Assessment and Plan Plan: 1. Acute gastric distention and ischemia. Admit to ICU, consult surgery, ID, critical care. NPO and NG tube to LIS. EGD per surgery. Start antibiotic and antifungal coverage per ID 2. CAD, prostate cancer. Hold oral medications 3. T2DM. Hold metformin, ozempic. Hold levemir. Accuchecks and sliding scale 4. Lovenox
[2021-08-16] MEDS: AMPICILLIN-SULBACTAM 3 GM in SODIUM CHLORIDE 0.9% 100 ML IVPB SCH ×4 (00:38→18:43)
[2021-08-16] MEDS: SODIUM CHLORIDE 0.9% 1,000 ML IV SCH ×4 (03:30→22:56)
[2021-08-16 06:13] LABS: Glucose,Whole Blood 69 mg/dL (70-110)
[2021-08-16] MEDS ORDERED: DEXTROSE 50% SYRINGE 50 ML IVP STA (06:28)
[2021-08-16 07:12] LABS: Glucose,Whole Blood 151 mg/dL (70-110)
[2021-08-16] MEDS: INSULIN ASPART (NovoLOG) 100 UNIT/ML VIAL SQ SCH ×4 (07:37→20:04)
[2021-08-16] MEDS: ENOXAPARIN 40 MG/0.4 ML SYRINGE SQ SCH (08:47)
[2021-08-16] MEDS: PANTOPRAZOLE 40 MG/10 ML VIAL IVP SCH ×2 (08:47→20:03)
[2021-08-16] MEDS ORDERED: INSULIN DETEMIR (LEVEMIR) 100 UNIT/ML SYR SQ SCH (09:00)
--- NOTE | 2021-08-16 10:32 | P.PN ---
Subjective Progress Note Date: 08/16/21 Principal diagnosis: COVID-19 infection This is a 71-year-old male patient with a known history of metastatic prostate cancer with bone metastasis including in the right scapula and right rib, coronary artery disease with previous stent placement, type 2 diabetes, fibromyalgia, PE/DVT, Agent [place] exposure, chronic pain, vertigo, former smoker, COVID-19 with sepsis in April 2020 with sepsis. He is vaccinated. He presented to the emergency room yesterday with several days of dizziness lightheadedness and multiple falls. He was also diagnosed with COVID-19 and was initiated on Paxlovid. He had not been eating and drinking well. He's been quite weak. Computed tomography scan of the brain and C-spine revealed no acute fracture or dislocation of cervical spine, no acute intracranial hemorrhage, mass effect or midline shift. CAT scan of the abdomen and pelvis reveals a markedly distended fluid-filled stomach with suspected pneumatosis,. Gastric vascular gas and significant intra-hepatic portal venous gas, concerning for acute gastric ischemia/necrosis. Chest x-ray revealed bibasilar atelectasis favored over infiltrate. He did have episodes of nausea and vomiting. Nasogastric tube in place to right nare. Surgery has been consulted. The patient will be moved to the ICU. We're consulted for critical care management. He is seen and evaluated. He is difficult to arouse. He did have morphine and Percocet through the night. He did respond to Narcan. He has normal saline running 150 ML's per hour. Maintaining O2 saturations in the 90s on room air. The patient is seen today 08/16/2021 and follow-up in the intensive care unit. He is much more awake and alert today. Denies any worsening shortness of breath, cough or congestion. He is maintaining O2 saturations in the 90s on room air. He has normal saline at 150 mL per hour. He did undergo an EGD with biopsies and found to have ischemic gastritis. Pathology pending. His x-ray reveals linear atelectasis of the left base. Nasogastric tube remains in place. Continued on antibiotics in the form of Unasyn. He remains on fluconazole. Lovenox for DVT prophylaxis. Protonix 40 mg IVP twice a day. Objective - Vital Signs Vital signs: Vital Signs Temp 98.2 F 08/16/21 04:30 Pulse 73 08/16/21 08:30 Resp 16 08/16/21 08:30 BP 170/80 08/16/21 08:30 Pulse Ox 93 L 08/16/21 08:30 FiO2 Intake & Output 08/15/21 08/16/21 08/16/21 18:59 06:59 18:59 Intake Total 650 2000 150 Output Total 580 1395 550 Balance 70 605 -400 Weight 83.915 kg 93.4 kg Intake: Intake, IV Titration 650 2000 150 Amount Ampicillin-Sulbactam 3 gm 100 200 In Sodium Chloride 0.9% 100 ml @ 200 mls/hr IVPB Q6HR [facility] Rx#:[id number] Fluconazole in NaCl,Iso- 100 Osm 200 mg In Saline 1 100ml.bag @ 100 mls/hr IVPB DAILY@1700 [facility] Rx#: [id number] Sodium Chloride 0.9% 1, 450 1800 150 000 ml @ 150 mls/hr IV . Q6H40M [facility] Rx#:[id number] Output: Urine 580 1395 550 Other: Voiding Method Indwelling Catheter Indwelling Catheter Indwelling Catheter - Exam GENERAL EXAM: Awake, alert 71-year-old male patient, on room air. HEAD: Normocephalic. EYES: Normal reaction of pupils, equal size. NOSE: Clear with pink turbinates. Nasogastric tube in place. THROAT: No erythema or exudates. NECK: No masses, no JVD. CHEST: No chest wall deformity. LUNGS: Equal air entry with no crackles, wheeze, rhonchi or dullness. CVS: S1 and S2 normal with no audible murmur, regular rhythm. ABDOMEN: Abdominal distention, normal bowel sounds, no guarding or rigidity. SPINE: No scoliosis or deformity SKIN: No rashes CENTRAL NERVOUS SYSTEM: No focal deficits, tone is normal in all 4 extremities. EXTREMITIES: There is no peripheral edema. No clubbing, no cyanosis. Peripheral pulses are intact. - Labs CBC & Chem 7: 08/15/21 18:30 08/14/21 14:12 Labs: Abnormal Lab Results - Last 24 Hours (Table) 08/15/21 08/15/21 08/15/21 Range/Units 10:36 11:30 12:42 RBC (4.30-5.90) m/uL Hgb (13.0-17.5) gm/dL Hct (39.0-53.0) % MCV (80.0-100.0) fL POC Glucose (mg/dL) 252 H (70-110) mg/dL Hemoglobin A1c 6.6 H (0.0-6.0) % Plasma Lactic Acid Sheng 2.3 H* (0.7-2.0) mmol/L C-Reactive Protein (<1.0) mg/dL Prolactin (2.100-17.700) ng/mL 08/15/21 08/15/21 08/15/21 Range/Units 12:42 18:30 18:30 RBC 3.01 L (4.30-5.90) m/uL Hgb 10.5 L (13.0-17.5) gm/dL Hct 31.9 L (39.0-53.0) % MCV 106.1 H (80.0-100.0) fL POC Glucose (mg/dL) (70-110) mg/dL Hemoglobin A1c (0.0-6.0) % Plasma Lactic Acid Sheng (0.7-2.0) mmol/L C-Reactive Protein 3.0 H (<1.0) mg/dL Prolactin 30.900 H (2.100-17.700) ng/mL 08/15/21 08/15/21 08/16/21 Range/Units 21:43 22:31 06:10 RBC (4.30-5.90) m/uL Hgb (13.0-17.5) gm/dL Hct (39.0-53.0) % MCV (80.0-100.0) fL POC Glucose (mg/dL) 64 L 61 L 69 L (70-110) mg/dL Hemoglobin A1c (0.0-6.0) % Plasma Lactic Acid Sheng (0.7-2.0) mmol/L C-Reactive Protein (<1.0) mg/dL Prolactin (2.100-17.700) ng/mL 08/16/21 Range/Units 07:00 RBC (4.30-5.90) m/uL Hgb (13.0-17.5) gm/dL Hct (39.0-53.0) % MCV (80.0-100.0) fL POC Glucose (mg/dL) 151 H (70-110) mg/dL Hemoglobin A1c (0.0-6.0) % Plasma Lactic Acid Sheng (0.7-2.0) mmol/L C-Reactive Protein (<1.0) mg/dL Prolactin (2.100-17.700) ng/mL Assessment and Plan Assessment: 1 Generalized weakness with syncope and falls secondary to dehydration and COVID-19 infection diagnosed in the outpatient setting and was initiated on Paxlovid 2 Nausea and vomiting with abdominal discomfort secondary to markedly distended fluid-filled stomach with suspected pneumatosis, pancho gastric vascular gas and significant intrahepatic portal venous gas. EGD 08/15/2021 revealed ischemic gastritis. Biopsies pending. 3 Previous admission for COVID-19 sepsis in April 2020 4 Coronary artery disease with previous stent placement 5 Metastatic prostate cancer to the bone, maintained on Xtandi 6 Diabetes mellitus 7 History of PE/DVT 8 Fibromyalgia 9 Former smoker Plan: The patient was seen and evaluated Chest x-ray, medication reviewed Naso gastric tube remains in place Continue with fluid resuscitation Transfer to the regular medical floor We will see as needed I have personally seen and examined the patient, performed the documentation and the assessment and plan as written. Number of minutes spent on the visit: and 10.
[2021-08-16 11:19] LABS: Glucose,Whole Blood 120 mg/dL (70-110)
--- NOTE | 2021-08-16 11:41 | P.PN ---
Subjective Progress Note Date: 08/16/21 CHIEF COMPLAINT: Fall HISTORY OF PRESENT ILLNESS: Surgical service following in regards to gastric necrosis. Patient currently in the ICU. Patient had EGD completed yesterday that showed evidence of ischemic gastritis. Patient has NG tube in place with 200 mL of dark bilious output. He remains on antibiotics. Patient does complain of diffuse abdominal pain more so on the right side of the abdomen. He is having flatus. He is more awake and alert than yesterday. He is talking and communicating. He developed low-grade temp of 99.5. Blood cultures are pending. WBC of 7.0 yesterday PHYSICAL EXAM: VITAL SIGNS: Reviewed. GENERAL: Well-developed in no acute distress. HEENT: No sclera icterus. Extraocular movements grossly intact. Moist buccal mucosa. Head is atraumatic, normocephalic. ABDOMEN: Soft. Nondistended. Diffuse tenderness and more tender on the right side of the abdomen NEUROLOGIC: Alert and oriented. Cranial nerves II through XII grossly intact. ASSESSMENT: 1. Ischemic gastritis 2. Covid 19 infection 3. Multiple falls PLAN: -Continue NG tube for decompression -Nothing by mouth except for ice chips -Continue antibiotics per ID service -Continue IV fluids -Continue PPI -Plavix on hold Physician Plant Safety Engineer note has been reviewed by physician. Signing provider agrees with the documented findings, assessment, and plan of care. I have personally seen and examined the patient, reviewed the FISHING WORKER /PAs history, exam and MDM and agree with the assessment and plan as written. Based on total visit time, I have performed more than 50% of the visit. As above: Patient remains in the ICU although he has been downgraded. Hemodynamically was stable overnight making adequate urine. He is much more alert and able to provide more history. Patient says he has had vague mid abdominal pain for the last 4 months. He states he was not dehydrated home and cannot figure out why he Passing out on a frequent basis. States he has normal bowel movements at home and denies melena or hematochezia. Patient denies history of ulcer disease in the past. Nasogastric tube only put out a few 100 mL of dark bile overnight. Says his pain today is about the same as it was yesterday. On examination patient has mild upper and mid abdominal tenderness. White blood cell count remained stable. Discussed clinical scenario in detail with the patient. Continue broad-spectrum antibiotics. Continue IV hydration. Continue nasogastric tube decompression. We'll check abdominal x-rays to rule out gastric distention or pneumoperitoneum. If patient doing well anticipate r emoving nasogastric tube tomorrow and beginning clear liquid diet. Objective - Vital Signs Vital signs: Vital Signs Temp 99.5 F 08/16/21 11:00 Pulse 73 08/16/21 10:00 Resp 20 08/16/21 11:00 BP 149/82 08/16/21 11:00 Pulse Ox 94 L 08/16/21 11:00 FiO2 Intake & Output 08/15/21 08/16/21 08/16/21 18:59 06:59 18:59 Intake Total 650 2000 150 Output Total 580 1395 550 Balance 70 605 -400 Weight 83.915 kg 93.4 kg Intake: Intake, IV Titration 650 2000 150 Amount Ampicillin-Sulbactam 3 gm 100 200 In Sodium Chloride 0.9% 100 ml @ 200 mls/hr IVPB Q6HR [facility] Rx#:[id number] Fluconazole in NaCl,Iso- 100 Osm 200 mg In Saline 1 100ml.bag @ 100 mls/hr IVPB DAILY@1700 [facility] Rx#: [id number] Sodium Chloride 0.9% 1, 450 1800 150 000 ml @ 150 mls/hr IV . Q6H40M [facility] Rx#:[id number] Output: Urine 580 1395 550 Other: Voiding Method Indwelling Catheter Indwelling Catheter Indwelling Catheter - Labs CBC & Chem 7: 08/16/21 12:32 08/16/21 12:32 Labs: Abnormal Lab Results - Last 24 Hours (Table) 08/15/21 08/15/21 08/15/21 Range/Units 10:36 12:42 12:42 RBC (4.30-5.90) m/uL Hgb (13.0-17.5) gm/dL Hct (39.0-53.0) % MCV (80.0-100.0) fL POC Glucose (mg/dL) (70-110) mg/dL Hemoglobin A1c 6.6 H (0.0-6.0) % Plasma Lactic Acid Sheng 2.3 H* (0.7-2.0) mmol/L C-Reactive Protein (<1.0) mg/dL Prolactin 30.900 H (2.100-17.700) ng/mL 08/15/21 08/15/21 08/15/21 Range/Units 18:30 18:30 21:43 RBC 3.01 L (4.30-5.90) m/uL Hgb 10.5 L (13.0-17.5) gm/dL Hct 31.9 L (39.0-53.0) % MCV 106.1 H (80.0-100.0) fL POC Glucose (mg/dL) 64 L (70-110) mg/dL Hemoglobin A1c (0.0-6.0) % Plasma Lactic Acid Sheng (0.7-2.0) mmol/L C-Reactive Protein 3.0 H (<1.0) mg/dL Prolactin (2.100-17.700) ng/mL 08/15/21 08/16/21 08/16/21 Range/Units 22:31 06:10 07:00 RBC (4.30-5.90) m/uL Hgb (13.0-17.5) gm/dL Hct (39.0-53.0) % MCV (80.0-100.0) fL POC Glucose (mg/dL) 61 L 69 L 151 H (70-110) mg/dL Hemoglobin A1c (0.0-6.0) % Plasma Lactic Acid Sheng (0.7-2.0) mmol/L C-Reactive Protein (<1.0) mg/dL Prolactin (2.100-17.700) ng/mL 08/16/21 Range/Units 11:17 RBC (4.30-5.90) m/uL Hgb (13.0-17.5) gm/dL Hct (39.0-53.0) % MCV (80.0-100.0) fL POC Glucose (mg/dL) 120 H (70-110) mg/dL Hemoglobin A1c (0.0-6.0) % Plasma Lactic Acid Sheng (0.7-2.0) mmol/L C-Reactive Protein (<1.0) mg/dL Prolactin (2.100-17.700) ng/mL
[2021-08-16 12:45] LABS: HCT 34.7 % (39.0-53.0); HGB 11.5 gm/dL (13.0-17.5); MCHC 33.3 g/dL (31.0-37.0); MCV 105.1 fL (80.0-100.0); Macrocytosis Moderate; Mean Platelet Volume 7.1; Platelet Count 270 k/uL (150-450); RDW 14.2 % (11.5-15.5); WBC 8.7 k/uL (3.8-10.6)
[2021-08-16 13:00] LABS: Albumin 3.3 g/dL (3.5-5.0); Calcium 7.7 mg/dL (8.4-10.2); Potassium 3.5 mmol/L (3.5-5.1); Total Bilirubin 0.6 mg/dL (0.2-1.3); Total Protein 5.9 g/dL (6.3-8.2)
[2021-08-16] MEDS: FLUCONAZOLE IN NACL,ISO-OSM 200 MG in SALINE 1 100ML.BAG IVPB SCH (16:49)
--- NOTE | 2021-08-16 18:01 | XR ---
EXAMINATION TYPE: XR chest 1V portable DATE OF EXAM: 08/16/2021 5:42 PM COMPARISON: Multiple radiographs, with the most recent on 08/15/2021 TECHNIQUE: Frontal view for nasogastric tube placement. XR chest 1V portable Frontal view of the ches t. CLINICAL INDICATION:Male, 71 years old with history of NG tube placement; FINDINGS: Lungs/Pleura: Similar left basilar probable atelectasis. There is no evidence of pleural effusion, fo josé miguel consolidation, or pneumothorax. Pulmonary vascularity: Unremarkable. Heart/mediastinum: Cardiomediastinal silhouette is unremarkable. Partially visualized fixation hardwa re in the lower spine. Musculoskeletal: No acute osseous pathology. Lines/Tubes: Nasogastric tube with its distal tip and side-port projecting under the diaphragm. IMPRESSION: Nasogastric tube in appropriate position.
--- NOTE | 2021-08-16 18:27 | XR ---
EXAMINATION TYPE: XR abdomen 2V DATE OF EXAM: 08/16/2021 4:06 PM INDICATION: Patient age:Male; 71 years old; Reason for study: pain; COMPARISON: CT abdomen pelvis 05/31/2017. TECHNIQUE: One radiographic view of the abdomen was obtained. FINDINGS: There is diffuse gaseous distention of the small bowel. Small bowel dilated up to 2.27 year s. The osseous structures are intact. Post fixation hardware changes throughout the lumbar spine L2-S 1 with good osseous fusion of the lateral facet. Hardware appears intact. Cholecystectomy clips are p resent. Moderate degeneration changes with osteophyte formation of the bilateral hips. No abnormal ca lcifications are present. Fecal material and gas are demonstrated throughout the colon and rectum. IMPRESSION: 1. Diffuse gaseous distention of the small bowel correlate for ileus. 2. Surgical changes to the spine with hardware appearing intact. 3. Moderate hip osteoporosis
--- NOTE | 2021-08-16 19:43 | XR ---
EXAMINATION TYPE: XR chest 1V portable DATE OF EXAM: 08/16/2021 7:32 PM COMPARISON: Chest radiographs earlier same day. TECHNIQUE: XR chest 1V portable Portable AP radiograph of the chest.. CLINICAL INDICATION:Male, 71 years old with history of NG tube removed by patient and replaced, place ment; FINDINGS: Nasogastric tube with its distal tip and side-port projecting under the diaphragm. The remainder of e xam is unchanged. IMPRESSION: Nasogastric tube now in appropriate position.
[2021-08-16 19:56] LABS: Glucose,Whole Blood 151 mg/dL (70-110)
--- NOTE | 2021-08-16 22:39 | P.PN ---
Subjective Progress Note Date: 08/16/21 Principal diagnosis: Ischemic gastritis Patient is a 71-year-old male with a recent diagnosis of Covid 19 on 08/08/2021 presenting to the hospital with abdominal pain weakness and has been diagnosed with ischemic gastritis on the basis of CT and EGD findings. On today's evaluation that is 08/16/2021, the patient denies having any fever or chills, the patient is breathing comfortably on room air patient still have the NG in patient denies any worsening abdominal pain no nausea no vomiting no chest pain shortness of breath or cough Objective - Vital Signs Vital signs: Vital Signs Temp 99.5 F 08/16/21 11:00 Pulse 67 08/16/21 12:00 Resp 20 08/16/21 12:00 BP 149/82 08/16/21 11:00 Pulse Ox 94 L 08/16/21 11:00 FiO2 Intake & Output 08/15/21 08/16/21 08/16/21 18:59 06:59 18:59 Intake Total 650 2000 150 Output Total 580 1395 950 Balance 70 605 -800 Weight 83.915 kg 93.4 kg Intake: Intake, IV Titration 650 2000 150 Amount Ampicillin-Sulbactam 3 gm 100 200 In Sodium Chloride 0.9% 100 ml @ 200 mls/hr IVPB Q6HR [facility] Rx#:[id number] Fluconazole in NaCl,Iso- 100 Osm 200 mg In Saline 1 100ml.bag @ 100 mls/hr IVPB DAILY@1700 [facility] Rx#: [id number] Sodium Chloride 0.9% 1, 450 1800 150 000 ml @ 150 mls/hr IV . Q6H40M [facility] Rx#:[id number] Output: Urine 580 1395 950 Other: Voiding Method Indwelling Catheter Indwelling Catheter Indwelling Catheter - Exam GENERAL DESCRIPTION: An elderly male up in the chair in no distress RESPIRATORY SYSTEM: Unlabored breathing , decreased breath sounds at bases HEART: S1 S2 regular rate and rhythm , ABDOMEN: Soft , mild tenderness EXTREMITIES: No edema feet - Labs CBC & Chem 7: 08/16/21 12:32 08/16/21 12:32 Labs: Abnormal Lab Results - Last 24 Hours (Table) 08/15/21 08/15/21 08/15/21 Range/Units 10:36 12:42 18:30 RBC (4.30-5.90) m/uL Hgb (13.0-17.5) gm/dL Hct (39.0-53.0) % MCV (80.0-100.0) fL Sodium (137-145) mmol/L Glucose (74-99) mg/dL POC Glucose (mg/dL) (70-110) mg/dL Hemoglobin A1c 6.6 H (0.0-6.0) % Calcium (8.4-10.2) mg/dL C-Reactive Protein 3.0 H (<1.0) mg/dL Total Protein (6.3-8.2) g/dL Albumin (3.5-5.0) g/dL Prolactin 30.900 H (2.100-17.700) ng/mL 08/15/21 08/15/21 08/15/21 Range/Units 18:30 21:43 22:31 RBC 3.01 L (4.30-5.90) m/uL Hgb 10.5 L (13.0-17.5) gm/dL Hct 31.9 L (39.0-53.0) % MCV 106.1 H (80.0-100.0) fL Sodium (137-145) mmol/L Glucose (74-99) mg/dL POC Glucose (mg/dL) 64 L 61 L (70-110) mg/dL Hemoglobin A1c (0.0-6.0) % Calcium (8.4-10.2) mg/dL C-Reactive Protein (<1.0) mg/dL Total Protein (6.3-8.2) g/dL Albumin (3.5-5.0) g/dL Prolactin (2.100-17.700) ng/mL 08/16/21 08/16/21 08/16/21 Range/Units 06:10 07:00 11:17 RBC (4.30-5.90) m/uL Hgb (13.0-17.5) gm/dL Hct (39.0-53.0) % MCV (80.0-100.0) fL Sodium (137-145) mmol/L Glucose (74-99) mg/dL POC Glucose (mg/dL) 69 L 151 H 120 H (70-110) mg/dL Hemoglobin A1c (0.0-6.0) % Calcium (8.4-10.2) mg/dL C-Reactive Protein (<1.0) mg/dL Total Protein (6.3-8.2) g/dL Albumin (3.5-5.0) g/dL Prolactin (2.100-17.700) ng/mL 08/16/21 08/16/21 Range/Units 12:32 12:32 RBC 3.30 L (4.30-5.90) m/uL Hgb 11.5 L (13.0-17.5) gm/dL Hct 34.7 L (39.0-53.0) % MCV 105.1 H (80.0-100.0) fL Sodium 136 L (137-145) mmol/L Glucose 123 H (74-99) mg/dL POC Glucose (mg/dL) (70-110) mg/dL Hemoglobin A1c (0.0-6.0) % Calcium 7.7 L (8.4-10.2) mg/dL C-Reactive Protein (<1.0) mg/dL Total Protein 5.9 L (6.3-8.2) g/dL Albumin 3.3 L (3.5-5.0) g/dL Prolactin (2.100-17.700) ng/mL Assessment and Plan (1) Gastritis Current Visit: Yes Status: Acute Code(s): K29.70 - GASTRITIS, UNSPECIFIED, WITHOUT BLEEDING SNOMED Code(s): 8275601 (2) COVID-19 Current Visit: Yes Status: Acute Code(s): U07.1 - COVID-19 SNOMED Code(s): 182685317 Plan: 1patient with acute covid 19 and this patient diagnoses was on 08/08/2021 and did have mild symptoms currently on room air and will need no further therapy except supportive treatment and will consider isolation none for 10 days as current admission is not for covid 19 2patient with ischemic gastritis, patient is clinically stable afebrile white count is normal we will continue with the Unasyn and Diflucan the patient did have a multiple questions significant amount of time spent with the patient to answered them in Layman terms Time with Patient: Less than 30
[2021-08-17] MEDS: AMPICILLIN-SULBACTAM 3 GM in SODIUM CHLORIDE 0.9% 100 ML IVPB SCH ×5 (00:50→17:44)
[2021-08-17] MEDS: SODIUM CHLORIDE 0.9% 1,000 ML IV SCH ×3 (04:46→16:32)
[2021-08-17 07:22] LABS: Glucose,Whole Blood 144 mg/dL (70-110)
[2021-08-17] MEDS: ENOXAPARIN 40 MG/0.4 ML SYRINGE SQ SCH (07:26)
[2021-08-17] MEDS: INSULIN ASPART (NovoLOG) 100 UNIT/ML VIAL SQ SCH ×4 (07:26→20:09)
[2021-08-17] MEDS: PANTOPRAZOLE 40 MG/10 ML VIAL IVP SCH ×2 (07:26→21:03)
[2021-08-17 08:53] LABS: African American GFR (CKD) >90 (>60 ml/min/1.73 sqM); Anion Gap 11 mmol/L; Blood Urea Nitrogen 12 mg/dL (9-20); Calcium 7.9 mg/dL (8.4-10.2); Carbon Dioxide 22 mmol/L (22-30); Chloride 103 mmol/L (98-107); Glucose 129 mg/dL (74-99); Non-African American GFR(CKD) 83 (>60 ml/min/1.73 sqM); Potassium 2.9 mmol/L (3.5-5.1); Sodium 136 mmol/L (137-145)
[2021-08-17] MEDS ORDERED: ERGOCALCIFEROL 1,250 MCG (50,000 IU) CAPSULE PO SCH (09:00)
[2021-08-17] MEDS ORDERED: Potassium Replacement Protocol 1 EACH MISC MISCELLANE PRN ×2 (09:08→09:13)
[2021-08-17] MEDS: POTASSIUM CHLORIDE 10 MEQ in WATER FOR INJECTION 1 100ML.BAG IVPB SCH ×6 (09:26→15:16)
--- NOTE | 2021-08-17 10:48 | P.PN ---
Subjective Progress Note Date: 08/16/21 Braydon Bhatia is a 71 yo M with H metastatic prostate cancer, CAD, T2DM who presented to the ED with increasing weakness after multiple falls at home. He developed congestion and malaise last week and was subsequently diagnosed with Covid, pt was treated with paxlovid at that time. He initially improved but in the past few days became again weak and fell multiple times at home. He was unable to get up and called EMS. On initial presentation vitals stable, WBC 4.8, Hgb 12.4, Cr 1.3, trop negative. CT head and CXR negative. Pt developed vomiting in the ED and complained of abdominal pain and CT was ordered which showed markedly distended stomach with perigastric and portal venous gas concerning for ischemia/necrosis. 08/16/2021 yesterday condition declined, became obtunded, required Narcan, CT concerning for acute gastric ischemia/necrosis and transferred to ICU. Evaluated by surgery, EGD completed yesterday reporting ischemic gastritis, mild distal esophagitis, biopsies obtained, NG tube placed. Tolerated procedure well. Small dark bilious output over 15 hours of approximately 200 MLS. Currently NPO, maintained on IV fluid hydration with normal saline at 150 MLS per hour. Mild diffuse abdominal pain, passing flatus. Denies chest pain, palpitations or increasing shortness of breath. Maintaining O2 sats in the 90s on room air. Chest x-ray last night reported linear infiltrate atelectasis left lung base without change. Continues on Unasyn, Diflucan. T-max 99.5, recent WBC 7, Labs pending. Blood sugars controlled. Sensorium significantly improved. Objective - Vital Signs Vital signs: Vital Signs Temp 99.5 F 08/16/21 11:00 Pulse 67 08/16/21 12:00 Resp 20 08/16/21 12:00 BP 149/82 08/16/21 11:00 Pulse Ox 94 L 08/16/21 11:00 FiO2 Intake & Output 08/15/21 08/16/21 08/16/21 18:59 06:59 18:59 Intake Total 650 2000 150 Output Total 580 1395 950 Balance 70 605 -800 Weight 83.915 kg 93.4 kg Intake: Intake, IV Titration 650 2000 150 Amount Ampicillin-Sulbactam 3 gm 100 200 In Sodium Chloride 0.9% 100 ml @ 200 mls/hr IVPB Q6HR [facility] Rx#:[id number] Fluconazole in NaCl,Iso- 100 Osm 200 mg In Saline 1 100ml.bag @ 100 mls/hr IVPB DAILY@1700 [facility] Rx#: [id number] Sodium Chloride 0.9% 1, 450 1800 150 000 ml @ 150 mls/hr IV . Q6H40M [facility] Rx#:[id number] Output: Urine 580 1395 950 Other: Voiding Method Indwelling Catheter Indwelling Catheter Indwelling Catheter - Exam General: Alert and oriented 3, sitting up in bed, NAD. Vitals reviewed Eyes: PERRL, EOMI, conjunctiva normal HENT: normocephalic, NG tube present with dark green bilious drg. Neck: supple, no JVD Lungs: normal respiratory effort, no wheezes or rales CV: Regular rate and rhythm, no murmur. Peripheral pulses 2+ Abdomen: soft, diffuse tenderness, no organomegaly. BS+ Skin: warm and dry. Neuro: Cranial nerves II through XII grossly intact. - Labs CBC & Chem 7: 08/16/21 12:32 08/17/21 07:53 Labs: Abnormal Lab Results - Last 24 Hours (Table) 08/15/21 08/15/21 08/15/21 Range/Units 12:42 18:30 18:30 RBC 3.01 L (4.30-5.90) m/uL Hgb 10.5 L (13.0-17.5) gm/dL Hct 31.9 L (39.0-53.0) % MCV 106.1 H (80.0-100.0) fL Sodium (137-145) mmol/L Glucose (74-99) mg/dL POC Glucose (mg/dL) (70-110) mg/dL Calcium (8.4-10.2) mg/dL C-Reactive Protein 3.0 H (<1.0) mg/dL Total Protein (6.3-8.2) g/dL Albumin (3.5-5.0) g/dL Prolactin 30.900 H (2.100-17.700) ng/mL 08/15/21 08/15/21 08/16/21 Range/Units 21:43 22:31 06:10 RBC (4.30-5.90) m/uL Hgb (13.0-17.5) gm/dL Hct (39.0-53.0) % MCV (80.0-100.0) fL Sodium (137-145) mmol/L Glucose (74-99) mg/dL POC Glucose (mg/dL) 64 L 61 L 69 L (70-110) mg/dL Calcium (8.4-10.2) mg/dL C-Reactive Protein (<1.0) mg/dL Total Protein (6.3-8.2) g/dL Albumin (3.5-5.0) g/dL Prolactin (2.100-17.700) ng/mL 08/16/21 08/16/21 08/16/21 Range/Units 07:00 11:17 12:32 RBC 3.30 L (4.30-5.90) m/uL Hgb 11.5 L (13.0-17.5) gm/dL Hct 34.7 L (39.0-53.0) % MCV 105.1 H (80.0-100.0) fL Sodium (137-145) mmol/L Glucose (74-99) mg/dL POC Glucose (mg/dL) 151 H 120 H (70-110) mg/dL Calcium (8.4-10.2) mg/dL C-Reactive Protein (<1.0) mg/dL Total Protein (6.3-8.2) g/dL Albumin (3.5-5.0) g/dL Prolactin (2.100-17.700) ng/mL 08/16/21 Range/Units 12:32 RBC (4.30-5.90) m/uL Hgb (13.0-17.5) gm/dL Hct (39.0-53.0) % MCV (80.0-100.0) fL Sodium 136 L (137-145) mmol/L Glucose 123 H (74-99) mg/dL POC Glucose (mg/dL) (70-110) mg/dL Calcium 7.7 L (8.4-10.2) mg/dL C-Reactive Protein (<1.0) mg/dL Total Protein 5.9 L (6.3-8.2) g/dL Albumin 3.3 L (3.5-5.0) g/dL Prolactin (2.100-17.700) ng/mL Assessment and Plan Assessment: Ischemic gastritis, secondary to Acute Covid-19 infection ( vaccinated) and Morphine Acute metabolic and possibly toxic encephalopathy secondary to the above, resolv ed Atelectasis Syncope ,Multiple falls secondary to COVID-19 and dehydration History of prior Covid infection 05/14 CAD, history of OK, stents Metastatic Prostate cancer, status post prostatectomy,on Xtandi Diabetes mellitus type 2 Former nicotine dependence Plan: Continue on current medication regime, monitoring and symptomatically treatment. Labs pending . Plavix remains on hold as per surgery; Lovenox for DVT prophylaxis. NG maintenance and ice chips as per surgery. Biopsies/Pathology pending .Continue IV antibiotics and IV fluid hydration. Preliminary blood cultures in progress ,reporting no growth. PPI BID for GI prophylaxis. Supportive care/isolation regarding Covid. Prognosis guarded given multiple complex medical issues. The impression and plan of care has been dictated as directed. : I performed a history and examination of this patient, discussed the same with the dictator. I agree with the dictator's note ,documented as a scribe. Any additional findings or plans will be noted.
[2021-08-17 11:37] LABS: Glucose,Whole Blood 133 mg/dL (70-110)
--- NOTE | 2021-08-17 11:43 | P.PN ---
Subjective Progress Note Date: 08/17/21 CHIEF COMPLAINT: Fall HISTORY OF PRESENT ILLNESS: Patient transferred out of the ICU yesterday. He denies any abdominal pain. He did have a bowel movement. There is 200 mL output through the NG tube throughout the night. Abdominal x-ray diffuse gaseous distention of the small bowel correlate for ileus. Afebrile currently. Did have a low-grade temp 99.1 last night. Elevated blood pressure. Sodium 136 potassium 2.9 creatinine 0.91 magnesium 1.5 PHYSICAL EXAM: VITAL SIGNS: Reviewed. GENERAL: Well-developed in no acute distress. HEENT: No sclera icterus. Extraocular movements grossly intact. Moist buccal mucosa. Head is atraumatic, normocephalic. ABDOMEN: Soft. Nondistended. Nontender NEUROLOGIC: Alert and oriented. Cranial nerves II through XII grossly intact. ASSESSMENT: 1. Ischemic gastritis 2. Covid 19 infection 3. Multiple falls 4. Hypokalemia and hypomagnesemia PLAN: -Discontinue NG tube -Start sips of clear liquids -Continue antibiotics per ID service -Continue IV fluids -Continue PPI -Replace magnesium and potassium -Plavix on hold Physician Senior Project Coordinator note has been reviewed by physician. Signing provider agrees with the documented findings, assessment, and plan of care. Patient doing better today. He is on the floor at this time. Out of the ICU. Denies abdominal pain at this time. Low-grade fever last night. He would like the nasogastric tube removed. We'll remove nasogastric tube for now. Continue antibiotics and antiacid therapy. Begin sips of liquids today. Objective - Vital Signs Vital signs: Vital Signs Temp 98.9 F 08/17/21 10:14 Pulse 75 08/17/21 10:14 Resp 18 08/17/21 10:14 BP 180/95 08/17/21 10:14 Pulse Ox 100 08/17/21 10:14 FiO2 Intake & Output 08/16/21 08/17/21 08/17/21 18:59 06:59 18:59 Intake Total 350 750 Output Total 1950 1650 Balance -1600 -900 Weight 86.5 kg Intake: IV 750 Sodium Chloride 0.9% 1, 750 000 ml @ 150 mls/hr IV . Q6H40M [facility] Rx#:[id number] Intake, IV Titration 150 Amount Sodium Chloride 0.9% 1, 150 000 ml @ 150 mls/hr IV . Q6H40M [facility] Rx#:[id number] Oral 200 Output: Urine 1950 1650 Other: Voiding Method Indwelling Catheter Indwelling Catheter Urinal # Bowel Movements 1 - Labs CBC & Chem 7: 08/16/21 12:32 08/17/21 07:53 Labs: Abnormal Lab Results - Last 24 Hours (Table) 08/15/21 08/16/21 08/16/21 Range/Units 10:36 12:32 12:32 RBC 3.30 L (4.30-5.90) m/uL Hgb 11.5 L (13.0-17.5) gm/dL Hct 34.7 L (39.0-53.0) % MCV 105.1 H (80.0-100.0) fL Sodium 136 L (137-145) mmol/L Potassium (3.5-5.1) mmol/L Glucose 123 H (74-99) mg/dL POC Glucose (mg/dL) (70-110) mg/dL Calcium 7.7 L (8.4-10.2) mg/dL Magnesium (1.6-2.3) mg/dL Total Protein 5.9 L (6.3-8.2) g/dL Albumin 3.3 L (3.5-5.0) g/dL Total PSA 7.0 H (<=4.0) ng/mL 08/16/21 08/17/21 08/17/21 Range/Units 19:53 07:21 07:53 RBC (4.30-5.90) m/uL Hgb (13.0-17.5) gm/dL Hct (39.0-53.0) % MCV (80.0-100.0) fL Sodium 136 L (137-145) mmol/L Potassium 2.9 L (3.5-5.1) mmol/L Glucose 129 H (74-99) mg/dL POC Glucose (mg/dL) 151 H 144 H (70-110) mg/dL Calcium 7.9 L (8.4-10.2) mg/dL Magnesium (1.6-2.3) mg/dL Total Protein (6.3-8.2) g/dL Albumin (3.5-5.0) g/dL Total PSA (<=4.0) ng/mL 08/17/21 08/17/21 Range/Units 07:53 11:35 RBC (4.30-5.90) m/uL Hgb (13.0-17.5) gm/dL Hct (39.0-53.0) % MCV (80.0-100.0) fL Sodium (137-145) mmol/L Potassium (3.5-5.1) mmol/L Glucose (74-99) mg/dL POC Glucose (mg/dL) 133 H (70-110) mg/dL Calcium (8.4-10.2) mg/dL Magnesium 1.5 L (1.6-2.3) mg/dL Total Protein (6.3-8.2) g/dL Albumin (3.5-5.0) g/dL Total PSA (<=4.0) ng/mL Microbiology - Last 24 Hours (Table) 08/15/21 18:30 Blood Culture - Preliminary Blood No Growth after 24 hours
[2021-08-17] MEDS: MAGNESIUM SULFATE-D5W PMX 1 GM in DEXTROSE/WATER 1 100ML.BAG IVPB SCH ×2 (12:18→13:16)
[2021-08-17] MEDS ORDERED: Magnesium Replacement Protocol 1 EACH MISC MISCELLANE PRN (14:48)
--- NOTE | 2021-08-17 14:53 | P.PN ---
Subjective Progress Note Date: 08/17/21 Braydon Bhatia is a 71 yo M with H metastatic prostate cancer, CAD, T2DM who presented to the ED with increasing weakness after multiple falls at home. He developed congestion and malaise last week and was subsequently diagnosed with Covid, pt was treated with paxlovid at that time. He initially improved but in the past few days became again weak and fell multiple times at home. He was unable to get up and called EMS. On initial presentation vitals stable, WBC 4.8, Hgb 12.4, Cr 1.3, trop negative. CT head and CXR negative. Pt developed vomiting in the ED and complained of abdominal pain and CT was ordered which showed markedly distended stomach with perigastric and portal venous gas concerning for ischemia/necrosis. 08/16/2021 yesterday condition declined, became obtunded, required Narcan, CT concerning for acute gastric ischemia/necrosis and transferred to ICU. Evaluated by surgery, EGD completed yesterday reporting ischemic gastritis, mild distal esophagitis, biopsies obtained, NG tube placed. Tolerated procedure well. Small dark bilious output over 15 hours of approximately 200 MLS. Currently NPO, maintained on IV fluid hydration with normal saline at 150 MLS per hour. Mild diffuse abdominal pain, passing flatus. Denies chest pain, palpitations or increasing shortness of breath. Maintaining O2 sats in the 90s on room air. Chest x-ray last night reported linear infiltrate atelectasis left lung base without change. Continues on Unasyn, Diflucan. T-max 99.5, recent WBC 7, Labs pending. Blood sugars controlled. Sensorium significantly improved. 08/17/2021 transferred out of ICU yesterday. T-max 99.5, WBC of yesterday 8.7. Preliminary blood culture reporting no growth after 24 hours. Maintained on IV fluid hydration, Unasyn.Bowel movement last night. Denies abdominal pain. Abdominal x-ray reporting diffuse gaseous distention of small bowel, possible ileus . Continues to have dark bilious drainage, approximately 200 MLS overnight . Sodium 136, potassium 2.9, BUN 12, creatinine 0.91. Blood sugars controlled. Denies chest pain, palpitations or shortness of breath. Maintaining O2 sats in the 90s on room air. Objective - Vital Signs Vital signs: Vital Signs Temp 98.9 F 08/17/21 10:14 Pulse 75 08/17/21 10:14 Resp 18 08/17/21 10:14 BP 180/95 08/17/21 10:14 Pulse Ox 100 08/17/21 10:14 FiO2 Intake & Output 08/16/21 08/17/21 08/17/21 18:59 06:59 18:59 Intake Total 350 750 Output Total 1950 1650 Balance -1600 -900 Weight 86.5 kg Intake: IV 750 Sodium Chloride 0.9% 1, 750 000 ml @ 150 mls/hr IV . Q6H40M [facility] Rx#:[id number] Intake, IV Titration 150 Amount Sodium Chloride 0.9% 1, 150 000 ml @ 150 mls/hr IV . Q6H40M [facility] Rx#:[id number] Oral 200 Output: Urine 1949 1649 Other: Voiding Method Indwelling Catheter Indwelling Catheter Urinal # Bowel Movements 1 - Exam General: Alert and oriented 3, sitting up in bed, NAD. Vitals reviewed Eyes: PERRL, EOMI, conjunctiva normal HENT: normocephalic, NG tube present with dark green bilious drg. Neck: supple, no JVD Lungs: normal respiratory effort, no wheezes or rales CV: Regular rate and rhythm, no murmur. Peripheral pulses 2+ Abdomen: soft, nondistended, nontender, BS+ Skin: warm and dry. Neuro: Cranial nerves II through XII grossly intact. - Labs CBC & Chem 7: 08/16/21 12:32 08/17/21 07:53 Labs: Abnormal Lab Results - Last 24 Hours (Table) 08/15/21 08/16/21 08/16/21 Range/Units 10:36 11:17 12:32 RBC 3.30 L (4.30-5.90) m/uL Hgb 11.5 L (13.0-17.5) gm/dL Hct 34.7 L (39.0-53.0) % MCV 105.1 H (80.0-100.0) fL Sodium (137-145) mmol/L Potassium (3.5-5.1) mmol/L Glucose (74-99) mg/dL POC Glucose (mg/dL) 120 H (70-110) mg/dL Calcium (8.4-10.2) mg/dL Total Protein (6.3-8.2) g/dL Albumin (3.5-5.0) g/dL Total PSA 7.0 H (<=4.0) ng/mL 08/16/21 08/16/21 08/17/21 Range/Units 12:32 19:53 07:21 RBC (4.30-5.90) m/uL Hgb (13.0-17.5) gm/dL Hct (39.0-53.0) % MCV (80.0-100.0) fL Sodium 136 L (137-145) mmol/L Potassium (3.5-5.1) mmol/L Glucose 123 H (74-99) mg/dL POC Glucose (mg/dL) 151 H 144 H (70-110) mg/dL Calcium 7.7 L (8.4-10.2) mg/dL Total Protein 5.9 L (6.3-8.2) g/dL Albumin 3.3 L (3.5-5.0) g/dL Total PSA (<=4.0) ng/mL 08/17/21 Range/Units 07:53 RBC (4.30-5.90) m/uL Hgb (13.0-17.5) gm/dL Hct (39.0-53.0) % MCV (80.0-100.0) fL Sodium 136 L (137-145) mmol/L Potassium 2.9 L (3.5-5.1) mmol/L Glucose 129 H (74-99) mg/dL POC Glucose (mg/dL) (70-110) mg/dL Calcium 7.9 L (8.4-10.2) mg/dL Total Protein (6.3-8.2) g/dL Albumin (3.5-5.0) g/dL Total PSA (<=4.0) ng/mL Microbiology - Last 24 Hours (Table) 08/15/21 18:30 Blood Culture - Preliminary Blood No Growth after 24 hours Assessment and Plan Assessment: Ischemic gastritis, secondary to Acute Covid-19 and Morphine Hypokalemia Acute metabolic and possibly toxic encephalopathy secondary to the above, resolved Multiple falls CAD Prostate cancer Diabetes mellitus type 2 Plan: Continue on current medication regime, monitoring and symptomatically treatment. Replacement protocol ordered for potassium replacement. Magnesium level added on, pending.Pathology/biopsies pending. Maintained IV antibiotics and IV fluid hydration. Potential discontinuation of NG today as per surgery. Prognosis guarded given multiple complex medical issues. Patient reports he does have a life alert system at home ,but his arms were so weak, he was unable to push the button. PT/OT consulted. Anticipate subacute rehab at discharge. Discussed with patient and he is requesting [facility]. The impression and plan of care has been dictated as directed. : I performed a history and examination of this patient, discussed the same with the dictator. I agree with the dictator's note ,documented as a scribe. Any additional findings or plans will be noted.
[2021-08-17] MEDS: FLUCONAZOLE IN NACL,ISO-OSM 200 MG in SALINE 1 100ML.BAG IVPB SCH (16:27)
[2021-08-17 16:39] LABS: Glucose,Whole Blood 187 mg/dL (70-110)
[2021-08-17 20:10] LABS: Glucose,Whole Blood 121 mg/dL (70-110)
[2021-08-18] MEDS: AMPICILLIN-SULBACTAM 3 GM in SODIUM CHLORIDE 0.9% 100 ML IVPB SCH ×4 (00:50→19:42)
[2021-08-18] MEDS: SODIUM CHLORIDE 0.9% 1,000 ML IV SCH ×4 (00:51→22:41)
[2021-08-18 07:14] LABS: Glucose,Whole Blood 126 mg/dL (70-110)
[2021-08-18] MEDS: INSULIN ASPART (NovoLOG) 100 UNIT/ML VIAL SQ SCH ×4 (07:29→21:15)
--- NOTE | 2021-08-18 08:37 | XR ---
EXAMINATION TYPE: XR abdomen 2V DATE OF EXAM: 08/18/2021 HISTORY: Pain. Technique: 3 views of the abdomen are submitted. Comparison: 08/16/2021 Findings: There is no convincing evidence of pneumoperitoneum. The Bowel gas pattern is nonspecific and nonobstructive. No sizable air-fluid levels are seen. No mass effects are noted. No renal calcifications are identified. IMPRESSION: 1. Overall interval improvement in the appearance of the bowel gas pattern. No evidence for obstructi ve change at this time.
[2021-08-18] MEDS: ENOXAPARIN 40 MG/0.4 ML SYRINGE SQ SCH (08:42)
[2021-08-18] MEDS: PANTOPRAZOLE 40 MG/10 ML VIAL IVP SCH ×2 (08:42→21:16)
--- NOTE | 2021-08-18 10:29 | P.PN ---
Progress Note - Text Progress Note Date: 08/18/21 Patient remained stable. He denies any significant abdominal pain today. On exam vital signs appear stable. Abdomen soft. There is no significant tenderness. Resolving gastric ischemia. Patient will continue clear liquid diet.
[2021-08-18 11:19] LABS: Glucose,Whole Blood 175 mg/dL (70-110)
[2021-08-18 16:08] LABS: Basophils % (A) 0 %; Eosinophils % (A) 0 %; HCT 35.6 % (39.0-53.0); HGB 12.2 gm/dL (13.0-17.5); Lymphocytes # (A) 0.9 k/uL (1.0-4.8); Lymphocytes % (A) 13 %; MCH 34.8 pg (25.0-35.0); MCHC 34.1 g/dL (31.0-37.0); MCV 101.8 fL (80.0-100.0); Macrocytosis Slight; Mean Platelet Volume 7.5; Monocytes # (A) 0.4 k/uL (0-1.0); Monocytes % (A) 6 %; Neutrophils # (A) 5.1 k/uL (1.3-7.7); Neutrophils % (A) 78 %; Platelet Count 290 k/uL (150-450); RDW 14.1 % (11.5-15.5); WBC 6.5 k/uL (3.8-10.6)
[2021-08-18 16:13] LABS: African American GFR (CKD) 86 (>60 ml/min/1.73 sqM); Anion Gap 9 mmol/L; Blood Urea Nitrogen 17 mg/dL (9-20); Calcium 8.3 mg/dL (8.4-10.2); Carbon Dioxide 25 mmol/L (22-30); Chloride 103 mmol/L (98-107); Glucose 157 mg/dL (74-99); Non-African American GFR(CKD) 74 (>60 ml/min/1.73 sqM); Potassium 3.7 mmol/L (3.5-5.1); Sodium 137 mmol/L (137-145)
[2021-08-18 16:46] LABS: Glucose,Whole Blood 130 mg/dL (70-110)
[2021-08-18] MEDS ORDERED: oxyCODONE-APAP 10-325MG 1 EACH TAB PO PRN (17:14)
[2021-08-18] MEDS: FLUCONAZOLE IN NACL,ISO-OSM 200 MG in SALINE 1 100ML.BAG IVPB SCH (18:25)
[2021-08-18 20:39] LABS: Glucose,Whole Blood 162 mg/dL (70-110)
[2021-08-18] MEDS ORDERED: TEMAZEPAM 15 MG CAP PO SCH (21:00)
[2021-08-18] MEDS: traZODone HCL 100 MG TAB PO SCH (21:16)
[2021-08-18] MEDS: PREGABALIN 75 MG CAP PO SCH (21:16)
[2021-08-18] MEDS: DULoxetine HCL 60 MG CAPSULE.DR PO SCH (21:16)
--- NOTE | 2021-08-18 21:51 | P.PN ---
Subjective Records Braydon Bhatia is a 71 yo M with [facility] metastatic prostate cancer, CAD, T2DM who presented to the ED with increasing weakness after multiple falls at home. He developed congestion and malaise last week and was subsequently diagnosed with Covid, pt was treated with paxlovid at that time. He initially improved but in the past few days became again weak and fell multiple times at home. He was unable to get up and called EMS. On initial presentation vitals stable, WBC 4.8, Hgb 12.4, Cr 1.3, trop negative. CT head and CXR negative. Pt developed vomiting in the ED and complained of abdominal pain and CT was ordered which showed markedly distended stomach with perigastric and portal venous gas concerning for ischemia/necrosis. 08/16/2021 yesterday condition declined, became obtunded, required Narcan, CT concerning for acute gastric ischemia/necrosis and transferred to ICU. Evaluated by surgery, EGD completed yesterday reporting ischemic gastritis, mild distal esophagitis, biopsies obtained, NG tube placed. Tolerated procedure well. Small dark bilious output over 15 hours of approximately 200 MLS. Currently NPO, maintained on IV fluid hydration with normal saline at 150 MLS per hour. Mild diffuse abdominal pain, passing flatus. Denies chest pain, palpitations or increasing shortness of breath. Maintaining O2 sats in the 90s on room air. Chest x-ray last night reported linear infiltrate atelectasis left lung base without change. Continues on Unasyn, Diflucan. T-max 99.5, recent WBC 7, Labs pending. Blood sugars controlled. Sensorium significantly improved. 08/17/2021 transferred out of ICU yesterday. T-max 99.5, WBC of yesterday 8.7. Preliminary blood culture reporting no growth after 24 hours. Maintained on IV fluid hydration, Unasyn.Bowel movement last night. Denies abdominal pain. Abdominal x-ray reporting diffuse gaseous distention of small bowel, possible ileus . Continues to have dark bilious drainage, approximately 200 MLS overnight . Sodium 136, potassium 2.9, BUN 12, creatinine 0.91. Blood sugars controlled. Denies chest pain, palpitations or shortness of breath. Maintaining O2 sats in the 90s on room air. Subjective: Resume the care of the patient today 08/18/2021 This is a pleasant 71 years old male with multiple medical problems presents with signs symptoms of small bowel ileus and found to have distended stomach with possible pneumatosis with indication for ischemia not exclude it. He has multiple medical problems including Covid infection without pneumonia, history of prostate cancer on therapy on enzalutamide , mostly had multiple falls on admission. He is currently on Unasyn and fluconazole normal saline 150 mL lower 200 mL per hour. Surgical and infectious disease team on became Today's NG tube without His tolerating diet with no vomiting, no abdominal pain, he has normal movement but passing gases. Objective - Vital Signs Vital signs: Vital Signs Temp 98.1 F 08/18/21 08:39 Pulse 73 08/18/21 08:39 Resp 16 08/18/21 08:39 BP 119/80 08/18/21 08:39 Pulse Ox 100 08/18/21 08:39 FiO2 Intake & Output 08/17/21 08/18/21 08/18/21 18:59 06:59 18:59 Intake Total 1700 Output Total 1200 500 Balance 500 -500 Weight 86.5 kg 83.6 kg Intake: IV 1700 Sodium Chloride 0.9% 1, 1700 000 ml @ 150 mls/hr IV . Q6H40M [facility] Rx#:[id number] Output: Urine 1200 500 Other: Voiding Method Urinal Urinal # Voids 4 - Exam GENERAL: The patient is alert and oriented x3, not in any acute distress. Well developed, well nourished. HEENT: Pupils are round and equally reacting to light. EOMI. No scleral icterus. No conjunctival pallor. Normocephalic, atraumatic. No pharyngeal erythema. No thyromegaly. CARDIOVASCULAR: S1 and S2 present. No murmurs, rubs, or gallops. PULMONARY: Chest is clear to auscultation, no wheezing or crackles. ABDOMEN: Soft, nontender, nondistended, normoactive bowel sounds. No palpable organomegaly. MUSCULOSKELETAL: No joint swelling or deformity. EXTREMITIES: No cyanosis, clubbing, or pedal edema. NEUROLOGICAL: Gross neurological examination did not reveal any focal deficits. SKIN: No rashes. no petechiae. - Labs CBC & Chem 7: 08/18/21 15:05 08/18/21 15:05 Labs: Abnormal Lab Results - Last 24 Hours (Table) 08/17/21 08/17/21 08/18/21 Range/Units 16:37 20:08 07:07 POC Glucose (mg/dL) 187 H 121 H 126 H (70-110) mg/dL 08/18/21 Range/Units 11:16 POC Glucose (mg/dL) 175 H (70-110) mg/dL Microbiology - Last 24 Hours (Table) 08/15/21 18:30 Blood Culture - Preliminary Blood No Growth after 48 hours Assessment and Plan Assessment: Small bowel ileus secondary to stomach ischemia with distended stomach and pneumatosis, improving Comment infection without pneumonia History of prostate cancer Multiple falls Plan: This is a pleasant 71 years old male who presents with ischemic bowel and ileus. Continue with liquid diet Surgeon and infectious disease team on the case Continue with Unasyn and fluconazole Continue with normal saline Labs and medication were reviewed.. Continue same treatment. Continue with symptomatic treatment. Resume home medication. Monitor lytes and vitals. DVT and GI prophylaxis. Further recommendations as per clinical course of the patient DVT prophylaxis: Subcutaneous heparin GI Prophylaxis: Pepcid Prognosis is guarded
[2021-08-18] MEDS: TEMAZEPAM 15 MG CAP PO PRN (22:45)
--- NOTE | 2021-08-18 23:07 | P.PN ---
Subjective Progress Note Date: 08/17/21 Principal diagnosis: Ischemic gastritis Patient is a 71-year-old male with a recent diagnosis of Covid 19 on 08/08/2021 presenting to the hospital with abdominal pain weakness and has been diagnosed with ischemic gastritis on the basis of CT and EGD findings. On today's evaluation that is 08/17/2021, the patient remains to be afebrile, the patient is breathing comfortably on room air, patient NG has been discontinued, patient denies any worsening abdominal pain no nausea no vomiting no chest pain shortness of breath or cough Objective - Vital Signs Vital signs: Vital Signs Temp 98.9 F 08/17/21 10:14 Pulse 75 08/17/21 10:14 Resp 18 08/17/21 10:14 BP 180/95 08/17/21 10:14 Pulse Ox 100 08/17/21 10:14 FiO2 Intake & Output 08/16/21 08/17/21 08/17/21 18:59 06:59 18:59 Intake Total 350 750 Output Total 1950 1650 Balance -1600 -900 Weight 86.5 kg 86.5 kg Intake: IV 750 Sodium Chloride 0.9% 1, 750 000 ml @ 150 mls/hr IV . Q6H40M [facility] Rx#:[id number] Intake, IV Titration 150 Amount Sodium Chloride 0.9% 1, 150 000 ml @ 150 mls/hr IV . Q6H40M [facility] Rx#:[id number] Oral 200 Output: Urine 1950 1650 Other: Voiding Method Indwelling Catheter Indwelling Catheter Urinal # Bowel Movements 1 - Exam GENERAL DESCRIPTION: An elderly male up in the chair in no distress RESPIRATORY SYSTEM: Unlabored breathing , decreased breath sounds at bases HEART: S1 S2 regular rate and rhythm , ABDOMEN: Soft , mild tenderness EXTREMITIES: No edema feet - Labs CBC & Chem 7: 08/18/21 15:05 08/18/21 15:05 Labs: Abnormal Lab Results - Last 24 Hours (Table) 08/15/21 08/16/21 08/17/21 Range/Units 10:36 19:53 07:21 Sodium (137-145) mmol/L Potassium (3.5-5.1) mmol/L Glucose (74-99) mg/dL POC Glucose (mg/dL) 151 H 144 H (70-110) mg/dL Calcium (8.4-10.2) mg/dL Magnesium (1.6-2.3) mg/dL Total PSA 7.0 H (<=4.0) ng/mL 08/17/21 08/17/21 08/17/21 Range/Units 07:53 07:53 11:35 Sodium 136 L (137-145) mmol/L Potassium 2.9 L (3.5-5.1) mmol/L Glucose 129 H (74-99) mg/dL POC Glucose (mg/dL) 133 H (70-110) mg/dL Calcium 7.9 L (8.4-10.2) mg/dL Magnesium 1.5 L (1.6-2.3) mg/dL Total PSA (<=4.0) ng/mL Microbiology - Last 24 Hours (Table) 08/15/21 18:30 Blood Culture - Preliminary Blood No Growth after 24 hours Assessment and Plan (1) Gastritis Current Visit: Yes Status: Acute Code(s): K29.70 - GASTRITIS, UNSPECIFIED, WITHOUT BLEEDING SNOMED Code(s): 3224704 (2) COVID-19 Current Visit: Yes Status: Acute Code(s): U07.1 - COVID-19 SNOMED Code(s): 215740804 Plan: 1patient with acute covid 19 and this patient diagnoses was on 08/08/2021 and did have mild symptoms currently on room air and will need no further therapy except supportive treatment and will consider isolation only for 10 days as current admission is not for covid 19 and the patient is symptomatic as for as Covid 2patient with ischemic gastritis, patient is clinically stable afebrile white count is normal patient to continue with the Unasyn and Diflucan and monitor clinical course closely Time with Patient: Less than 30
--- NOTE | 2021-08-18 23:09 | P.PN ---
Subjective Progress Note Date: 08/18/21 Principal diagnosis: Ischemic gastritis Patient is a 71-year-old male with a recent diagnosis of Covid 19 on 08/08/2021 presenting to the hospital with abdominal pain weakness and has been diagnosed with ischemic gastritis on the basis of CT and EGD findings. On today's evaluation that is 08/18/2021, the patient continues to be afebrile, the patient is breathing comfortably on room air, patient be tolerated on a diet which he has been tolerating and denies any worsening abdominal pain, no nausea no vomiting, the patient denies chest pain shortness of breath or cough Objective - Vital Signs Vital signs: Vital Signs Temp 98.1 F 08/18/21 08:39 Pulse 73 08/18/21 08:39 Resp 16 08/18/21 08:39 BP 119/80 08/18/21 08:39 Pulse Ox 100 08/18/21 08:39 FiO2 Intake & Output 08/17/21 08/18/21 08/18/21 18:59 06:59 18:59 Intake Total 1700 Output Total 1200 500 Balance 500 -500 Weight 86.5 kg 83.6 kg Intake: IV 1700 Sodium Chloride 0.9% 1, 1700 000 ml @ 150 mls/hr IV . Q6H40M [facility] Rx#:[id number] Output: Urine 1200 500 Other: Voiding Method Urinal Urinal # Voids 4 - Exam GENERAL DESCRIPTION: An elderly male up in the chair in no distress RESPIRATORY SYSTEM: Unlabored breathing , decreased breath sounds at bases HEART: S1 S2 regular rate and rhythm , ABDOMEN: Soft , mild tenderness EXTREMITIES: No edema feet - Labs CBC & Chem 7: 08/18/21 15:05 08/18/21 15:05 Labs: Abnormal Lab Results - Last 24 Hours (Table) 08/17/21 08/17/21 08/18/21 Range/Units 16:37 20:08 07:07 POC Glucose (mg/dL) 187 H 121 H 126 H (70-110) mg/dL 08/18/21 Range/Units 11:16 POC Glucose (mg/dL) 175 H (70-110) mg/dL Microbiology - Last 24 Hours (Table) 08/15/21 18:30 Blood Culture - Preliminary Blood No Growth after 48 hours Assessment and Plan (1) Gastritis Current Visit: Yes Status: Acute Code(s): K29.70 - GASTRITIS, UNSPECIFIED, WITHOUT BLEEDING SNOMED Code(s): 7821643 (2) COVID-19 Current Visit: Yes Status: Acute Code(s): U07.1 - COVID-19 SNOMED Code(s): 719519919 Plan: 1patient with acute covid 19 and this patient diagnoses was on 08/08/2021 and did have mild symptoms currently on room air and will need no further therapy except supportive treatment and will consider isolation only for 10 days as current admission is not for covid 19 and the patient is symptomatic as for as Covid 2patient is slowly clinically improving and will continue with the Unasyn and Diflucan and monitor clinical course closely Time with Patient: Less than 30
[2021-08-19] MEDS: AMPICILLIN-SULBACTAM 3 GM in SODIUM CHLORIDE 0.9% 100 ML IVPB SCH ×4 (00:58→20:08)
[2021-08-19 07:21] LABS: Glucose,Whole Blood 157 mg/dL (70-110)
[2021-08-19] MEDS: SODIUM CHLORIDE 0.9% 1,000 ML IV SCH ×2 (07:31→17:39)
[2021-08-19] MEDS: INSULIN ASPART (NovoLOG) 100 UNIT/ML VIAL SQ SCH ×4 (07:32→20:23)
[2021-08-19] MEDS: PANTOPRAZOLE 40 MG/10 ML VIAL IVP SCH ×2 (07:32→20:23)
[2021-08-19] MEDS: ENOXAPARIN 40 MG/0.4 ML SYRINGE SQ SCH (07:32)
--- NOTE | 2021-08-19 09:12 | P.PN ---
Progress Note - Text Progress Note Date: 08/19/21 Patient feels better today. He denies any significant abdominal pain. On exam vital signs are stable. Abdomen soft. The patient will have his diet advanced to regular diet. We discussed with discharge home tomorrow.
[2021-08-19 09:24] LABS: Basophils # (A) 0.03 X 10*3/uL (0.00-0.10); Basophils % (A) 0.4 %; Eosinophils # (A) 0.08 X 10*3/uL (0.04-0.35); Eosinophils % (A) 1.1 %; HCT 31.1 % (39.6-50.0); Immature Grans, Automated 0.7 %; Lymphocytes % (A) 13.6 %; MCH 34.2 pg (27.0-32.0); MCHC 35.4 g/dL (32.0-37.0); MCV 96.6 fL (80.0-97.0); Mean Platelet Volume 9.9 fL (9.5-12.2); Monocytes # (A) 0.82 X 10*3/uL (0.20-1.00); Monocytes % (A) 11.1 %; NRBC Per 100 WBC 0 /100 WBCS (0.0-0.0); Neutrophils % (A) 73.1 %; Platelet Count 261 X 10*3/uL (140-440); RBC 3.22 X 10*6/uL (4.40-5.60); RDW 13.9 % (11.5-14.5); WBC 7.38 X 10*3/uL (4.50-10.00)
[2021-08-19 09:40] LABS: African American GFR (CKD) 76.8 (60.0-200.0); Anion Gap 16.4 mmol/L (10.00-18.00); BUN/Creat Ratio 15.09 Ratio (12.00-20.00); Blood Urea Nitrogen 16.6 mg/dL (9.0-27.0); Calcium 8.1 mg/dL (8.7-10.3); Carbon Dioxide 19.6 mmol/L (20.0-27.5); Magnesium 2.1 mg/dL (1.5-2.4); Non-African American GFR(CKD) 66.2 (60.0-200.0)
[2021-08-19] MEDS ORDERED: Potassium Replacement Protocol 1 EACH MISC MISCELLANE PRN (09:47)
[2021-08-19] MEDS: POTASSIUM CHLORIDE ER 20 MEQ TAB.ER PO SCH ×2 (09:59→11:29)
[2021-08-19 11:23] LABS: Glucose,Whole Blood 184 mg/dL (70-110)
[2021-08-19 16:33] LABS: Glucose,Whole Blood 131 mg/dL (70-110)
[2021-08-19] MEDS: FLUCONAZOLE IN NACL,ISO-OSM 200 MG in SALINE 1 100ML.BAG IVPB SCH (17:38)
[2021-08-19 20:03] LABS: Glucose,Whole Blood 151 mg/dL (70-110)
[2021-08-19] MEDS: PREGABALIN 75 MG CAP PO SCH (20:22)
[2021-08-19] MEDS: traZODone HCL 100 MG TAB PO SCH (20:23)
[2021-08-19] MEDS: DULoxetine HCL 60 MG CAPSULE.DR PO SCH (20:23)
--- NOTE | 2021-08-19 21:08 | P.PN ---
Subjective Records Braydon Bhatia is a 71 yo M with [facility] metastatic prostate cancer, CAD, T2DM who presented to the ED with increasing weakness after multiple falls at home. He developed congestion and malaise last week and was subsequently diagnosed with Covid, pt was treated with paxlovid at that time. He initially improved but in the past few days became again weak and fell multiple times at home. He was unable to get up and called EMS. On initial presentation vitals stable, WBC 4.8, Hgb 12.4, Cr 1.3, trop negative. CT head and CXR negative. Pt developed vomiting in the ED and complained of abdominal pain and CT was ordered which showed markedly distended stomach with perigastric and portal venous gas concerning for ischemia/necrosis. 08/16/2021 yesterday condition declined, became obtunded, required Narcan, CT concerning for acute gastric ischemia/necrosis and transferred to ICU. Evaluated by surgery, EGD completed yesterday reporting ischemic gastritis, mild distal esophagitis, biopsies obtained, NG tube placed. Tolerated procedure well. Small dark bilious output over 15 hours of approximately 200 MLS. Currently NPO, maintained on IV fluid hydration with normal saline at 150 MLS per hour. Mild diffuse abdominal pain, passing flatus. Denies chest pain, palpitations or increasing shortness of breath. Maintaining O2 sats in the 90s on room air. Chest x-ray last night reported linear infiltrate atelectasis left lung base without change. Continues on Unasyn, Diflucan. T-max 99.5, recent WBC 7, Labs pending. Blood sugars controlled. Sensorium significantly improved. 08/17/2021 transferred out of ICU yesterday. T-max 99.5, WBC of yesterday 8.7. Preliminary blood culture reporting no growth after 24 hours. Maintained on IV fluid hydration, Unasyn.Bowel movement last night. Denies abdominal pain. Abdominal x-ray reporting diffuse gaseous distention of small bowel, possible ileus . Continues to have dark bilious drainage, approximately 200 MLS overnight . Sodium 136, potassium 2.9, BUN 12, creatinine 0.91. Blood sugars controlled. Denies chest pain, palpitations or shortness of breath. Maintaining O2 sats in the 90s on room air. Subjective: Resume the care of the patient today 08/18/2021 This is a pleasant 71 years old male with multiple medical problems presents with signs symptoms of small bowel ileus and found to have distended stomach with possible pneumatosis with indication for ischemia not exclude it. He has multiple medical problems including Covid infection without pneumonia, history of prostate cancer on therapy on enzalutamide , mostly had multiple falls on admission. He is currently on Unasyn and fluconazole normal saline 150 mL lower 200 mL per hour. Surgical and infectious disease team on became Today's NG tube without His tolerating diet with no vomiting, no abdominal pain, he has normal movement but passing gases. 08/19/2021 Patient today having one bowel movement yesterday and his diet advanced to regular, In the morning he had no vomiting. And no abdominal pain. Low potassium is been replaced per protocol. Magnesium is 2.1. Remains on normal saline 100 mL/h and Unasyn and fluconazole Objective - Vital Signs Vital signs: Vital Signs Temp 98.3 F 08/19/21 18:00 Pulse 83 08/19/21 18:00 Resp 16 08/19/21 18:00 BP 162/95 08/19/21 18:00 Pulse Ox 100 08/19/21 18:00 FiO2 Intake & Output 08/19/21 08/19/21 08/20/21 06:59 18:59 06:59 Intake Total 1080 Output Total 700 250 Balance -700 830 Intake: Oral 1080 Output: Urine 700 250 Other: Voiding Method Urinal Urinal - Exam GENERAL: The patient is alert and oriented x3, not in any acute distress. Well developed, well nourished. HEENT: Pupils are round and equally reacting to light. EOMI. No scleral icterus. No conjunctival pallor. Normocephalic, atraumatic. No pharyngeal erythema. No thyromegaly. CARDIOVASCULAR: S1 and S2 present. No murmurs, rubs, or gallops. PULMONARY: Chest is clear to auscultation, no wheezing or crackles. ABDOMEN: Soft, nontender, nondistended, normoactive bowel sounds. No palpable organomegaly. MUSCULOSKELETAL: No joint swelling or deformity. EXTREMITIES: No cyanosis, clubbing, or pedal edema. NEUROLOGICAL: Gross neurological examination did not reveal any focal deficits. SKIN: No rashes. no petechiae. - Labs CBC & Chem 7: 08/19/21 05:33 08/19/21 05:33 Labs: Abnormal Lab Results - Last 24 Hours (Table) 08/18/21 08/19/21 08/19/21 Range/Units 20:38 05:33 05:33 RBC 3.22 L (4.40-5.60) X 10*6/uL Hgb 11.0 L (13.0-17.0) g/dL Hct 31.1 L (39.6-50.0) % MCH 34.2 H (27.0-32.0) pg Immature Gran # 0.05 H (0.00-0.04) X 10*3/uL Potassium 3.0 L (3.5-5.5) mmol/L Carbon Dioxide 19.6 L (20.0-27.5) mmol/L Glucose 129 H (70-110) mg/dL POC Glucose (mg/dL) 162 H (70-110) mg/dL Calcium 8.1 L (8.7-10.3) mg/dL 08/19/21 08/19/21 08/19/21 Range/Units 07:19 11:21 16:31 RBC (4.40-5.60) X 10*6/uL Hgb (13.0-17.0) g/dL Hct (39.6-50.0) % MCH (27.0-32.0) pg Immature Gran # (0.00-0.04) X 10*3/uL Potassium (3.5-5.5) mmol/L Carbon Dioxide (20.0-27.5) mmol/L Glucose (70-110) mg/dL POC Glucose (mg/dL) 157 H 184 H 131 H (70-110) mg/dL Calcium (8.7-10.3) mg/dL Microbiology - Last 24 Hours (Table) 08/15/21 18:30 Blood Culture - Preliminary Blood No Growth after 72 hours Assessment and Plan Assessment: Small bowel ileus secondary to stomach ischemia with distended stomach and pneumatosis, improving Comment infection without pneumonia History of prostate cancer Multiple falls Plan: This is a pleasant 71 years old male who presents with ischemic bowel and ileus. Advance diet Surgeon and infectious disease team on the case Continue with Unasyn and fluconazole Continue with normal saline Labs and medication were reviewed.. Continue same treatment. Continue with symptomatic treatment. Resume home medication. Monitor lytes and vitals. DVT and GI prophylaxis. Further recommendations as per clinical course of the patient DVT prophylaxis: Subcutaneous heparin GI Prophylaxis: Pepcid Prognosis is guarded Dr. Flores team will resume the care of the patient tomorrow
[2021-08-19] MEDS: TEMAZEPAM 15 MG CAP PO PRN (21:53)
[2021-08-19 22:27] LABS: Magnesium 2.1 mg/dL (1.6-2.3); Potassium 3.5 mmol/L (3.5-5.1)
[2021-08-20] MEDS: AMPICILLIN-SULBACTAM 3 GM in SODIUM CHLORIDE 0.9% 100 ML IVPB SCH ×3 (00:32→12:29)
[2021-08-20] MEDS: SODIUM CHLORIDE 0.9% 1,000 ML IV SCH ×2 (00:34→15:32)
[2021-08-20 07:15] LABS: Glucose,Whole Blood 141 mg/dL (70-110)
[2021-08-20 08:17] VITALS: RESP 18
[2021-08-20] MEDS: ENOXAPARIN 40 MG/0.4 ML SYRINGE SQ SCH (08:54)
[2021-08-20] MEDS: INSULIN ASPART (NovoLOG) 100 UNIT/ML VIAL SQ SCH ×3 (08:54→17:29)
[2021-08-20] MEDS: PANTOPRAZOLE 40 MG/10 ML VIAL IVP SCH (08:55)
[2021-08-20 11:29] LABS: Glucose,Whole Blood 215 mg/dL (70-110)
--- NOTE | 2021-08-20 11:57 | P.DS ---
Providers Date of admission: 08/14/21 16:23 Expected date of discharge: 08/20/21 Attending physician: José Luis Valente MD Consults: 08/15/21 11:09 Consult Physician Urgent Consulting Provider: Leo Caceres Consult Reason/Comments: gastric necrosis Do you want consulting provider notified?: Yes 08/15/21 12:23 Consult Physician Stat Consulting Provider: Braydon Lemus Consult Reason/Comments: icu management Do you want consulting provider notified?: Already Contacted 08/15/21 12:24 Consult Physician Routine Consulting Provider: Luan Gonzalez Consult Reason/Comments: nectrotic stomach Do you want consulting provider notified?: Yes Primary care physician: José Luis Valente MD Hospital Course: Final diagnoses: Ischemic gastritis, secondary to Acute Covid-19 and Morphine Hypokalemia Acute metabolic and possibly toxic encephalopathy secondary to the above, resolved Multiple falls CAD Prostate cancer Diabetes mellitus type 2 Hospital course:Braydon Bhatia is a 71 yo M with PMH metastatic prostate cancer, CAD, T2DM who presented to the ED with increasing weakness after multiple falls at home. He developed congestion and malaise last week and was subsequently finn gnosed with Covid, pt was treated with paxlovid at that time. He initially improved but in the past few days became again weak and fell multiple times at home. He was unable to get up and called EMS. On initial presentation vitals stable, WBC 4.8, Hgb 12.4, Cr 1.3, trop negative. CT head and CXR negative. Pt developed vomiting in the ED and complained of abdominal pain and CT was ordered which showed markedly distended stomach with perigastric and portal venous gas concerning for ischemia/necrosis. 08/16/2021 yesterday condition declined, became obtunded, required Narcan, CT concerning for acute gastric ischemia/necrosis and transferred to ICU. Evaluated by surgery, EGD completed yesterday reporting ischemic gastritis, mild distal esophagitis, biopsies obtained, NG tube placed. Tolerated procedure well. Small dark bilious output over 15 hours of approximately 200 MLS. Currently NPO, maintained on IV fluid hydration with normal saline at 150 MLS per hour. Mild diffuse abdominal pain, passing flatus. Denies chest pain, palpitations or increasing shortness of breath. Maintaining O2 sats in the 90s on room air. Chest x-ray last night reported linear infiltrate atelectasis left lung base without change. Continues on Unasyn, Diflucan. T-max 99.5, recent WBC 7, Labs pending. Blood sugars controlled. Sensorium significantly improved. 08/17/2021 transferred out of ICU yesterday. T-max 99.5, WBC of yesterday 8.7. Preliminary blood culture reporting no growth after 24 hours. Maintained on IV fluid hydration, Unasyn.Bowel movement last night. Denies abdominal pain. Abdominal x-ray reporting diffuse gaseous distention of small bowel, possible ileus . Continues to have dark bilious drainage, approximately 200 MLS overnight . Sodium 136, potassium 2.9, BUN 12, creatinine 0.91. Blood sugars controlled. Denies chest pain, palpitations or shortness of breath. Maintaining O2 sats in the 90s on room air. Significant clinical improvement. Tolerating regular diet with no nausea or vomiting. Denies abdominal pain. Morphine has been discontinued. Denies chest pain, palpitations or shortness of breath. Afebrile, normal WBC. Significant clinical improvement. Patient will be discharged to [facility] subacute rehab today in a stable condition with guarded prognosis, pending final DC recommendations as per ID. Beta patrice and Imdur dose will be resumed at d ecreased dose. The impression and plan of care has been dictated as directed. : I performed a history and examination of this patient, discussed the same with the dictator. I agree with the dictator's note ,documented as a scribe. Any additional findings or plans will be noted. Patient Condition at Discharge: Stable Plan - Discharge Summary New Discharge Prescriptions: Continue DULoxetine HCL [Cymbalta] 60 mg PO HS valACYclovir HCL [Valtrex] 500 mg PO DAILY PRN PRN Reason: SKIN ISSUES Clopidogrel Bisulfate [Plavix] 75 mg PO DAILY Ranolazine [Ranexa] 1,000 mg PO BID Famotidine 40 mg PO DAILY Glimepiride [Amaryl] 2 mg PO DAILY metFORMIN HCL [Glucophage] 1,000 mg PO BID Pregabalin [Lyrica] 150 mg PO HS Rosuvastatin Calcium 10 mg PO HS traZODone HCL [Desyrel] 200 mg PO HS PRN PRN Reason: Insomnia Insulin Glargine,Hum.rec.anlog [Lantus Solostar Pen] 30 units SQ DAILY Morphine Sulfate ER [Ms Contin] 15 mg PO TID PRN PRN Reason: Pain Ondansetron [Zofran] 4 mg PO BID PRN PRN Reason: Nausea Vitamin D3 80363 Unit Caps 50,000 unit PO Q7D Magnesium Oxide [Magox 400] 400 mg PO DAILY Temazepam [Restoril] 15 mg PO HS PRN #3 cap PRN Reason: Insomnia Escitalopram [Lexapro] 10 mg PO DAILY Metoclopramide [Reglan] 5 mg PO TID PRN PRN Reason: Nausea Semaglutide [Ozempic] 0.5 mg SQ ORTIZ Nirmatrelvir/Ritonavir [Paxlovid 2X150 mg-100 mg (Eua)] 3 cap PO DAILY PRN PRN Reason: X5 DAYS Enzalutamide [Xtandi] 160 mg PO HS Changed Metoprolol Succinate (ER) [Toprol XL] 12.5 mg PO DAILY #0 Isosorbide Mononitrate ER [Imdur] 30 mg PO DAILY #0 oxyCODONE-APAP 10-325MG [Percocet 10-325 mg] 1 tab PO BID #6 Discharge Medication List Clopidogrel Bisulfate [Plavix] 75 mg PO DAILY 05/31/17 [History] DULoxetine HCL [Cymbalta] 60 mg PO HS 05/31/17 [History] valACYclovir HCL [Valtrex] 500 mg PO DAILY PRN 05/31/17 [History] Ranolazine [Ranexa] 1,000 mg PO BID 04/14/19 [History] Famotidine 40 mg PO DAILY 05/09/20 [History] Glimepiride [Amaryl] 2 mg PO DAILY 05/09/20 [History] Pregabalin [Lyrica] 150 mg PO HS 05/09/20 [History] Rosuvastatin Calcium 10 mg PO HS 05/09/20 [History] metFORMIN HCL [Glucophage] 1,000 mg PO BID 05/09/20 [History] traZODone HCL [Desyrel] 200 mg PO HS PRN 05/10/20 [History] Enzalutamide [Xtandi] 160 mg PO HS 08/14/21 [History] Escitalopram [Lexapro] 10 mg PO DAILY 08/14/21 [History] Insulin Glargine,Hum.rec.anlog [Lantus Solostar Pen] 30 units SQ DAILY 08/14/21 [History] Magnesium Oxide [Magox 400] 400 mg PO DAILY 08/14/21 [History] Metoclopramide [Reglan] 5 mg PO TID PRN 08/14/21 [History] Morphine Sulfate ER [Ms Contin] 15 mg PO TID PRN 08/14/21 [History] Nirmatrelvir/Ritonavir [Paxlovid 2X150 mg-100 mg (Eua)] 3 cap PO DAILY PRN 08/14/21 [History] Ondansetron [Zofran] 4 mg PO BID PRN 08/14/21 [History] Semaglutide [Ozempic] 0.5 mg SQ ORTIZ 08/14/21 [History] Vitamin D3 72354 Unit Caps 50,000 unit PO Q7D 08/14/21 [History] Isosorbide Mononitrate ER [Imdur] 30 mg PO DAILY #0 08/20/21 [Rx] Metoprolol Succinate (ER) [Toprol XL] 12.5 mg PO DAILY #0 08/20/21 [Rx] Temazepam [Restoril] 15 mg PO HS PRN #3 cap 08/20/21 [Rx] oxyCODONE-APAP 10-325MG [Percocet 10-325 mg] 1 tab PO BID #6 08/20/21 [Rx] Follow up Appointment(s)/Referral(s): José Luis Valente MD [Primary Care Provider] - 1-2 days Activity/Diet/Wound Care/Special Instructions: Saman GUZMAN 10 days isolation cbc,bmp in 3 days
--- NOTE | 2021-08-20 13:39 | P.PN ---
Subjective Progress Note Date: 08/20/21 CHIEF COMPLAINT: Fall HISTORY OF PRESENT ILLNESS: Patient is sitting at bedside chair. He denies any abdominal pain. Denies any nausea or vomiting. He is tolerating regular diet. He is having bowel movements. Afebrile. No new labs. They're planning [facility]. PHYSICAL EXAM: VITAL SIGNS: Reviewed. GENERAL: Well-developed in no acute distress. HEENT: No sclera icterus. Extraocular movements grossly intact. Moist buccal mucosa. Head is atraumatic, normocephalic. ABDOMEN: Soft. Nondistended. Nontender NEUROLOGIC: Alert and oriented. Cranial nerves II through XII grossly intact. ASSESSMENT: 1. Ischemic gastritis 2. Covid 19 infection 3. Multiple falls 4. Hypokalemia and hypomagnesemia improved PLAN: -Patient is stable from surgical standpoint for discharge -Antibiotics per infectious disease -Continue regular diet Physician Vegetable Washing Machine Operator note has been reviewed by physician. Signing provider agrees with the documented findings, assessment, and plan of care. Objective - Vital Signs Vital signs: Vital Signs Temp 98.0 F 08/20/21 08:16 Pulse 57 L 08/20/21 08:16 Resp 18 08/20/21 08:16 BP 123/77 08/20/21 08:16 Pulse Ox 99 08/20/21 08:16 FiO2 Intake & Output 08/19/21 08/20/21 08/20/21 18:59 06:59 18:59 Intake Total 1080 Output Total 250 400 Balance 830 -400 Intake: Oral 1080 Output: Urine 250 400 Other: Voiding Method Urinal Urinal - Labs CBC & Chem 7: 08/19/21 05:33 08/19/21 21:35 Labs: Abnormal Lab Results - Last 24 Hours (Table) 08/19/21 08/19/21 08/20/21 Range/Units 16:31 20:01 07:13 POC Glucose (mg/dL) 131 H 151 H 141 H (70-110) mg/dL 08/20/21 Range/Units 11:28 POC Glucose (mg/dL) 215 H (70-110) mg/dL Microbiology - Last 24 Hours (Table) 08/15/21 18:30 Blood Culture - Preliminary Blood No Growth after 96 hours
[2021-08-20 13:57] VITALS: BP 164/80; PULSE 93; TEMP 97.8
[2021-08-20 14:00] VITALS: BMI 25.0
[2021-08-20] MEDS: FLUCONAZOLE IN NACL,ISO-OSM 200 MG in SALINE 1 100ML.BAG IVPB SCH (17:29)
== END 2021-08-20 17:18 | disposition home health service (06) | DRG 177 ==
LOC: EC 13:38 → OBSVTOIN 16:23 → 4SSUR 16:23 → 2SICU 08-15 16:24 → 4SSUR 08-16 22:50
PROVIDERS: ADMIT Family Medicine; ATTEND Family Medicine
PROC: 0D9670Z Drainage of Stomach with Drainage Device, Via Natural or Artificial Opening (ICD-10-PCS; 2021-08-15)
PROC: 0DB68ZX Excision of Stomach, Via Natural or Artificial Opening Endoscopic, Diagnostic (ICD-10-PCS; principal; 2021-08-15 07:30)
DX: U07.1 COVID-19 (principal); G92.8 Other toxic encephalopathy; C79.51 Secondary malignant neoplasm of bone; J98.11 Atelectasis; K56.7 Ileus, unspecified; C77.9 Secondary and unspecified malignant neoplasm of lymph node, unspecified; M79.7 Fibromyalgia; R29.6 Repeated falls; C61 Malignant neoplasm of prostate; E83.42 Hypomagnesemia; E11.42 Type 2 diabetes mellitus with diabetic polyneuropathy; Z79.4 Long term (current) use of insulin; Z79.84 Long term (current) use of oral hypoglycemic drugs; E86.0 Dehydration; E87.6 Hypokalemia; I25.10 Atherosclerotic heart disease of native coronary artery without angina pectoris; I25.2 Old myocardial infarction; I44.0 Atrioventricular block, first degree; K20.90 Esophagitis, unspecified without bleeding; K29.60 Other gastritis without bleeding; S09.90XA Unspecified injury of head, initial encounter; K31.89 Other diseases of stomach and duodenum; G89.3 Neoplasm related pain (acute) (chronic); K29.70 Gastritis, unspecified, without bleeding; S70.00XA Contusion of unspecified hip, initial encounter; Z79.02 Long term (current) use of antithrombotics/antiplatelets; Z79.82 Long term (current) use of aspirin; Z79.899 Other long term (current) drug therapy; Z86.16 Personal history of COVID-19; Z82.49 Family history of ischemic heart disease and other diseases of the circulatory system; Z85.46 Personal history of malignant neoplasm of prostate; Z86.711 Personal history of pulmonary embolism; Z86.718 Personal history of other venous thrombosis and embolism; Z87.891 Personal history of nicotine dependence; Z90.79 Acquired absence of other genital organ(s); Z95.5 Presence of coronary angioplasty implant and graft; Z98.890 Other specified postprocedural states; Z57.4 Occupational exposure to toxic agents in agriculture; Z60.2 Problems related to living alone; Z98.1 Arthrodesis status; Z91.81 History of falling
CPT/HCPCS: 36415; 43239; 70450; 71045; 71046; 72125; 73502; 74019; 74176; 80048; 80053; 81001; 82550; 83036; 83605; 83735; 84132; 84146; 84153; 84154; 84484; 85025; 85027; 85610; 85730; 86140; 87040; 88305; 88342; 93005; 94760; 96361; 96374; 99285